=== PATIENT | female | born 1945 | race Caucasian/White ===

== ENCOUNTER → 2016-08-14 | Outpatient (CLI) | payer OTHER ==
[~2016-08-14] MED LIST: APIX1TAB PO; ATRIN6 NAE; CHOL100027 PO; DOFE125C PO; FURO20TA PO; SORB70SO6
== END | disposition home or self-care (01) ==
LOC: C.LABBC 14:18
PROVIDERS: ATTEND Internal Medicine Geriatric Medicine
DX: Z11.59 Encounter for screening for other viral diseases (principal)

== ENCOUNTER → 2016-08-31 | Outpatient (CLI) | payer OTHER | END | disposition home or self-care (01) | LOC: C.PAPS 09:07 | PROVIDERS: ATTEND Obstetrics & Gynecology | DX: Z01.411 Encounter for gynecological examination (general) (routine) with abnormal findings (principal); N95.2 Postmenopausal atrophic vaginitis ==

== ENCOUNTER → 2016-10-23 | Outpatient (CLI) | payer OTHER ==
--- NOTE | 2016-10-23 09:47 | DIAGNOSTIC IMAGING REPORT ---
ULTRASOUND KIDNEYS AND BLADDER CLINICAL HISTORY: Urinary frequency. Renal cyst. COMPARISON STUDY: Abdominal MRI dated 10/19/2015. TECHNIQUE: Real-time, grayscale, and color flow sonography of the kidneys and bladder is performed. Images are reviewed in the transverse and longitudinal planes. FINDINGS: Kidneys: The kidneys demonstrate cortical atrophy an increased echotexture consistent with medical renal disease. The right kidney measures 11.6 x 5.1 x 5.0 cm and the left kidney measures 8.2 x 3.5 x 3.6 cm. There is no hydronephrosis. No shadowing renal calculi are identified. There is a 6.1 cm cyst in the interpolar right kidney which contains a thin internal septation. A subcentimeter cyst is noted in the left kidney. There is no sonographic evidence of solid renal mass. No perinephric fluid is identified. Bladder: The bladder is normal in appearance. Ureteral jets were not identified. IMPRESSION: 1. The kidneys are atrophic and echogenic consistent with medical renal disease. 2. There is no hydronephrosis. 3. The bladder is normal as imaged. 4. There is a 6.0 cm cyst in the interpolar right kidney which contains a thin internal septation. This is similar in appearance to the prior MRI. Electronically signed by: Willam Carlson M.D. 10/23/2016 9:44 AM Dictated Date/Time: 10/23/2016 9:28 AM
== END | disposition home or self-care (01) ==
LOC: C.ULTR 08:49
PROVIDERS: ATTEND Urology
DX: N28.1 Cyst of kidney, acquired (principal); R35.0 Frequency of micturition; N26.1 Atrophy of kidney (terminal)

== ENCOUNTER → 2016-11-24 | Outpatient (CLI) | payer OTHER ==
[2016-11-24 10:42] LABS: HEMATOCRIT 46.2 % (37-47); MEAN CELL VOLUME 95.1 fL (80-100); MEAN CORPUSCULAR HEMOGLOBIN 30.2 pg (25-34); MEAN CORPUSCULAR HGB CONC 31.8 g/dl (32-36); MEAN PLATELET VOLUME 11.7 fL (7.4-10.4); PLATELET COUNT 225 K/uL (130-400); RED BLOOD COUNT 4.86 M/uL (4.2-5.4); WHITE BLOOD COUNT 5.52 K/uL (4.8-10.8)
[2016-11-24 10:50] LABS: URINE TOTAL PROTEIN < 5.0 mg/dl (0-11.9)
[2016-11-24 11:03] LABS: URINE APPEARANCE CLEAR (CLEAR); URINE BILIRUBIN NEG (NEG); URINE COLOR YELLOW; URINE NITRITE NEG (NEG); URINE PH 7.5 (4.5-7.5); URINE SPECIFIC GRAVITY 1.009 (1.000-1.030); UROBILINOGEN NEG (NEG)
[2016-11-24 11:09] LABS: MANUAL MICROSCOPIC REQUIRED? NO; REVIEW REQ? NO
[2016-11-24 11:48] LABS: BLOOD UREA NITROGEN 18 mg/dl (7-18); BUN/CREATININE RATIO 12.7 (10-20); CARBON DIOXIDE 25 mmol/L (21-32); CHLORIDE 109 mmol/L (98-107); CHOLESTEROL 208 mg/dl (0-200); CHOLESTEROL/HDL RATIO 3.3; GLUCOSE 86 mg/dl (70-99); HDL CHOLESTEROL 63 mg/dl; LDL CHOLESTEROL CALCULATED 131 mg/dl; PHOSPHORUS 3.3 mg/dl (2.5-4.9); POTASSIUM 4.5 mmol/L (3.5-5.1); SODIUM 141 mmol/L (136-145); TRIGLYCERIDES 69 mg/dl (0-150); VERY LOW DENSITY LIPOPROT CALC 14 mg/dl
[2016-11-24 14:44] LABS: CALCIUM 9.2 mg/dl (8.5-10.1)
--- NOTE | 2016-11-30 09:26 | CODING QUERY MEDICAL NECESSITY ---
CQSUPPORTING DIAGNOSIS NEEDED A supporting diagnosis is required for the test/procedure performed on this patient in order for us to be reimbursed by the patient's insurance. Please provide a supporting diagnosis for the following test/procedure listed below next to the test name along with your signature. *If there is no additional diagnosis for this patient that would support the following test/procedure please document that below next to the test/procedure. Test(s)/Procedure(s) that require a supporting diagnosis: DOS 11/24/16 VITAMIN B12 TEST Provider Signature: Date: Thank you Aniya Gamino Health Information Management Once completed, please kindly fax back to [phone] For questions please call [phone]
== END | disposition home or self-care (01) ==
LOC: C.LABBC 08:58
PROVIDERS: ATTEND Internal Medicine Nephrology
DX: E55.9 Vitamin D deficiency, unspecified (principal); I12.9 Hypertensive chronic kidney disease with stage 1 through stage 4 chronic kidney disease, or unspecified chronic kidney disease; G62.9 Polyneuropathy, unspecified; N18.3 Chronic kidney disease, stage 3 (moderate); G47.30 Sleep apnea, unspecified; E78.5 Hyperlipidemia, unspecified; I48.91 Unspecified atrial fibrillation; J30.9 Allergic rhinitis, unspecified; D64.9 Anemia, unspecified

== ENCOUNTER → 2016-12-26 | Outpatient (CLI) | payer OTHER ==
--- NOTE | 2016-12-26 14:43 | MAMMOGRAPHY REPORT ---
BILATERAL DIGITAL SCREENING MAMMOGRAM WITH CAD: 12/26/2016 CLINICAL HISTORY: Routine screening. Patient has no complaints. TECHNIQUE: Bilateral CC and MLO views were obtained. Current study was also evaluated with a Compute r Aided Detection (CAD) system. COMPARISON: Comparison is made to exams dated: 12/20/2015 mammogram, 12/10/2014 mammogram, 12/09/2013 ma mmogram, 09/19/2012 mammogram, 09/18/2011 mammogram, and 08/29/2010 mammogram - [facility] er. BREAST COMPOSITION: There are scattered areas of fibroglandular density in both breasts. FINDINGS: There are bilateral punctate microcalcifications, stable compared to prior exams. Minimal vascular calcification in the breasts. No new suspicious mass, architectural distortion or cluster o f microcalcifications is seen. IMPRESSION: ACR BI-RADS CATEGORY 1: NEGATIVE There is no mammographic evidence of malignancy. A 1 year screening mammogram is recommended. The pa tient will receive written notification of the results. Approximately 10% of breast cancers are not detected with mammography. A negative mammographic report should not delay biopsy if a clinically suggestive mass is present. Corrine Stern M.D. ay/:12/26/2016 09:20:45 Patternator: Florence GOLDBERG(R)(M), [facility] letter sent: Normal 1/2 BI-RADS Code: ACR BI-RADS Category 1: Negative
== END | disposition home or self-care (01) ==
LOC: C.MAMM 07:18
PROVIDERS: ATTEND Internal Medicine Geriatric Medicine
DX: Z12.31 Encounter for screening mammogram for malignant neoplasm of breast (principal)

== ENCOUNTER → 2017-07-10 | Outpatient (CLI) | payer OTHER ==
[2017-07-10 10:58] LABS: MANUAL MICROSCOPIC REQUIRED? YES; URINE APPEARANCE CLEAR (CLEAR); URINE COLOR YELLOW; URINE NITRITE NEG (NEG); URINE PH 5.5 (4.5-7.5); UROBILINOGEN NEG (NEG)
[2017-07-10 11:05] LABS: REVIEW REQ? NO; SULFASALICYLIC ACID POS (NEG); URINE BILIRUBIN 2+ (NEG)
[2017-07-10 11:07] LABS: URINE BACTERIA NEG (NEG); URINE RBC 0-4 /hpf (0-4)
== END | disposition home or self-care (01) ==
LOC: C.LABBC 09:01
PROVIDERS: ATTEND Internal Medicine Geriatric Medicine
DX: R35.0 Frequency of micturition (principal)

== ENCOUNTER → 2017-07-24 | Outpatient (CLI) | payer OTHER ==
[2017-07-24 17:01] LABS: BASO % 1.2 %; EOS % 5.8 %; EOS ABS # 0.49 K/uL (0-0.5); HEMATOCRIT 42.7 % (37-47); HEMOGLOBIN 13.8 g/dL (12.0-16.0); IG# 0.03 K/uL (0.00-0.02); LYMPH ABS # 1.78 K/uL (1.2-3.4); MEAN CELL VOLUME 96.8 fL (80-100); MEAN CORPUSCULAR HEMOGLOBIN 31.3 pg (25-34); MEAN CORPUSCULAR HGB CONC 32.3 g/dl (32-36); MEAN PLATELET VOLUME 12.7 fL (7.4-10.4); MONO % 9.8 %; MONO ABS # 0.83 K/uL (0.11-0.59); NEUT % 61.8 %; NEUT ABS # 5.24 K/uL (1.4-6.5); PLATELET COUNT 290 K/uL (130-400); RED CELL DISTRIBUTION WIDTH CV 15.3 % (11.5-14.5); RED CELL DISTRIBUTION WIDTH SD 54.3 fL (36.4-46.3); WHITE BLOOD COUNT 8.47 K/uL (4.8-10.8)
[2017-07-24 17:18] LABS: ALBUMIN 3.4 gm/dl (3.4-5.0); ALT/SGPT 187 U/L (12-78); BLOOD UREA NITROGEN 17 mg/dl (7-18); CARBON DIOXIDE 27 mmol/L (21-32); CREATININE 1.38 mg/dl (0.60-1.20); GLUCOSE 88 mg/dl (70-99); POTASSIUM 4.4 mmol/L (3.5-5.1); SODIUM 137 mmol/L (136-145)
[2017-07-24 17:28] LABS: ALKALINE PHOSPHATASE 239 U/L (45-117); AST/SGOT 111 U/L (15-37); TOTAL PROTEIN 6.9 gm/dl (6.4-8.2)
== END | disposition home or self-care (01) ==
LOC: C.LABBC 14:22
PROVIDERS: ATTEND Internal Medicine Geriatric Medicine
DX: I10 Essential (primary) hypertension (principal); E78.5 Hyperlipidemia, unspecified; N18.3 Chronic kidney disease, stage 3 (moderate); L29.9 Pruritus, unspecified

== ENCOUNTER → 2017-07-25 | Outpatient (CLI) | payer OTHER ==
[2017-07-25 18:21] LABS: HEP C IGG 13 YRS+OLDER_RFLX NEG (NEG)
== END | disposition home or self-care (01) ==
LOC: C.LABBC 15:03
PROVIDERS: ATTEND Internal Medicine Geriatric Medicine
DX: R79.89 Other specified abnormal findings of blood chemistry (principal)

== ENCOUNTER → 2017-07-27 | Outpatient (CLI) | payer OTHER ==
--- NOTE | 2017-07-27 08:47 | DIAGNOSTIC IMAGING REPORT ---
CT OF THE ABDOMEN WITH ORAL CONTRAST CLINICAL HISTORY: Abnormal liver function tests. COMPARISON STUDY: MRI of the abdomen October 19, 2015 and renal ultrasound October 23, 2016. TECHNIQUE: Axial images of the abdomen were obtained without IV contrast. Oral contrast was administered. FINDINGS: Visualized portions lower chest demonstrate moderate cardiomegaly with moderate emphysema. Evaluation of the abdomen is suboptimal given the lack of IV contrast. However, there is no CT evidence for fatty infiltration of the liver in the liver morphology is normal. No hepatic lesions are identified on this unenhanced examination. Borderline dilatation of the common bile duct is unchanged since prior studies dating back to August 07, 2012. Common bile duct measures 7 mm in caliber. There is no intrahepatic biliary ductal dilatation. There is no pancreatic ductal dilatation. Unenhanced images of the spleen, adrenal glands and pancreas are unremarkable. A 5.7 cm water attenuation right renal lesion was shown to reflect a cyst on prior ultrasound. There is marked left renal atrophy. There is no abdominal lymphadenopathy or ascites. Caliber and wall thickness of visualized small and large bowel are normal. No suspicious osseous lesions are present. IMPRESSION: 1. No CT findings to explain elevated liver function tests on unenhanced exam. 2. No significant biliary or pancreatic ductal dilatation. Top normal caliber common bile duct which is unchanged. 3. Ectatic abdominal aorta, measuring 2.9 cm. 4. 5.7 cm right renal cyst. Left renal atrophy. Electronically signed by: Richard Grigsby M.D. 07/27/2017 8:46 AM Dictated Date/Time: 07/27/2017 8:31 AM
== END | disposition home or self-care (01) ==
LOC: C.CTS 07:43
PROVIDERS: ATTEND Internal Medicine Geriatric Medicine
DX: R79.89 Other specified abnormal findings of blood chemistry (principal); N28.1 Cyst of kidney, acquired

== ENCOUNTER → 2017-08-13 | Outpatient (CLI) | payer OTHER ==
[2017-08-13 16:56] LABS: ALBUMIN 3.6 gm/dl (3.4-5.0); ALT/SGPT 30 U/L (12-78); AST/SGOT 19 U/L (15-37); BLOOD UREA NITROGEN 16 mg/dl (7-18); CALCIUM 9.2 mg/dl (8.5-10.1); CARBON DIOXIDE 27 mmol/L (21-32); CREATININE 1.39 mg/dl (0.60-1.20); GLUCOSE 158 mg/dl (70-99); POTASSIUM 4.3 mmol/L (3.5-5.1); SODIUM 136 mmol/L (136-145)
[2017-08-13 16:59] LABS: ALKALINE PHOSPHATASE 101 U/L (45-117)
== END | disposition home or self-care (01) ==
LOC: C.LABBC 13:35
PROVIDERS: ATTEND Internal Medicine Geriatric Medicine
DX: R79.89 Other specified abnormal findings of blood chemistry (principal)

== ENCOUNTER 2017-08-21 09:18 | Emergency (ER) | payer OTHER ==
[~2017-08-21] VITALS: Ht 162.6 cm; Wt 53.0 kg
[2017-08-21 09:20] VITALS: TEMP 36.3
[2017-08-21] MEDS ORDERED: SODIUM CHLORIDE 0.9% 500ML 500 ML IV STA (09:39)
[2017-08-21 09:55] VITALS: Ht 162.6 cm; Wt 53.0 kg
--- NOTE | 2017-08-21 10:12 | EMERGENCY ROOM VISIT NOTE ---
History Report prepared by Jeanne: Brittany Carrillo Under the Supervision of: Dr. Cy Nielsen D.O. First contact with patient: 09:35 Chief Complaint: CARDIAC ASSESSMENT Stated Complaint: FAST HEART RATE Nursing Triage Summary: pt to the ED with c/o lightheadedness weakness and fast heart beat started yesterday and thinks she is in a fib hx of a fib and "Dr cardenas usually cardioverts pt" c/o pain in left arm but non now, no chest pain + SOB History of Present Illness The patient is a 72 year old female who presents to the Emergency Room with complaints of intermittent dizziness and a rapid heart beat beginning a couple days ago. She states she feels like shes has been in "a-fib for about two days" . The patient has a history of being cardioverted. Presently, she denies any chest pain or shortness of breath. The patient follows up with Dr.. Cardenas- Cardiology. She saw Dr. Cardenas a week ago and was put on a high blood pressure medication. She was last cardioverted a year ago. The patient wears a CPAP at night. She states she is going to be following up with a sleep specialist from [facility]. The patient states she had bacterial hepatitis a month ago and was put on antibiotics for it. The patient is on eliquis twice a day, Tikosyn, and Lasix. Source of History: patient Onset: a couple days ago Position: other (generalized) Quality: other (lightheadedness) Timing: constant Associated Symptoms: No chest pain, No SOB Review of Systems See HPI for pertinent positives & negatives. A total of 10 systems reviewed and were otherwise negative. Past Medical & Surgical Medical Problems: (1) ACUTE RENAL FAILURE, UNSPECIFIED (2) Atrial fibrillation (3) cervical cancer (4) Chronic obstructive lung disease (5) CONGESTIVE HEART FAILURE NOS (6) CORONARY ATHEROSCLEROSIS OF [place] CORONARY VESSEL (7) ELEVATED INR (8) Hypertension (9) IRRITABLE BOWEL SYNDROME (10) Peripheral vascular disease (11) PTOSIS OF EYELID NOS (12) TOBACCO USE DISORDER (13) Total abdominal hysterectomy with bilateral salpingo-oophorectomy (14) valvular heart disease Family History Cancer Heart disease Hypertension Social History Smoking Status: Former Smoker Alcohol Use: none Marital Status: Occupation Status: retired Current/Historical Medications Scheduled Apixaban (Eliquis), 2.5 MG PO BID Cholecalciferol (Vitamin D 1000 Unit), 1,000 INTER.UNIT PO DAILY Dofetilide (Tikosyn), 250 MCG PO BID Furosemide (Lasix), 20 MG PO Q2D Hydralazine HCl (Hydralazine HCl), 10 MG PO BID Scheduled PRN Ipratropium [place] (Ipratropium [place]), 2 SPRAYS ROSA ELENA QID PRN for Nasal Congestion Sorbitol (Laxative) (Sorbitol), for Constipation Allergies Coded Allergies: Ciprofloxacin (Verified Allergy, Severe, ANAPHYLAXIS, 08/21/17) edema face and hands Amiodarone (Verified Allergy, Mild, Wheezing, 08/21/17) Nitrofurantoin (Verified Allergy, Mild, N/V, pt also noted irregular HR, ) Bacitracin (Verified Allergy, Unknown, SWELLING AND ITCHING, 08/21/17) Dabigatran (Verified Allergy, Unknown, DIFFICULTY BREATHING, DIZZINESS, 08/21/17) PER [facility] Metoprolol (Verified Allergy, Unknown, DIFFCULTY BREATHING, DIZZINESS, 08/21) PER [facility] Milk (Verified Allergy, Unknown, Milk products, 08/21/17) Atorvastatin (Verified Adverse Reaction, Intermediate, MUSCLE PAIN, 08/21/17 ) PER [facility] Rosuvastatin (Verified Adverse Reaction, Intermediate, MUSCLE PAIN, 08/21/17 ) PER [facility] Sulfa Antibiotics (Verified Adverse Reaction, Intermediate, SWELLING OF THE ANKLES, 08/21/17) PER [facility] Physical Exam Vital Signs Date Time Temp Pulse Resp B/P (MAP) Pulse Ox O2 Delivery O2 Flow Rate FiO2 08/21/17 14:20 62 16 140/78 94 08/21/17 13:31 56 16 155/67 97 Room Air 08/21/17 13:13 58 08/21/17 13:09 61 20 143/71 97 Room Air 08/21/17 12:21 60 19 170/69 93 Room Air 08/21/17 12:03 59 21 171/85 97 Nasal Cannula 2.0 08/21/17 10:55 116 16 130/93 97 Room Air 08/21/17 09:50 115 08/21/17 09:30 97 Room Air 08/21/17 09:30 97 Room Air 08/21/17 09:20 36.3 101 18 104/76 96 Physical Exam GENERAL: Patient is awake, alert, and in no acute distress. Patient is resting comfortably and showing no signs of anxiety EYES: The conjunctivae are clear. The pupils are round and reactive. EARS, NOSE, MOUTH AND THROAT: The nose is without any evidence of any deformity. Mucous membranes are moist tongue is midline NECK: The neck is nontender and supple. RESPIRATORY: Normal respiratory effort is noted there is no evidence of wheezing rhonchi or rales CARDIOVASCULAR: Heart sounds tachycardic and irregular no definite murmur noted. GASTROINTESTINAL: The abdomen is soft. Bowel sounds are present in all quadrants. Abdomen is nontender MUSCULOSKELETAL/EXTREMITIES: There is no evidence of gross deformity full range of motion is noted in the hips and shoulders SKIN: There is no obvious evidence of any rash. There are no petechiae, pallor or cyanosis noted. NEUROLOGIC: Patient is awake alert and oriented x3 Medical Decision & Procedures ER Provider Diagnostic Interpretation: Radiology results as stated below per my review and radiologist interpretation: CHEST ONE VIEW PORTABLE FINDINGS: Mild stable cardiomegaly. Prior median sternotomy. Lungs are clear. Diaphragms are smooth. IMPRESSION: No acute process. Mild stable cardiomegaly. The above report was generated using voice recognition software. It may contain grammatical, syntax or spelling errors. Electronically signed by: Judson Hernandez M.D. Laboratory Results 08/21/17 10:20 Red Blood Count 4.90, Mean Corpuscular Volume 94.5, Mean Corpuscular Hemoglobin 31.6, Mean Corpuscular Hemoglobin Concent 33.5, Mean Platelet Volume 11.6, Neutrophils (%) (Auto) 59.3, Lymphocytes (%) (Auto) 27.1, Monocytes (%) (Auto) 9.8, Eosinophils (%) (Auto) 1.9, Basophils (%) (Auto) 1.7, Neutrophils # (Auto) 3.40, Lymphocytes # (Auto) 1.55, Monocytes # (Auto) 0.56, Eosinophils # (Auto) 0.11, Basophils # (Auto) 0.10 08/21/17 10:20 Test 08/21/17 10:20 White Blood Count 5.73 K/uL (4.8-10.8) Red Blood Count 4.90 M/uL (4.2-5.4) Hemoglobin 15.5 g/dL (12.0-16.0) Hematocrit 46.3 % (37-47) Mean Corpuscular Volume 94.5 fL (80-100) Mean Corpuscular Hemoglobin 31.6 pg (25-34) Mean Corpuscular Hemoglobin Concent 33.5 g/dl (32-36) Platelet Count 241 K/uL (130-400) Mean Platelet Volume 11.6 fL (7.4-10.4) Neutrophils (%) (Auto) 59.3 % Lymphocytes (%) (Auto) 27.1 % Monocytes (%) (Auto) 9.8 % Eosinophils (%) (Auto) 1.9 % Basophils (%) (Auto) 1.7 % Neutrophils # (Auto) 3.40 K/uL (1.4-6.5) Lymphocytes # (Auto) 1.55 K/uL (1.2-3.4) Monocytes # (Auto) 0.56 K/uL (0.11-0.59) Eosinophils # (Auto) 0.11 K/uL (0-0.5) Basophils # (Auto) 0.10 K/uL (0-0.2) RDW Standard Deviation 49.2 fL (36.4-46.3) RDW Coefficient of Variation 14.2 % (11.5-14.5) Immature Granulocyte % (Auto) 0.2 % Immature Granulocyte # (Auto) 0.01 K/uL (0.00-0.02) Prothrombin Time 11.2 SECONDS (9.0-12.0) Prothromb Time International Ratio 1.1 (0.9-1.1) Activated Partial Thromboplast Time 28.9 SECONDS (21.0-31.0) Partial Thromboplastin Ratio 1.1 Anion Gap 8.0 mmol/L (3-11) Est Creatinine Clear Calc Drug Dose 28.6 ml/min Estimated GFR () 39.5 Estimated GFR (Non- 34.1 BUN/Creatinine Ratio 8.1 (10-20) Calcium Level 9.7 mg/dl (8.5-10.1) Magnesium Level 2.3 mg/dl (1.8-2.4) Total Bilirubin 1.1 mg/dl (0.2-1) Aspartate Amino Transf (AST/SGOT) 19 U/L (15-37) Alanine Aminotransferase (ALT/SGPT) 28 U/L (12-78) Alkaline Phosphatase 102 U/L (45-117) Troponin I < 0.015 ng/ml (0-0.045) Total Protein 7.5 gm/dl (6.4-8.2) Albumin 4.1 gm/dl (3.4-5.0) Globulin 3.4 gm/dl (2.5-4.0) Albumin/Globulin Ratio 1.2 (0.9-2) Thyroid Stimulating Hormone (TSH) 1.640 uIu/ml (0.300-4.500) Laboratory results per my review. Medications Administered Medications (Trade) Dose Ordered Sig/Brenda Route Start Time Stop Time Status Last Admin Dose Admin Sodium Chloride 500 ml @ 999 mls/hr Q31M STAT IV 08/21/17 09:39 08/21/17 10:09 DC 08/21/17 09:39 999 MLS/HR ECG Indication: palpitations Rate (beats per minute): 114 Rhythm: other (Multi focal atrial tachycardia) Findings: ST depression, other (no PVC) Comparison ECG Date: 04/28/16 Change: Changes new. REPEAT EKG: sinus bradycardia 58 bpm, no ectopy, no acute ST segment abnormalities. EKGs interpreted by me. ED Course 0938: The patient was evaluated in room B12B. A complete history and physical examination were performed. 0939: Ordered NSS 500 ml @ 999 mls/hr IV 1138: I discussed the patient's case with Dr. DavisCardiology. He said to talk to Dr. Farris because he is in the ED. 1140: I updated the patient on treatment plan. 1142: I discussed the patient's case with Dr. MarioCardiology. He will come evaluate the patient. He said we can cardiovert the patient here in the ED. 1238: I updated the patient on new EKG results. 1335: Upon reevaluation, the patient is resting comfortably. I discussed the results and treatment plan with her. She verbalized agreement of the treatment plan. The patient was discharged home. Medical Decision Differential diagnosis: Etiologies such as premature contractions, electrolyte abnormality, cardiac dysrhythmia, thyroid dysfunction, pulmonary embolism, infection, gastrointestinal, as well as others were entertained. Nursing notes reviewed. The patient is a 72-year-old female who presented to the emergency department for an evaluation of palpitations. Initially she was found to be in rapid atrial fibrillation. I discussed the patient's laboratory and radiographic studies with her. She was treated with IV fluids. I discussed her case with her primary senior director as well as the covering senior director for that group. We were initially preparing to cardiovert the patient. She is on chronic anticoagulation and is had this procedure in the past and tolerated it well. While we're awaiting to do the procedure the patient converted into sinus rhythm. She was still evaluated by the senior director but did not require any further intervention. The patient was started on a different blood pressure medication by the senior director. She was encouraged to rest and avoid any straining his activity. She was also encouraged to continue all medications as prescribed and return to the emergency department immediately if symptoms change worsen or the need arises. Medication Reconcilliation Current Medication List: was personally reviewed by me Blood Pressure Screening Patient's blood pressure: Elevated blood pressure Blood pressure disposition: Referred to PCP Consults Time Called: 1133 Consulting Physician: Dr. Persaud Returned Call: 1133 I discussed the patient's case with Dr. Persaud. He said to talk to Dr. Farris because he is in the ED. Additional Consults: Time Called: 1140 Consulted Physician: Dr. Teague Returned Call: 1149 Additional Comments: I discussed the patient's case with Dr. Teague. He will come evaluate the patient. He said we can cardiovert the patient here in the ED. Impression Primary Impression: Rapid atrial fibrillation Additional Impression: Palpitations Scribe Attestation The scribe's documentation has been prepared under my direction and personally reviewed by me in its entirety. I confirm that the note above accurately reflects all work, treatment, procedures, and medical decision making performed by me. Departure Information Dispostion Home / Self-Care Prescriptions Hydralazine HCl (Hydralazine HCl) 10 Mg Tab 10 MG PO BID, #60 TABS 3 Refills Prov: Mihir Farris D.O. 08/21/17 Referrals Khadar Tutlte M.D. (PCP) Forms IMPORTANT VISIT INFORMATION Patient Instructions Atrial Fibrillation, My [facility] Additional Instructions Continue all medications as prescribed. Call your family as well as her primary senior director schedule follow-up appointment. Return to the emergency department immediately if symptoms change worsen or the need arises. Problem Qualifiers
--- NOTE | 2017-08-21 10:31 | DIAGNOSTIC IMAGING REPORT ---
CHEST ONE VIEW PORTABLE CLINICAL HISTORY: EVALUATE RESPIRATORY DISTRESS.DYSPNEA dyspnea COMPARISON STUDY: 04/07/2016 FINDINGS: Mild stable cardiomegaly. Prior median sternotomy. Lungs are clear. Diaphragms are smooth. IMPRESSION: No acute process. Mild stable cardiomegaly. The above report was generated using voice recognition software. It may contain grammatical, syntax or spelling errors. Electronically signed by: Judson Hernandez M.D. 08/21/2017 10:30 AM Dictated Date/Time: 08/21/2017 10:29 AM
[2017-08-21 10:59] LABS: BASO % 1.7 %; EOS % 1.9 %; EOS ABS # 0.11 K/uL (0-0.5); HEMATOCRIT 46.3 % (37-47); HEMOGLOBIN 15.5 g/dL (12.0-16.0); IG# 0.01 K/uL (0.00-0.02); LYMPH % 27.1 %; LYMPH ABS # 1.55 K/uL (1.2-3.4); MEAN CELL VOLUME 94.5 fL (80-100); MEAN CORPUSCULAR HEMOGLOBIN 31.6 pg (25-34); MEAN CORPUSCULAR HGB CONC 33.5 g/dl (32-36); MEAN PLATELET VOLUME 11.6 fL (7.4-10.4); MONO % 9.8 %; MONO ABS # 0.56 K/uL (0.11-0.59); NEUT % 59.3 %; PLATELET COUNT 241 K/uL (130-400); RED CELL DISTRIBUTION WIDTH CV 14.2 % (11.5-14.5); RED CELL DISTRIBUTION WIDTH SD 49.2 fL (36.4-46.3); WHITE BLOOD COUNT 5.73 K/uL (4.8-10.8)
[2017-08-21 11:07] LABS: ALBUMIN 4.1 gm/dl (3.4-5.0); ALT/SGPT 28 U/L (12-78); BLOOD UREA NITROGEN 12 mg/dl (7-18); CALCIUM 9.7 mg/dl (8.5-10.1); CARBON DIOXIDE 26 mmol/L (21-32); CREATININE 1.53 mg/dl (0.60-1.20); GLUCOSE 77 mg/dl (70-99); POTASSIUM 3.7 mmol/L (3.5-5.1); SODIUM 139 mmol/L (136-145)
[2017-08-21 11:08] LABS: INR 1.1 (0.9-1.1); PTT PATIENT 28.9 SECONDS (21.0-31.0)
[2017-08-21] MEDS ORDERED: FURO-85 PO (11:10)
[2017-08-21 11:18] LABS: ALKALINE PHOSPHATASE 102 U/L (45-117); AST/SGOT 19 U/L (15-37); TOTAL PROTEIN 7.5 gm/dl (6.4-8.2)
[2017-08-21] MEDS ORDERED: PROPOFOL IV EMULSION 10 MG/ML 100 ML VIAL IV PRN (12:00)
[2017-08-21 12:03] VITALS: BP 171/85; PULSE 59; O2SAT 97
[2017-08-21] MEDS ORDERED: HYDR-2977 PO (13:49)
--- NOTE | 2017-08-21 14:08 | Cardiology Consultation ---
Cardiology Consultation Date of Consultation: Aug 21, 2017 History of Present Illness Lori Dasilva is a 72 year old female seen in cardiology consultation per the request of Dr. Nielsen for evaluation of atrial fibrillation and hypertension. The patient has a history of recurrent symptomatic paroxysmal atrial fibrillation. She presented to the emergency room earlier this morning complaining of acute onset of palpitations that she noted when she woke up from sleeping. Also she notes that she has recently had elevated blood pressure. She had recently discussed this with Dr. Cardenas, her primary pig farmer, and a new blood pressure medication was added. She was placed on a alpha-enrique due to intolerances of multiple past medications. She states that after taking the medication for 2 days she did not tolerate it due to several vague nonspecific complaints. She is very concerned about her blood pressure. She has a lot of stress at home. Her was just released from the hospital after having been hospitalized for an acute illness over the last few days. On arrival to the hospital emergency room this morning she is known to have atrial fibrillation with elevated ventricular rate. Chest x-ray and blood work were within normal limits. She has not missed any recent doses of her Eliquis or Tikosyn. I discussed the case with Dr. Nielsen by telephone and we had agreed to keep her nothing by mouth and to proceed with direct-current cardioversion. However by the time I arrived to the emergency room, it was noted that she had spontaneously converted back to sinus rhythm at 11:47 AM. Currently telemetry reveals sinus rhythm in the range of 58-65 bpm with occasional premature atrial contractions. A repeat EKG performed while she was in sinus rhythm on 08/21/17 at 12:12 PM reveals sinus bradycardia 50 bpm with occasional PACs and nonspecific ST abnormality unchanged compared to prior. Past Medical/Surgical History Problem List: Medical Problems: (1) ACUTE RENAL FAILURE, UNSPECIFIED (2) Atrial fibrillation (3) cervical cancer (4) Chronic obstructive lung disease (5) CONGESTIVE HEART FAILURE NOS (6) CORONARY ATHEROSCLEROSIS OF [place] CORONARY VESSEL (7) ELEVATED INR (8) Hypertension (9) IRRITABLE BOWEL SYNDROME (10) Peripheral vascular disease (11) PTOSIS OF EYELID NOS (12) TOBACCO USE DISORDER (13) Total abdominal hysterectomy with bilateral salpingo-oophorectomy (14) valvular heart disease History Past Medical History: 1. History of paroxysmal atrial fibrillation with past unsuccessful rhythm control strategy utilizing sotalol prompting admission and transition to Tikosyn therapy in April 2016. Chronic obstructive lung disease with amiodarone-induced worsening lung disease 3. History of redo frequency oblation of atrial fibrillation in September 2013 with incomplete response, and procedures compensated by atrial perforation with acute And not requiring surgical repair 4. Stage III chronic kidney disease 5. Hypertension 6. Cardiac catheterization in 2010 without obstructive disease 7. Atherosclerotic peripheral vascular disease status post right iliac artery stenting in 2004 Past Surgical History: Surgical history as noted above Social History: Patient is a nonsmoker since 2011. Lives with her Family History: History of coronary artery disease in her father Review Of Systems See above for pertinent positives & negatives. A total of 10 systems reviewed and were otherwise negative. Allergies Coded Allergies: Ciprofloxacin (Verified Allergy, Severe, ANAPHYLAXIS, 08/21/17) edema face and hands Amiodarone (Verified Allergy, Mild, Wheezing, 08/21/17) Nitrofurantoin (Verified Allergy, Mild, N/V, pt also noted irregular HR, ) Bacitracin (Verified Allergy, Unknown, SWELLING AND ITCHING, 08/21/17) Dabigatran (Verified Allergy, Unknown, DIFFICULTY BREATHING, DIZZINESS, 08/21/17) [facility] Metoprolol (Verified Allergy, Unknown, DIFFCULTY BREATHING, DIZZINESS, 08/21) PER [facility] Milk (Verified Allergy, Unknown, Milk products, 08/21/17) Atorvastatin (Verified Adverse Reaction, Intermediate, MUSCLE PAIN, 08/21/17 ) [facility] Rosuvastatin (Verified Adverse Reaction, Intermediate, MUSCLE PAIN, 08/21/17 ) [facility] Sulfa Antibiotics (Verified Adverse Reaction, Intermediate, SWELLING OF THE ANKLES, 08/21/17) [facility] Medications Reported Home Medications Medications Dose Route/Sig Max Daily Dose Days Date Category Hydralazine HCl 10 Mg Tab 10 Mg PO BID 08/21/17 Rx Lasix (Furosemide) 20 Mg Tab 20 Mg PO Q2D 08/21/17 Reported Tikosyn (Dofetilide) 125 Mcg Cap 250 Mcg PO BID 04/28/16 Rx Ipratropium [place] 75 Sprays/15 Ml [place] 2 Sprays ROSA ELENA QID PRN 12/16/15 Reported Eliquis (Apixaban) 2.5 Mg Tab 2.5 Mg PO BID 12/16/15 Reported Sorbitol (Sorbitol (Laxative)) 70 % Silva PRN 04/09/14 Reported Vitamin D 1000 Unit (Cholecalciferol) 1,000 Unit Cap 1,000 Inter.unit PO DAILY 12/27/11 Reported Physical Exam Vital Signs (Last 8hrs): Last 8 Hrs Date Time Temp Pulse Resp B/P (MAP) Pulse Ox O2 Delivery O2 Flow Rate FiO2 08/21/17 13:31 56 16 155/67 97 Room Air 08/21/17 13:13 58 08/21/17 13:09 61 20 143/71 97 Room Air 08/21/17 12:21 60 19 170/69 93 Room Air 08/21/17 12:03 59 21 171/85 97 Nasal Cannula 2.0 08/21/17 10:55 116 16 130/93 97 Room Air 08/21/17 09:50 115 08/21/17 09:30 97 Room Air 08/21/17 09:30 97 Room Air 08/21/17 09:20 36.3 101 18 104/76 96 General Appearance: Alert and Oriented x3. NAD. Head: Normocephalic Atraumatic. Eyes: PERRLA, EOMI, conjunctiva and sclera clear Neck: Supple. No carotid bruits noted. No JVD. No HJD. Respiratory: Breath sounds clear to auscultation bilaterally. No w/r/r. Cardiovascular: Reg rate and rhythm. S1 and S2 noted. No murmurs, rubs, gallops. PMI non displace. Abdomen: Normal bowel sounds, soft nontender. no abdominal bruits. Extremities: No edema, no clubbing or cyanosis. distal pulses 2/4 bilaterally. Neuro: No focal deficits. Psychiatric: Normal affect. Data Last 24 Hours Test 08/21/17 10:20 White Blood Count 5.73 K/uL Red Blood Count 4.90 M/uL Hemoglobin 15.5 g/dL Hematocrit 46.3 % Mean Corpuscular Volume 94.5 fL Mean Corpuscular Hemoglobin 31.6 pg Mean Corpuscular Hemoglobin Concent 33.5 g/dl Platelet Count 241 K/uL Mean Platelet Volume 11.6 fL Neutrophils (%) (Auto) 59.3 % Lymphocytes (%) (Auto) 27.1 % Monocytes (%) (Auto) 9.8 % Eosinophils (%) (Auto) 1.9 % Basophils (%) (Auto) 1.7 % Neutrophils # (Auto) 3.40 K/uL Lymphocytes # (Auto) 1.55 K/uL Monocytes # (Auto) 0.56 K/uL Eosinophils # (Auto) 0.11 K/uL Basophils # (Auto) 0.10 K/uL RDW Standard Deviation 49.2 fL RDW Coefficient of Variation 14.2 % Immature Granulocyte % (Auto) 0.2 % Immature Granulocyte # (Auto) 0.01 K/uL Prothrombin Time 11.2 SECONDS Prothromb Time International Ratio 1.1 Activated Partial Thromboplast Time 28.9 SECONDS Partial Thromboplastin Ratio 1.1 Sodium Level 139 mmol/L Potassium Level 3.7 mmol/L Chloride Level 105 mmol/L Carbon Dioxide Level 26 mmol/L Anion Gap 8.0 mmol/L Blood Urea Nitrogen 12 mg/dl Creatinine 1.53 mg/dl Est Creatinine Clear Calc Drug Dose 28.6 ml/min Estimated GFR () 39.5 Estimated GFR (Non- 34.1 BUN/Creatinine Ratio 8.1 Random Glucose 77 mg/dl Calcium Level 9.7 mg/dl Magnesium Level 2.3 mg/dl Total Bilirubin 1.1 mg/dl Aspartate Amino Transf (AST/SGOT) 19 U/L Alanine Aminotransferase (ALT/SGPT) 28 U/L Alkaline Phosphatase 102 U/L Troponin I < 0.015 ng/ml Total Protein 7.5 gm/dl Albumin 4.1 gm/dl Globulin 3.4 gm/dl Albumin/Globulin Ratio 1.2 Thyroid Stimulating Hormone (TSH) 1.640 uIu/ml EKG and telemetry findings as noted above in history of present illness Assessment & Plan Impression: 72-year-old female 1. Recurrent paroxysmal atrial fibrillation, presented with A. fib RVR, spontaneously converted to sinus rhythm 11:47 AM as documented on telemetry, with stable post conversion EKG findings. 2. History of hypertension, intolerance to multiple medications Recommendations: The patient is to continue her Eliqus for stroke prophylaxis as well as Tikosyn. The doses of these medications have been adjusted appropriately for her kidney function and should continue her chronic doses. She is very concerned about her blood pressure. She has been on multiple medications for blood pressure with past intolerances. I discussed her blood pressure with her primary pig farmer, Dr. Cardenas, by telephone who reviewed her chart and we agreed to proceed with a trial of hydralazine 10 mg by mouth twice a day. This is not atypical first line hypertension medication, and of course typically it is best utilized as a 3 times per day or 4 times per day medication, however given her past intolerances to multiple medications will start with low-dose and only administer 2 times per day until we establish tolerance. She should keep her outpatient appointment scheduled. A paper prescription for 30 day supply of hydralazine with 3 refills was provide by the undersigned and handed to the patient.
[2017-08-21 14:20] VITALS: BP 140/78; PULSE 62; O2SAT 94
== END 2017-08-21 14:20 | disposition home or self-care (01) ==
LOC: C.EDB 09:19
DX: I48.91 Unspecified atrial fibrillation (principal); R00.2 Palpitations; R00.0 Tachycardia, unspecified; J44.9 Chronic obstructive pulmonary disease, unspecified; I50.9 Heart failure, unspecified; I11.0 Hypertensive heart disease with heart failure; I25.10 Atherosclerotic heart disease of native coronary artery without angina pectoris; I73.9 Peripheral vascular disease, unspecified; I38 Endocarditis, valve unspecified; Z87.891 Personal history of nicotine dependence; Z79.02 Long term (current) use of antithrombotics/antiplatelets; Z99.89 Dependence on other enabling machines and devices; Z88.1 Allergy status to other antibiotic agents; Z88.8 Allergy status to other drugs, medicaments and biological substances; Z91.011 Allergy to milk products; Z88.2 Allergy status to sulfonamides; Z82.49 Family history of ischemic heart disease and other diseases of the circulatory system

== ENCOUNTER 2017-09-24 13:06 | Inpatient (IN) | payer OTHER ==
[~2017-09-24] VITALS: Ht 157.5 cm; Wt 54.7 kg
[~2017-09-24 13:06] MED LIST changes: -APIX1TAB PO; -ATRIN6 NAE; +FURO-85 PO; -FURO20TA PO; +HYDR-2977 PO; -SORB70SO6
[2017-09-24] MEDS ORDERED: SODIUM CHLORIDE 0.9% 500ML 500 ML IV STA (13:50)
--- NOTE | 2017-09-24 13:52 | EMERGENCY ROOM VISIT NOTE ---
History Report prepared by Jeanne: Trey Garcia Under the Supervision of: Dr. Cy Nielsen D.O. First contact with patient: 13:31 Chief Complaint: CARDIAC ASSESSMENT Stated Complaint: SHORT OF BREATH, LIGHT HEADED, DIZZY History of Present Illness The patient is a 72 year old female who presents to the Emergency Room with complaints of persistent dizziness that began one hour ago. She went to the grocery store and became dizzy. She states that she felt like she was going to pass out, though she grabbed hold of the cart and did not pass out. She denies any falls or head injures. She states that she felt lightheaded last night. She notes waking up with sweating this morning. She notes diarrhea and leg swelling up to her knees. She denies any fevers. She states that she has been eating and drinking well. She has a history of atrial fibrillation. She takes Eliquis and Lasix. Her primary mechanic's assistant is Dr. Cardenas. She notes the last time she was seen by her mechanic's assistant was in July 2017. She states this was the last time she had atrial fibrillation. She has a history of bacterial hepatitis two months ago. She has taken her medications today, with the exception of the Lasix. Source of History: patient Onset: one hour ago Position: other (global) Quality: other (dizziness) Timing: other (persistent) Associated Symptoms: + diaphoresis, + diarrhea, No fevers Note: Notes lightheadedness and bilateral leg swelling. She denies any head injuries or falls. Review of Systems See HPI for pertinent positives & negatives. A total of 10 systems reviewed and were otherwise negative. Past Medical & Surgical Medical Problems: (1) ACUTE RENAL FAILURE, UNSPECIFIED (2) Atrial fibrillation (3) Atrial fibrillation with RVR (4) cervical cancer (5) Chronic obstructive lung disease (6) Chronic renal disease (7) Congestive heart failure (8) CONGESTIVE HEART FAILURE NOS (9) CORONARY ATHEROSCLEROSIS OF [place] CORONARY VESSEL (10) Diarrhea (11) ELEVATED INR (12) Hypertension (13) Hypoxia (14) IRRITABLE BOWEL SYNDROME (15) Peripheral vascular disease (16) PTOSIS OF EYELID NOS (17) TOBACCO USE DISORDER (18) Total abdominal hysterectomy with bilateral salpingo-oophorectomy (19) valvular heart disease Family History Cancer Heart disease Hypertension Social History Smoking Status: Former Smoker Smokeless Tobacco Use: No Alcohol Use: none Drug Use: none Marital Status: Housing Status: lives with family Occupation Status: retired Current/Historical Medications Scheduled Apixaban (Eliquis), 2.5 MG PO BID Cholecalciferol (Vitamin D 1000 Unit), 1,000 INTER.UNIT PO DAILY Dofetilide (Tikosyn), 250 MCG PO BID Furosemide (Lasix), 20 MG PO Q2D Hydralazine Hcl (Apresoline), 10 MG PO BID Scheduled PRN Ipratropium [place] (Ipratropium [place]), 2 SPRAYS ROSA ELENA QID PRN for Nasal Congestion Sorbitol (Laxative) (Sorbitol), for Constipation Allergies Coded Allergies: Ciprofloxacin (Verified Allergy, Severe, ANAPHYLAXIS, 09/24/17) edema face and hands Amiodarone (Verified Allergy, Mild, Wheezing, 09/24/17) Nitrofurantoin (Verified Allergy, Mild, N/V, pt also noted irregular HR, ) Bacitracin (Verified Allergy, Unknown, SWELLING AND ITCHING, 09/24/17) Dabigatran (Verified Allergy, Unknown, DIFFICULTY BREATHING, DIZZINESS, 07/02) [facility] Metoprolol (Verified Allergy, Unknown, DIFFCULTY BREATHING, DIZZINESS, 07/02) [facility] Milk (Verified Allergy, Unknown, Milk products, 09/24/17) Terazosin (Unverified Allergy, Unknown, dizzy and lightheaded, 09/24/17) Atorvastatin (Verified Adverse Reaction, Intermediate, MUSCLE PAIN, ) [facility] Rosuvastatin (Verified Adverse Reaction, Intermediate, MUSCLE PAIN, ) [facility] Sulfa Antibiotics (Verified Adverse Reaction, Intermediate, SWELLING OF THE ANKLES, 09/24/17) [facility] Physical Exam Vital Signs Date Time Temp Pulse Resp B/P (MAP) Pulse Ox O2 Delivery O2 Flow Rate FiO2 09/24/17 18:09 99 09/24/17 17:40 120 18 136/93 95 Room Air 09/24/17 17:30 116 17 152/92 98 Room Air 09/24/17 17:22 159/118 98 Room Air 09/24/17 17:01 154/107 97 Room Air 09/24/17 16:31 20 154/95 97 Room Air 09/24/17 16:05 125 17 143/96 98 Room Air 09/24/17 14:30 114 21 146/98 95 Room Air 09/24/17 14:17 97 Room Air 09/24/17 14:00 105 24 136/99 94 Room Air 09/24/17 13:50 Room Air 09/24/17 13:44 127 09/24/17 13:39 100 Room Air 09/24/17 13:24 36.9 125 20 146/97 99 Room Air Physical Exam GENERAL: Patient is awake, alert, and in no acute distress. Patient is resting comfortably and showing no signs of anxiety EYES: The conjunctivae are clear. The pupils are round and reactive. EARS, NOSE, MOUTH AND THROAT: The nose is without any evidence of any deformity. Mucous membranes are moist tongue is midline NECK: The neck is nontender and supple. RESPIRATORY: Normal respiratory effort is noted there is no evidence of wheezing rhonchi or rales CARDIOVASCULAR: Tachycardic rate and irregular rhythm noted, no definite murmur noted to auscultation. GASTROINTESTINAL: The abdomen is soft. Bowel sounds are present in all quadrants. Abdomen is nontender MUSCULOSKELETAL/EXTREMITIES: There is no evidence of gross deformity full range of motion is noted in the hips and shoulders SKIN: Trace pedal edema bilaterally. NEUROLOGIC: Patient is awake alert and oriented x3. Medical Decision & Procedures ER Provider Diagnostic Interpretation: Radiology results as stated below per my review and radiologist interpretation: CHEST ONE VIEW PORTABLE CLINICAL HISTORY: EVALUATE RESPIRATORY DISTRESS.DYSPNEA COMPARISON STUDY: Chest radiograph August 21, 2017. FINDINGS: There are median sternotomy wires. No pneumothorax or pleural effusion is noted. There is no consolidation or evidence for pulmonary edema. The appearance of the chest is unchanged. Moderate cardiomegaly is unchanged. IMPRESSION: No acute cardiopulmonary findings. Electronically signed by: Richard Grigsby M.D. 09/24/2017 2:41 PM Dictated Date/Time: 09/24/2017 2:41 PM Laboratory Results 09/24/17 13:35 Red Blood Count 4.87, Mean Corpuscular Volume 93.4, Mean Corpuscular Hemoglobin 31.2, Mean Corpuscular Hemoglobin Concent 33.4, Mean Platelet Volume 11.3, Neutrophils (%) (Auto) 64.0, Lymphocytes (%) (Auto) 25.1, Monocytes (%) (Auto) 7.7, Eosinophils (%) (Auto) 1.7, Basophils (%) (Auto) 1.1, Neutrophils # (Auto) 4.46, Lymphocytes # (Auto) 1.75, Monocytes # (Auto) 0.54, Eosinophils # (Auto) 0.12, Basophils # (Auto) 0.08 09/24/17 14:22 Test 09/24/17 13:35 09/24/17 14:22 09/24/17 15:20 White Blood Count 6.98 K/uL (4.8-10.8) Red Blood Count 4.87 M/uL (4.2-5.4) Hemoglobin 15.2 g/dL (12.0-16.0) Hematocrit 45.5 % (37-47) Mean Corpuscular Volume 93.4 fL (80-100) Mean Corpuscular Hemoglobin 31.2 pg (25-34) Mean Corpuscular Hemoglobin Concent 33.4 g/dl (32-36) Platelet Count 256 K/uL (130-400) Mean Platelet Volume 11.3 fL (7.4-10.4) Neutrophils (%) (Auto) 64.0 % Lymphocytes (%) (Auto) 25.1 % Monocytes (%) (Auto) 7.7 % Eosinophils (%) (Auto) 1.7 % Basophils (%) (Auto) 1.1 % Neutrophils # (Auto) 4.46 K/uL (1.4-6.5) Lymphocytes # (Auto) 1.75 K/uL (1.2-3.4) Monocytes # (Auto) 0.54 K/uL (0.11-0.59) Eosinophils # (Auto) 0.12 K/uL (0-0.5) Basophils # (Auto) 0.08 K/uL (0-0.2) RDW Standard Deviation 46.3 fL (36.4-46.3) RDW Coefficient of Variation 13.5 % (11.5-14.5) Immature Granulocyte % (Auto) 0.4 % Immature Granulocyte # (Auto) 0.03 K/uL (0.00-0.02) Prothrombin Time 11.0 SECONDS (9.0-12.0) Prothromb Time International Ratio 1.0 (0.9-1.1) Activated Partial Thromboplast Time 30.6 SECONDS (21.0-31.0) Partial Thromboplastin Ratio 1.2 Anion Gap 8.0 mmol/L (3-11) Est Creatinine Clear Calc Drug Dose 29.4 ml/min Estimated GFR () 41.5 Estimated GFR (Non- 35.8 BUN/Creatinine Ratio 12.8 (10-20) Calcium Level 9.2 mg/dl (8.5-10.1) Magnesium Level 2.3 mg/dl (1.8-2.4) Total Bilirubin 0.6 mg/dl (0.2-1) Aspartate Amino Transf (AST/SGOT) 17 U/L (15-37) Alanine Aminotransferase (ALT/SGPT) 30 U/L (12-78) Alkaline Phosphatase 87 U/L (45-117) Troponin I < 0.015 ng/ml (0-0.045) Total Protein 6.9 gm/dl (6.4-8.2) Albumin 3.8 gm/dl (3.4-5.0) Globulin 3.1 gm/dl (2.5-4.0) Albumin/Globulin Ratio 1.2 (0.9-2) Thyroid Stimulating Hormone (TSH) 2.030 uIu/ml (0.300-4.500) Free Thyroxine 1.02 ng/dl (0.80-1.60) Urine Color YELLOW Urine Appearance CLEAR (CLEAR) Urine pH 8.0 (4.5-7.5) Urine Specific [place] 1.005 (1.000-1.030) Urine Protein NEG (NEG) Urine Glucose (UA) NEG (NEG) Urine Ketones NEG (NEG) Urine Occult Blood NEG (NEG) Urine Nitrite NEG (NEG) Urine Bilirubin NEG (NEG) Urine Urobilinogen NEG (NEG) Urine Leukocyte Esterase NEG (NEG) Laboratory results per my review. Medications Administered Medications (Trade) Dose Ordered Sig/Brenda Route Start Time Stop Time Status Last Admin Dose Admin Sodium Chloride 500 ml @ 999 mls/hr Q31M STAT IV 09/24/17 13:50 09/24/17 14:20 DC 09/24/17 14:02 999 MLS/HR Diltiazem HCl 125 mg/Dextrose 125 ml @ 0 mls/hr Q0M PRN IV 09/24/17 17:15 4/11/18 17:14 09/24/17 17:25 2.5 MLS/HR Dofetilide (Tikosyn) 250 mcg NOW ONCE PO 09/24/17 17:15 09/24/17 17:16 DC 09/24/17 17:25 250 MCG Sodium Chloride 1,000 ml @ 999 mls/hr Q1H1M STAT IV 09/24/17 18:19 09/24/17 19:19 DC 09/24/17 18:25 999 MLS/HR ECG Per My Interpretation Indication: weakness Rate (beats per minute): 109 Rhythm: atrial fibrillation Findings: ST depression (diffuse), no ectopy (No PVCs) Change: no significant change (when compared to 08/21/2015) ED Course 1347: The patient was evaluated in room C8. A complete history and physical examination were performed. 1350: Ordered NSS 1,000 ml @ 999 mls/hr IV 1543: I reassessed the patient at this time. I updated the patient. 1547: I spoke with Armen Chi mechanic's assistant. We discussed the patient's case. The patient will be further evaluated. 1654: I spoke with Armen Chi mechanic's assistant. We discussed the patient's case. He recommends Tikosyn and Cardizem. 1700: I I reassessed the patient at this time. I informed her of the treatment plan. 1715: Ordered Tikosyn 250 mcg PO, Diltiazem HCl 125 mg/Dextrose 125 ml @ 0 mls/ hr IV, and Cardizem 5 mg IV 1817: I spoke with Armen Chi mechanic's assistant. He wants to further evaluate the patient. 1820: The patient was signed out to Dr. Mcfarlnae at shift change. Medical Decision Prior records/ancillary studies reviewed. Triage Nursing notes reviewed. The patient's history was concerning for palpitations. Differential diagnosis: Etiologies such as premature contractions, electrolyte abnormality, cardiac dysrhythmia, thyroid dysfunction, pulmonary embolism, infection, gastrointestinal, as well as others were entertained. The patient is a 72-year-old female who has a history of paroxysmal atrial fibrillation. She was seen in our facility recently for similar complaints but had a chemical conversion into sinus rhythm. At that time she was started on a new blood pressure medicine by the mechanic's assistant, hydralazine. The patient states that she has been compliant with her medications. She was treated with IV fluids in the emergency department. I discussed her case with the on-call Armen mechanic's assistant. He has recommended that we start the patient on a Cardizem drip and give her her evening dose of Tikosyn. She remains in atrial fibrillation at this time. I discussed her case again with the on-call [facility] mechanic's assistant. He is recommended to further observation the emergency department and if no improvement of her dysrhythmia occurs and likely she will require admission because of the degree of her symptoms at this time. The patient was signed out to Dr. Mcfarlane at change of shift. Please see his note for continuation of care. Medication Reconcilliation Current Medication List: was personally reviewed by me Blood Pressure Screening Patient's blood pressure: Elevated blood pressure Blood pressure disposition: Elevated BP felt to be situational Consults Time Called: 1537 Consulting Physician: Armen Chi mechanic's assistant Returned Call: 1547 I spoke with Armen Chi mechanic's assistant. We discussed the patient's case. The patient will be further evaluated. 165: I spoke with Armen Chi mechanic's assistant. We discussed the patient's case. He recommends Tikosyn and Cardizem. 1816: I spoke with Armen Chi mechanic's assistant. He wants to further evaluate the patient. Impression Primary Impression: Atrial fibrillation with rapid ventricular response Additional Impressions: Near syncope Dizziness Critical Care I have personally spent greater than 40 minutes of critical care time in the direct management of this patient. This includes bedside care, interpretation of diagnostic studies, and testing, discussion with consultants, patient, and family members, and other required patient management activities. This 40 minutes is in excess of all separately billable procedures. Scribe Attestation The scribe's documentation has been prepared under my direction and personally reviewed by me in its entirety. I confirm that the note above accurately reflects all work, treatment, procedures, and medical decision making performed by me. Departure Information Dispostion Still a Patient Referrals Khadar Tuttle M.D. (PCP) Patient Instructions [facility] Problem Qualifiers
[2017-09-24 14:11] LABS: BASO % 1.1 %; BASO ABS # 0.08 K/uL (0-0.2); EOS % 1.7 %; EOS ABS # 0.12 K/uL (0-0.5); HEMATOCRIT 45.5 % (37-47); HEMOGLOBIN 15.2 g/dL (12.0-16.0); IG# 0.03 K/uL (0.00-0.02); LYMPH % 25.1 %; LYMPH ABS # 1.75 K/uL (1.2-3.4); MEAN CELL VOLUME 93.4 fL (80-100); MEAN CORPUSCULAR HEMOGLOBIN 31.2 pg (25-34); MEAN CORPUSCULAR HGB CONC 33.4 g/dl (32-36); MEAN PLATELET VOLUME 11.3 fL (7.4-10.4); MONO % 7.7 %; MONO ABS # 0.54 K/uL (0.11-0.59); NEUT ABS # 4.46 K/uL (1.4-6.5); PLATELET COUNT 256 K/uL (130-400); RED CELL DISTRIBUTION WIDTH CV 13.5 % (11.5-14.5); RED CELL DISTRIBUTION WIDTH SD 46.3 fL (36.4-46.3); WHITE BLOOD COUNT 6.98 K/uL (4.8-10.8)
[2017-09-24] MEDS ORDERED: HYDR-4715 PO (14:21)
--- NOTE | 2017-09-24 14:43 | DIAGNOSTIC IMAGING REPORT ---
CHEST ONE VIEW PORTABLE CLINICAL HISTORY: EVALUATE RESPIRATORY DISTRESS.DYSPNEA COMPARISON STUDY: Chest radiograph August 21, 2017. FINDINGS: There are median sternotomy wires. No pneumothorax or pleural effusion is noted. There is no consolidation or evidence for pulmonary edema. The appearance of the chest is unchanged. Moderate cardiomegaly is unchanged. IMPRESSION: No acute cardiopulmonary findings. Electronically signed by: Richard Grigsby M.D. 09/24/2017 2:41 PM Dictated Date/Time: 09/24/2017 2:41 PM
[2017-09-24 14:53] LABS: PTT PATIENT 30.6 SECONDS (21.0-31.0)
[2017-09-24] MEDS ORDERED: SORB70SO6 PO (14:55)
[2017-09-24 15:10] LABS: ALBUMIN 3.8 gm/dl (3.4-5.0); ALT/SGPT 30 U/L (12-78); BLOOD UREA NITROGEN 19 mg/dl (7-18); CALCIUM 9.2 mg/dl (8.5-10.1); CARBON DIOXIDE 25 mmol/L (21-32); CREATININE 1.47 mg/dl (0.60-1.20); GLUCOSE 88 mg/dl (70-99); POTASSIUM 4.2 mmol/L (3.5-5.1); SODIUM 136 mmol/L (136-145)
[2017-09-24 15:15] LABS: ALKALINE PHOSPHATASE 87 U/L (45-117); AST/SGOT 17 U/L (15-37); TOTAL PROTEIN 6.9 gm/dl (6.4-8.2)
[2017-09-24] MEDS ORDERED: APIX1TAB PO (16:49)
[2017-09-24] MEDS ORDERED: ATRIN6 NAE (16:49)
[2017-09-24] MEDS ORDERED: DILTIAZEM BOLUS / DRIP IV STA (16:57)
[2017-09-24] MEDS ORDERED: DOFETILIDE 125 MCG CAP PO ONE (17:15)
[2017-09-24] MEDS ORDERED: DILTIAZEM HCL 5 MG/ML 5 ML VIAL BOLUS/OMNI IV SCH (17:15)
[2017-09-24] MEDS: DILTIAZEM HCL INJ 125 MG in DEXTROSE 5% 100ML IV PRN (17:25)
[2017-09-24] MEDS ORDERED: SODIUM CHLORIDE 0.9% 1000ML 1,000 ML IV STA (18:19)
[2017-09-24] MEDS ORDERED: MAGNESIUM HYDROXIDE SUSP 30 ML UDC PO PRN (21:00)
[2017-09-24] MEDS ORDERED: ALUMINUM/MAGNESIUM/SIMETH (MAALOX MAX) 30 ML UDC PO PRN (21:00)
[2017-09-24] MEDS ORDERED: POLYETHYLENE (MIRALAX) 17 GM PACK PO PRN (21:00)
[2017-09-24] MEDS ORDERED: ONDANSETRON INJ 2 MG/ML 2 ML VIAL IV PRN (21:00)
[2017-09-24] MEDS ORDERED: ACETAMINOPHEN 325 MG TAB PO PRN (21:00)
[2017-09-24] MEDS ORDERED: MoRPHine SULFATE 2 MG/ML CARP IV PRN (21:00)
--- NOTE | 2017-09-24 21:09 | EMERGENCY ROOM VISIT NOTE ---
ED Visit Note The patient was signed out to me awaiting to see if the patient would spontaneously cardioverted into a normal rhythm after receiving the medication recommended by Dr. Fonseca. The patient is currently on a Cardizem drip. She did not convert. She is still in A. fib with a controlled ventricular response. The patient will be seen by the hospitalist for further inpatient evaluation and care.
--- NOTE | 2017-09-24 21:10 | History and Physical ---
History & Physical Date & Time of Service: Sep 24, 2017 at 21:01 Chief Complaint: Short Of Breath, Light Headed, Dizzy Primary Care Physician: Khadar Tuttle M.D. History of Present Illness Source: patient 72 y/o F Hx AF, COPD, PAD, HTN, CKD III, ELMO. Presents with palpitations, lightheadedness and SOB x 1 day. Atrial fibrillation was apparent when she arrived in the ER. Her initial HR was betweem 110-120. She denies CP, N/V, diaphoresis. She had similar symptoms and had presented to the hospital one week ago. She was discharged from the ER however as she converted to a sinus rhythm. In 2015 she required cardioversion. She is currently taking Tikosyn BID as Amiodarone had exacerbated her lung disease. Past Medical/Surgical History 1) ELMO 2) PAD - R iliac stent 3) AF - ablation 2013 4) COPD 5) CKD III 6) Cervical CA Surgical: The pt had an emergency sternotomy due to an arterial rupture as a complication of an ablation procedure Family History Cancer Heart disease Hypertension Social History Smoking Status: Former Smoker Smokeless Tobacco Use: No Drug Use: none Marital Status: Occupational Status: retired Immunizations History of Influenza Vaccine: Yes Influenza Vaccine Date: Jan 18, 2010 History of Tetanus Vaccine?: Yes History of Pneumococcal: Yes Pneumococcal Date: Dec 19, 2009 History of Hepatitis B Vaccine: No Allergies Coded Allergies: Ciprofloxacin (Verified Allergy, Severe, ANAPHYLAXIS, 09/24/17) edema face and hands Amiodarone (Verified Allergy, Mild, Wheezing, 09/24/17) Nitrofurantoin (Verified Allergy, Mild, N/V, pt also noted irregular HR, ) Bacitracin (Verified Allergy, Unknown, SWELLING AND ITCHING, 09/24/17) Dabigatran (Verified Allergy, Unknown, DIFFICULTY BREATHING, DIZZINESS, 07/02) [facility] Metoprolol (Verified Allergy, Unknown, DIFFCULTY BREATHING, DIZZINESS, 07/02) [facility] Milk (Verified Allergy, Unknown, Milk products, 09/24/17) Terazosin (Unverified Allergy, Unknown, dizzy and lightheaded, 09/24/17) Atorvastatin (Verified Adverse Reaction, Intermediate, MUSCLE PAIN, ) [facility] Rosuvastatin (Verified Adverse Reaction, Intermediate, MUSCLE PAIN, ) [facility] Sulfa Antibiotics (Verified Adverse Reaction, Intermediate, SWELLING OF THE ANKLES, 09/24/17) [facility] Home Medications Scheduled Apixaban (Eliquis), 2.5 MG PO BID Cholecalciferol (Vitamin D 1000 Unit), 1,000 INTER.UNIT PO DAILY Dofetilide (Tikosyn), 250 MCG PO BID Furosemide (Lasix), 20 MG PO Q2D Hydralazine Hcl (Apresoline), 10 MG PO BID Scheduled PRN Ipratropium [place] (Ipratropium [place]), 2 SPRAYS [place] QID PRN for Nasal Congestion Sorbitol (Laxative) (Sorbitol), for Constipation Review of Systems Constitutional: No fever, No chills, No sweats Eyes: No worsening of vision ENT: No hearing loss, No unusual epistaxis, No nasal symptoms Respiratory: + shortness of breath, + dyspnea on exertion, + dyspnea at rest, No cough, No wheezing Cardiovascular: No chest pain, No PND Abdomen: No pain, No nausea, No vomiting Musculoskeletal: No joint pain Genitourinary - Female: No dysuria, No urinary frequency, No urinary urgency Neurologic: + problem reported (lightheaded), No memory loss Psychiatric: No depression symptoms Endocrine: No fatigue Hematologic / Lymphatic: No abnormal bleeding/bruising Integumentary: No rash Allergic / Immunologic: No environmental allergies Physical Exam Vital Signs Date Time Temp Pulse Resp B/P (MAP) Pulse Ox O2 Delivery O2 Flow Rate FiO2 09/24/17 20:30 95 18 142/90 95 Room Air 09/24/17 19:50 105 22 149/93 98 Room Air 09/24/17 19:40 98 18 133/108 97 Room Air 09/24/17 19:30 103 23 134/94 96 Room Air 09/24/17 19:10 101 17 151/96 95 Room Air 09/24/17 19:00 92 17 97 Room Air 09/24/17 18:50 89 20 153/79 97 Room Air 09/24/17 18:40 104 21 141/90 89 Room Air 09/24/17 18:30 94 18 135/100 95 Room Air 09/24/17 18:20 99 19 123/103 96 Room Air 09/24/17 18:10 100 19 131/87 95 Room Air 09/24/17 18:09 99 09/24/17 18:00 99 17 124/79 96 Room Air 09/24/17 17:50 109 21 143/93 95 Room Air 09/24/17 17:40 120 18 136/93 95 Room Air 09/24/17 17:30 116 17 152/92 98 Room Air 09/24/17 17:22 159/118 98 Room Air 09/24/17 17:01 154/107 97 Room Air 09/24/17 16:31 20 154/95 97 Room Air 09/24/17 16:05 125 17 143/96 98 Room Air 09/24/17 14:30 114 21 146/98 95 Room Air 09/24/17 14:17 97 Room Air 09/24/17 14:00 105 24 136/99 94 Room Air 09/24/17 13:50 Room Air 09/24/17 13:44 127 09/24/17 13:39 100 Room Air 09/24/17 13:24 36.9 125 20 146/97 99 Room Air General Appearance: WD/WN, no apparent distress Head: normocephalic Eyes: normal inspection ENT: normal ENT inspection, pharynx normal Neck: supple, no JVD Respiratory/Chest: chest non-tender, lungs clear, normal breath sounds Cardiovascular: no edema, no gallop, no JVD, + irregularly irregular Abdomen/GI: normal bowel sounds, non tender, soft Back: normal inspection, no CVA tenderness Extremities/Musculoskelatal: normal inspection, no calf tenderness Neurologic/Psych: multi sensor operator II-XII nml as tested, no motor/sensory deficits, alert, oriented x 3 Skin: normal color Diagnostics Laboratory Results Results Past 24 Hours Test 09/24/17 13:35 09/24/17 14:22 09/24/17 15:20 Range/Units White Blood Count 6.98 4.8-10.8 K/uL Red Blood Count 4.87 4.2-5.4 M/uL Hemoglobin 15.2 12.0-16.0 g/dL Hematocrit 45.5 37-47 % Mean Corpuscular Volume 93.4 80-100 fL Mean Corpuscular Hemoglobin 31.2 25-34 pg Mean Corpuscular Hemoglobin Concent 33.4 32-36 g/dl Platelet Count 256 130-400 K/uL Mean Platelet Volume 11.3 7.4-10.4 fL Neutrophils (%) (Auto) 64.0 % Lymphocytes (%) (Auto) 25.1 % Monocytes (%) (Auto) 7.7 % Eosinophils (%) (Auto) 1.7 % Basophils (%) (Auto) 1.1 % Neutrophils # (Auto) 4.46 1.4-6.5 K/uL Lymphocytes # (Auto) 1.75 1.2-3.4 K/uL Monocytes # (Auto) 0.54 0.11-0.59 K/uL Eosinophils # (Auto) 0.12 0-0.5 K/uL Basophils # (Auto) 0.08 0-0.2 K/uL RDW Standard Deviation 46.3 36.4-46.3 fL RDW Coefficient of Variation 13.5 11.5-14.5 % Immature Granulocyte % (Auto) 0.4 % Immature Granulocyte # (Auto) 0.03 0.00-0.02 K/uL Prothrombin Time 11.0 9.0-12.0 SECONDS Prothromb Time International Ratio 1.0 0.9-1.1 Activated Partial Thromboplast Time 30.6 21.0-31.0 SECONDS Partial Thromboplastin Ratio 1.2 Sodium Level 136 136-145 mmol/L Potassium Level 4.2 3.5-5.1 mmol/L Chloride Level 103 98-107 mmol/L Carbon Dioxide Level 25 21-32 mmol/L Anion Gap 8.0 3-11 mmol/L Blood Urea Nitrogen 19 7-18 mg/dl Creatinine 1.47 0.60-1.20 mg/dl Est Creatinine Clear Calc Drug Dose 29.4 ml/min Estimated GFR () 41.5 Estimated GFR (Non- 35.8 BUN/Creatinine Ratio 12.8 10-20 Random Glucose 88 70-99 mg/dl Calcium Level 9.2 8.5-10.1 mg/dl Magnesium Level 2.3 1.8-2.4 mg/dl Total Bilirubin 0.6 0.2-1 mg/dl Aspartate Amino Transf (AST/SGOT) 17 15-37 U/L Alanine Aminotransferase (ALT/SGPT) 30 12-78 U/L Alkaline Phosphatase 87 45-117 U/L Troponin I < 0.015 0-0.045 ng/ml Total Protein 6.9 6.4-8.2 gm/dl Albumin 3.8 3.4-5.0 gm/dl Globulin 3.1 2.5-4.0 gm/dl Albumin/Globulin Ratio 1.2 0.9-2 Thyroid Stimulating Hormone (TSH) 2.030 0.300-4.500 uIu/ml Free Thyroxine 1.02 0.80-1.60 ng/dl Urine Color YELLOW Urine Appearance CLEAR CLEAR Urine pH 8.0 4.5-7.5 Urine Specific [place] 1.005 1.000-1.030 Urine Protein NEG NEG Urine Glucose (UA) NEG NEG Urine Ketones NEG NEG Urine Occult Blood NEG NEG Urine Nitrite NEG NEG Urine Bilirubin NEG NEG Urine Urobilinogen NEG NEG Urine Leukocyte Esterase NEG NEG Diagnostic Radiology CXR: There are median sternotomy wires. No pneumothorax or pleural effusion is noted. There is no consolidation or evidence for pulmonary edema. The appearance of the chest is unchanged. Moderate cardiomegaly is unchanged. EKG AF, RVR Impression Assessment and Plan 72 y/o F Hx AF, COPD, PAD, HTN, CKD III, ELMO. Presents with palpitations, lightheadedness and SOB x 1 day. Atrial fibrillation was apparent when she arrived in the ER. Her initial HR was betweem 110-120. She denies CP, N/V, diaphoresis. She had similar symptoms and had presented to the hospital one week ago. She was discharged from the ER however as she converted to a sinus rhythm. In 2016 she required cardioversion. She is currently taking Tikosyn BID as Amiodarone had exacerbated her lung disease. 1) AF - RVR - symptomatic - ER was instructed to provide her HS Tikosyn dose. She is admitted on a diltiazem drip. She will be evaluated by her urban planner AM. She may require cardioversion as she appears to be symptomatic without a particularly high rate and was unable to tolerate B blockers in the past. We will keep her NPO > midnight. She will cont Eliquis. 2) COPD - no evidence of exacerbation presently. 3) HTN - cont Hydralazine with parameters. 4) CKD III - creat is at baseline - IVF provided overnight. 5) ELMO - CPAP HS provided Full code, Eliquis anticoagulation Total time for this admit including review of labs, meds, imaging, records - discussion with pt and ER attending - 39 min Resuscitation Status VTE Prophylaxis Will order VTE Prophylaxis: Yes
[2017-09-24] MEDS ORDERED: IV FLUIDS COMPLETED PRN (21:30)
[2017-09-24] MEDS ORDERED: DILTIAZEM BOLUS / DRIP IV PRN (21:39)
[2017-09-24] MEDS ORDERED: D5W AND NSS 1,000 ML IV SCH (21:45)
[2017-09-24 22:36] VITALS: BP 148/89; PULSE 102; TEMP 37; O2SAT 98; Ht 157.5 cm; Wt 54.7 kg
[2017-09-25] VITALS (19 sets, daily range): BP systolic 109–168; BP diastolic 61–90; PULSE 54–115; TEMP 36.7–37; O2SAT 95–98
[2017-09-25] MEDS: DOFETILIDE 125 MCG CAP PO SCH ×3 (00:09→21:10)
[2017-09-25] MEDS: APIXABAN 2.5 MG TAB PO SCH ×3 (00:10→21:10)
[2017-09-25] MEDS: HydrALAZINE 10 MG TAB PO SCH ×2 (00:10→08:05)
[2017-09-25] MEDS ORDERED: FUROSEMIDE 20 MG TAB PO SCH (09:00)
[2017-09-25] MEDS: CHOLECALCIFEROL 1000 INTER.UNIT TAB PO SCH (09:40)
--- NOTE | 2017-09-25 10:01 | Clinical Documentation Query ---
CLINICAL DOCUMENTATION QUERY Dr. BILLY, In your clinical opinion is this patient being managed for: ( ) Chronic diastolic CHF ( ) Not Agree ( ) Other explanation of clinical findings (Please Explain) ( ) Unable to determine (Please Define) ( ) Need to Discuss The medical record reflects the following clinical findings, treatment, and risk factors. Clinical Indicators: 72 yo female presenting with symptomatic A fib. Noted documentation of hx of CHF in clinical record. ECHO from December 2011 showed EF of 60-65% with grade III diastolic dysfunction. Treatment: lasix, tikosyn, apresoline Risk Factors: age, A fib, HTN, CKD Please clarify and document your clinical opinion in the progress notes and discharge summary. Terms such as "probable", "suspected", "likely", "questionable", "possible", or "still to be ruled out" are acceptable. IF IN AGREEMENT, YOU MUST DOCUMENT ABOVE DIAGNOSTIC STATEMENT IN DAILY PROGRESS NOTES AND DISCHARGE SUMMARY. This document is not part of the patient's record. Thank You, Janelle King RN [phone]
[2017-09-25] MEDS: DILTIAZEM HCL INJ 125 MG in DEXTROSE 5% 100ML IV PRN (10:52)
--- NOTE | 2017-09-25 12:13 | Cardiology Consultation ---
Cardiology Consultation Date of Consultation: Sep 25, 2017 History of Present Illness Lori Dasilva is a 72 year old female seen in cardiology consultation per the request of Dr Ortiz for the evaluation of some traumatic atrial fibrillation with mildly elevated ventricular rate. The patient is well known to cardiology service and I had recently seen her in emergency room consultation on 08/21/17. At that time she had presented with atrial fibrillation and had spontaneously converted to sinus rhythm while she is in the emergency room. She been having difficulty with labile hypertension and intolerance of multiple medications as an outpatient and therefore hydralazine was started at a low dose. In the interim time, the patient states that she has had generalized fatigue. Yesterday, she notes that she was in a store and had ojsh dizziness and nearly passed out. She had to hold onto a cart to prevent herself from passing out. The symptoms is currently improved, and by the time she arrived to the emergency room she was only mildly dizzy. Atrial fibrillation with mildly elevated ventricular rate in the range of 100- 120 bpm was noted. The patient received an IV diltiazem infusion and her evening dose of dofetilide was administered orally yesterday afternoon but she has remained in atrial fibrillation overnight. Telemetry reviewed reveals atrial fibrillation, currently in the 100-110 bpm range. On 09/25/17 at 1:02 AM a 5.3 second pause was noted with a sinus beat followed by a 2.6 second pause and another sinus bradycardia. She had intermittent sinus beats and fusion beats and then reverted back to atrial fibrillation. The findings are consistent with a conversion pause but only very brief instance when she remained in sinus rhythm. Distant course to place during anticipated hours of sleep, while she was on a Cardizem infusion. History Past Medical History: 1. History of paroxysmal atrial fibrillation with past unsuccessful rhythm control strategy utilizing sotalol prompting admission and transition to Tikosyn therapy in April 2016. Chronic obstructive lung disease with amiodarone-induced worsening lung disease 3. History of redo frequency ablation of atrial fibrillation in September 2013 with incomplete response, and procedures complicated by atrial perforation and required emergency surgical repair 4. Stage III chronic kidney disease 5. Hypertension 6. Cardiac catheterization in 2010 without obstructive disease 7. Atherosclerotic peripheral vascular disease status post right iliac artery stenting in 2004 Past Surgical History: Surgical history as noted above Social History: Patient is a nonsmoker since 2011. Lives with her Family History: History of coronary artery disease in her father Review Of Systems See above for pertinent positives & negatives. A total of 10 systems reviewed and were otherwise negative. Allergies Coded Allergies: Ciprofloxacin (Verified Allergy, Severe, ANAPHYLAXIS, 09/24/17) edema face and hands Amiodarone (Verified Allergy, Mild, Wheezing, 09/24/17) Nitrofurantoin (Verified Allergy, Mild, N/V, pt also noted irregular HR, ) Bacitracin (Verified Allergy, Unknown, SWELLING AND ITCHING, 09/24/17) Dabigatran (Verified Allergy, Unknown, DIFFICULTY BREATHING, DIZZINESS, 07/02) [facility] Metoprolol (Verified Allergy, Unknown, DIFFCULTY BREATHING, DIZZINESS, 07/02) [facility] Milk (Verified Allergy, Unknown, Milk products, 09/24/17) Terazosin (Unverified Allergy, Unknown, dizzy and lightheaded, 09/24/17) Atorvastatin (Verified Adverse Reaction, Intermediate, MUSCLE PAIN, ) [facility] Rosuvastatin (Verified Adverse Reaction, Intermediate, MUSCLE PAIN, ) [facility] Sulfa Antibiotics (Verified Adverse Reaction, Intermediate, SWELLING OF THE ANKLES, 09/24/17) [facility] Medications Reported Home Medications Medications Dose Route/Sig Max Daily Dose Days Date Category Apresoline (Hydralazine Hcl) 10 Mg Tab 10 Mg PO BID 09/24/17 Reported Lasix (Furosemide) 20 Mg Tab 20 Mg PO Q2D 08/21/17 Reported Tikosyn (Dofetilide) 125 Mcg Cap 250 Mcg PO BID 04/28/16 Rx Ipratropium [employer] 75 Sprays/15 Ml [place] 2 Sprays ROSA ELENA QID PRN 12/16/15 Reported Eliquis (Apixaban) 2.5 Mg Tab 2.5 Mg PO BID 12/16/15 Reported Sorbitol (Sorbitol (Laxative)) 70 % [place] PRN 04/09/14 Reported Vitamin D 1000 Unit (Cholecalciferol) 1,000 Unit Cap 1,000 Inter.unit PO DAILY 12/27/11 Reported Physical Exam Vital Signs (Last 8hrs): Last 8 Hrs Date Time Temp Pulse Resp B/P (MAP) Pulse Ox O2 Delivery O2 Flow Rate FiO2 09/25/17 08:00 97 Room Air 09/25/17 07:10 36.7 115 20 157/90 (112) 97 Room Air General Appearance: Alert and Oriented x3. NAD. Head: Normocephalic Atraumatic. Eyes: PERRLA, EOMI, conjunctiva and sclera clear Neck: Supple. No carotid bruits noted. No JVD. No HJD. Respiratory: Breath sounds clear to auscultation bilaterally. No w/r/r. Cardiovascular: Irregular rhythm, no murmurs Abdomen: Normal bowel sounds, soft nontender. no abdominal bruits. Extremities: No edema, no clubbing or cyanosis. distal pulses 2/4 bilaterally. Neuro: No focal deficits. Psychiatric: Normal affect. Data Last 24 Hours Test 09/24/17 13:35 09/24/17 14:22 09/24/17 15:20 White Blood Count 6.98 K/uL Red Blood Count 4.87 M/uL Hemoglobin 15.2 g/dL Hematocrit 45.5 % Mean Corpuscular Volume 93.4 fL Mean Corpuscular Hemoglobin 31.2 pg Mean Corpuscular Hemoglobin Concent 33.4 g/dl Platelet Count 256 K/uL Mean Platelet Volume 11.3 fL Neutrophils (%) (Auto) 64.0 % Lymphocytes (%) (Auto) 25.1 % Monocytes (%) (Auto) 7.7 % Eosinophils (%) (Auto) 1.7 % Basophils (%) (Auto) 1.1 % Neutrophils # (Auto) 4.46 K/uL Lymphocytes # (Auto) 1.75 K/uL Monocytes # (Auto) 0.54 K/uL Eosinophils # (Auto) 0.12 K/uL Basophils # (Auto) 0.08 K/uL RDW Standard Deviation 46.3 fL RDW Coefficient of Variation 13.5 % Immature Granulocyte % (Auto) 0.4 % Immature Granulocyte # (Auto) 0.03 K/uL Prothrombin Time 11.0 SECONDS Prothromb Time International Ratio 1.0 Activated Partial Thromboplast Time 30.6 SECONDS Partial Thromboplastin Ratio 1.2 Sodium Level 136 mmol/L Potassium Level 4.2 mmol/L Chloride Level 103 mmol/L Carbon Dioxide Level 25 mmol/L Anion Gap 8.0 mmol/L Blood Urea Nitrogen 19 mg/dl Creatinine 1.47 mg/dl Est Creatinine Clear Calc Drug Dose 29.4 ml/min Estimated GFR () 41.5 Estimated GFR (Non- 35.8 BUN/Creatinine Ratio 12.8 Random Glucose 88 mg/dl Calcium Level 9.2 mg/dl Magnesium Level 2.3 mg/dl Total Bilirubin 0.6 mg/dl Aspartate Amino Transf (AST/SGOT) 17 U/L Alanine Aminotransferase (ALT/SGPT) 30 U/L Alkaline Phosphatase 87 U/L Troponin I < 0.015 ng/ml Total Protein 6.9 gm/dl Albumin 3.8 gm/dl Globulin 3.1 gm/dl Albumin/Globulin Ratio 1.2 Thyroid Stimulating Hormone (TSH) 2.030 uIu/ml Free Thyroxine 1.02 ng/dl Urine Color YELLOW Urine Appearance CLEAR Urine pH 8.0 Urine Specific [place] 1.005 Urine Protein NEG Urine Glucose (UA) NEG Urine Ketones NEG Urine Occult Blood NEG Urine Nitrite NEG Urine Bilirubin NEG Urine Urobilinogen NEG Urine Leukocyte Esterase NEG Telemetry as noted above Assessment & Plan Impression: 72-year-old female 1. Persistent symptomatic atrial fibrillar 2. Near syncopal episode yesterday 3. 5 second conversion pause noted while on telemetry / cardizem infusion 1 am , asymptomatic Recommendations: Ms. Dasilva presents with recurrent symptoms. It would appear that she has either been in and out of atrial fibrillation for the last few weeks, or perhaps persistently in atrial fibrillation. Her previous regimen of dofetilide does not seem to be effective at present. I recommend increasing her diltiazem infusion to 5 mg/h, and if that is ineffective, plan for direct-current cardioversion later this afternoon. She has been on Eliquis, 2.5 mg twice daily which is appropriate for her degree of kidney dysfunction. The 5 second conversion pause noted last night is concerning, because perhaps this is what was occurring when she had her near syncopal episode yesterday prior to coming to the emergency room. The conversion pause that was witnessed however on telemetry occurred during anticipated hours of sleep and she was on a Cardizem infusion. Rather than recommending going straight forward with a pacemaker, I recommend that we watch this carefully, with an outpatient monitor to see if these pauses are happening to her at home and to see what her atrial fibrillation burden is. Head, ongoing management of her atrial fibrillation is complicated. In terms of the right control strategy, she has been intolerant of multiple medications including metoprolol. In terms of a rhythm control strategy, she has been intolerant of amiodarone due to concerns of lung toxicity. And sotalol was discontinued due to ineffectiveness. Due to her history of underlying structural heart disease she is not a candidate for propafenone or flecainide. We discussed the option of consideration toward another atrial fibrillation ablation, this time with pulmonary vein isolation/cryoablation. She is hesitant to consider this because she had significant complication with her most recent ablation prompting emergency surgical repair of a perforation in the left atrium. She is going to consider this and may be consider follow-up with electrophysiology as an outpatient to consider this at a tertiary center.
[2017-09-25] MEDS ORDERED: LIDOCAINE HCL 2% 2 ML VIAL (20MG/ML) ONE (13:20)
[2017-09-25] MEDS ORDERED: PROPOFOL IV EMULSION 10 MG/ML 20 ML VIAL IV ONE (13:20)
--- NOTE | 2017-09-25 14:16 | Cardioversion ---
Electricial Cardioversion Rpt Date of Service: 09/25/17 Electrical Cardioversion Rprt Procedure Date Sep 25, 2017. Pre-Procedure Diagnosis Symptomatic atrial fibrillation Post-Procedure Diagnosis Cardioversion to sinus rhythm Procedure(s) Performed Direct-current cardioversion Metal Dresser Mihir Farris DO Mushroom Packer(s) Not applicable Estimated Blood Loss None Preliminary Findings After informed consent was obtained and a timeout was performed the patient was sedated with the assistance of Dr. Granado of anesthesia receiving a total of 20 mg of IV lidocaine and 80 mg of IV propofol. She denies direct-current cardioversion was then performed receiving doses of 200 J, and 300 J without success. The patient received a third countershock of 360 J of synchronized biphasic energy with resultant conversion to sinus bradycardia. Recommendations Discontinue IV diltiazem. Add oral diltiazem to her dofetilide. Continue observation on telemetry. Depending upon how her blood pressure response, I may consider discontinuation of her hydralazine. Complication(s) None Disposition Recovery in label remover, then transfer to telemetry unit for ongoing care
[2017-09-25] MEDS ORDERED: DILTIAZEM HCL 30 MG TAB PO ONE (14:18)
--- NOTE | 2017-09-25 14:24 | Anesthesiology Progress Note ---
Anesthesia Post Op Note Date & Time Sep 25, 2017 at 14:24 Vital Signs Pain Intensity: 0 Vital Signs Past 12 Hours Date Time Temp Pulse Resp B/P (MAP) Pulse Ox O2 Delivery O2 Flow Rate FiO2 09/25/17 13:58 55 16 149/64 96 Nasal Cannula 6 09/25/17 13:55 98 16 168/68 96 Nasal Cannula 6 09/25/17 12:00 97 Room Air 09/25/17 11:27 37.0 97 20 138/82 (100) 96 Room Air 09/25/17 08:00 97 Room Air 09/25/17 07:10 36.7 115 20 157/90 (112) 97 Room Air 09/25/17 04:00 Room Air 09/25/17 03:53 37.0 86 17 114/70 (85) 95 Room Air Notes Mental Status: alert / awake / arousable, participated in evaluation Pt Amnestic to Procedure: Yes Nausea / Vomiting: adequately controlled Pain: adequately controlled Airway Patency, RR, SpO2: stable & adequate BP & HR: stable & adequate Hydration State: stable & adequate Anesthetic Complications: no major complications apparent
--- NOTE | 2017-09-25 15:58 | Hospitalist Progress Note ---
Hospitalist Progress Note Date of Service Sep 25, 2017. (Riddhi Mccoy PA-C) Subjective Pt evaluation today including: conversation w/ patient, physical exam, chart review, lab review, review of studies, review of inpatient medication list Patient seen and evaluated. Had a 5.3 second pause on monitor overnight which it appeared she tried to convert but did remain in A Fib. Patient was seen prior to cardioversion and reporting dizziness with even simple movements. Is a little scared to consider another ablation. She was successfully cardioverted this afternoon. Plan to implement Diltiazem orally and monitor BP. Patient states she did have some concerns about BP medications as she has intolerances to multiple medications. Will monitor her on Diltiazem. Also expresses a lot of stress socially. Reporting her was dx with Alzheimers and this has been stressful for her. Discussed possibility of implementing SSRI but will have to assess for interactions given her meds. Constitutional: No fever, No chills Respiratory: No cough, No shortness of breath Cardiovascular: No chest pain Abdomen: No pain, No nausea, No vomiting, No diarrhea, No constipation Musculoskeletal: No swelling, No calf pain Female : No dysuria Heme: No abnormal bleeding/bruising (Riddhi Mccoy, DKC) Medications Current Inpatient Medications Medications (Trade) Dose Ordered Sig/Brenda Route Start Time Stop Time Status Last Admin Dose Admin Apixaban (Eliquis Tab) 2.5 mg BID PO 09/24/17 21:00 10/24/17 20:59 09/25/17 08:05 2.5 MG Cholecalciferol (Vitamin D Tab) 1,000 inter.unit DAILY PO 09/25/17 09:00 10/25/17 08:59 09/25/17 09:40 1,000 INTER.UNIT Furosemide (Lasix Tab) 20 mg Q2D@0900 PO 09/25/17 09:00 10/25/17 08:59 09/25/17 08:05 20 MG Dofetilide (Tikosyn) 250 mcg BID PO 09/24/17 21:00 10/24/17 20:59 09/25/17 08:05 250 MCG Acetaminophen (Tylenol Tab) 650 mg Q4H PRN PO 09/24/17 21:00 10/24/17 20:59 Al Hydrox/Mg Hydrox/Simethicone (Maalox Max Susp) 15 ml Q4H PRN PO 09/24/17 21:00 10/24/17 20:59 Magnesium Hydroxide (Milk Of Magnesia Susp) 30 ml Q12H PRN PO 09/24/17 21:00 10/24/17 20:59 Morphine Sulfate (MoRPHine SULFATE INJ) 2 mg Q30M PRN IV 09/24/17 21:00 10/08/17 20:59 Polyethylene (Miralax Powder Packet) 17 gm DAILY PRN PO 09/24/17 21:00 10/24/17 20:59 Miscellaneous (Iv Fluids Completed) 1 ea PRN PRN N/A 09/24/17 21:30 09/24/18 21:29 Diltiazem HCl (Cardizem Tab) 30 mg TID PO 09/25/17 21:00 10/25/17 20:59 (Riddhi Mccoy, KAELA) Objective Vital Signs Date Time Temp Pulse Resp B/P (MAP) Pulse Ox O2 Delivery O2 Flow Rate FiO2 09/25/17 15:05 37.0 63 20 135/61 (85) 98 Room Air 09/25/17 14:20 57 16 149/64 (92) 96 Room Air 09/25/17 14:15 51 16 148/62 (90) 96 Room Air 09/25/17 14:10 56 16 142/62 (88) 95 Room Air 09/25/17 14:05 53 16 138/56 (83) 95 Room Air 09/25/17 14:00 55 16 134/58 (83) 95 Room Air 09/25/17 13:58 55 16 149/64 96 Nasal Cannula 6 09/25/17 13:55 98 16 168/68 96 Nasal Cannula 6 09/25/17 12:00 97 Room Air 09/25/17 11:27 37.0 97 20 138/82 (100) 96 Room Air 09/25/17 08:00 97 Room Air 09/25/17 07:10 36.7 115 20 157/90 (112) 97 Room Air 09/25/17 04:00 Room Air 09/25/17 03:53 37.0 86 17 114/70 (85) 95 Room Air 09/25/17 00:00 Room Air 09/24/17 22:36 37.0 102 16 148/89 98 Room Air 09/24/17 22:00 101 20 125/74 95 Room Air 09/24/17 21:30 107 18 125/79 95 Room Air 09/24/17 20:30 95 18 142/90 95 Room Air 09/24/17 19:50 105 22 149/93 98 Room Air 09/24/17 19:40 98 18 133/108 97 Room Air 09/24/17 19:30 103 23 134/94 96 Room Air 09/24/17 19:10 101 17 151/96 95 Room Air 09/24/17 19:00 92 17 97 Room Air 09/24/17 18:50 89 20 153/79 97 Room Air 09/24/17 18:40 104 21 141/90 89 Room Air 09/24/17 18:30 94 18 135/100 95 Room Air 09/24/17 18:20 99 19 123/103 96 Room Air 09/24/17 18:10 100 19 131/87 95 Room Air 09/24/17 18:09 99 09/24/17 18:00 99 17 124/79 96 Room Air 09/24/17 17:50 109 21 143/93 95 Room Air 09/24/17 17:40 120 18 136/93 95 Room Air 09/24/17 17:30 116 17 152/92 98 Room Air 09/24/17 17:22 159/118 98 Room Air 09/24/17 17:01 154/107 97 Room Air 09/24/17 16:31 20 154/95 97 Room Air 09/24/17 16:05 125 17 143/96 98 Room Air (Riddhi Mccoy PA-C) Physical Exam General Appearance: WD/WN, no apparent distress Eyes: sclerae normal ENT: hearing grossly normal Neck: supple, no JVD, trachea midline Respiratory/Chest: lungs clear, normal breath sounds, no respiratory distress, no accessory muscle use Cardiovascular: + irregularly irregular Abdomen: normal bowel sounds, non tender, soft Extremities: no pedal edema, no calf tenderness Neurologic/Psychiatric: alert Skin: normal color, warm/dry (Riddhi Mccoy PA-C) Assessment and Plan 72 y/o F Hx AF, COPD, PAD, HTN, CKD III, ELMO. Presents with palpitations, lightheadedness and SOB x 1 day. Atrial fibrillation was apparent when she arrived in the ER. Her initial HR was betweem 110-120. She denies CP, N/V, diaphoresis. She had similar symptoms and had presented to the hospital one week ago. She was discharged from the ER however as she converted to a sinus rhythm. In 2016 she required cardioversion. She is currently taking Tikosyn BID as Amiodarone had exacerbated her lung disease. Paroxysmal Atrial Fibrillation with RVR S/P Cardioversion: - Had a 5.3 second pause at approx. 0100 as it appears she tried to convert out but ultimately stayed in A Fib - Diltizem gtt was stopped and initiated Diltiazem 30 mg TID - Continue Tikosyn 250 mcg BID - Eliquis 2.5 mg BID - Cardiology following - appreciate recommendations COPD without Exacerbation: STABLE HTN: - Per cardiology - will monitor BP and possible D/C of her hydralazine altogether - Lasix 20 mg Q2D CKD Stage III: Baseline 1.4-1.6 - Continue to monitor - STABLE ELMO: - Utilizes CPAP at home - does not have it here DVT Prophylaxis: Eliquis Code Status: FULL RESUSCITATION Disposition: - S/P Cardioversion - continue to monitor tolerance and BP - likely D/C tomorrow with outpatient monitor set-up Continued [facility] stay due to: abnormal vital signs Discharge planning: home (Riddhi Mccoy, PAShellieC) Attending Attestation: Pt seen/examined, chart reviewed, care plan d/w DOROTHY Mccoy. I agree w/ the vivas components of her documentation. Saw the patient about 1730 today - appears she converted back to a. fib, rates acceptable on current meds. No symptoms, however - was resting comfortably during my visit. VSS, afebrile gen - nad neck - no JVD heart - irregular, s1, s2 lungs - CTA b/l abd - soft, NT ext - no edema A/P: chronic a. fib - s/p cardioversion today - in NSR for several hours, but appears has converted back to a. fib. no evidence of complicating CHF at this time. defer management to cardiology - cont dilt & tikysyn & eliquis as previous. repeat lytes in AM. Mignon BILLY MD (Bonifacio Billy MD)
[2017-09-25] MEDS: DILTIAZEM HCL 30 MG TAB PO SCH (21:10)
[2017-09-26 03:07] VITALS: BP 158/110; PULSE 107; TEMP 37; O2SAT 97
[2017-09-26 03:44] VITALS: BP 150/81; PULSE 98
[2017-09-26 06:31] LABS: HEMATOCRIT 43.1 % (37-47); HEMOGLOBIN 14.5 g/dL (12.0-16.0); MEAN CELL VOLUME 92.7 fL (80-100); MEAN CORPUSCULAR HEMOGLOBIN 31.2 pg (25-34); MEAN CORPUSCULAR HGB CONC 33.6 g/dl (32-36); PLATELET COUNT 223 K/uL (130-400); RED CELL DISTRIBUTION WIDTH CV 13.5 % (11.5-14.5); RED CELL DISTRIBUTION WIDTH SD 45.4 fL (36.4-46.3); WHITE BLOOD COUNT 8.12 K/uL (4.8-10.8)
[2017-09-26 07:01] LABS: CALCIUM 8.8 mg/dl (8.5-10.1); CREATININE 1.37 mg/dl (0.60-1.20); POTASSIUM 3.6 mmol/L (3.5-5.1)
[2017-09-26 07:53] VITALS: BP 128/82; PULSE 123; TEMP 36.7; O2SAT 96
[2017-09-26] MEDS: APIXABAN 2.5 MG TAB PO SCH (08:33)
[2017-09-26] MEDS: CHOLECALCIFEROL 1000 INTER.UNIT TAB PO SCH (08:33)
[2017-09-26] MEDS: DOFETILIDE 125 MCG CAP PO SCH (08:34)
[2017-09-26] MEDS: DILTIAZEM HCL 30 MG TAB PO SCH ×2 (08:34→14:00)
--- NOTE | 2017-09-26 10:51 | Cardiology Follow-Up ---
Subjective General Date of Service: Sep 26, 2017. Chief Complaint: Follow-up symptomatic atrial fibrillation, initial presentation with near s Pt evaluation today including: conversation w/ patient, physical exam History of Present Illness The patient is a 72 year old female seen in cardiology follow-up. Yesterday, she underwent direct-current cardioversion for ongoing atrial fibrillation. 3 countershocks were administered with dose of 200, 300, and 360 J and she subsequently converted a few seconds after the third shock. By 1719 telemetry documents that she reverted back to atrial fibrillation with rates of 130-140 bpm. Her chronic dose of dofetilide 250 twice daily was continued along with oral diltiazem 30 mg 3 times daily. Overnight last night she had a 3.1 second conversion pause at 1 AM with a few sinus beats and then reverted back to atrial fibrillation. A second conversion pause of 5.4 seconds was noted at 1:40 AM after which time she once again reverted to atrial fibrillation with rapid ventricular rate. This morning at 8:26 AM she converted to sinus rhythm without significant pauses. Currently sinus bradycardia 59 bpm is present. She remains on Eliquis 2.5 mg twice daily, dose appropriate for her renal function which she has been on without interruption for months. Allergies Coded Allergies: Ciprofloxacin (Verified Allergy, Severe, ANAPHYLAXIS, 09/24/17) edema face and hands Amiodarone (Verified Allergy, Mild, Wheezing, 09/24/17) Nitrofurantoin (Verified Allergy, Mild, N/V, pt also noted irregular HR, ) Bacitracin (Verified Allergy, Unknown, SWELLING AND ITCHING, 09/24/17) Dabigatran (Verified Allergy, Unknown, DIFFICULTY BREATHING, DIZZINESS, 07/02) PER [facility] Metoprolol (Verified Allergy, Unknown, DIFFCULTY BREATHING, DIZZINESS, 07/02) PER [facility] Milk (Verified Allergy, Unknown, Milk products, 09/24/17) Terazosin (Unverified Allergy, Unknown, dizzy and lightheaded, 09/24/17) Atorvastatin (Verified Adverse Reaction, Intermediate, MUSCLE PAIN, ) [facility] Rosuvastatin (Verified Adverse Reaction, Intermediate, MUSCLE PAIN, ) PER [facility] Sulfa Antibiotics (Verified Adverse Reaction, Intermediate, SWELLING OF THE ANKLES, 09/24/17) PER [facility] Social History Smoking Status: Former Smoker Hx Tobacco Use In Past Year?: No Hx Alcohol Use - Type And Amou: Yes ("some") Hx Substance Use - Type And Am: No Problem List Medical Problems: (1) Atrial fibrillation with rapid ventricular response Status: Acute (2) Dizziness Status: Acute (3) Near syncope Status: Acute (4) Palpitations Status: Acute (5) Rapid atrial fibrillation Status: Acute Physical Exam Vital Signs Last Vital Signs Documentation Date Time Temp Pulse Resp B/P (MAP) Pulse Ox O2 Delivery O2 Flow Rate FiO2 09/26/17 08:00 Room Air 09/26/17 07:53 36.7 123 20 128/82 (97) 96 09/25/17 13:58 6 Physical Exam Constitutional: Level of Distress: NAD Head: normocephalic Neck: supple, trachea midline Lungs: Auscultation: no wheezing, no rales/crackles, no rhonchi Cardiovascular: Heart Auscultation: RRR, no murmurs, no rubs Abdomen: Inspection & Palpation: non-distended Extremities: no edema Neurologic: Gait & Station: pertinent finding (No focal deficits) Assessment and Plan Assessment and Plan Impression: 72-year-old female 1. Symptomatic paroxysmal atrial fibrillation, tachycardia-bradycardia syndrome with a 3.9 seconds and 5.4 second pause overnight last night, and the night before, another 5 second pause was noted. 2. Her initial presentation his hospital stay was for near syncope, and at this time, I am suspicious that her recent near syncopal episodes and dizziness , are occurring in the setting of these conversion pauses which we have now documented on telemetry 3. Hypertension 4. Intolerances to multiple medications including beta-blockers in the past. She has multiple allergies as noted above Discussion/recommendations: In summary, Lori is a 72-year-old female who has had a long-standing history of symptomatic atrial fibrillation. She is undergone 2 atrial fibrillation ablations in the past most recent of which took place in 2013 at [facility] and was complicated by left atrial perforation requiring emergency surgical repair. The ablation was only partially successful and she has had multiple symptomatic breakthrough episodes in the interim time. She previously been on antiarrhythmic therapy with amiodarone which was subsequently discontinued due to concerns of worsening lung function. She was on sotalol until 2016 which was subsequently discontinued due to ineffectiveness and she was transitioned to dofetilide, and over the last 6 months she has been seen multiple times for breakthrough symptoms, culminating in this hospitalization. 3 prolonged pauses have been noted during his hospital stay. They are conversion pauses of 5 seconds, 3.9 seconds and 5.4 seconds during which time several sinus beats are noted and then she reverts back to atrial fibrillation with rapid ventricular response. Having presented with near syncope, I am concerned that her presenting episode may very well been due to a pause. At this time, I recommend electrophysiology evaluation for consideration of permanent pacemaker to allow more aggressive AV kavitha blockade. The patient has had a complex electro physiology history. Currently we are in the midst of a scheduling issue is 1 of our fluoroscopy rooms is to perform such procedures is down and therefore scheduling her procedures has been delayed. Due to or scheduling delay as well as the patient's complex nature of her problem and comfort level with the electrophysiology team at [facility] with whom she has had multiple past procedures as outlined above I recommend transfer to [facility] for further evaluation, likely permanent pacemaker evaluation this hospital stay. The patient was agreeable to this. I discussed her case with Dr. Chino Moreland who is on-call for clinical cardiology and accepted the patient in transfer. The patient is to be transferred by [facility] ground. I discussed the case with Dr. Luo due to of the hospitalist service. Laboratory Results Last 24 Hours Test 09/26/17 05:32 White Blood Count 8.12 K/uL Red Blood Count 4.65 M/uL Hemoglobin 14.5 g/dL Hematocrit 43.1 % Mean Corpuscular Volume 92.7 fL Mean Corpuscular Hemoglobin 31.2 pg Mean Corpuscular Hemoglobin Concent 33.6 g/dl RDW Standard Deviation 45.4 fL RDW Coefficient of Variation 13.5 % Platelet Count 223 K/uL Mean Platelet Volume 11.0 fL Sodium Level 139 mmol/L Potassium Level 3.6 mmol/L Chloride Level 110 mmol/L Carbon Dioxide Level 20 mmol/L Anion Gap 9.0 mmol/L Blood Urea Nitrogen 19 mg/dl Creatinine 1.37 mg/dl Est Creatinine Clear Calc Drug Dose 30.2 ml/min Estimated GFR () 45.2 Estimated GFR (Non- 39.0 BUN/Creatinine Ratio 13.9 Random Glucose 124 mg/dl Calcium Level 8.8 mg/dl Magnesium Level 2.1 mg/dl
[2017-09-26] MEDS ORDERED: CRD30 PO (11:31)
--- NOTE | 2017-09-26 11:37 | Discharge Instructions ---
Discharge Instructions Date of Service Sep 26, 2017. Admission Reason for Admission: Atrial Fibrillation W Rapid Ventricular Response Discharge Discharge Diagnosis / Problem: A Fib with RVR and Conversion Pauses Discharge Goals Goal(s): Decrease discomfort, Improve function, Increase independence Activity Recommendations Activity Level: Up Ad Lien . Additional Information Patient informed of condition: Yes Advance Directives: Yes DNR: No Level of Care: Other Communicable Disease: No Prognosis: Stable Instructions / Follow-Up Instructions / Follow-Up 72 y/o F Hx AF, COPD, PAD, HTN, CKD III, ELMO. Presents with palpitations, lightheadedness and SOB x 1 day. Atrial fibrillation was apparent when she arrived in the ER. Her initial HR was betweem 110-120. She denies CP, N/V, diaphoresis. She had similar symptoms and had presented to the hospital one week ago. She was discharged from the ER however as she converted to a sinus rhythm. In 2016 she required cardioversion. She is currently taking Tikosyn BID as Amiodarone had exacerbated her lung disease. Paroxysmal Atrial Fibrillation with RVR S/P Cardioversion: - She successfully cardioverted however did convert back to A Fib. Is having multiple pauses that appear to occur when trying to convert to NSR when in A Fib. She is having 3-5 second pauses and has a history of syncopal episodes possible from this - Maintained on Diltiazem 30 mg TID at this time with her home hydralazine DCd - Continue Tikosyn 250 mcg BID - Eliquis 2.5 mg BID - Cardiology followed - COPD without Exacerbation: STABLE HTN: - Likely can convert to a long acting Diltiazem pending evaluation at [facility]. - Lasix 20 mg Q2D CKD Stage III: Baseline 1.4-1.6 - Continue to monitor - STABLE ELMO: - Utilizes CPAP at home - does not have it here - pauses are occurring mostly at night DVT Prophylaxis: Eliquis Code Status: FULL RESUSCITATION Per Cardiology: In summary, Lori is a 72-year-old female who has had a long-standing history of symptomatic atrial fibrillation. She is undergone 2 atrial fibrillation ablations in the past most recent of which took place [place] [facility] and was complicated by left atrial perforation requiring emergency surgical repair. The ablation was only partially successful and she has had multiple symptomatic breakthrough episodes in the interim time. She previously been on antiarrhythmic therapy with amiodarone which was subsequently discontinued due to concerns of worsening lung function. She was on sotalol until 2016 which was subsequently discontinued due to ineffectiveness and she was transitioned to dofetilide, and over the last 6 months she has been seen multiple times for breakthrough symptoms, culminating in this hospitalization. 3 prolonged pauses have been noted during his hospital stay. They are conversion pauses of 5 seconds, 3.9 seconds and 5.4 seconds during which time several sinus beats are noted and then she reverts back to atrial fibrillation with rapid ventricular response. Having presented with near syncope, I am concerned that her presenting episode may very well been due to a pause. At this time, I recommend electrophysiology evaluation for consideration of permanent pacemaker to allow more aggressive AV kavitha blockade. The patient has had a complex electro physiology history. Currently we are in the midst of a scheduling issue is 1 of our fluoroscopy rooms is to perform such procedures is down and therefore scheduling her procedures has been delayed. Due to or scheduling delay as well as the patient's complex nature of her problem and comfort level with the electrophysiology team at [facility] with whom she has had multiple past procedures as outlined above I recommend transfer to [facility] for further evaluation, likely permanent pacemaker evaluation this hospital stay. The patient was agreeable to this. I discussed her case with Dr. Chino Moreland who is on-call for clinical cardiology and accepted the patient in transfer. The patient is to be transferred by [facility] ground. I discussed the case with Dr. Puja matthews to of the hospitalist service. Current Hospital Diet Patient's current hospital diet: AHA Diet (Heart Healthy) Discharge Diet Recommended Diet: AHA Diet (Heart Healthy) Pending Studies Studies pending at discharge: no Medical Emergencies . Who to Call and When: Medical Emergencies: If at any time you feel your situation is an emergency, please call 911 immediately. . Non-Emergent Contact Non-Emergency issues call your: Primary Care Provider Call Non-Emergent contact if: you have a fever, your pain is concerning you, you have any medication questions . . "Provider Documentation" section prepared by Riddhi Mccoy. . Core Measure Problem Core Measures: None
[2017-09-26 12:45] VITALS: BP 146/77; PULSE 64; TEMP 36.3; O2SAT 98
[2017-09-26 13:43] VITALS: BP 146/77; PULSE 64; TEMP 36.3; O2SAT 98
--- NOTE | 2017-09-26 16:52 | Discharge Summary ---
Discharge Summary Date of Service Sep 26, 2017. Discharge Summary Admission Date: Sep 24, 2017 at 22:18 Discharge Date: Sep 26, 2017 Discharge Disposition: Acute care facility ([facility]) Principal Diagnosis: Atrial Fibrillation with RVR Problems/Secondary Diagnoses: 1) ELMO 2) PAD - R iliac stent 3) AF - ablation 2013 4) COPD 5) CKD III 6) Cervical CA 7) S/P Emergency Sternotomy 2/2 Arterial Rupture after Ablation 8) Chronic diastolic CHF Immunizations: Have You Had Influenza Vaccine: Yes Influenza Vaccine Date: Jan 18, 2010 History of Tetanus Vaccine?: Yes History of Pneumococcal: Yes Pneumococcal Date: Dec 19, 2009 History of Hepatitis B Vaccine: No Procedures: CHEST ONE VIEW PORTABLE FINDINGS: There are median sternotomy wires. No pneumothorax or pleural effusion is noted. There is no consolidation or evidence for pulmonary edema. The appearance of the chest is unchanged. Moderate cardiomegaly is unchanged. IMPRESSION: No acute cardiopulmonary findings. Consultations: 1. Cardiology Medication Reconciliation New Medications: Diltiazem HCl (Diltiazem HCl) 30 Mg Tab 30 MG PO TID for 30 Days, #90 TAB Continued Medications: Apixaban (Eliquis) 2.5 Mg Tab 2.5 MG PO BID, #60 Cholecalciferol (Vitamin D 1000 Unit) 1,000 Unit Cap 1000 INTER.UNIT PO DAILY, CAP Dofetilide (Tikosyn) 125 Mcg Cap 250 MCG PO BID, #60 CAP 6 Refills Furosemide (Lasix) 20 Mg Tab 20 MG PO Q2D Ipratropium [place] (Ipratropium [place]) 75 Sprays/15 Ml [place] 2 SPRAYS ROSA ELENA QID PRN for Nasal Congestion, #15 Sorbitol (Laxative) (Sorbitol) 70 % Silva PRN for Constipation Discontinued Medications: Hydralazine Hcl (Apresoline) 10 Mg Tab 10 MG PO BID, TAB Discharge Exam Review of Systems: Constitutional: No fever, No chills Respiratory: No cough, No shortness of breath Cardiovascular: No chest pain Abdomen: No pain, No nausea, No vomiting, No diarrhea, No constipation Musculoskeletal: No swelling, No calf pain Genitourinary - Female: No dysuria Hematologic / Lymphatic: No abnormal bleeding/bruising Integumentary: No rash Physical Exam: General Appearance: WD/WN, no apparent distress Eyes: sclerae normal ENT: hearing grossly normal Neck: supple, no JVD, trachea midline Respiratory/Chest: lungs clear, normal breath sounds, no respiratory distress, no accessory muscle use Cardiovascular: regular rate, rhythm Abdomen / GI: normal bowel sounds, non tender, soft Extremities: no calf tenderness Neurologic/Psychiatric: alert, oriented x 3 Skin: normal color, warm/dry Hospital Course ADMISSION: 72 y/o F Hx AF, COPD, PAD, HTN, CKD III, ELMO. Presents with palpitations, lightheadedness and SOB x 1 day. Atrial fibrillation was apparent when she arrived in the ER. Her initial HR was betweem 110-120. She denies CP, N/V, diaphoresis. She had similar symptoms and had presented to the hospital one week ago. She was discharged from the ER however as she converted to a sinus rhythm. In 2015 she required cardioversion. She is currently taking Tikosyn BID as Amiodarone had exacerbated her lung disease. HOSPITAL COURSE: Ms. Dasilva was admitted due to A Fib RVR. Even with rate control she was having symptoms, mostly of lightheadedness/dizziness. On monitor she appeared to have conversion pauses that ranged from 3-5 seconds. However she would not convert out of Atrial Fibrillation. She was successfully cardioverted on 09/25 but only temporarily maintained this. She was initially placed on Diltiazem gtt but was ultimately placed on Diltiazem 30 mg TID. At 0830 on 09/26 she again converted back to NSR. Given these pauses on monitor and her history of syncope. Cardiology recommended pacer placement. She may ultimately need another ablation however patient is a little hesitant as her last resulted in L atrial perforation requiring emergency surgery. Medications have been limited due to adverse affects from amiodarone related to her lung conditions and ineffectiveness of BB therapy. Due to temporary equipment/room restraints she will be transferred to [facility] for pacer placement. Planning of permanent pacemaker for AV kavitha blockade. She was transferred to [facility] for pacer placement. Med reconciliation may change pending her stay there. Currently the plan was to stop hydralazine in favor of Diltiazem. This can likely be converted to a long-acting version but will depend on [facility]'s evaluation and plan. Attending Discharge Note & Attestation - Pt seen/examined, chart reviewed, discharge care plan d/w DOROTHY Mccoy. I agree w/ the vivas components of her documentation. 72yo female with long-standing atrial fibrillation s/p ablation procedure in 2013 who presented with palpitations & near-syncope 2nd to a. [facility] with RVR. She underwent cardioversion by [facility] Cardiology but unfortunately only maintained NSR for a few hours. After converting back to a. fib she had multiple pauses on monitoring. In light of her intolerance to AV kavitha agents and anti-arrhythmics a discussion was held with the patient about consideration of pacemaker placement. She was agreeable to such, but required transfer to [facility] due to technical difficulties with the labor/excavator at [facility]. She will therefore transfer to [facility] in [place] for consideration of permanent pacemaker placement. Discharge exam - gen - NAD neck - no JVD heart - RRR, s1, s2 lungs - CTA b/l abd - soft, NT ext - no edema Bonifacio Knutson MD Total Time Spent: Greater than 30 minutes This includes examination of the patient, discharge planning, medication reconciliation, and communication with other providers. Discharge Instructions Please refer to the electronic Patient Visit Report (Discharge Instructions) for additional information. Follow-Up will be arranged after hospitalization at [facility] Additional Copies To Mihir Farris D.O.; Khadar Tuttle M.D.
--- NOTE | 2017-09-27 10:20 | EDITING REQUIRED CODING QUERY ---
CONGESTIVE HEART FAILURE Note: There is a history of CHF noted only the ER H&P. To Promote full compliance with coding requirements relating to patient care, physician participation is requested in all cases of label coder uncertainty. Please assist us with the following questions. A diagnosis of Congestive Heart Failure is documented in the patient's medical record. To accurately code this diagnosis and to compare patient severity, we ask that you specify the type of heart failure by placing an X within the parenthesis (x). SYSTOLIC HEART FAILURE ( ) Acute ( ) Chronic ( ) Acute on Chronic ( ) Rheumatic ( ) Unknown DIASTOLIC HEART FAILURE ( ) Acute ( x) Chronic ( ) Acute on Chronic ( ) Rheumatic ( ) Unknown COMBINED SYSTOLIC AND DIASTOLIC HEART FAILURE ( ) Acute ( ) Chronic ( ) Acute on Chronic ( ) Rheumatic ( ) Unknown ( ) NO CHF - this patient has no Chronic CHF and no Acute CHF Thank you Ashley Daniel
[2017-10-02] MEDS ORDERED: BISO5TAB3 PO (10:01)
[2017-10-02] MEDS ORDERED: DOFE250C PO (10:01)
[2017-10-02] MEDS ORDERED: ACET-1256 PO (10:01)
== END 2017-09-26 14:40 | disposition short-term general hospital (02) | DRG 309 ==
LOC: C.EDB 13:08 → ENRESERV 21:26 → CANRESERV 21:36 → ENRESERV 21:36 → C.2T 22:18
PROVIDERS: ADMIT Internal Medicine; ATTEND Internal Medicine
PROC: 5A2204Z Restoration of Cardiac Rhythm, Single (ICD-10-PCS; principal; 2017-09-25 13:30)
DX: I48.0 Paroxysmal atrial fibrillation (principal); I13.0 Hypertensive heart and chronic kidney disease with heart failure and stage 1 through stage 4 chronic kidney disease, or unspecified chronic kidney disease; I50.32 Chronic diastolic (congestive) heart failure; I49.5 Sick sinus syndrome; N18.3 Chronic kidney disease, stage 3 (moderate); J44.9 Chronic obstructive pulmonary disease, unspecified; I25.10 Atherosclerotic heart disease of native coronary artery without angina pectoris; I73.9 Peripheral vascular disease, unspecified; G47.33 Obstructive sleep apnea (adult) (pediatric); Z79.899 Other long term (current) drug therapy; Z79.01 Long term (current) use of anticoagulants; Z98.890 Other specified postprocedural states; Z85.41 Personal history of malignant neoplasm of cervix uteri; Z95.828 Presence of other vascular implants and grafts; Z87.891 Personal history of nicotine dependence; Z88.1 Allergy status to other antibiotic agents; Z88.8 Allergy status to other drugs, medicaments and biological substances; Z88.2 Allergy status to sulfonamides; Z91.011 Allergy to milk products; Z82.49 Family history of ischemic heart disease and other diseases of the circulatory system

== ENCOUNTER → 2017-10-23 | Outpatient (CLI) | payer OTHER ==
[~2017-10-23] MED LIST changes: +ACET-1256 PO; +APIX1TAB PO; +ATRIN6 NAE; +BISO5TAB3 PO; -DOFE125C PO; +DOFE250C PO; -HYDR-2977 PO; +SORB70SO6 PO
--- NOTE | 2017-10-23 11:12 | DIAGNOSTIC IMAGING REPORT ---
CHEST 2 VIEWS ROUTINE CLINICAL HISTORY: Productive cough. COMPARISON STUDY: Chest radiograph September 24, 2017. FINDINGS: Dual-lead left subclavian pacemaker and median sternotomy wires are noted. There is no pneumothorax or pleural effusion. There is no evidence for pulmonary edema. Cardiomediastinal silhouette is stable. Appearance of the chest is unchanged. IMPRESSION: No acute cardiopulmonary findings. No change in appearance of the chest. Electronically signed by: Richard Grigsby M.D. 10/23/2017 11:10 AM Dictated Date/Time: 10/23/2017 11:09 AM
== END | disposition home or self-care (01) ==
LOC: C.RADBC 10:26
PROVIDERS: ATTEND Nurse Practitioner Adult Health
DX: R05 Cough (principal)

== ENCOUNTER → 2017-11-27 | Outpatient (CLI) | payer OTHER ==
--- NOTE | 2017-11-27 14:47 | DIAGNOSTIC IMAGING REPORT ---
BILATERAL CAROTID DOPPLER STUDY HISTORY: STAPHYLOMA OF LEFT EYE COMPARISON: None. TECHNIQUE: Real-time, grayscale, and color Doppler sonography of the carotid arteries was performed. Imaging reviewed in the transverse and longitudinal planes. All measurements were calculated based on NASCET criteria. FINDINGS: Antegrade flow is seen in the bilateral vertebral arteries. The brachial pressures are hemodynamically similar. Mild calcified plaque within the bilateral carotid bulbs. The peak systolic velocity within the right ICA is 77 cm/s. The right systolic ratio is 1.1. The peak systolic velocity within the left ICA is 105 cm/s. The left systolic ratio is 1.2. IMPRESSION: No hemodynamically significant stenosis seen within the carotid arteries. Electronically signed by: Alcon Purdy M.D. 11/27/2017 2:45 PM Dictated Date/Time: 11/27/2017 2:44 PM
== END | disposition home or self-care (01) ==
LOC: C.ULTR 13:47
PROVIDERS: ATTEND Ophthalmology
DX: H50.00 Unspecified esotropia (principal); H15.8 Other disorders of sclera

== ENCOUNTER → 2018-02-05 | Outpatient (CLI) | payer OTHER ==
[~2018-02-05] MED LIST changes: -BISO5TAB3 PO; +LSX20 PO; +TPRSR25 PO
[2018-02-05 12:21] LABS: ALBUMIN 3.4 gm/dl (3.4-5.0); ALKALINE PHOSPHATASE 89 U/L (45-117); ALT/SGPT 26 U/L (12-78); AST/SGOT 18 U/L (15-37); BLOOD UREA NITROGEN 20 mg/dl (7-18); CALCIUM 9.2 mg/dl (8.5-10.1); CARBON DIOXIDE 27 mmol/L (21-32); CREATININE 1.35 mg/dl (0.60-1.20); GLUCOSE 82 mg/dl (70-99); POTASSIUM 4.8 mmol/L (3.5-5.1); SODIUM 137 mmol/L (136-145)
[2018-02-05 12:22] LABS: HEMATOCRIT 39.7 % (37-47); HEMOGLOBIN 12.9 g/dL (12.0-16.0); MEAN CELL VOLUME 95.7 fL (80-100); MEAN CORPUSCULAR HEMOGLOBIN 31.1 pg (25-34); MEAN CORPUSCULAR HGB CONC 32.5 g/dl (32-36); MEAN PLATELET VOLUME 11.6 fL (7.4-10.4); PLATELET COUNT 432 K/uL (130-400); RED CELL DISTRIBUTION WIDTH CV 15.3 % (11.5-14.5); RED CELL DISTRIBUTION WIDTH SD 53.2 fL (36.4-46.3); WHITE BLOOD COUNT 10.64 K/uL (4.8-10.8)
--- NOTE | 2018-02-14 12:18 | CODING QUERY NO DIAGNOSIS ---
TREATMENT RENDERED WITHOUT A DIAGNOSIS 47 To promote full compliance with coding requirements relating to patient care, physician participation is requested in all cases of stave inspector uncertainty. Please assist us with providing a diagnosis/symptom for the test(s) below: A diagnosis/symptom was not documented on your Order. A valid diagnosis/symptom is required to bill all insurances. Please remember that we are unable to code a diagnosis of rule out, probable, possible, questionable, or suspected. DOS 02/05/18 Tests that require a diagnosis: * CBC W/AUTO DIFF DIAGNOSIS: * COMP METABOLIC DIAGNOSIS: * ESR DIAGNOSIS: Provider Signature: Date: Thank you Vivian Live [facility] Information Management Once completed, please kindly fax back to [phone] For questions please call [phone]
== END | disposition home or self-care (01) ==
LOC: C.LABSPEC 10:03
PROVIDERS: ATTEND Internal Medicine Geriatric Medicine
DX: R78.81 Bacteremia (principal); Z45.2 Encounter for adjustment and management of vascular access device; Z79.2 Long term (current) use of antibiotics; I25.10 Atherosclerotic heart disease of native coronary artery without angina pectoris; I73.9 Peripheral vascular disease, unspecified; I13.0 Hypertensive heart and chronic kidney disease with heart failure and stage 1 through stage 4 chronic kidney disease, or unspecified chronic kidney disease; I50.30 Unspecified diastolic (congestive) heart failure; N18.3 Chronic kidney disease, stage 3 (moderate); I48.91 Unspecified atrial fibrillation; G47.33 Obstructive sleep apnea (adult) (pediatric)

== ENCOUNTER → 2018-02-12 | Outpatient (CLI) | payer OTHER ==
[2018-02-12 15:27] LABS: HEMATOCRIT 39.6 % (37-47); HEMOGLOBIN 12.9 g/dL (12.0-16.0); MEAN CELL VOLUME 96.1 fL (80-100); MEAN CORPUSCULAR HEMOGLOBIN 31.3 pg (25-34); MEAN CORPUSCULAR HGB CONC 32.6 g/dl (32-36); MEAN PLATELET VOLUME 11.3 fL (7.4-10.4); PLATELET COUNT 309 K/uL (130-400); RED CELL DISTRIBUTION WIDTH CV 14.9 % (11.5-14.5); RED CELL DISTRIBUTION WIDTH SD 52.5 fL (36.4-46.3); WHITE BLOOD COUNT 6.42 K/uL (4.8-10.8)
[2018-02-12 15:39] LABS: ALBUMIN 3.6 gm/dl (3.4-5.0); ALT/SGPT 20 U/L (12-78); AST/SGOT 17 U/L (15-37); BLOOD UREA NITROGEN 18 mg/dl (7-18); CARBON DIOXIDE 26 mmol/L (21-32); CREATININE 1.22 mg/dl (0.60-1.20); GLUCOSE 73 mg/dl (70-99); POTASSIUM 4.5 mmol/L (3.5-5.1); SODIUM 138 mmol/L (136-145)
[2018-02-12 15:47] LABS: ALKALINE PHOSPHATASE 70 U/L (45-117); TOTAL PROTEIN 6.8 gm/dl (6.4-8.2)
== END | disposition home or self-care (01) ==
LOC: C.LABSPEC 13:55
DX: R78.81 Bacteremia (principal)

== ENCOUNTER 2018-02-26 09:43 | Emergency (ER) | payer OTHER ==
[~2018-02-26] VITALS: Ht 160 cm; Wt 55.7 kg
[2018-02-26 09:49] VITALS: TEMP 36.6; Ht 160 cm; Wt 55.7 kg
--- NOTE | 2018-02-26 10:51 | EMERGENCY ROOM VISIT NOTE ---
History First contact with patient: 09:47 Chief Complaint: SWELLING TO EXTREMITY Stated Complaint: REF BY - SWELLING IN ARM, HX OF BLOOD DISEASE History of Present Illness The patient is a 72 year old female who presents to the Emergency Room with complaints of right wrist pain and swelling. The patient recently had a cardiac cath performed. She is concerned because she has had a cold sensation in her hand since the cath was performed. In addition she is also complaining of swelling to the right arm. She is on Eliquis. The patient called her PCP twice today who sent her into the ED for evaluation. Review of Systems See HPI for pertinent positives & negatives. A total of 10 systems reviewed and were otherwise negative. Past Medical/Surgical History Medical Problems: (1) ACUTE RENAL FAILURE, UNSPECIFIED (2) Atrial fibrillation (3) Atrial fibrillation with rapid ventricular response (4) Atrial fibrillation with RVR (5) Bacteremia (6) Beta-hemolytic group B streptococcal sepsis (7) cervical cancer (8) Chronic obstructive lung disease (9) Chronic renal disease (10) Congestive heart failure (11) CONGESTIVE HEART FAILURE NOS (12) CORONARY ATHEROSCLEROSIS OF [place] CORONARY VESSEL (13) Diarrhea (14) ELEVATED INR (15) Hypertension (16) Hypoxia (17) IRRITABLE BOWEL SYNDROME (18) Peripheral vascular disease (19) PTOSIS OF EYELID NOS (20) TOBACCO USE DISORDER (21) Total abdominal hysterectomy with bilateral salpingo-oophorectomy (22) valvular heart disease Family History Cancer Heart disease Hypertension Social History Smoking Status: Never Smoker Alcohol Use: none Drug Use: none Marital Status: Housing Status: lives with family Occupation Status: retired Current/Historical Medications Scheduled Apixaban (Eliquis), 2.5 MG PO BID Cholecalciferol (Vitamin D 1000 Unit), 1,000 INTER.UNIT PO DAILY Dofetilide (Tikosyn), 250 MCG PO BID Furosemide (Lasix), 20 MG PO Q2D Furosemide (Furosemide), 40 MG PO Q2D Metoprolol Succinate (Metoprolol Succinate ER), 25 MG PO BID Scheduled PRN Acetaminophen (Tylenol), 1-2 TABS PO Q8H PRN for Pain Ipratropium [place] (Ipratropium [place]), 2 SPRAYS ROSA ELENA QID PRN for Nasal Congestion Sorbitol (Laxative) (Sorbitol), 30 ML PO DAILY PRN for Constipation Physical Exam Vital Signs Date Time Temp Pulse Resp B/P (MAP) Pulse Ox O2 Delivery O2 Flow Rate FiO2 02/26/18 14:32 67 18 170/91 96 Room Air 02/26/18 12:47 60 16 164/85 96 Room Air 02/26/18 10:54 67 16 154/83 97 Room Air 02/26/18 09:49 36.6 78 20 170/106 98 Room Air Physical Exam GENERAL: Awake, alert, well-appearing, in no acute distress HENT: Normocephalic, atraumatic. Oropharynx unremarkable. EYES: Normal conjunctiva. Sclera non-icteric. NECK: Supple. No nuchal rigidity. FROM. No JVD. RESPIRATORY: Clear to auscultation. CARDIAC: Regular rate, normal rhythm. Extremities warm and well perfused. Pulses equal. ABDOMEN: Soft, non-distended. No tenderness to palpation. No rebound or guarding. No masses. RECTAL: Deferred. MUSCULOSKELETAL: Chest examination reveals no tenderness. The back is symmetrical on inspection without obvious abnormality. There is no CVA tenderness to palpation. No joint edema. Pulses intact distally. LOWER EXTREMITIES: Calves are equal size bilaterally and non-tender. No edema. No discoloration. NEURO: Normal sensorium. No sensory or motor deficits noted. SKIN: No rash or jaundice noted. Medical Decision & Procedures ER Provider Diagnostic Interpretation: R VENOUS DOPPLER UPR EXT UNIL CLINICAL HISTORY: 72 years-old Female presenting with pT C/O rue SWELLING. TECHNIQUE: Real-time grayscale and color and spectral Doppler ultrasound imaging of the veins of the right upper extremity was performed. Compression and augmentation were also utilized. COMPARISON: None. FINDINGS: RIGHT: Internal jugular vein: Patent. Subclavian vein: Patent. Axillary vein: Patent. Brachial vein: Patent. Basilic vein (superficial): Lack of compressibility, lack of color Doppler flow, and lack of venous waveforms, consistent with thrombus. This is noted in the mid to distal upper arm. Cephalic vein (superficial): Not well visualized. Radial vein: Not well-visualized. Ulnar vein: Not well visualized. Other: None. IMPRESSION: 1. No evidence of deep venous thrombosis allowing for limited visualization of forearm veins. 2. Superficial venous thrombosis in the basilic vein. R ART DOP DUP UPPER EXT UNI CLINICAL HISTORY: 72 years-old Female presenting with Pt c/o RUE swelling, s/p cath. TECHNIQUE: Real-time grayscale ultrasound imaging of the right forearm was performed for a focused evaluation at the site of clinical concern. Color and spectral Doppler ultrasound imaging was also performed. COMPARISON: None. FINDINGS: At the site of clinical concern at the level of the right ulnar arterial catheterization site, a 3.0 x 1.3 x 2.4 cm pseudoaneurysm is evident. The ulnar artery proximal to the site of recent catheterization is patent though there is to and fro flow. This pattern of flow is also noted at the level of the communication of the pseudoaneurysm with the parent vessel. Within the pseudoaneurysm itself, systolic waveforms evident urine there is also significant thrombus in the pseudoaneurysm. The ulnar artery distal to the pseudoaneurysm demonstrates significantly diminished systolic flow and loss of diastolic waveforms. The neck of the pseudoaneurysm appears narrow. IMPRESSION: 1. Findings consistent with 3 cm pseudoaneurysm arising from the ulnar artery at the site of recent catheterization. Though the parent vessel remains patent, there is significant alteration in flow with significantly diminished distal flow. The pseudoaneurysm is partially thrombosed. The report will be called/faxed according to standard departmental protocol. Medical Decision This is a 72-year-old female who presents emergency department complaining of right arm swelling status post cardiac cath. The patient is requesting an x- ray however I feel an ultrasound which show a better study of the artery and vein. The patient is on Eliquis. The patient was sent for a ultrasound of the cath site and this was concerning for a pseudoaneurysm. For this reason I did discuss the case with Dr. King. The patient was seen by both Dr. King as well as Dr. Cardenas. They both feel that the patient can be safely discharged home for follow-up with vascular surgery and [facility] tomorrow. Impression Primary Impression: Pseudoaneurysm Departure Information Dispostion Home / Self-Care Referrals Khadar Tuttle M.D. (PCP) Patient Instructions My [facility]
--- NOTE | 2018-02-26 12:20 | DIAGNOSTIC IMAGING REPORT ---
R VENOUS DOPPLER UPR EXT UNIL CLINICAL HISTORY: 72 years-old Female presenting with pT C/O rue SWELLING. TECHNIQUE: Real-time grayscale and color and spectral Doppler ultrasound imaging of the veins of the right upper extremity was performed. Compression and augmentation were also utilized. COMPARISON: None. FINDINGS: RIGHT: Internal jugular vein: Patent. Subclavian vein: Patent. Axillary vein: Patent. Brachial vein: Patent. Basilic vein (superficial): Lack of compressibility, lack of color Doppler flow, and lack of venous waveforms, consistent with thrombus. This is noted in the mid to distal upper arm. Cephalic vein (superficial): Not well visualized. Radial vein: Not well-visualized. Ulnar vein: Not well visualized. Other: None. IMPRESSION: 1. No evidence of deep venous thrombosis allowing for limited visualization of forearm veins. 2. Superficial venous thrombosis in the basilic vein. Electronically signed by: Evan Jain M.D. 02/26/2018 12:19 PM Dictated Date/Time: 02/26/2018 12:16 PM
--- NOTE | 2018-02-26 12:36 | DIAGNOSTIC IMAGING REPORT ---
R ART DOP DUP UPPER EXT UNI CLINICAL HISTORY: 72 years-old Female presenting with Pt c/o RUE swelling, s/p cath. TECHNIQUE: Real-time grayscale ultrasound imaging of the right forearm was performed for a focused evaluation at the site of clinical concern. Color and spectral Doppler ultrasound imaging was also performed. COMPARISON: None. FINDINGS: At the site of clinical concern at the level of the right ulnar arterial catheterization site, a 3.0 x 1.3 x 2.4 cm pseudoaneurysm is evident. The ulnar artery proximal to the site of recent catheterization is patent though there is to and fro flow. This pattern of flow is also noted at the level of the communication of the pseudoaneurysm with the parent vessel. Within the pseudoaneurysm itself, systolic waveforms evident urine there is also significant thrombus in the pseudoaneurysm. The ulnar artery distal to the pseudoaneurysm demonstrates significantly diminished systolic flow and loss of diastolic waveforms. The neck of the pseudoaneurysm appears narrow. IMPRESSION: 1. Findings consistent with 3 cm pseudoaneurysm arising from the ulnar artery at the site of recent catheterization. Though the parent vessel remains patent, there is significant alteration in flow with significantly diminished distal flow. The pseudoaneurysm is partially thrombosed. The report will be called/faxed according to standard departmental protocol. Electronically signed by: Evan Jain M.D. 02/26/2018 12:35 PM Dictated Date/Time: 02/26/2018 12:32 PM
[2018-02-26 14:32] VITALS: BP 170/91; PULSE 67; O2SAT 96
--- NOTE | 2018-02-26 17:22 | Cardiology Follow-Up ---
Subjective Subjective Date of Service: Feb 26, 2018. Additional Details: Ms. Dasilva is a 72-year-old woman with history of paroxysmal atrial fibrillation post pulmonary vein isolation, symptomatic bradycardia status post pacemaker, chronic diastolic heart failure who was admitted 1 month ago in the setting of acute heart failure with associated shortness of breath and chest pain. Her initial presentation was remarkable for mildly elevated troponin questionable new anterior wall motion abnormality prompting cardiac catheterization on 01/28/2018. Due to diminished right radial artery pulse procedure performed via right ulnar artery under ultrasound guidance. Catheterization revealed [id number] nonobstructive coronary artery disease with a 40 percent mid circumflex stenosis in no intervention undertaken. She was treated with brief IV diuretics, increased beta-enrique with improvement in symptoms. Also completed course of antibiotics for blood cultures growing group B strep. Patient returned to the [facility] Emergency Department today due to persistent discomfort at her right ulnar access site with associated mild swelling and distal numbness. She underwent venous and arterial ultrasound evaluations in the ED and was noted to have a 3 x 2 centimeter partially thrombosed pseudoaneurysm involving the right ulnar access site. Problem List Medical Problems: (1) Atrial fibrillation with rapid ventricular response Status: Acute (2) Chest pain Status: Acute (3) Dizziness Status: Acute (4) Dyspnea Status: Acute (5) Elevated brain natriuretic peptide (BNP) level Status: Acute (6) Elevated troponin Status: Acute (7) Near syncope Status: Acute (8) Palpitations Status: Acute (9) Pseudoaneurysm Status: Acute (10) Rapid atrial fibrillation Status: Acute Review of Systems Constitutional: No fever, No chills Respiratory: No shortness of breath Cardiac: No chest pain Abdomen: No pain Musculoskeletal: + problem reported (Pain at right ulnar access site) Neurologic: + numbness/tingling Heme: No abnormal bleeding/bruising Endo: No fatigue Skin: No rash Objective Vital Signs Last Vital Signs Documentation Date Time Temp Pulse Resp B/P (MAP) Pulse Ox O2 Delivery O2 Flow Rate FiO2 02/26/18 14:32 67 18 170/91 96 Room Air 02/26/18 09:49 36.6 Physical Exam: General Appearance: no apparent distress ENT: hearing grossly normal, pharynx normal Respiratory/Chest: lungs clear, normal breath sounds, no respiratory distress Cardiovascular: no gallop, no murmur, + irregularly irregular Abdomen: non tender, soft Extremities: no pedal edema, no calf tenderness, + pertinent finding (Non pulsatile swelling at the site of right ulnar access. Distal capillary refill intact. Distal sensation intact.) Neurologic/Psychiatric: traffic director II-XII nml as tested, no motor/sensory deficits, alert, normal mood/affect, oriented x 3 Skin: normal color, no rash Lymphatic: no adenopathy Assessment and Plan 1. Right ulnar artery pseudoaneurysm 2. Right basilic vein superficial venous thrombosis Reviewed images from arterial duplex obtained in the ED. Partially thrombosed pseudoaneurysm present with persistent to and fro flow and intact distal ulnar flow post access site. On exam distal right upper extremity appears well perfused and no suggestion of impending skin breakdown. Do not feel patient needs emergent intervention to the pseudoaneurysm but in the setting of continued pain, numbness and risk of distal emboli recommend further evaluation by vascular surgery for consideration of thrombin injection/ open repair. Discussed case with patient's primary estimator jewelry, Dr. Cardenas and ED physician Dr. Levy. Outpatient follow-up to be arranged with [facility] vascular surgery tomorrow in [place]. Patient can be discharged this afternoon and is agreeable with this plan. Medications: Reported Home Medications Medications Dose Route/Sig Max Daily Dose Days Date Category Metoprolol Succinate ER (Metoprolol Succinate) 25 Mg Tabcr 25 Mg PO BID 30 01/31/18 Rx Furosemide 20 Mg Tab 40 Mg PO Q2D 01/28/18 Reported Tylenol (Acetaminophen) 500 Mg Tab 1-2 Tabs PO Q8H PRN 10/02/17 Reported Tikosyn (Dofetilide) 250 Mcg Cap 250 Mcg PO BID 10/02/17 Reported Lasix (Furosemide) 20 Mg Tab 20 Mg PO Q2D 08/21/17 Reported Ipratropium Clear 75 Sprays/15 Ml [place] 2 Sprays ROSA ELENA QID PRN 12/16/15 Reported Eliquis (Apixaban) 2.5 Mg Tab 2.5 Mg PO BID 12/16/15 Reported Sorbitol (Sorbitol (Laxative)) 70 % Silva 30 Ml PO DAILY PRN 04/09/14 Reported Vitamin D 1000 Unit (Cholecalciferol) 1,000 Unit Cap 1,000 Inter.unit PO DAILY 12/27/11 Reported Lab Results: Right upper extremity arterial duplex-- Findings consistent with 3 cm pseudoaneurysm arising from the ulnar artery at the site of recent catheterization. Though the parent vessel remains patent, there is significant alteration in flow with significantly diminished distal flow. The pseudoaneurysm is partially thrombosed. Right upper extremity venous duplex-- IMPRESSION: 1. No evidence of deep venous thrombosis allowing for limited visualization of forearm veins. 2. Superficial venous thrombosis in the basilic vein.
== END 2018-02-26 14:32 | disposition home or self-care (01) ==
LOC: C.EDB 09:44
DX: I72.1 Aneurysm of artery of upper extremity (principal); Z79.01 Long term (current) use of anticoagulants; I48.91 Unspecified atrial fibrillation; J44.9 Chronic obstructive pulmonary disease, unspecified; N18.9 Chronic kidney disease, unspecified; I50.9 Heart failure, unspecified; I13.0 Hypertensive heart and chronic kidney disease with heart failure and stage 1 through stage 4 chronic kidney disease, or unspecified chronic kidney disease; K58.9 Irritable bowel syndrome, unspecified; I73.9 Peripheral vascular disease, unspecified; Z90.710 Acquired absence of both cervix and uterus; Z90.79 Acquired absence of other genital organ(s); Z90.722 Acquired absence of ovaries, bilateral; Z80.9 Family history of malignant neoplasm, unspecified; Z82.49 Family history of ischemic heart disease and other diseases of the circulatory system; Z79.899 Other long term (current) drug therapy

== ENCOUNTER 2023-08-04 06:41 | Inpatient (IN) ==
--- OUTSIDE RECORDS SUMMARY | 2023-08-04 06:48 | External Medical Summary ---
Author Name Unknown Address Unknown Organization K01:[facility] [place] [address] [place] [address] Laboratory Report Ordering Provider Test Date Status CARLTON CORDERO 07/26/2023 08:50:55 Final Observation Date Value Abnormality Reference (Units ) Status Uric Acid 07/26/2023 08:50:55 5.2 2.4-5.7 (m g/dL) Final Performing Location [facility] - [address] [place] [address]
--- OUTSIDE RECORDS SUMMARY | 2023-08-04 06:48 | External Medical Summary | Summary of Care ---
Author Name Unknown Organization [facility] Address [address] [facility] [place] [address] Phone [phone] Care Team Providers Care Canadian Bacon Tier Name Role Phone Steffen Gonzales DO Primary Care Provider [phone] Reason for Visit * Reason Onset Date Comments Advice 06/12/2023 Medication Encounter Details Date Type Department Care Team (Late st Contact Info) Description 06/12/2023 Telephone Cardiology, [facility] [address] [employer] [address] [place] [address] Wang Cardenas MD [address] [place] [address] Advice (Medication/) Allergies Active Allergy Reactions Criticality Noted Date Comments Amiodarone Wheezing 08/13/2012 Pulmonary issues Atorvastatin Muscle pain 01/24/2012 Amoxicillin-Pot Clavulanate Itching 11/19/2019 Bacitracin 10/14/2003 Eyes swell Ciprofloxacin Edema face/lips/tongue High 04/05/2010 Rosuvastatin Calcium Muscle pain 01/24/2012 Dizziness Dabigatran Etexilate Mesylate Edema Other 01/24/2012 Dizziness, Difficulty breathing. Lisinopril Renal complications Low 05/05/2015 Nitrofurantoin Monohyd Macro Nausea/vomiting,Other (Please comment) 12/20/2011 Patient states she noted irregular heart rate Prednisone 05/02/2023 Significant fluid retention with long course of prednisone Sulfa Antibiotics Edema face/lips/tongue High 06/19/1997 Swelling of the ankles. documented as of this encounter (statuses as of 07/24/2023) Medications Medication Sig Dispensed Refills Start Date End Date Status VITAMIN D 1000 UNIT PO CAPS 1 capsule daily 30 11 08/23/19 10 Active BLOOD PRESSURE MONITOR KITIndications:Atri al fibrillation (HCC) Take daily as directed 1 Kit 0 08/21/19 13 Active SURGICAL COMPRESSION STOCKINGIndications :PAT (paroxysmal atrial tachycardia),Edema, unspecified type Knee length compression stockings 20mmHg 1 Each 2 04/23/20 18 Active Aspirin 81 MG Tablet Take 1 Tablet by mouth once a day on Sunday, Sunday, and Sunday only. 0 10/12/19 19 Active Citracal Plus Oral Tablet Take 1.5 Tablets by mouth in the morning. 0 05/25/20 21 Active Sorbitol 70 % Solution Take 15 ML by mouth once daily as needed for constipation 1419 mL 1 01/06/20 22 Active CPAP every night at bedtime . 0 Active Metoprolol Succinate ER 25 MG Oral Tablet Extended Release 24 Hour (toPROL XL)Indications:Paro xysmal atrial fibrillation (HCC) TAKE 1/2 TABLET BY MOUTH TWICE A DAY 90 Tablet 3 08/08/19 23 Active Hydrocortisone 2.5 % External Ointment Apply to lips nightly x 2 weeks 20 g 1 08/14/19 23 Active Dofetilide 250 MCG Oral Capsule (Tikosyn) TAKE ONE CAPSULE BY MOUTH IN THE MORNING AND ONE CAPSULE BEFORE BEDTIME. 180 Capsule 3 09/26/19 23 024 Active Apixaban 5 MG Oral Tablet (Eliquis)Indication s:Paroxysmal atrial fibrillation (HCC) TAKE ONE TABLET BY MOUTH TWICE A DAY 200 Tablet 3 05/22/20 22 024 Active Famotidine 20 MG Oral Tablet (Pepcid)Indications :Nausea Take 0.5 Tablets by mouth at bedtime. 30 Tablet 11 03/18/20 23 Active Estradiol 0.1 MG/GM Vaginal Cream (Estrace) Apply pea sized amount (0.5 gm) vaginally twice a week at bedtime 42.5 g 3 04/10/20 23 Active Furosemide 20 MG Oral Tablet (Lasix)Indications: Paroxysmal atrial fibrillation (HCC),Hypertensive heart and kidney disease with chronic diastolic congestive heart failure and stage 3b chronic kidney disease (HCC),Tachy-jaqui syndrome (HCC),Cardiac pacemaker in situ,Nonobstructive atherosclerosis of coronary artery,Peripheral vascular disease (HCC),Dyslipidemia, goal LDL below 70,Essential hypertension with goal blood pressure less than 140/90 Take two tablets on Sunday, Sunday and Sunday. One tablet on , , Sat and Sun 0 05/18/20 23 Active Ezetimibe 10 MG Oral Tablet (Zetia)Indications: Dyslipidemia, goal LDL below 70 TAKE ONE TABLET BY MOUTH EVERY DAY 90 Tablet 3 05/21/20 23 024 Active Ondansetron HCl 4 MG Oral TabletIndications:N ausea Take 1 Tablet by mouth every 8 hours as needed for Nausea. 30 Tablet 0 03/18/20 23 023 Discontinued Ipratropium [place] 0.06 % Nasal Solution (Atrovent) ADMINISTER 2 SPRAYS INTO EACH NOSTRIL 4 TIMES A DAY NEEDED FOR RHINITIS. FOR RUNNY NOSE 15 mL 1 04/27/20 23 024 Discontinued D-Mannose 500 MG Oral Capsule Take 2 Tablets by mouth in the morning and 2 Tablets before bedtime. 0 024 Discontinued(Nm dication List Clean Up) documented as of this encounter (statuses as of 07/24/2023) Active Problems Problem Noted Date Diagnosed Date Gout, arthropathy 07/20/2023 Chronic heart failure with preserved ejection fr action 05/23/2023 Age-related osteoporosis wit hout current pathological fracture 04/12/2022 History of cervical cancer 11/22/2021 Chronic kidney disease, stage 3b 08/29/2021 Overview: Per CKD protocol Hypertensive heart and kidne y disease with chronic diastolic congestive heart failure and stage 3b chronic kidney disease 08/25/2021 Secondary hyperparathyroidism of renal origin Coronary artery disease invo lving wilton coronary artery of wilton heart without angina pectoris 04/08/2018 Cardiac pacemaker in situ 09/28/2017 Overview: DDD Pacemaker Pacemaker. Irrigation Worker Medtronic, model W1DR01 Elena XTDR (MRI conditional), serial number [id number]. Right atrial lead. Irrigation Worker Medtronic, model 5076-45 CapSureFix Novus, serial number [id number]. Right ventricular lead. Irrigation Worker Medtronic, model 5076-52 CapSureFix Novus, serial number [id number]. 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 HTN, goal below 140/90 01/24/2012 Heart failure, diastolic, due to HTN 01/24/2012 Dyslipidemia, goal LDL below 70 06/19/2011 Constipation 06/19/2011 ADVANCE DIRECTIVE INFORMATION 07/11/2005 Overview: Yes, Patient instructed to provide copy of advance directive for provider to review and to be scanned into Electronic Medical Record CA IN SITU SKIN ARM 10/14/2003 Peripheral vascular disease 03/12/2001 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 CHR ALLRG CONJUNCTIV NEC 10/26/1998 Other allergic rhinitis 10/26/1998 Overview: ICD-10 update of inactive term Menopause 09/14/1997 documented as of this encounter (statuses as of 07/24/2023) Resolved Problems Problem Noted Date Diagnosed Date Resolved Date Malignant neoplasm of cervix 11/22/2021 11/22/2021 COPD, group A, by GOLD 2017 classification 09/19/2017 08/25/2021 Cardiac tamponade 09/27/2013 08/25/2021 Lower urinary tract infectious disease 05/21/2012 05/25/2021 Overview: ICD-10 update of inactive term Acute sinusitis 03/26/2012 05/25/2021 Other constipation 03/07/2012 Acute UTI (urinary tract infection) 12/20/2011 05/25/2021 Atrial fibrillation 04/10/2011 01/12/20 21 documented as of this encounter (statuses as of 07/24/2023) Immunizations Name Administration Dates Next Due COVID-19 mRNA, LNP-s, No Pre serve, 2-Dose Series (Moderna) 09/29/2020,09/01/2020 COVID-19, MRNA-LNP, 23-24, P F, 30 MCG/0.3 mL, 12 YRS AND ABOVE, IM (Collision Hub-Comirnaty) 05/09/2023 COVID-19, mRNA, LNP-s, PF, B ooster, 100mcg/0.5mg (Moderna) 10/26/2021,05/11/2021 Covid-19, Mrna, Lnp-s, Pf, B ivalent, 30 Mcg, IM, 12 yrs and above (Pfizer) 04/18/2022 Pneumococcal Conjugate Vacc, 13 Valent (Prevnar) 08/25/2014 Pneumococcal Polysaccharide PPV23 (Pneumovax) 05/28/2018,08/23/2009 Season Influenza, Quad, PF, Adjuvanted, 65+ Yrs, IM (FLUAD) 03/16/2020 Seasonal Influenza Virus Vac cine, Unspecified Formulation 04/21/2020 Seasonal Influenza, Quad, Na love (Flumist) 04/15/2018 Seasonal Influenza, Quadriva lent Hd (Fluzone Hd) 03/21/2023,04/12/2022 Seasonal Influenza, Quadriva lent Hd, 65+ Yrs 03/15/2021 Seasonal Influenza, Split, I IV3, With Preserve, Inj 05/09/2012,03/29/2011,04/29/2010,08/23,06/01/2008,05/28/2007,06/05/2006 Seasonal Influenza, Trivalen t, Adjuvanted, 65+ yrs 05/10/2019 TDAP (age 10 and older)(Boostrix) 02/22/2017 Varicella Zoster Vaccine (Adult) 11/11/2012 Zoster Vaccine Recombinant (Shingrix) 02/13/2019 ,11/27/2018 documented as of this encounter Social History Tobacco Use Types Packs/Day Years Used Date Smoking Tobacco: Former Cigarettes 0.3 25 Q uit: 05/29/2012 Passive Smoke Exposure: Past Smokeless Tobacco: Never Quit: 05/29/2012 Comments:pt smokes 1 pack ov er 4 days Alcohol Use Standard Drinks/Week Comments Yes 0 (1 standard drink = 0.6 oz pur e alcohol) occassional AUDIT-C Answer Date Recorded Q1: How often do you have a drink containing alc ohol? 2-4 times a month 05/25/2021 Q2: How many drinks containi ng alcohol do you have on a typical day when you are drinking? 1 or 2 05/25/2021 Q3: How often do you have si x or more drinks on one occasion? Never 05/25/2021 PHQ-2 Answer Date Recorded PHQ Adult Total Score 2 07/20/2023 Hunger Vital Sign Answer Date Recorded Within the past 12 months, y ou worried that your food would run out before you got the money to buy more. Never true 07/20/19 24 Within the past 12 months, t he food you bought just didn't last and you didn't have money to get more. Never true 07/20/2023 Sex and Gender Information Value Date Recorded Sex Assigned at Female 05/25/2021 3:21 PM EST Gender Identity Female 05/25/2021 3:21 PM EST Sexual Orientation Straight 05/25/2021 3: 21 PM EST Job Start Date Occupation Industry Not on file Not on file Not on file documented as of this encounter Functional Status Functional Status Response Date of Assess ment Are you deaf or do you have serious difficulty hearing? No 09/26/2013 Are you blind or do you have serious difficulty seeing, even when wearing glasses? Yes-can see out of right eye; left very poor vision 09/26/2013 Do you have serious difficul ty walking or climbing stairs? (5 years old or older) No 09/26/2013 Do you have difficulty dress ing or bathing? (5 years old or older) No 09/26/2013 Because of a physical, menta l, or emotional condition, do you have difficulty doing errands alone such as visiting a doctor s office or shopping? (15 years old or older) No 09/26/2013 Cognitive Status Response Date of Assessm ent Because of a physical, menta l, or emotional condition, do you have serious difficulty concentrating, remembering, or making decisions? (5 years old or older) No 09/26/2013 documented as of this encounter Miscellaneous Notes * Telephone Encounter - Deshawn Dawson RN - 06/21/2023 2:52 PM EST Message sent to MY Chart from Kelsea Sweeney PA-C. * Telephone Encounter - Gloria Choi LPN - 06/19/2023 3:48 PM EST I left a message on patient's answering machine asking patient to call us back. * Telephone Encounter - Kelsea Sweeney PA-C - 06/18/2023 9:52 AM EST She is taking metoprolol due to paroxysmal atrial fibrillation and history of CHF. She can try reducing metoprolol to 25 mg - 1/2 tab daily but would not stop therapy. Hair loss is not a common side effect of metoprolol < 1%. If continues, could be nutritional deficiency and would speak with PCP * Telephone Encounter - Susan Proctor LPN - 06/14/2023 4:58 PM EST This was prescribed by Kelsea Sweeney will forward to cardiology. Thank you * Telephone Encounter - Rita Wallace OSA - 06/14/2023 3:45 PM EST Pt calling to request a nurse call her. She states she is not sure why she is on the metoprolol andwants to discuss other options. She can be reached at [phone] * Telephone Encounter - Ramandeep Duncan OSA - 06/13/2023 8:20 AM EST Patient calling again to check status She can be reached at [phone] * Telephone Encounter - Rita Obregon OSA - 06/12/2023 9:36 AM EST Thinks that her metoprolol is making her hair fall out. Has kept her up all night with worry Wants to change meds Please call her, computer is not working so can't receive any messages documented in this encounter Plan of Treatment Upcoming Encounters Date Type Department Care Team (Late st Contact Info) Description 07/26/2023 8:20 AM EST Office Visit Family Practice 65 [facility] [address] [place] [address] Steffen Gonzales, [address] [place] [address] 08/17/2023 2:00 PM EST Nurse Only Ancillary [address] [address] College, Nurse Annual Wellness Visit [address] [address] 09/05/2023 1:00 PM EST Imaging Vascular Lab, [facility] [address] [place] [address] 09/05/2023 2:00 PM EST Imaging Vascular Lab, [address] [place] [address] 09/12/2023 11:10 AM EST Office Visit Vascular Surgery, [facility] 132 [place] [address] Jerome Glover MD [address] [place] [address] 09/18/2023 9:20 AM EST Office Visit Family Practice [facility] [address] [place] [address] Steffen Gonzales, [address] [place] [address] 10/19/2023 9:45 AM EDT Office Visit Urogynecology [facility] [address] [place] [address] Carie Moncada PA-C [address] [place] [address] Nurse Coty Padron Jackie [address] [place] [address] 11/02/2023 8:40 AM EDT Office Visit Sleep Disorders [facility] 132 [facility] [place] [phone] Amy Sanon DO 132 [facility] [place] [address] 02/04/2024 9:30 AM EDT Cardiac Studies Cardiology, [facility] 132 [facility] [place] [address] [place], Pacer Clinic [facility] 132 [facility] [place] [address] 02/19/2024 9:30 AM EDT Office Visit Urology, [facility] 132 [facility] [place] [address] Tonny Elias MD [address] [place] [address] 05/07/2024 1:15 PM EDT Immunization Ancillary [facility] [address] [place] [address] [place], Covid19 Vaccine 65 [facility] [address] [place] [address] 06/24/2024 9:40 AM EST Office Visit Rheumatology [address] [place] [address] Max Awan MD [address] [place] [address] [place] [address] Health Maintenance Due Date Last Done Comments *BISPHONATE OR OTHER ACCEPTABLE MEDICATION NEEDED FOR OSTEOPOROSIS (REFER TO SMARTSET #1146) 05/18/2023 GFR 01/10/2024 07/11/2023, 05/16, 05/09/2023, Additional history exists Albumin/Creatinine Ratio 03/28/2024 023, 06/16/2022, 08/25/2021 CKD PHOS USE SMARTSET 87739 04/30/202404/15, 11/22/2021, 06/04/2017 CKD HGB USE SMARTSET 99758 07/11/202407/11, 07/11/2023, 04/30/2023, Additional history exists Depression Screening 07/20/2024 07/20/2023 DXA Scan 11/29/2024 11/29/2022, 11/16/2020 DTaP,Tdap,and Td Vaccines (2 - Td or Tdap) 02/22/2027 02/22/2017, 08/05/2004, 08/05/2004 VITAMIN D LEVEL ONCE IN A LIFETIME-USE SMARTSET# [id number] Completed 02/02/2014, 12/24/2012, 06/04/2009 Colonoscopy Discontinued 10/17/2017 Colorectal Cancer Screening Discontinued Pneumococcal Vaccine: 65+ Years Completed 05/28/2018, 08/25/2014, 08/23/2009 Zoster Vaccines Completed 02/13/2019, 11/13, 11/11/2012 Influenza Vaccine (FLU shot) Completed 03/21/2023, 04/12/2022, 03/15/2021, Additional history exists COVID-19 Vaccine Completed 05/09/2023, 10/2021, 10/26/2021, Additional history exists Cologuard Discontinued Fecal Occult Blood Test Discontinued GARDASIL-HPV IMMUNIZATION SERIES Aged Out No longer eligible based on patient's age to complete this topic Hepatitis B Aged Out No longer eligi ble based on patient's age to complete this topic MENINGOCOCCAL (MENACTRA/MENVEO) Aged Out No longer eligible based on patient's age to complete this topic Sigmoidoscopy Discontinued documented as of this encounter Medical Devices Implanted Type Area Irrigation Worker Device Identifier Shelf Expiration Date Model / Serial / Lot Sut Steel 6 [id number] - [id number] Implanted:Qty: 6 on 09/25/2013 at OR [facility] N/A: Chest JNJ : [employer] 02/12/2014 [id number] / / [id number] Lens Intraoc 20.0 - [id number] - [id number] Implanted:Qty: 1 on 06/21/2021 by Jonathan Phillips MD at OR [facility] Left: Eye [employer] 02/12/2026 [id number] / [id number] / [id number] Lens Intraoc 20.5 - [id number] - [id number] Implanted:Qty: 1 on 02/21/2022 by Jonathan Phillips MD at OR [facility] Right: Eye [employer] 09/12/2024 [id number] / [id number] / [id number] documented as of this encounter Advance Directives Latest Code Status on File Code Status Date Activated Date Inactivated Comments No Code 02/21/2022 10:22 AM 02/21/2022 4:52 PM This o rder reflects the patients wishes and were consensually agreed upon. Question Answer Comments Discussion of Advance Directives occurred with: Patient Does the patient have a Living Will? No Does the patient have Health Care Power of Head Tennis Professional? No Code Status History Code Status Date Activated Date Inactivated Comments Full Code 09/26/2017 4:53 PM 09/28/2017 6:25 PM This order reflects the patients wishes and were consensually agreed upon. Question Answer Comments Discussion of Advance Directives occurred with: Patient Full Code 09/25/2013 3:16 PM 10/01/2013 3:22 PM This order reflects the patients wishes and were consensually agreed upon. Full Code 04/15/2012 12:24 PM 04/16/2012 11:03 PM Thi s order reflects the patients wishes and were consensually agreed upon. Question Answer Comments Discussion of Advance Directives occurred with: Patient Does the patient have a Living Will? No Does the patient have Health Care Power of Head Tennis Professional? No Care Teams Canadian Bacon Tier Relationship Specialty Start Date End Date Steffen Gonzales DO [address] [facility] [place] [address] PCP - General Internal Medicine 05/25/21 documented as of this encounter
--- OUTSIDE RECORDS SUMMARY | 2023-08-04 06:48 | External Medical Summary | Summary of Care ---
Author Name Unknown Organization [facility] Address [address] [place] [address] Phone [phone] Care Team Providers Care Machine Silver Stripper Name Role Phone Steffen Gonzales DO Primary Care Provider [phone] Reason for Visit * Reason Onset Date Comments Test Results Lab 07/23/2023 Encounter Details Date Type Department Care Team (Late st Contact Info) Description 07/23/2023 Telephone [facility] [address] [place] [address] Carie Moncada PA-C [address] [facility] [place] [address] Test Results Lab Allergies Active Allergy Reactions Criticality Noted Date [...] as of this encounter (statuses as of 07/23/2023) Medications Medication Sig Dispensed Refills Start Date End Date Status VITAMIN D 1000 UNIT PO CAPS 1 capsule daily 30 11 0 Active BLOOD PRESSURE MONITOR KITIndications:Atria l fibrillation (HCC) Take daily as directed 1 Kit 0 3 Active SURGICAL COMPRESSION STOCKINGIndications: PAT (paroxysmal atrial tachycardia),Edema, unspecified type Knee length compression stockings 20mmHg 1 Each 2 8 Active Aspirin 81 MG Tablet Take 1 Tablet by mouth once a day on Sunday, Sunday, and Sunday only. 0 9 Active Citracal Plus Oral Tablet Take 1.5 Tablets by mouth in the morning. 0 1 Active Sorbitol 70 % Solution Take 15 ML by mouth once daily as needed for constipation 1419 mL 1 2 Active CPAP every night at bedtime . 0 Active Metoprolol Succinate ER 25 MG Oral Tablet Extended Release 24 Hour (toPROL XL)Indications:Parox ysmal atrial fibrillation (HCC) TAKE 1/2 TABLET BY MOUTH TWICE A DAY 90 Tablet 3 3 Active Hydrocortisone 2.5 % External Ointment Apply to lips nightly x 2 weeks 20 g 1 3 Active Dofetilide 250 MCG Oral Capsule (Tikosyn) TAKE ONE CAPSULE BY MOUTH IN THE MORNING AND ONE CAPSULE BEFORE BEDTIME. 180 Capsule 3 3 09/25/19 24 Active Apixaban 5 MG Oral Tablet (Eliquis)Indications :Paroxysmal atrial fibrillation (HCC) TAKE ONE TABLET BY MOUTH TWICE A DAY 200 Tablet 3 2 08/18/19 24 Active Famotidine 20 MG Oral Tablet (Pepcid)Indications: Nausea Take 0.5 Tablets by mouth at bedtime. 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 One tablet on , , Sat and Sun 0 3 Active Ezetimibe 10 MG Oral Tablet (Zetia)Indications:D yslipidemia, goal LDL below 70 TAKE ONE TABLET BY MOUTH EVERY DAY 90 Tablet 3 3 05/20/20 24 Active Ipratropium [place] 0.06 % Nasal Solution (Atrovent) ADMINISTER 2 SPRAYS INTO EACH NOSTRIL 4 TIMES A DAY NEEDED FOR RHINITIS. FOR RUNNY NOSE 15 mL 2 4 Active Cephalexin 500 MG Oral Capsule (Keflex)Indications: Acute cystitis with hematuria Take 1 Capsule by mouth in the morning and 1 Capsule before bedtime. Do all this for 7 days. Until gone.. 14 Capsule 0 4 07/30/19 24 Active Allopurinol 100 MG Oral Tablet (Zyloprim)Indication s:Gout Take 1 Tablet by mouth in the morning. 90 Tablet 3 3 07/23/19 24 Discontinu ed(Refill) documented as of this encounter (statuses as of 07/23/2023) Active Problems Problem Noted Date Diagnosed Date [...] renal origin Coronary artery disease invo lving [place] coronary artery of [place] heart without angina pectoris 04/08/2018 Cardiac pacemaker in situ 09/28/2017 Overview: DDD Pacemaker Pacemaker. Social Service Liaison Medtronic, model W1DR01 Elena XTDR (MRI conditional), serial number [id number]. Right atrial lead. Social Service Liaison Medtronic, model 5076-45 CapSureFix Novus, serial number [id number]. Right ventricular lead. Social Service Liaison Medtronic, model 5076-52 CapSureFix Novus, serial number [id number]. Pl[place] Dr Mcknight [place] 09[place]27/2017 [place] [facility] [place] of tobacco use 09/19/2017 ELMO (obstructive [...] as of this encounter (statuses as of 07/23/2023) Resolved Problems Problem Noted Date Diagnosed Date [...] as of this encounter (statuses as of 07/23/2023) Immunizations Name Administration Dates Next Due COVID-19 mRNA, LNP-s, No Pre serve, 2-Dose Series (Moderna) 09/29/2020,09/01/2020 COVID-19, MRNA-LNP, 23-24, P F, 30 MCG/0.3 mL, 12 YRS AND ABOVE, IM (PFIZER-Comirnaty) 05/09/2023 COVID-19, mRNA, LNP-s, PF, B ooster, 100mcg/0.5mg (Moderna) 10/26/2021,05/11/2021 Covid-19, Mrna, Lnp-s, Pf, B ivalent, 30 Mcg, IM, 12 yrs and above (Pfizer) 04/18/2022 PPD 08/05/2004 Pneumococcal Conjugate Vacc, 13 Valent (Prevnar) 08/25/2014 Pneumococcal Polysaccharide PPV23 (Pneumovax) 05/28/2018,08/23/2009 Season Influenza, Quad, PF, Adjuvanted, 65+ Yrs, IM (FLUAD) 03/16/2020 Seasonal Influenza Virus Vac cine, Unspecified Formulation 04/21/2020,05/04/1998 Seasonal Influenza, Quad, Na love (Flumist) 04/15/2018 Seasonal Influenza, Quadriva lent Hd (Fluzone Hd) 03/21/2023,04/12/2022 Seasonal Influenza, Quadriva lent Hd, 65+ Yrs 03/15/2021 Seasonal Influenza, Split, I IV3, With Preserve, Inj 05/09/2012,03/29/2011,04/29/2010,08/23,06/01/2008,05/28/2007,06/05/2006 ,05/16/2005,04/30/2003,05/07/2002,01/2002 Seasonal Influenza, Trivalen t, Adjuvanted, 65+ yrs 05/10/2019 TD - Tetanus/Diptheria (ADULT) 08/05/2004 TDAP (age 10 and older)(Boostrix) 02/22/2017 Varicella [...] encounter Miscellaneous Notes * Telephone Encounter - Yamile Woo RN - 07/23/2023 11:39 AM EST Owen conklin to call us Was able to get her on her cell--below information provided--pt was actually at the pharmacy and will get her abx Patient verbalizes understanding of all instructions and explanations given. Yamile Woo, RN * Telephone Encounter - Carie Moncada PA-C - 07/23/2023 7:15 AM EST Please call. UC positive for UTI. Keflex BID x 7 days sent to [facility] [place]. Please advise patient to continue use of vaginal estrogen cream. I also sent MyG. documented in this encounter Plan of Treatment Upcoming Encounters Date Type Department Care Team (Late st Contact Info) Description 07/26/2023 8:20 AM EST Office Visit Family Practice 65 [facility] [address] [place] [address] Steffen Gonzales, 293 [place] [address] 08/17/2023 2:00 PM EST Nurse Only Ancillary [address] [place] [address] College, Nurse Annual Wellness Visit [address] [address] 09/05/2023 1:00 PM EST Imaging Vascular Lab, [address] 132 [facility] [place] [address] 09/05/2023 2:00 PM EST Imaging Vascular Lab, [address] 132 [facility] [place] [address] 09/12/2023 11:10 AM EST Office Visit Vascular Surgery, [facility] 132 [facility] [place] [address] Jerome Glover MD [address] [place] [facility] [place] [address] 09/18/2023 9:20 AM EST Office Visit Family Practice [address] [place] [address] 293 [place] [address] Steffen Gonzales, DO 293 [place] [address] 10/19/2023 9:45 AM EDT Office [facility] [address] [place] [place] [address] Carie Moncada PA-C [address] [facility] [place] [address] Nurse Coty Padron [facility] 132 [facility] [place] [address] 11/02/2023 8:40 AM EDT Office Visit Sleep Disorders Ctr [facility] 132 [place] [phone] Amy Sanon DO 132 [place] [address] 02/04/2024 9:30 AM EDT Cardiac Studies Cardiology, [facility] 132 [facility] [place] [address] [facility] 132 [place] [address] 02/19/2024 9:30 AM EDT Office Visit Urology, [facility] [address] [place] [address] Tonny Elias MD 27 [facility] [address] [place] [address] 05/07/2024 1:15 PM EDT Immunization Ancillary 65 [facility] [place] 293 [place] [address] College, Covid19 Vaccine [address] [place] [address] 06/24/2024 9:40 AM EST Office Visit Rheumatology [place] [address] [employer] [place] [address] Max Awan MD [facility] [employer] [place], [place] [address] Health Maintenance Due Date Last Done Comments *BISPHONATE OR OTHER ACCEPTABLE MEDICATION NEEDED FOR OSTEOPOROSIS (REFER TO SMARTSET #1146) 05/18/2023 GFR 01/10/2024 07/11/2023, 05/16, 05/09/2023, Additional history exists Albumin/Creatinine Ratio 03/28/2024 023, 06/16/2022, 08/25/2021 CKD PHOS USE SMARTSET 44422 04/30/202404/15, 11/22/2021, 06/04/2017 CKD HGB USE SMARTSET 10134 07/11/202407/11, 07/11/2023, 04/30/2023, Additional history exists Depression Screening 07/20/2024 07/20/2023 DXA Scan 11/29/2024 11/29/2022, 11/16/2020 DTaP,Tdap,and Td Vaccines (2 - Td or Tdap) 02/22/2027 02/22/2017, 08/05/2004, 08/05/2004 VITAMIN D LEVEL ONCE IN A LIFETIME-USE SMARTSET# 35512 Completed 02/02/2014, 12/24/2012, 06/04/2009 Colonoscopy Discontinued 10/17/2017 [...] this encounter Medical Devices Implanted Type Area Social Service Liaison Device Identifier Shelf Expiration Date Model / Serial / Lot Sut Steel 6 [id number] - [id number] Implanted:Qty: 6 on 09/25/2013 [place] [facility] [place]A: Chest JNJ : [employer] 02/12/2014 [id number] / / [id number] Lens Intraoc 20.0 - [id number] - [id number] Implanted:Qty: 1 on 06/21/2021 by Jonathan Phillips MD at OR [facility] [address] Left: Eye [employer]CH [employer]OMB 02/12/2026 [id number] / [id number] / [id number] Lens Intraoc 20.5 - [id number] - [id number] Implanted:Qty: 1 on 02/21/2022 by Jonathan Phillips MD at OR [facility] [address] Right: Eye BAUSCH [employer] LOMB 09/12/2024 [id number] / [id number] / [id number] documented as of this encounter Visit Diagnoses Diagnosis Acute cystitis with hematuria- Primary Acute cystitis documented in this encounter Advance Directives Latest Code Status on File Code Status Date Activated Date Inactivated Comments No Code 02/21/2022 10:22 AM 02/21/2022 4:52 PM This o rder reflects the patients wishes and were consensually agreed upon. Question Answer Comments Discussion of Advance Directives occurred with: Patient Does the patient have a Living Will? No Does the patient have Health Care Power of Human Resources Executive Assistant? No Code Status History Code Status Date [...] the patient have Health Care Power of Human Resources Executive Assistant? No Care Teams Machine Silver Stripper Relationship Specialty Start Date End Date Steffen Gonzales DO 293 [place] [address] PCP - General Internal Medicine 05/25/21 documented as of this encounter
--- OUTSIDE RECORDS SUMMARY | 2023-08-04 06:48 | External Medical Summary | Summary of Care ---
Author Name Unknown Organization [facility] Address [address] [place] [address] Phone [phone] Care Team Providers Care Belt Changer Name Role Phone Steffen Gonzales DO Primary Care Provider [phone] Reason for Visit * Reason Onset Date Comments Test Results 07/26/202307/26 Encounter Details Date Type Department Care Team (Late st Contact Info) Description 07/26/2023 Telephone Family Practice [address] [place] [address] [place] [phone] Steffen Gonzales DO 293 [place], [place] [id number] Test Results (07/26) Allergies Active Allergy Reactions Criticality Noted Date [...] as of this encounter (statuses as of 07/27/2023) Medications Medication Sig Dispensed Refills Start Date [...] Tablet 3 3 05/20/20 24 Active Ipratropium [place] 0.06 % Nasal Solution (Atrovent) ADMINISTER 2 SPRAYS INTO EACH NOSTRIL 4 TIMES A DAY NEEDED FOR RHINITIS. FOR RUNNY NOSE 15 mL 2 4 Active Allopurinol 300 MG Oral Tablet (Zyloprim)Indication s:Gout Take 1 Tablet by mouth in the morning. 90 Tablet 3 4 Active Allopurinol 100 MG Oral Tablet (Zyloprim)Indication s:Gout Take 2 Tablets by mouth in the morning. 0 4 07/26/19 24 Discontinu ed(Refill) Allopurinol 100 MG Oral Tablet (Zyloprim)Indication s:Gout Take 3 Tablets by mouth in the morning. 0 4 07/27/19 24 Discontinu ed(Refill) documented as of this encounter (statuses as of 07/27/2023) Active Problems Problem Noted Date Diagnosed Date [...] renal origin Coronary artery disease invo lving [place] coronary artery of [place] heart without angina pectoris 04/08/2018 Cardiac pacemaker in situ 09/28/2017 Overview: DDD Pacemaker Pacemaker. Metallurgical Laboratory Assistant Medtronic, model W1DR01 Elena XTDR (MRI conditional), serial number [id number]. Right atrial lead. Metallurgical Laboratory Assistant Medtronic, model 5076-45 CapSureFix Novus, serial number [id number]. Right ventricular lead. Metallurgical Laboratory Assistant Medtronic, model 5076-52 CapSureFix Novus, serial number [id number]. [place] Dr [place]cknight [place] [facility] [place] of tobacco use 09/19/2017 ELMO (obstructive [...] as of this encounter (statuses as of 07/27/2023) Resolved Problems Problem Noted Date Diagnosed Date [...] as of this encounter (statuses as of 07/27/2023) Immunizations Name Administration Dates Next Due COVID-19 [...] Answer Date Recorded PHQ Adult Total Score 0 07/26/2023 Hunger Vital Sign Answer Date Recorded Within the past 12 months, y ou worried that your food would run out before you got the money to buy more. Never true 07/26/19 24 Within the past 12 months, t he food you bought just didn't last and you didn't have money to get more. Never true 07/26/2023 Sex and Gender Information Value Date Recorded [...] encounter Miscellaneous Notes * Telephone Encounter - Susan Proctor LPN - 07/27/2023 2:30 PM EST Patient is aware and will comply. Thank you * Telephone Encounter - Susan ProctorBRENTON - 07/26/2023 4:31 PM EST Called, left message for patient to return call. Thank you * Telephone Encounter - Proctor Susan MillerBRENTON - 07/26/2023 4:29 PM EST ----- Message from Steffen Gonzales DO sent at 07/26/2023 2:19 PM EST ----- Uric acid improved Increase Allopurinol to 300 mg daily Repeat uric Acid in 1 week documented in this encounter Plan of Treatment Upcoming Encounters Date Type Department Care Team (Late st Contact Info) Description 08/17/2023 2:00 PM EST Nurse Only Ancillary 65 [facility] 293 [place] [address] College, Nurse Annual Wellness Visit [address] [address] 09/05/2023 1:00 PM EST Imaging Vascular Lab, [address] 132 [facility] [address] 09/05/2023 2:00 PM EST Imaging Vascular Lab, [address] 132 [facility] [address] 09/12/2023 11:10 AM EST Office Visit Vascular Surgery, [facility] 132 [place] [address] Jerome Glover MD [address] [place] [address] 09/18/2023 9:20 AM EST Office Visit Family Practice 65 [facility] [address] [place] [address] Steffen Gonzales DO 293 [facility], [place] [address] 10/19/2023 9:45 AM EDT Office Visit [facility]cology [facility] 132 [facility] [place] [address] Carie Moncada PA-C [facility] [address] Nurse Coty Padron Jackie 132 [facility] [address] 11/02/2023 8:40 AM EDT Office Visit [facility] [phone] Amy Sanon DO 132 [facility] [address] 02/04/2024 9:30 AM EDT Cardiac Studies Cardiology, [facility] 132 [facility] [address] [facility] 132 [facility] [address] 02/19/2024 9:30 AM EDT Office Visit Urology, [facility] 132 [facility] [place] [address] Tonny Elias MD [address] [place] [address] 05/07/2024 1:15 PM EDT Immunization Ancillary 65 [facility] 293 [place] [address] College, Covid19 Vaccine [address], [place] [address] 06/24/2024 9:40 AM EST Office Visit Rheumatology [facility] [address] [place] [address] Max Awan MD [address] [place] [address] Scheduled Orders Name Type Priority Associated Diagnoses Orde r Schedule URIC ACID Lab Routine Gout Expected: 08/02/2023 (Approximate), Expires: 07/25/2024 Health Maintenance Due Date Last Done Comments *BISPHONATE OR OTHER ACCEPTABLE MEDICATION NEEDED FOR OSTEOPOROSIS (REFER TO SMARTSET #1146) 05/18/2023 GFR 01/10/2024 07/11/2023, 05/16, 05/09/2023, Additional history exists Albumin/Creatinine Ratio 03/28/2024 023, 06/16/2022, 08/25/2021 CKD PHOS USE SMARTSET 01092 04/30/202404/15, 11/22/2021, 06/04/2017 CKD HGB USE SMARTSET 43526 07/11/202407/11, 07/11/2023, 04/30/2023, Additional history exists Depression Screening 07/26/2024 07/26/2023 DXA Scan 11/29/2024 11/29/2022, 11/16/2020 DTaP,Tdap,and Td Vaccines (2 - Td or Tdap) 02/22/2027 02/22/2017, 08/05/2004, 08/05/2004 VITAMIN D LEVEL ONCE IN A LIFETIME-USE SMARTSET# 07400 Completed 02/02/2014, 12/24/2012, 06/04/2009 Colonoscopy Discontinued 10/17/2017 [...] this encounter Medical Devices Implanted Type Area Metallurgical Laboratory Assistant Device Identifier Shelf Expiration Date Model / Serial / Lot Sut Steel 6 [id number] - [id number] Implanted:Qty: 6 on 09/25/[place] [facility] [place]A: Chest JNJ : [employer] 02/12/2014 [id number] / / [id number] Lens Intraoc 20.0 - [id number] - [id number] Implanted:Qty: 1 on 06/21/2021 by Jonathan Phillips MD at OR [facility] Left: Eye [employer]OM[employer] 02/12/2026 [id number] / [id number] / [id number] Lens Intraoc 20.5 - [id number] - [id number] Implanted:Qty: 1 on 02/21/2022 by Jonathan Phillips MD at OR [facility] Right: Eye [employer]OM[employer] 09/12/2024 [id number] / [id number] / [id number] documented as of this encounter Visit Diagnoses Diagnosis Gout Gout, unspecified documented in this encounter Advance Directives Latest [...] the patient have Health Care Power of Batch Weigher? No Code Status History Code Status Date [...] the patient have Health Care Power of Batch Weigher? No Care Teams Belt Changer Relationship Specialty Start Date End Date Steffen Gonzales DO [address] [place] [address] PCP - General Internal Medicine 05/25/21 documented as of this encounter
--- OUTSIDE RECORDS SUMMARY | 2023-08-04 06:48 | External Medical Summary | Summary of Care ---
Author Name Unknown Organization [facility] Address [address] [place] [address] Phone [phone] Care Team Providers Care Industrial Technologist Name Role Phone Steffen Gonzales DO Primary Care Provider [phone] Reason for Visit * Reason Comments Follow Up Encounter Details Date Type Department Care Team (Late st Contact Info) Description 07/26/2023 8:20 AM EST Office Visit Family Practice [address] [place] [address] [place] [phone] Steffen Gonzales DO [address] [place] [address] Gout, arthropathy*; Hypertensive heart and kidney disease with chronic diastolic congestive heart failure and stage 3b chronic kidney disease (HCC); Paroxysmal atrial fibrillation (HCC); 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HCC); Cardiac pacemaker in situ; Coronary artery disease involving nenana coronary artery of nenana heart without angina pectoris; Peripheral vascular disease (HCC); Dyslipidemia, goal LDL below 70; Slow transit constipation Allergies Active Allergy Reactions Criticality Noted Date [...] as of this encounter (statuses as of 07/26/2023) Medications Medication Sig Dispensed Refills Start Date End Date Status VITAMIN D 1000 UNIT PO CAPS 1 capsule daily 30 0 Active BLOOD PRESSURE MONITOR KITIndications:Atria l [...] failure and stage 3b chronic kidney disease (HCC),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HCC),Cardiac pacemaker in situ,Nonobstructive atherosclerosis of [...] Tablet 3 3 05/20/20 24 Active Ipratropium [place] 0.06 % Nasal Solution (Atrovent) ADMINISTER 2 SPRAYS INTO EACH NOSTRIL 4 TIMES A DAY NEEDED FOR RHINITIS. FOR RUNNY NOSE 15 mL 2 4 Active Allopurinol 100 MG Oral Tablet (Zyloprim)Indication s:Gout Take 2 Tablets by mouth in the morning. 0 4 Active Cephalexin 500 MG Oral Capsule (Keflex)Indications: Acute cystitis with hematuria Take 1 Capsule by mouth in the morning and 1 Capsule before bedtime. Do all this for 7 days. Until gone.. 14 Capsule 0 4 07/26/19 24 Discontinu ed(Medicat ion List Clean Up) documented as of this encounter (statuses as of 07/26/2023) Active Problems Problem Noted Date Diagnosed Date [...] renal origin Coronary artery disease invo lving nenana coronary artery of nenana heart without angina pectoris 04/08/2018 Cardiac pacemaker in situ 09/28/2017 Overview: DDD Pacemaker Pacemaker. Microbiology Analyst Medtronic, model W1DR01 Elena XTDR (MRI conditional), serial number [id number]. Right atrial lead. Microbiology Analyst Medtronic, model 5076-45 CapSureFix Novus, serial number [id number]. Right ventricular lead. Microbiology Analyst Medtronic, model 5076-52 CapSureFix Novus, serial number [id number]. [place] by Dr Mcknight [place] 09/27/2017 [place] [facility] [place] of tobacco use 09/19/2017 ELMO (obstructive sleep apnea) 03/27/2016 Pericardial effusion 09/27/2013 Paroxysmal atrial fibrillation 07/18/2013 Chronic sinusitis 04/19/2012 Tachy-taqueria syndrome 01/24/2012 HTN, goal below 140/90 01/24/2012 [...] as of this encounter (statuses as of 07/26/2023) Resolved Problems Problem Noted Date Diagnosed Date [...] as of this encounter (statuses as of 07/26/2023) Immunizations Name Administration Dates Next Due COVID-19 mRNA, LNP-s, No Pre serve, 2-Dose Series (Moderna) 09/29/2020,09/01/2020 COVID-19, MRNA-LNP, 23-24, P F, 30 MCG/0.3 mL, 12 YRS AND ABOVE, IM (Wiper-Comirnat) 05/09/2023 COVID-19, mRNA, LNP-s, PF, B ooster, [...] Exposure: Past Smokeless Tobacco: Never Quit: 05/29/2012 Tobacco Cessation:Counseling Given: Yes Comments:pt smokes 1 pack over 4 days Alcohol Use Standard Drinks/Week Comments [...] on file documented as of this encounter Last Filed Vital Signs Vital Sign Reading Time Taken Comments Blood Pressure 124/66 07/26/2023 8:27 AM EST Pulse 70 07/26/2023 8:27 AM EST Temperature 35.2 C (95.3 F) 07/26/2023 8:27 AM ES T Respiratory Rate 14 07/26/2023 8:27 AM EST Oxygen Saturation 100% 07/26/2023 8:27 AM EST Inhaled Oxygen Concentration - - Weight 47.7 kg (105 lb 3.2 oz) 07/26/2023 8:27 A M EST Height 157.5 cm (5' 2") 07/26/2023 8:27 AM EST Body Mass Index 19.24 07/26/2023 8:27 AM EST documented in this encounter Functional Status Functional Status Response [...] No 09/26/2013 documented as of this encounter Progress Notes * Susan Proctor LPN - 07/26/2023 8:50 AM EST LAB DRA[place] AND [place] [facility] * Steffen Gonzales DO - 07/26/2023 8:45 AM EST SUBJECTIVE: Lori Dasilva is a 78 year old female. Chief Complaint Patient presents with Follow Up HPI: Patient is a 78 year old female with a history of Atrial FIbrillation, Tachy - Taqueria Syndrome, Pacemaker Implant, CKD stage III, PVD, right external iliac stent, HTN, repair of right atrial / ventricular perforation, Diastolic CHF, CAD, right ulnar artery pseudoaneurysm repair, Allergic Rhinitis , Osteoporosis, Sleep Apnea on CPAP, and recurrent UTI that returns for follow up on Gout. Left ankle and heel pain has improved. Allopurinol was increased to 200 mg daily one week ago. No chest pain orshortness of breath are present. Weight is stable and appetite is fair. 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 Peripheral vascular disease (HCC) I73.9 CA IN SITU SKIN ARM D04.60 ADVANCE DIRECTIVE INFORMATION Dyslipidemia, goal LDL below 70 E78.5 Constipation K59.00 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HCC) I49.5 HTN, goal below 140/90 I10 Heart failure, diastolic, due to HTN (HCC) I11.0, I50.30 Chronic sinusitis J32.9 Paroxysmal atrial fibrillation ([facility]) I48.0 Pericardial effusion I31.39 ELMO (obstructive sleep apnea) G47.33 History of tobacco use Z87.891 Cardiac pacemaker in situ Z95.0 Coronary artery disease involving nenana coronary artery of nenana heart without angina pectoris I25.10 Hypertensive heart and kidney disease with chronic diastolic congestive heart failure and stage 3b chronic kidney disease ([facility]) I13.0, I50.32, N18.32 Secondary hyperparathyroidism of renal origin ([facility]) N25.81 Chronic kidney disease, stage 3b ([facility]) N18.32 History of cervical cancer Z85.41 Age-related osteoporosis without current pathological fracture M81.0 Chronic heart failure with preserved ejection fraction ([facility]) I50.32 Gout, arthropathy M10.9 Current Outpatient Medications Medication Sig Dispense Refill VITAMIN D 1000 UNIT PO CAPS 1 capsule daily 30 11 Aspirin 81 MG Tablet Take 1 Tablet by mouth once a day on Sunday, Sunday, and Sunday only. Citracal Plus Oral Tablet Take 1.5 Tablets by mouth in the morning. Sorbitol 70 % Solution Take 15 ML by mouth once daily as needed for constipation 1419 mL 1 CPAP every night at bedtime . Metoprolol Succinate ER 25 MG Oral Tablet Extended Release 24 Hour (toPROL XL) TAKE 1/2 TABLET BY MOUTH TWICE A DAY 90 Tablet 3 Hydrocortisone 2.5 % External Ointment Apply to lips nightly x 2 weeks 20 g 1 Dofetilide 250 MCG Oral Capsule (Tikosyn) TAKE ONE CAPSULE BY MOUTH IN THE MORNING AND ONE CAPSULE BEFORE BEDTIME. 180 Capsule 3 Apixaban 5 MG Oral Tablet (Eliquis) TAKE ONE TABLET BY MOUTH TWICE A DAY 200 Tablet 3 Famotidine 20 MG Oral Tablet (Pepcid) Take 0.5 Tablets by mouth at bedtime. 30 Tablet 11 Estradiol 0.1 MG/GM Vaginal Cream (Estrace) Apply pea sized amount (0.5 gm) vaginally twice a week at bedtime 42.5 g 3 Furosemide 20 MG Oral Tablet (Lasix) Take two tablets on Sunday, Sunday and Sunday. One tablet on , , Sat and Sun Ezetimibe 10 MG Oral Tablet (Zetia) TAKE ONE TABLET BY MOUTH EVERY DAY 90 Tablet 3 Ipratropium [place] 0.06 % Nasal Solution (Atrovent) ADMINISTER 2 SPRAYS INTO EACH NOSTRIL 4 TIMES A DAY NEEDED FOR RHINITIS. FOR RUNNY NOSE 15 mL 2 Allopurinol 100 MG Oral Tablet (Zyloprim) Take 2 Tablets by mouth in the morning. BLOOD PRESSURE MONITOR KIT Take daily as directed 1 Kit 0 SURGICAL COMPRESSION STOCKING Knee length compression stockings 20mmHg 1 Each 2 No current facility-administered medications for this visit. The patient's medication list was reviewed and updated as needed. Past Medical History: Diagnosis Date Age-related osteoporosis without current pathological fracture 04/12/2022 Atrial fibrillation (HCC) Taqueria-tachy syndrome (HCC) Cancer of cervix (HCC) 1977 txt with Total abd hysterectomy Cardiac pacemaker in situ 09/28/2017 Pacemaker. Microbiology Analyst Medtronic, model W1DR01 Elena XTDR (MRI conditional), serial number [id number]. Right atrial lead. Microbiology Analyst Medtronic, model 5076-45 CapSureFix Novus, serial number [id number]. Right ventricular lead. Microbiology Analyst Medtronic, model 5076-52 CapSureFix Novus, serial [id number]. Placed by Dr Mcknight on 09/27/2017 [place] [facility] Cardiac tamponade 09/2013 left atrial & right ventriccular perforation with acute tamponade post RF ablation. Dyslipidemia Dyslipidemia, goal LDL below 100 06/19/2011 Gout, arthropathy 07/20/2023 Heart failure, diastolic, due to HTN ([facility]) History of cervical cancer Hypertension Paroxysmal atrial fibrillation (HCC) 07/18/2013 Peripheral vascular disease with claudication ([facility]) 2004 right calf Personal history of tobacco use quit 05/29/2012 Pseudoaneurysm following procedure ([facility]) 02/16/2018 following cardiac catheterization 01/28/2018 Sleep apnea, obstructive Past Surgical History: Procedure Laterality Date ABLATE HEART DYSRHYTHM FOCUS 04/15/2012 CATHETER ABLATION-SVT performed by Ismael Jackson MD at [facility] [place]IAC CATH-CARDIOLOGY ONLY Right 01/28/2018 @ [facility] Right arm. COLONOSCOPY 09/20 hx of IBS, nl, repeat 10y ELECTROPHYSIOLOGY EVAL, ATRIAL FIB, PULMONARY VEIN ISOL 09/25/2013 ELECTROPHYSIOLOGY EVAL, ATRIAL FIB, PULMONARY VEIN ISOL performed by Ismael Jackson MD at [facility] EYELID SURGERY PROCEDURE NEC Left Two surgeries of the left upper lid to help lower lid HEART ELECTROCONVERSION, EXTERNAL 07/12/2012 DC CARDIOVERSION performed by Ismael Jackson MD at [facility] HEART ELECTROCONVERSION, EXTERNAL 09/25/2013 DC CARDIOVERSION performed by Sekou Alcala MD at [facility] INFORMATION 195 fracture R ankle INFORMATION 12/2004 balloon angioplasty INSERT/REPLACE PACEMAKER,ATRIAL/VENTRICULAR Left 09/27/2017 NEW DDD PACEMAKER IMPLANT performed by Chandrika Mcknight IV, MD at [facility] RELIEVE INNER EYE PRESSURE 06/21/2021 GONIOTOMY performed by Jonathan Phillips MD at OR [facility] REMOVE CATARACT, INSERT LENS PROSTH Left 06/21/2021 Left EXTRACAPSULAR CATARACT REMOVAL WITH INTRAOCULAR LENS performed by Jonathan Phillips MD at [facility] REMOVE CATARACT, INSERT LENS PROSTH Right 02/21/2022 right EXTRACAPSULAR CATARACT REMOVAL WITH INTRAOCULAR LENS performed by Jonathan Phillips MD at OR [facility] REPAIR HEART WOUND 09/25/2013 left atrial and right ventricular perforation with acute tamponade post RF ablation 09/2013 Repair performed by Sekou Alcala MD at [facility] REPAIR VESSEL DIRECT UPPER EXT Right 03/01/2018 direct repair of right ulnar artery (pseudoaneurym) performed by Darvin Joseph MD at [facility] TOTAL HYSTERECTOMY 1985 Hysterectomy, Abdominal Review of patient's allergies indicates: Allergen Reactions Ciprofloxacin Edema face/lips/tongue Sulfa Antibiotics Edema face/lips/tongue Swelling of the ankles. Amiodarone Wheezing Pulmonary issues Atorvastatin Muscle pain Augmentin [Amoxicillin-Pot Clavulanate] Itching Bacitracin Eyes swell Crestor [Rosuvastatin Calcium] Muscle pain Dizziness Dabigatran Etexilate Mesylate Edema Other Dizziness, Difficulty breathing. Nitrofurantoin Monohyd Macro Nausea/vomiting and Other (Please comment) Patient states she noted irregular heart rate Prednisone Significant fluid retention with long course of prednisone Lisinopril Renal complications Review of Systems Constitutional: Negative for appetite change, fatigue and unexpected weight change. Respiratory: Negative for cough, shortness of breath and wheezing. Cardiovascular: Negative for chest pain, palpitations and leg swelling. Gastrointestinal: Negative for abdominal pain, blood in stool, constipation, diarrhea, nausea and vomiting. Genitourinary: Negative for dysuria and hematuria. Musculoskeletal: Left ankle and heel pain has improved Neurological: Negative for dizziness, syncope and headaches. Psychiatric/Behavioral: Negative for confusion, decreased concentration and sleep disturbance. OBJECTIVE: BP 124/66 | Pulse 70 | Temp 35.2 C (95.3 F) | Resp 14 | Ht 1.575 m (5' 2") | Wt 47.7 kg (105 lb3.2 oz) | SpO2 100% | BMI 19.24 kg/m | BSA 1.44 m Physical Exam Vitals and nursing note reviewed. Constitutional: General: She is not in acute distress. Appearance: Normal appearance. She is not toxic-appearing. HENT: Head: Normocephalic and atraumatic. Cardiovascular: Rate and Rhythm: Normal rate and regular rhythm. Heart sounds: Normal heart sounds. No murmur heard. No gallop. Pulmonary: Effort: Pulmonary effort is normal. Breath sounds: Normal breath sounds. No wheezing, rhonchi or rales. Abdominal: General: Bowel sounds are normal. There is no distension. Palpations: Abdomen is soft. Tenderness: There is no abdominal tenderness. Musculoskeletal: Right lower leg: No edema. Left lower leg: No edema. Comments: Left heel and ankle erythema and edema has improved Neurological: Mental Status: She is alert and oriented to person, place, and time. Mental status is at baseline. Motor: No weakness. Gait: Gait normal. Psychiatric: Mood and Affect: Mood normal. Behavior: Behavior normal. Results for orders placed or performed in visit on 07/20/23 URIC ACID Result Value Ref Range Uric Acid 5.9 (H) 2.4 - 5.7 mg/dL *Note: Due to a large number of results and/or encounters for the requested time period, some results have not been displayed. A complete set of results can be found in Results Review. PLAN AND ASSESSMENT: Gout, arthropathy (Primary) Improving Continue Allopurinol 200 mg daily Check Uric Acid today Hypertensive heart and kidney disease with chronic diastolic congestive heart failure and stage 3b chronic kidney disease (HCC) Continue Furosemide Paroxysmal atrial fibrillation (HCC) Continue Apixaban, and Dofetilide 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HCC) Cardiac pacemaker in situ Coronary artery disease involving nenana coronary artery of nenana heart without angina pectoris Continue Metoprolol ER, and ASA Peripheral vascular disease (HCC) Continue ASA Dyslipidemia, goal LDL below 70 Continue Ezetimibe Slow transit constipation Continue Sorbitol as needed Follow Up: Return if symptoms worsen or fail to improve. Steffen Gonzales DO 8:45 AM 07/26/2023 documented in this encounter Nursing Notes * Susan Proctor LPN - 07/26/2023 8:27 AM EST Here for follow up on gout, feeling better not completely gone but improved. documented in this encounter Plan of Treatment Upcoming Encounters Date Type Department Care Team (Late st Contact Info) Description 08/17/2023 2:00 PM EST Nurse Only Ancillary [address] [id number] College, Nurse Annual Wellness Visit [address] [address] 09/05/2023 1:00 PM EST Imaging Vascular Lab, [facility] [address] [address] 09/05/2023 2:00 PM EST Imaging Vascular Lab, [address] [place] [address] 09/12/2023 11:10 AM EST Office Visit Vascular Surgery, [facility] [address] [place] [address] Jerome Glover MD [address] [place] [address] 09/18/2023 9:20 AM EST Office Visit Family Practice [address] [phone] Steffen Gonzales DO [address] [place] [address] 10/19/2023 9:45 AM EDT Office Visit Urogynecology [facility] [address] [facility] [place], [place] [address] Carie Moncada PA-C [address] [facility] [place] [address] PadronNurse Coty jaime Jackie [address] [facility] [address] 11/02/2023 8:40 AM EDT Office Visit Sleep Disorders [facility] [address] [facility] [place] [phone] Amy Sanon DO [address] [facility] [place] [address] 02/04/2024 9:30 AM EDT Cardiac Studies Cardiology, [facility] [address] [facility] [place] [address] [facility] [address] [facility] [place] [address] 02/19/2024 9:30 AM EDT Office Visit Urology, [facility] [address] [facility] [place] [address] Tonny Elias MD 27 [facility] [address] [place] [address] 05/07/2024 1:15 PM EDT Immunization Ancillary 65 [facility] [address] [place] [address] College, Covid19 Vaccine 65 [facility] [address] [place] [address] 06/24/2024 9:40 AM EST Office Visit Rheumatology [address] [place] [address] Max Awan MD [address] [place] [address] [place] [address] Pending Results Name Type Priority Associated Diagnoses Date /Time URIC ACID Lab Routine 07/26/2023 8:5 0 AM EST Health Maintenance Due Date Last Done Comments *BISPHONATE OR OTHER ACCEPTABLE MEDICATION NEEDED FOR OSTEOPOROSIS (REFER TO SMARTSET #1146) 05/18/2023 GFR 01/10/2024 07/11/2023, 05/16, 05/09/2023, Additional history exists Albumin/Creatinine Ratio 03/28/2024 023, 06/16/2022, 08/25/2021 CKD PHOS USE SMARTSET 62468 04/30/202404/15, 11/22/2021, 06/04/2017 CKD HGB USE SMARTSET [id number] 07/11/202407/11, 07/11/2023, 04/30/2023, Additional history exists Depression Screening 07/20/2024 07/26/2023 DXA Scan 11/29/2024 11/29/2022, 11/16/2020 DTaP,Tdap,and Td Vaccines (2 - Td or Tdap) 02/22/2027 02/22/2017, 08/05/2004, 08/05/2004 VITAMIN D LEVEL ONCE IN A LIFETIME-USE SMARTSET# [id number] Completed 02/02/2014, 12/24/2012, 06/04/2009 Colonoscopy Discontinued 10/17/2017 [...] this encounter Medical Devices Implanted Type Area Microbiology Analyst Device Identifier Shelf Expiration Date Model / Serial / Lot Sut Umberto 6 [id number] - [id number] Implanted:Qty: 6 on 09/25/2013 at [place] [facility] N/A: Chest JNJ : [employer] 02/12/2014 [id number] / / [id number] Lens Intraoc 20.0 - [id number] - [id number] Implanted:Qty: 1 on 06/21/2021 by Jonathan Phillips MD at OR [facility] Left: Eye [employer] 02/12/2026 [id number] / [id number] / [id number] Lens Intraoc 20.5 - [id number] - [id number] Implanted:Qty: 1 on 02/21/2022 by Jonathan Phillips MD at OR [facility] Right: Eye [employer] 09/12/2024 [id number] / [id number] / [id number] documented as of this encounter Visit Diagnoses Diagnosis Gout, arthropathy- Primary Gouty arthropathy, unspecified Hypertensive heart and kidney disease with chronic diastolic congestive heart failure and stage 3b chronic kidney disease (HCC) Paroxysmal atrial fibrillation (HCC) Atrial fibrillation 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HCC) Sinoatrial node dysfunction Cardiac pacemaker in situ Coronary artery disease involving nenana coronary artery of nenana heart without angina pectoris Peripheral vascular disease (HCC) Peripheral vascular disease, unspecified Dyslipidemia, goal LDL below 70 Other and unspecified hyperlipidemia Slow transit constipation documented in this encounter Advance Directives Latest [...] the patient have Health Care Power of Outsoles Channel Opener? No Code Status History Code Status Date [...] the patient have Health Care Power of Outsoles Channel Opener? No Care Teams Industrial Technologist Relationship Specialty Start Date End Date Steffen Gonzales DO [address] [facility] [address] PCP - General Internal Medicine 05/25/21 documented as of this encounter
--- OUTSIDE RECORDS SUMMARY | 2023-08-04 06:48 | External Medical Summary | Summary of Care ---
Author Name Unknown Organization [facility] Address [address] [place] [address] Phone [phone] Care Team Providers Care Railroad Track Repair Supervisor Name Role Phone Steffen Gonzales DO Primary Care Provider [phone] Reason for Visit * Reason Onset Date Comments Test Results 07/23/2023 Encounter Details Date Type Department Care Team (Late st Contact Info) Description 07/23/2023 Telephone Family Practice [address] [place] [address] [place] [address] Steffen Gonzales DO [address] [place] [address] Test Results Allergies Active Allergy Reactions Criticality Noted Date [...] Tablet 3 3 05/20/20 24 Active Ipratropium [place] 0.06 % Nasal Solution (Atrovent) ADMINISTER 2 [...] mouth in the morning. 0 4 Active Allopurinol 100 MG Oral Tablet [...] renal origin Coronary artery disease invo lving [place] coronary artery of [place] heart without angina pectoris 04/08/2018 Cardiac pacemaker in situ 09/28/2017 Overview: DDD Pacemaker Pacemaker. Medical Technologist Prn Medtronic, model W1DR01 [place] XTDR (MRI conditional), serial number [id number]. Right atrial lead. Medical Technologist Prn Medtronic, model 5076-45 CapSureFix Novus, serial number [id number]. Right ventricular lead. Medical Technologist Prn Medtronic, model 5076-52 CapSureFix Novus, serial number [id number]. Placed by Dr Mcknight on 09/27/2017 at [facility] History of tobacco use 09/19/2017 ELMO (obstructive [...] encounter Miscellaneous Notes * Telephone Encounter - Steffen Gonzales DO - 07/23/2023 10:16 AM EST Noted * Telephone Encounter - Susan Proctor LPN - 07/23/2023 8:24 AM EST * Telephone Encounter - Susan Proctor LPN - 07/23/2023 8:23 AM EST Patient is aware and will comply. Will come in one week after taking 200 mg allopurinol. Thank you * Telephone Encounter - Susan Proctor LPN - 07/23/2023 8:21 AM EST ----- Message from Steffen Gonzales DO sent at 07/21/2023 12:54 PM EST ----- Uric acid has improved but is still elevated Increase Allopurinol to 200 mg daily Repeat Uric acid level after medication changes documented in this encounter Plan of Treatment Upcoming Encounters Date Type Department Care Team (Late st Contact Info) Description 07/26/2023 8:20 AM EST Office Visit Family Practice 65 [facility] [address] [place] [address] Steffen Gonzales DO 293 [place] [address] 08/17/2023 2:00 PM EST Nurse Only Ancillary 65 [facility] 293 [place] [address] College, Nurse Annual Wellness Visit [address] [place] [address], [place] [address] 09/05/2023 1:00 PM EST Imaging Vascular Lab, [address] [place] [address] 09/05/2023 2:00 PM EST Imaging Vascular Lab, [address] 132 [facility] [address] 09/12/2023 11:10 AM EST Office [facility] 132 [facility] [place], [place] [address] Jerome Glover MD [address] [place] [facility] [place] [address] 09/18/2023 9:20 AM EST Office Visit Family Practice 65 [facility], [place] 293 [place] [address] Steffen Gonzales, DO 293 [place] [address] 10/19/2023 9:45 AM EDT Office Visit Urogynecology [facility] 132 [facility] [place] [address] Carie Moncada PA-C 132 [place] [address] Nurse Coty Padron [facility] 132 [place] [address] 11/02/2023 8:40 AM EDT Office Visit Sleep Disorders Ctr [facility] 132 [facility] [address] Amy Sanon DO 132 [facility] [address] 02/04/2024 9:30 AM EDT Cardiac Studies Cardiology, [facility] 132 [facility] [place] [address] [facility] 132 [facility] [place] [address] 02/19/2024 9:30 AM EDT Office Visit Urology, [facility] [address] [place] [address] Tonny Elias MD 27 [facility] [address] [place] [address] 05/07/2024 1:15 PM EDT Immunization Ancillary 65 [facility] [address] [place] [address] College, Covid19 Vaccine [address] [address] 06/24/2024 9:40 AM EST Office Visit Rheumatology [place] [id number] [place] [address] Max Awan MD [address] [place] [address] Scheduled Orders Name Type Priority Associated Diagnoses Orde r Schedule URIC ACID Lab Routine Gout Expected: 07/30/2023 (Approximate), Expires: 07/22/2024 Health Maintenance Due Date Last Done Comments *BISPHONATE OR OTHER ACCEPTABLE MEDICATION NEEDED FOR OSTEOPOROSIS (REFER TO SMARTSET #1146) 05/18/2023 GFR 01/10/2024 07/11/2023, 05/16, 05/09/2023, Additional history exists Albumin/Creatinine Ratio 03/28/2024 023, 06/16/2022, 08/25/2021 CKD PHOS USE SMARTSET 11761 04/30/202404/15, 11/22/2021, 06/04/2017 CKD HGB USE SMARTSET 46241 07/11/202407/11, 07/11/2023, 04/30/2023, Additional history exists Depression Screening 07/20/2024 07/20/2023 DXA Scan 11/29/2024 11/29/2022, 11/16/2020 DTaP,Tdap,and Td Vaccines (2 - Td or Tdap) 02/22/2027 02/22/2017, 08/05/2004, 08/05/2004 VITAMIN D LEVEL ONCE IN A LIFETIME-USE SMARTSET# 23240 Completed 02/02/2014, 12/24/2012, 06/04/2009 Colonoscopy Discontinued 10/17/2017 [...] this encounter Medical Devices Implanted Type Area Medical Technologist Prn Device Identifier Shelf Expiration Date Model / Serial / Lot Sut Steel 6 [id number] - [id number] Implanted:Qty: 6 on 09/25/2013 at OR [facility] N/A: Chest JNJ : [employer] 02/12/2014 [id number] / / [id number] Lens Intraoc 20.0 - [id number] - [id number] Implanted:Qty: 1 on 06/21/2021 by Jonathan Phillips MD at OR [facility] Left: Eye BAUSCH & LOMB 02/12/2026 [id number] / [id number] / [id number] Lens Intraoc 20.5 - [id number] - [id number] Implanted:Qty: 1 on 02/21/2022 by Jonathan Phillips MD at OR [facility] Right: Eye BAUSCH & LOMB 09/12/2024 [id number] / [id number] / [id number] documented as of this encounter Visit Diagnoses [...] the patient have Health Care Power of Audit Partner? No Code Status History Code Status Date [...] the patient have Health Care Power of Audit Partner? No Care Teams Railroad Track Repair Supervisor Relationship Specialty Start Date End Date Steffen Gonzales DO [address] [place] [address] PCP - General Internal Medicine 05/25/21 documented as of this encounter
--- OUTSIDE RECORDS SUMMARY | 2023-08-04 06:48 | External Medical Summary | Summary of Care ---
Author Name Unknown Organization [facility] Address [address] [facility] [place] [address] Phone [phone] Care Team Providers Care Prick Stitcher Name Role Phone Steffen Gonzales DO Primary Care Provider [phone] Encounter Details Date Type Department Care Team (Late st Contact Info) Description 07/23/2023 Telephone Urogynecology Jeanne Padron 132 [address] [facility] [place] [address] Carie Moncada PA-C [address] [place] [address] Allergies Active Allergy Reactions Criticality Noted Date [...] PO CAPS 1 capsule daily 30 11 08/23/2009 Active BLOOD PRESSURE MONITOR KITIndications:Atria l fibrillation (HCC) Take daily as directed 1 Kit 0 08/21/2012 Active SURGICAL COMPRESSION STOCKINGIndications: PAT (paroxysmal atrial tachycardia),Edema, unspecified type Knee length compression stockings 20mmHg 1 Each 2 04/23/2018 Active Aspirin 81 MG Tablet Take 1 Tablet by mouth once a day on Sunday, Sunday, and Sunday only. 0 10/11/2018 Active Citracal Plus Oral Tablet Take 1.5 Tablets by mouth in the morning. 0 05/25/2021 Active Sorbitol 70 % Solution Take 15 ML by mouth once daily as needed for constipation 1419 mL 1 01/05/2022 Active CPAP every night at bedtime . 0 Active Metoprolol Succinate ER 25 MG Oral Tablet Extended Release 24 Hour (toPROL XL)Indications:Parox ysmal atrial fibrillation (HCC) TAKE 1/2 TABLET BY MOUTH TWICE A DAY 90 Tablet 3 08/08/2022 Active Hydrocortisone 2.5 % External Ointment Apply to lips nightly x 2 weeks 20 g 1 08/14/2022 Active Dofetilide 250 MCG Oral Capsule (Tikosyn) TAKE ONE CAPSULE BY MOUTH IN THE MORNING AND ONE CAPSULE BEFORE BEDTIME. 180 Capsule 3 09/25/2022 4 Active Apixaban 5 MG Oral Tablet (Eliquis)Indications :Paroxysmal atrial fibrillation (HCC) TAKE ONE TABLET BY MOUTH TWICE A DAY 200 Tablet 3 05/22/2022 4 Active Famotidine 20 MG Oral Tablet (Pepcid)Indications: Nausea Take 0.5 Tablets by mouth at bedtime. 30 Tablet 11 03/18/2023 Active Estradiol 0.1 MG/GM Vaginal Cream (Estrace) Apply pea sized amount (0.5 gm) vaginally twice a week at bedtime 42.5 g 3 04/10/2023 Active Furosemide 20 MG Oral Tablet (Lasix)Indications:P [...] on , , Sat and Sun 0 05/18/2023 Active Ezetimibe 10 MG Oral Tablet (Zetia)Indications:D yslipidemia, goal LDL below 70 TAKE ONE TABLET BY MOUTH EVERY DAY 90 Tablet 3 05/21/2023 4 Active Allopurinol 100 MG Oral Tablet (Zyloprim)Indication s:Gout Take 1 Tablet by mouth in the morning. 90 Tablet 3 07/12/2023 Active Ipratropium [place] 0.06 % Nasal Solution (Atrovent) ADMINISTER 2 SPRAYS INTO EACH NOSTRIL 4 TIMES A DAY NEEDED FOR RHINITIS. FOR RUNNY NOSE 15 mL 2 07/18/2023 Active Cephalexin 500 MG Oral Capsule (Keflex)Indications: Acute cystitis with hematuria Take 1 Capsule by mouth in the morning and 1 Capsule before bedtime. Do all this for 7 days. Until gone.. 14 Capsule 0 07/23/2023 4 Active documented as of this encounter (statuses as [...] renal origin Coronary artery disease invo lving [place] coronary artery of [place] heart without angina pectoris 04/08/2018 Cardiac pacemaker in situ 09/28/2017 Overview: DDD Pacemaker Pacemaker. Joy Operator Medtronic, model W1DR01 [place] XTDR (MRI conditional), serial number [id number]. Right atrial lead. Joy Operator Medtronic, model 5076-45 CapSureFix Novus, serial number [id number]. Right ventricular lead. Joy Operator Medtronic, model 5076-52 CapSureFix Novus, serial number [id number]. Placed by Dr Mcknight on 09/27/2017 at [facility] History of tobacco use 09/19/2017 ELMO (obstructive [...] MCG/0.3 mL, 12 YRS AND ABOVE, IM ([facility]) 05/09/2023 COVID-19, mRNA, LNP-s, PF, B ooster, [...] encounter Miscellaneous Notes * Telephone Encounter - Carie Moncada PA-C - 07/23/2023 7:15 AM EST Please call. UC positive for UTI. Keflex BID x 7 days sent to [facility] Yvon Paulino. Please advise patient to continue use of vaginal estrogen cream. I also sent MyG. documented in this encounter Plan of Treatment Upcoming Encounters Date Type Department Care Team (Late st Contact Info) Description 07/26/2023 8:20 AM EST Office Visit Family Practice 65 [facility] 293 [place] [address] Steffen Gonzales, DO 293 [place] [address] 08/17/2023 2:00 PM EST Nurse Only Ancillary 65 [facility] 293 [place] [address] College, Nurse Annual Wellness Visit [address] [place] [address] 09/05/2023 1:00 PM EST Imaging Vascular Lab, [facility] 2nd [facility] 132 [facility] [place] [address] 09/05/2023 2:00 PM EST Imaging Vascular Lab, [facility] 2nd [facility] 132 [facility] [place] [address] 09/12/2023 11:10 AM EST Office Visit Vascular Surgery, [facility] 132 [facility] [place] [address] Jerome Glover MD [address] [place] [address] 09/18/2023 9:20 AM EST Office Visit Family Practice 65 [facility] 293 [facility], [place] [address] Steffen Gonzales, DO 293 [facility], [place] [address] 10/19/2023 9:45 AM EDT Office Visit Urogynecology [facility] 132 [facility] [place] [address] Carie Moncada PA-C [facility] [address] Nurse Coty Padron 132 [facility] [place] [address] 11/02/2023 8:40 AM EDT Office Visit Sleep Disorders Ctr [facility] 132 [facility] [place] [address] Amy Sanon DO 132 [facility] [place] [address] 02/04/2024 9:30 AM EDT Cardiac Studies Cardiology, [facility] 132 [facility] [place] [address] [facility] 132 [facility] [place] [address] 02/19/2024 9:30 AM EDT Office Visit Urology, [facility] 132 [facility] [place] [address] Tonny Elias MD 27 [facility] 270 [place] [address] 05/07/2024 1:15 PM EDT Immunization Ancillary 65 [facility] 293 [place] [address] College, Covid19 Vaccine [address] [address] 06/24/2024 9:40 AM EST Office Visit Rheumatology [place] [address] [facility] [place], [place] [address] Max Awan MD [address] [place] [address] [place] [address] Health Maintenance Due Date Last Done Comments *BISPHONATE OR OTHER ACCEPTABLE MEDICATION NEEDED FOR OSTEOPOROSIS (REFER TO SMARTSET #1146) 05/18/2023 GFR 01/10/2024 07/11/2023, 05/16, 05/09/2023, Additional history exists Albumin/Creatinine Ratio 03/28/2024 023, 06/16/2022, 08/25/2021 CKD PHOS USE SMARTSET 12086 04/30/202404/15, 11/22/2021, 06/04/2017 CKD HGB USE SMARTSET 75063 07/11/202407/11, 07/11/2023, 04/30/2023, Additional history exists Depression Screening 07/20/2024 07/20/2023 DXA Scan 11/29/2024 11/29/2022, 11/16/2020 DTaP,Tdap,and Td Vaccines (2 - Td or Tdap) 02/22/2027 02/22/2017, 08/05/2004, 08/05/2004 VITAMIN D LEVEL ONCE IN A LIFETIME-USE SMARTSET# 92645 Completed 02/02/2014, 12/24/2012, 06/04/2009 Colonoscopy Discontinued 10/17/2017 [...] this encounter Medical Devices Implanted Type Area Joy Operator Device Identifier Shelf Expiration Date Model / Serial / Lot Sut Umberto 6 M654g - [id number] Implanted:Qty: 6 on 09/25/2013 at OR [facility] N/A: Chest JNJ : [employer] 02/12/2014 [id number] / / [id number] Lens Intraoc 20.0 - [id number] - [id number] Implanted:Qty: 1 on 06/21/2021 by Jonathan Phillips MD at OR [facility] Left: Eye BAUSCH & LOMB 02/12/2026 [id number] / [id number] / [id number] Lens Intraoc 20.5 - [id number] - [id number] Implanted:Qty: 1 on 02/21/2022 by Jonathan Phillips MD at OR [facility] Right: Eye BAUSCH & LOMB 09/12/2024 [id number] / [id number] / [id number] documented as of this encounter Visit Diagnoses [...] the patient have Health Care Power of Respiratory Manager? No Code Status History Code Status Date [...] the patient have Health Care Power of Respiratory Manager? No Care Teams Prick Stitcher Relationship Specialty Start Date End Date Steffen Gonzales DO [address] [place] [address] PCP - General Internal Medicine 05/25/21 documented as of this encounter
--- OUTSIDE RECORDS SUMMARY | 2023-08-04 06:48 | External Medical Summary | Summary of Care ---
Author Name Unknown Organization [facility] Address [address] [place] [address] Phone [phone] Care Team Providers Care Universal Grinder Operator Name Role Phone Steffen Gonzales DO Primary Care Provider [phone] Encounter Details Date Type Department Care Team (Late st Contact Info) Description 06/22/2023 Result Scan Unspecified Department Max Awan MD [address] [place] [address] <No scans attached> Allergies Active Allergy Reactions Criticality Noted Date [...] as of this encounter (statuses as of 07/25/2023) Medications Medication Sig Dispensed Refills Start Date [...] Sunday, Sunday and Sunday. One tablet on urs, Sat and Sun 0 05/18/2023 Active Ezetimibe 10 MG Oral Tablet (Zetia)Indications:D yslipidemia, goal LDL below 70 TAKE ONE TABLET BY MOUTH EVERY DAY 90 Tablet 3 05/21/2023 4 Active documented as of this encounter (statuses as of 07/25/2023) Active Problems Problem Noted Date Diagnosed Date [...] renal origin Coronary artery disease invo lving [place] coronary artery of [place] heart without angina pectoris 04/08/2018 Cardiac pacemaker in situ 09/28/2017 Overview: DDD Pacemaker Pacemaker. Plastic Technician Medtronic, model W1DR01 [place] XTDR (MRI conditional), serial number [id number]. Right atrial lead. Plastic Technician Medtronic, model 5076-45 CapSureFix Novus, serial number [id number]. Right ventricular lead. Plastic Technician Medtronic, model 5076-52 CapSureFix Novus, serial number [id number]. Placed by Dr Mcknight on 09/27/2017 at [facility] History of tobacco use 09/19/2017 ELMO (obstructive [...] as of this encounter (statuses as of 07/25/2023) Resolved Problems Problem Noted Date Diagnosed Date [...] as of this encounter (statuses as of 07/25/2023) Immunizations Name Administration Dates Next Due COVID-19 mRNA, LNP-s, No Pre serve, 2-Dose Series (Moderna) 09/29/2020,09/01/2020 COVID-19, MRNA-LNP, 23-24, P F, 30 MCG/0.3 mL, 12 YRS AND ABOVE, IM ([facility]) 05/09/2023 COVID-19, mRNA, LNP-s, PF, B ooster, [...] No 09/26/2013 documented as of this encounter Plan of Treatment Upcoming Encounters Date Type Department Care Team (Late st Contact Info) Description 07/26/2023 8:20 AM EST Office Visit Family Practice [address] [place] [address] Steffen Gonzales, DO 293 [facility] [place] [address] 08/17/2023 2:00 PM EST Nurse Only Ancillary [address], [place] [address] [place], Nurse Annual Wellness Visit [address] [place] [address] 09/05/2023 1:00 PM EST Imaging Vascular Lab, [facility] 2nd [facility] 132 [facility] [place] [address] 09/05/2023 2:00 PM EST Imaging Vascular Lab, [facility] 2nd [facility] [place] [address] 09/12/2023 11:10 AM EST Office Visit Vascular Surgery, [facility] [place] [address] Jerome Glover MD [address] [place] [facility] [place] [address] 09/18/2023 9:20 AM EST Office Visit Family Practice [address] [place] [address] 293 [place] [address] Steffen Gonzales, DO 293 [facility] [place] [address] 10/19/2023 9:45 AM EDT Office Visit Urogynecology [facility] 132 [address] [facility] [place], [place] [address] Carie Moncada PA-C 132 [facility] [place] [address] Nurse Coty Padron [facility] 132 [place] [address] 11/02/2023 8:40 AM EDT Office Visit Sleep Disorders Ctr [facility] 132 [facility] [phone] Amy Sanon DO 132 [facility] [address] 02/04/2024 9:30 AM EDT Cardiac Studies Cardiology, [facility] 132 [facility] [place] [address] [facility] 132 [facility], [place] [address] 02/19/2024 9:30 AM EDT Office Visit Urology, [facility] [place] [address] Tonny Elias MD [address] [place] [address] [place] [address] 05/07/2024 1:15 PM EDT Immunization Ancillary 65 [facility] 293 [place] [address] College, Covid19 Vaccine [address] [place] [address] 06/24/2024 9:40 AM EST Office Visit Rheumatology [place] [address] [employer] [place] [address] Max Awan MD [address] [place], [place] [address] Health Maintenance Due Date Last Done Comments *BISPHONATE OR OTHER ACCEPTABLE MEDICATION NEEDED FOR OSTEOPOROSIS (REFER TO SMARTSET #1146) 05/18/2023 GFR 01/10/2024 07/11/2023, 05/16, 05/09/2023, Additional history exists Albumin/Creatinine Ratio 03/28/2024 023, 06/16/2022, 08/25/2021 CKD PHOS USE SMARTSET 40170 04/30/202404/15, 11/22/2021, 06/04/2017 CKD HGB USE SMARTSET 00649 07/11/202407/11, 07/11/2023, 04/30/2023, Additional history exists Depression Screening 07/20/2024 07/20/2023 DXA Scan 11/29/2024 11/29/2022, 11/16/2020 DTaP,Tdap,and Td Vaccines (2 - Td or Tdap) 02/22/2027 02/22/2017, 08/05/2004, 08/05/2004 VITAMIN D LEVEL ONCE IN A LIFETIME-USE SMARTSET# 83672 Completed 02/02/2014, 12/24/2012, 06/04/2009 Colonoscopy Discontinued 10/17/2017 [...] this encounter Medical Devices Implanted Type Area Plastic Technician Device Identifier Shelf Expiration Date Model / Serial / Lot Sut Steel 6 M654g - [id number] Implanted:Qty: 6 on 09/25/2013 at OR [facility] N/A: Chest JNJ : [employer] 02/12/2014 [id number] / / [id number] Lens Intraoc 20.0 - [id number] - [id number] Implanted:Qty: 1 on 06/21/2021 by Jonathan Phillips MD at OR [facility] Left: Eye BAUSCH & LOMB 02/12/2026 [id number] / [id number] / [id number] Lens Intraoc 20.5 - [id number] - [id number] Implanted:Qty: 1 on 02/21/2022 by Jonathan Phillips MD at OR [facility] Right: Eye BAUSCH & LOMB 09/12/2024 [id number] / [id number] / [id number] documented as of this encounter Procedures Procedure Name Priority Date/Time Associated Diagnosis Comments OUTSIDE LAB RESULTS 06/22/2023 documented in this encounter Results * OUTSIDE LAB RESULTS (06/22/2023) 06/22/2023 Max Awan MD LABORATORY documented in this encounter Advance Directives Latest [...] the patient have Health Care Power of Glass Ribbon Machine Operator? No Code Status History Code Status Date [...] the patient have Health Care Power of Glass Ribbon Machine Operator? No Care Teams Universal Grinder Operator Relationship Specialty Start Date End Date Steffen Gonzales DO 293 [facility] [place] [address] PCP - General Internal Medicine 05/25/21 documented as of this encounter
--- OUTSIDE RECORDS SUMMARY | 2023-08-04 06:48 | External Medical Summary ---
Author Name Unknown Address Unknown Organization K01:LABORATORY [facility] - [address] [place] [address] Laboratory Report Ordering Provider Test Date Status CARLTON CORDERO 08/03/2023 13:34:53 Final Observation Date Value Abnormality Reference (Units ) Status Uric Acid 08/03/2023 13:34:53 3.5 2.4-5.7 (m g/dL) Final Performing Location LABORATORY C - [address] [place] [address]
--- OUTSIDE RECORDS SUMMARY | 2023-08-04 06:49 | External Medical Summary | Summary of Care ---
Author Name Unknown Organization [facility] Address [address] [place] [address] Phone [phone] Care Team Providers Care Um Nurse Name Role Phone Steffen Gonzales DO Primary Care Provider Reason for Visit * Reason Comments Acute Encounter Details Date Type Department Care Team (Latest Contact Info) Description 07/11/2023 11:00 AM EST Office Visit Family Practice [address] [place] [address] [place] [address] Steffen Gonzales DO [address] [place] [address] Cellulitis of left leg*; Acute left ankle pain; Hypertensive heart and kidney disease with chronic diastolic congestive heart failure and stage 3b chronic kidney disease (HCC); Paroxysmal atrial fibrillation ([facility]); Chronic heart failure with preserved ejection fraction ([facility]); Dyslipidemia, goal LDL below 70; Peripheral vascular disease ([facility]); 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[facility]); Cardiac pacemaker in situ; Coronary artery disease involving yankton coronary artery of yankton heart without angina pectoris; Secondary hyperparathyroidism of renal origin ([facility]); Age-related osteoporosis without current pathological fracture Allergies Active Allergy Reactions Criticality Noted Date [...] as of this encounter (statuses as of 07/11/2023) Medications Medication Sig Dispensed Refills Start Date [...] at bedtime 42.5 g 3 04/10/2023 Active Ipratropium Nageezi 0.06 % Nasal Solution (Atrovent) ADMINISTER 2 SPRAYS INTO EACH NOSTRIL 4 TIMES A DAY NEEDED FOR RHINITIS. FOR RUNNY NOSE 15 mL 1 04/27/2023 Active D-Mannose 500 MG Oral Capsule Take 2 Tablets by mouth in the morning and 2 Tablets before bedtime. 0 Active Furosemide 20 MG Oral Tablet (Lasix)Indications:P [...] and Sunday. One tablet on , , Sun and Sun 0 05/18/2023 Active Ezetimibe 10 MG Oral Tablet (Zetia)Indications:D yslipidemia, goal LDL below 70 TAKE ONE TABLET BY MOUTH EVERY DAY 90 Tablet 3 05/21/2023 4 Active Cephalexin 500 MG Oral Capsule (Keflex)Indications: Cellulitis of left leg Take 1 Capsule by mouth in the morning and 1 Capsule at noon and 1 Capsule before bedtime. Do all this for 7 days. 21 Capsule 0 07/11/2023 4 Active documented as of this encounter (statuses as of 07/11/2023) Active Problems Problem Noted Date Diagnosed Date Chronic heart failure with preserved ejection fr action 05/23/2023 Age-related osteoporosis wit hout current pathological fracture 04/12/2022 History of cervical cancer 11/22/2021 Chronic kidney disease, stage 3b 08/29/2021 Overview: Per CKD protocol Hypertensive heart and kidne y disease with chronic diastolic congestive heart failure and stage 3b chronic kidney disease 08/25/2021 Secondary hyperparathyroidism of renal origin Coronary artery disease invo lving yankton coronary artery of yankton heart without angina pectoris 04/08/2018 Cardiac pacemaker in situ 09/28/2017 Overview: DDD Pacemaker Pacemaker. Import/Export Specialist Medtronic, model W1DR01 Elena XTDR (MRI conditional), serial number [id number]. Right atrial lead. Import/Export Specialist Medtronic, model 5076-45 CapSureFix Novus, serial number [id number]. Right ventricular lead. Import/Export Specialist Medtronic, model 5076-52 CapSureFix Novus, serial number [id number]. Placed by Dr Mcknight on 09/27/2017 at [facility] History of tobacco use 09/19/2017 ELMO (obstructive [...] as of this encounter (statuses as of 07/11/2023) Resolved Problems Problem Noted Date Diagnosed Date [...] as of this encounter (statuses as of 07/11/2023) Immunizations Name Administration Dates Next Due COVID-19 mRNA, LNP-s, No Pre serve, 2-Dose Series (Moderna) 09/29/2020,09/01/2020 COVID-19, MRNA-LNP, 23-24, P F, 30 MCG/0.3 mL, 12 YRS AND ABOVE, IM ([facility] 05/09/2023 COVID-19, mRNA, LNP-s, PF, B ooster, 100mcg/0.5mg (Moderna) 10/26/2021,05/11/2021 Covid-19, Mrna, Lnp-s, Pf, B ivalent, 30 Mcg, IM, 12 yrs and above ([employer]) 04/18/2022 Pneumococcal Conjugate Vacc, 13 Valent (Prevnar) [...] Date Recorded PHQ Adult Total Score 0 05/30/2023 Hunger Vital Sign Answer Date Recorded Within the past 12 months, y ou worried that your food would run out before you got the money to buy more. Never true 05/30/20 23 Within the past 12 months, t he food you bought just didn't last and you didn't have money to get more. Never true 05/30/2023 Sex and Gender Information Value Date Recorded Sex Assigned at Female 05/25/2021 3:21 PM EST Gender Identity Female 05/25/2021 3:21 PM EST Sexual Orientation Straight 05/25/2021 3: 21 PM EST Job Start Date Occupation Industry Not on file Not on file Not on file documented as of this encounter Last Filed Vital Signs Vital Sign Reading Time Taken Comments Blood Pressure 98/60 07/11/2023 11:16 AM EST Pulse 90 07/11/2023 11:16 AM EST Temperature 36.2 C (97.2 F) 07/11/2023 11:[address] Respiratory Rate 14 07/11/2023 11:16 AM EST Oxygen Saturation 100% 07/11/2023 11:16 AM EST Inhaled Oxygen Concentration - - Weight 50.4 kg (111 lb 3.2 oz) 07/11/2023 11:16 AM EST Height 157.5 cm (5' 2") 07/11/2023 11:16 AM EST Body Mass Index 20.34 07/11/2023 11:16 AM EST documented in this encounter Functional [...] as of this encounter Progress Notes * Steffen Gonzales, DO - 07/11/2023 11:34 AM EST SUBJECTIVE: Lori Dasilva is a 78 year old female. Chief Complaint Patient presents with Acute HPI: Patient is a 78 year old female with a history of Atrial Fibrillation, Tachy - Taqueria Syndrome, Pacemaker Implant, CKD stage III, PVD, right external iliac stent, HTN, repair of right atrial / ventricular perforation, Diastolic CHF, CAD, right ulnar artery pseudoaneurysm repair, Allergic Rhinitis, osteoporosis, Sleep Apnea on CPAP, and recurrent UTI that is seen for left ankle and leg swelling that has been present for 3 days. No fever or chills. Patient has eaten more purine rich food over the holidays. No falls or trauma. No chest pain or shortness of breath are present. Weight is up and appetite is fair. Patient Active Problem [...] I50.30 Chronic sinusitis J32.9 Paroxysmal atrial fibrillation (HCC) I48.0 Pericardial effusion I31.39 ELMO (obstructive sleep apnea) G47.33 History of tobacco use Z87.891 Cardiac pacemaker in situ Z95.0 Coronary artery disease involving yankton coronary artery of yankton heart without angina pectoris I25.10 Hypertensive heart and kidney disease with chronic diastolic congestive heart failure and stage 3b chronic kidney disease ([facility]) I13.0, I50.32, N18.32 Secondary hyperparathyroidism of renal origin ([facility]) N25.81 Chronic kidney disease, stage 3b ([facility]) N18.32 History of cervical cancer Z85.41 Age-related osteoporosis without current pathological fracture M81.0 Chronic heart failure with preserved ejection fraction ([facility]) I50.32 Current Outpatient Medications Medication Sig Dispense Refill Cephalexin 500 MG Oral Capsule (Keflex) Take 1 Capsule by mouth in the morning and 1 Capsule at noon and 1 Capsule before bedtime. Do all this for 7 days. 21 Capsule 0 VITAMIN D 1000 UNIT PO CAPS 1 capsule daily 30 11 BLOOD PRESSURE MONITOR KIT Take daily as directed 1 Kit 0 SURGICAL COMPRESSION STOCKING Knee length compression stockings 20mmHg 1 Each 2 Aspirin 81 MG Tablet Take 1 Tablet [...] a week at bedtime 42.5 g 3 Ipratropium Nageezi 0.06 % Nasal Solution (Atrovent) ADMINISTER 2 SPRAYS INTO EACH NOSTRIL 4 TIMES A DAY NEEDED FOR RHINITIS. FOR RUNNY NOSE 15 mL 1 D-Mannose 500 MG Oral Capsule Take 2 Tablets by mouth in the morning and 2 Tablets before bedtime. Furosemide 20 MG Oral Tablet (Lasix) Take two tablets on Sunday, Sunday and Sunday. One tablet on , , Sun and Sun Ezetimibe 10 MG Oral Tablet (Zetia) TAKE ONE TABLET BY MOUTH EVERY DAY 90 Tablet 3 No current facility-administered medications for this visit. The patient's medication list was reviewed and updated as needed. Past Medical History: Diagnosis Date Age-related osteoporosis without current pathological fracture 04/12/2022 Atrial fibrillation (HCC) Taqueria-tachy syndrome (HCC) Cancer of cervix (HCC) 1977 txt with Total abd hysterectomy Cardiac pacemaker in situ 09/28/2017 Pacemaker. Import/Export Specialist Medtronic, model W1DR01 [place] XTDR (MRI conditional), serial number [id number]. Right atrial lead. Import/Export Specialist Medtronic, model 5076-45 CapSureFix Novus, serial number [id number]. Right ventricular lead. Import/Export Specialist Medtronic, model 5076-52 CapSureFix Novus, serial [id number]. Placed by Dr Mcknight on 09/27/2017 at [facility] Cardiac tamponade 09/2013 left atrial & right ventriccular perforation with acute tamponade post RF ablation. Dyslipidemia Dyslipidemia, goal LDL below 100 06/19/2011 Heart failure, diastolic, due to HTN ([facility]) History of cervical cancer Hypertension Paroxysmal atrial fibrillation (HCC) 07/18/2013 Peripheral vascular disease with claudication ([facility]) 2004 right calf Personal history of tobacco use quit 05/29/2012 Pseudoaneurysm following procedure ([facility]) 02/16/2018 following cardiac catheterization 01/28/2018 Sleep apnea, obstructive Past Surgical History: Procedure Laterality Date ABLATE HEART DYSRHYTHM FOCUS 04/15/2012 CATHETER ABLATION-SVT performed by Ismael Jackson MD at [facility] CARDIAC CATH-CARDIOLOGY ONLY Right 01/28/2018 @ [facility] Right arm. COLONOSCOPY 09/20 hx of IBS, nl, repeat 10y ELECTROPHYSIOLOGY EVAL, ATRIAL FIB, PULMONARY VEIN ISOL 09/25/2013 ELECTROPHYSIOLOGY EVAL, ATRIAL FIB, PULMONARY VEIN ISOL performed by Ismael Jackson MD at [facility] EYELID SURGERY PROCEDURE NEC Left Two surgeries of the left upper lid to help lower lid HEART ELECTROCONVERSION, EXTERNAL 07/12/2012 DC CARDIOVERSION performed by Ismael Jackson MD at [facility] HEART ELECTROCONVERSION, EXTERNAL 09/25/2013 DC CARDIOVERSION performed by Sekou Alcala MD at OR [facility] INFORMATION 195 fracture R ankle INFORMATION 12/2004 balloon angioplasty INSERT/REPLACE PACEMAKER,ATRIAL/VENTRICULAR Left 09/27/2017 NEW DDD PACEMAKER IMPLANT performed by Chandrika Mcknight IV, MD at [facility] RELIEVE INNER EYE PRESSURE 06/21/2021 GONIOTOMY performed by Jonathan Phillips MD at OR [facility] REMOVE CATARACT, INSERT LENS PROSTH Left 06/21/2021 Left EXTRACAPSULAR CATARACT REMOVAL WITH INTRAOCULAR LENS performed by Jonathan Phillips MD at OR [facility] REMOVE CATARACT, INSERT LENS PROSTH Right 02/21/2022 right EXTRACAPSULAR CATARACT REMOVAL WITH INTRAOCULAR LENS performed by Jonathan Phillips MD at OR [facility] REPAIR HEART WOUND 09/25/2013 left atrial and right ventricular perforation with acute tamponade post RF ablation 09/2013 Repair performed by Sekou Alcala MD at [facility] REPAIR VESSEL DIRECT UPPER EXT Right 03/01/2018 direct repair of right ulnar artery (pseudoaneurym) performed by Darvin Joseph MD at OR [facility] TOTAL HYSTERECTOMY 1985 Hysterectomy, Abdominal Review of [...] cough, shortness of breath and wheezing. Cardiovascular: Positive for leg swelling. Negative for chest pain and palpitations. Gastrointestinal: Positive for constipation. Negative for abdominal pain, blood in stool, diarrhea,nausea and vomiting. Genitourinary: Negative for dysuria and hematuria. Neurological: Negative for dizziness, syncope and headaches. OBJECTIVE: BP 98/60 | Pulse 90 | Temp 36.2 C (97.2 F) (Tympanic) | Resp 14 | Ht 1.575 m (5' 2") | Wt 50.4 kg (111 lb 3.2 oz) | SpO2 100% | BMI 20.34 kg/m | BSA 1.48 m Physical Exam Vitals and nursing note [...] lower leg: No edema. Left lower leg: Edema present. Skin: Comments: Left ankle and leg erythema, induration, and edema Neurological: Mental Status: She is alert and oriented to person, place, and time. Mental status is at baseline. Motor: No weakness. Gait: Gait abnormal. Psychiatric: Mood and Affect: Mood normal. Behavior: Behavior normal. PLAN AND ASSESSMENT: Cellulitis of left leg (Primary) - CBC WITH WBC DIFFERENTIAL; Future; Expected date: 07/11/2023 - Start Cephalexin 500 MG Oral Capsule (Keflex); Take 1 Capsule by mouth in the morning and 1 Capsule at noon and 1 Capsule before bedtime. Do all this for 7 days. Acute left ankle pain - URIC ACID; Future; Expected date: 07/11/2023 Hypertensive heart and kidney disease with chronic diastolic congestive heart failure and stage 3b chronic kidney disease (HCC) - BASIC METABOLIC PANEL; Future; Expected date: 07/11/2023 Continue Metoprolol ER Paroxysmal atrial fibrillation (HCC) Continue Metoprolol ER, Dofetilide, and Apixaban Chronic heart failure with preserved ejection fraction (HCC) Continue Furosemide Dyslipidemia, goal LDL below 70 Peripheral vascular disease (HCC) Continue ASA 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HCC) Cardiac pacemaker in situ Coronary artery disease involving yankton coronary artery of yankton heart without angina pectoris Continue Metoprolol ER, and ASA Secondary hyperparathyroidism of renal origin (HCC) Age-related osteoporosis without current pathological fracture Follow Up: Return in about 1 week (around 07/18/2023), or if symptoms worsen or fail to improve. Steffen Gonzales DO 11:34 AM 07/11/2023 documented in this encounter Nursing Notes * Susan Proctor LPN - 07/11/2023 11:15 AM EST Left back of ankle swollen and painful. Red at back of heel. Started on 07/08 No trauma Denies chest pain did state she had some sob over holidays feels anxiety driven Did take an extra lasix over [place]. documented in this encounter Plan of Treatment Upcoming Encounters Date Type Department Care Team (Late st Contact Info) Description 07/19/2023 9:25 AM EST Office Visit Urogynecology Jeanne Padron [address] [place] [address] Carie Moncada PA-C [address] [place] [address] Nurse Coty Padron [address] [place] [address] 07/20/2023 10:40 AM EST Office Visit Family Practice [address] [facility] [address] [facility], [place] [phone] Steffen Gonzales DO 293 [facility], [place] [address] 08/17/2023 2:00 PM EST Nurse Only Ancillary 65 [facility] [address] [place] [address] College, Nurse Annual Wellness Visit [address] [place] [address] 09/05/2023 1:00 PM EST Imaging Vascular Lab, Jackie Padron 2nd Floor, [place] [address] [place] [address] 09/05/2023 2:00 PM EST Imaging Vascular Lab, [facility] 2nd Floor, [place] [address] [facility] [place] [address] 09/12/2023 11:10 AM EST Office Visit Vascular Surgery, [facility] [address] [facility] [place] [address] Jerome Glover MD [address] [place] [address] 09/18/2023 9:20 AM EST Office Visit Family Practice [address] [place] [address] [address] [place] [address] Steffen Gonzales, DO [address] [place] [address] 11/02/2023 8:40 AM EDT Office Visit Sleep Disorders Ctr [facility] [address] [facility] [place] [phone] Amy Sanon, [facility] [address] 02/04/2024 9:30 AM EDT Cardiac Studies Cardiology, [facility] [address] [facility] [place] [address] [facility] [address] [facility] [place] [address] 02/19/2024 9:30 AM EDT Office Visit Urology, [facility] [address] [facility] [place] [address] Tonny Elias MD 27 [facility] [address] [place] [address] 05/07/2024 1:15 PM EDT Immunization Ancillary 65 [facility] [address] [facility], [place] [address] College, Covid19 Vaccine [address] [place] [address] 06/24/2024 9:40 AM EST Office Visit Rheumatology [place] [address] [facility] [place] [address] Max Awan MD [facility] [address] [place], [place] [address] Pending Results Name Type Priority Associated Diagnoses Date /Time URIC ACID Lab Routine Acute left ankle pain 07/11/2023 11:41 AM EST BASIC METABOLIC PANEL Lab Routine Hypertensive heart and kidney disease with chronic diastolic congestive heart failure and stage 3b chronic kidney disease (HCC) 07/11/2023 11:41 AM EST CBC WITH WBC DIFFERENTIAL Lab Routine Cellulitis of left leg 07/11/2023 11:41 AM EST CBC Lab Routine Cellulitis of left leg 07/11/2023 11:41 AM EST DIFFERENTIAL, AUTOMATED Lab Routine Cellulitis of left leg 07/11/2023 11:41 AM EST Scheduled Orders Name Type Priority Associated Diagnoses Orde r Schedule URIC ACID Lab Routine Acute left ankle pain Expected: 07/11/2023 (Approximate), Expires: 07/10/2024 BASIC METABOLIC PANEL Lab Routine Hypertensive heart and kidney disease with chronic diastolic congestive heart failure and stage 3b chronic kidney disease (HCC) Expected: 07/11/2023 (Approximate), Expires: 07/10/2024 CBC WITH WBC DIFFERENTIAL Lab Routine Cellulitis of left leg Expected: 07/11/2023 (Approximate), Expires: 07/11/2024 Health Maintenance Due Date Last Done Comments *BISPHONATE OR OTHER ACCEPTABLE MEDICATION NEEDED FOR OSTEOPOROSIS (REFER TO SMARTSET #1146) 05/18/2023 GFR 11/28/2023 05/30/2023, 04/16, 05/03/2023, Additional history exists Albumin/Creatinine Ratio 03/28/2024 023, 06/16/2022, 08/25/2021 CKD HGB USE SMARTSET 58446 04/30/202404/30, 04/30/2023, 05/05/2022, Additional history exists CKD PHOS USE SMARTSET 00305 04/30/202404/15, 11/22/2021, 06/04/2017 Depression Screening 05/30/2024 07/11/2023 DXA Scan 11/29/2024 11/29/2022, 11/16/2020 DTaP,Tdap,and Td Vaccines (2 - Td or Tdap) 02/22/2027 02/22/2017, 08/05/2004, 08/05/2004 VITAMIN D LEVEL ONCE IN A LIFETIME-USE SMARTSET# [id number] Completed 02/02/2014, 12/24/2012, 06/04/2009 Colonoscopy Discontinued 10/17/2017 [...] this encounter Medical Devices Implanted Type Area Import/Export Specialist Device Identifier Shelf Expiration Date Model / Serial / Lot Sut Steel 6 M654g - [id number] Implanted:Qty: 6 on 09/25/2013 at OR [facility] N/A: Chest JNJ : [employer] 02/12/2014 [id number] / / [id number] Lens Intraoc 20.0 - [id number] - [id number] Implanted:Qty: 1 on 06/21/2021 by Jonathan Phillips MD at OR [facility] Left: Eye [employer] 02/12/2026 [id number] / [id number] / [id number] Lens Intraoc 20.5 - [id number] - [id number] Implanted:Qty: 1 on 02/21/2022 by Jonathan Phillips MD at [facility] Right: Eye [employer] 09/12/2024 [id number] / [id number] / [id number] documented as of this encounter Visit Diagnoses Diagnosis Cellulitis of left leg- Primary Cellulitis and abscess of leg, except foot Acute left ankle pain Hypertensive heart and kidney disease with chronic diastolic congestive heart failure and stage 3b chronic kidney disease (HCC) Paroxysmal atrial fibrillation (HCC) Atrial fibrillation Chronic heart failure with preserved ejection fraction (HCC) Dyslipidemia, goal LDL below 70 Other and unspecified hyperlipidemia Peripheral vascular disease (HCC) Peripheral vascular disease, unspecified 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HCC) Sinoatrial node dysfunction Cardiac pacemaker in situ Coronary artery disease involving yankton coronary artery of yankton heart without angina pectoris Secondary hyperparathyroidism of renal origin (HCC) Secondary hyperparathyroidism (of renal origin) Age-related osteoporosis without current pathological fracture Senile osteoporosis documented in this encounter Advance Directives Latest [...] the patient have Health Care Power of Commercial Sales Director? No Code Status History Code Status Date [...] the patient have Health Care Power of Commercial Sales Director? No Care Teams Um Nurse Relationship Specialty Start Date End Date Steffen Gonzales DO [address] [facility] [place] [address] PCP - General Internal Medicine 05/25/21 documented as of this encounter
--- OUTSIDE RECORDS SUMMARY | 2023-08-04 06:49 | External Medical Summary ---
Author Name Unknown Address Unknown Organization [id number]:[facility] [address] [facility] [address] [facility] [address] Laboratory Report Ordering Provider Test Date Status CARLTON CORDERO 07/11/2023 11:41:05 Final Observation Date Value Abnormality Reference (Units ) Status WBC, Total 07/11/2023 11:41:05 10.45 4.00-10.80 (K/uL) Final RBC 07/11/2023 11:41:05 4.42 3.85-5.15 (M/uL) Final Hemoglobin 07/11/2023 11:41:05 13.9 12.0-15.3 (g/dL) Final HCT 07/11/2023 11:41:05 44.3 36.0-45.2 (%) Final MCV 07/11/2023 11:41:05 100.2 81.5-97.5 (fL) Final MCH 07/11/2023 11:41:05 31.4 27.0-34.0 (pg) Final MCHC 07/11/2023 11:41:05 31.4 32.0-36.0 (g/dL) Final RDW 07/11/2023 11:41:05 15.6 11.5-15.5 (%) Final Platelets 07/11/2023 11:41:05 262 140-400 (K/uL) Final MPV 07/11/2023 11:41:05 11.7 6.6-11.1 (fL) Final Nucleated erythrocytes/100 leukocytes [Ratio] in Blood by Automated count 07/11/2023 11:41:05 0 <=0 (/100 WBCs) Final Performing Location [facility] [place] [address] [place] [address]
--- OUTSIDE RECORDS SUMMARY | 2023-08-04 06:49 | External Medical Summary | Summary of Care ---
Author Name Unknown Organization [facility] Address [address] [facility] [place] [address] Phone [phone] Care Team Providers Care Field Laboratory Operator Name Role Phone Steffen Gonzales DO Primary Care Provider [phone] Reason for Visit * Reason Comments Follow Up Encounter Details Date Type Department Care Team (Late st Contact Info) Description 07/19/2023 9:25 AM EST Office Visit Urogynecology Jeanne Padron [address] [place] [address] Carie Moncada PA-C [address] [facility] [address] Nurse Coty Padron [address] [place] [address] History of recurrent UTI (urinary tract infection)*; Atrophic vaginitis; Urinary frequency Allergies Active Allergy Reactions Criticality Noted Date [...] as of this encounter (statuses as of 07/19/2023) Medications Medication Sig Dispensed Refills Start Date [...] at bedtime 42.5 g 3 04/10/2023 Active D-Mannose 500 MG Oral Capsule Take [...] the morning. 90 Tablet 3 07/12/2023 Active Colchicine 0.6 MG Oral TabletIndications:Go ut Take 1 Tablet by mouth in the morning. 7 Tablet 0 07/12/2023 Active Ipratropium [place] 0.06 % Nasal Solution (Atrovent) ADMINISTER 2 SPRAYS INTO EACH NOSTRIL 4 TIMES A DAY NEEDED FOR RHINITIS. FOR RUNNY NOSE 15 mL 2 07/18/2023 Active documented as of this encounter (statuses as of 07/19/2023) Active Problems Problem Noted Date Diagnosed Date [...] renal origin Coronary artery disease invo lving [place] coronary artery of [place] heart without angina pectoris 04/08/2018 Cardiac pacemaker in situ 09/28/2017 Overview: DDD Pacemaker Pacemaker. Feller Operator Medtronic, model W1DR01 [place] XTDR (MRI conditional), serial number [id number]. Right atrial lead. Feller Operator Medtronic, model 5076-45 CapSureFix Novus, serial number [id number]. Right ventricular lead. Feller Operator Medtronic, model 5076-52 CapSureFix Novus, serial number [id number]. Placed by Dr Mcknight on 09/27/2017 at [facility] History of tobacco use 09/19/2017 ELMO (obstructive [...] as of this encounter (statuses as of 07/19/2023) Resolved Problems Problem Noted Date Diagnosed Date [...] as of this encounter (statuses as of 07/19/2023) Immunizations Name Administration Dates Next Due COVID-19 [...] Tobacco: Never Quit: 05/29/2012 Tobacco Cessation:Counseling Given: Not Answered Comments:pt smokes 1 pack over 4 days [...] Date Recorded PHQ Adult Total Score 0 07/11/2023 Hunger Vital Sign Answer Date Recorded Within the past 12 months, y ou worried that your food would run out before you got the money to buy more. Never true 07/11/20 23 Within the past 12 months, t he food you bought just didn't last and you didn't have money to get more. Never true 07/11/2023 Sex and Gender Information Value Date Recorded Sex Assigned at Female 05/25/2021 3:21 PM EST Gender Identity Female 05/25/2021 3:21 PM EST Sexual Orientation Straight 05/25/2021 3: 21 PM EST Job Start Date Occupation Industry Not on file Not on file Not on file documented as of this encounter Last Filed Vital Signs Vital Sign Reading Time Taken Comments Blood Pressure 118/82 07/19/2023 9:39 AM EST Pulse - - Temperature - - Respiratory Rate - - Oxygen Saturation - - Inhaled Oxygen Concentration - - Weight - - Height - - Body Mass Index - - documented in this encounter Functional Status Functional [...] as of this encounter Progress Notes * Carie Moncada PA-C - 07/19/2023 9:43 AM EST Lori Dasilva presents for a follow up visit at [facility]. She was previously seen for Z87.440 History of recurrent UTI (urinary tract infection) (primary encounter diagnosis) N95.2 Atrophic vaginitis Since last seen, Lori has had 1 culture positive E. Coli UTI since last seen. She stopped taking d-mannose as it was causing constipation. She has not been using vaginal estrogen cream. She notes anincrease in nocturia to 3-4x nightly. Daytime frequency every 3-4 hours. Denies sense of incompletebladder emptying. Notes cloudy urine that has been cloudy for months. Denies dysuria, hematuria, fever. Continues to have constipation. 03/2023 Renal US: IMPRESSION 1. Complex right renal cyst that has increased in size since 2006. Consider cross-sectional imagingwith contrast (renal protocol CT/MRI). 2. Atrophied left kidney. 04/2023 CT Kidney IMPRESSION Right 7.5 cm midpole renal cyst. Limited evaluation for known septation or wall nodularity without intravenous contrast. Review of patient's allergies indicates: Allergen Reactions [...] long course of prednisone Lisinopril Renal complications Current Outpatient Medications Medication Sig Dispense Refill Estradiol 0.1 MG/GM Vaginal Cream (Estrace) Apply pea sized amount (0.5 gm) vaginally twice a week at bedtime 42.5 g 3 VITAMIN D 1000 UNIT PO CAPS 1 [...] by mouth at bedtime. 30 Tablet 11 D-Mannose 500 MG Oral Capsule Take 2 Tablets by mouth in the morning and 2 Tablets before bedtime. (Patient not taking: Reported on 07/19/2023) Furosemide 20 MG Oral Tablet (Lasix) Take two tablets on Sunday, Sunday and Sunday. One tablet on , , Sat and Sun Ezetimibe 10 MG Oral Tablet (Zetia) TAKE ONE TABLET BY MOUTH EVERY DAY 90 Tablet 3 Allopurinol 100 MG Oral Tablet (Zyloprim) Take 1 Tablet by mouth in the morning. 90 Tablet 3 Colchicine 0.6 MG Oral Tablet Take 1 Tablet by mouth in the morning. 7 Tablet 0 Ipratropium [place] 0.06 % Nasal Solution (Atrovent) ADMINISTER 2 SPRAYS INTO EACH NOSTRIL 4 TIMES A DAY NEEDED FOR RHINITIS. FOR RUNNY NOSE 15 mL 2 No current facility-administered medications for this visit. ROS: Per HPI BP 118/82 GENERAL: alert, healthy, no distress, well nourished and well developed SKIN: Skin color, texture, and turgor normal. No rashes or significant lesions Impression: This is a 78 year old with History of recurrent UTI (urinary tract infection) (Primary) Atrophic vaginitis Urinary frequency - URINALYSIS, POINT OF CARE (ENTER/EDIT) - CULTURE, URINE, QUANTITATIVE Plan: Will check urine culture, UA POC with trace blood. Will treat as indicated. Has appointment with urology due to renal cyst found on US and confirmed with CT. Discussed importance of use of vaginal estorgen cream twice weekly. Risks and benefits reviewed. Discussed management of constipation including daily fiber supplementation and use of gentle OTC laxative like Miralax. Discussed limiting caffeine intake and practicing daily kegel exercises. Discussed limiting fluid intake 2 hours before bedtime for nocturia. Discussed OAB medications. Risks, benefits and alternatives reviewed. Will consider at next appointment if no UTI/nocturia not improved. RTC in 3 months weeks or sooner as needed. I spent a total of 20-29 minutes (exact time 20 mins) on the date of service in preparation, delivery, and documentation of the care provided to Lori Dasilva excluding any time spent in the performance of separately billed services. Carie Moncada PA-C 07/19/2023 9:43 AM Carie Moncada PA-C Urogynecology [address] [place] [address] documented in this encounter Nursing Notes * Velma Workman MED ASSIST - 07/19/2023 9:43 AM EST Patient presents to the clinic for three month follow-up for frequent UTI's. documented in this encounter Plan of Treatment Upcoming Encounters Date Type Department Care Team (Late st Contact Info) Description 07/20/2023 10:40 AM EST Office Visit Family Practice [address] [facility] 293 [facility] [place] [address] Steffen Gonzales, 293 [place] [address] 08/17/2023 2:00 PM EST Nurse Only Ancillary [address] [place] [address] College, Nurse Annual Wellness Visit [address] [address] 09/05/2023 1:00 PM EST Imaging Vascular Lab, [facility] 2nd [facility] [address] 09/05/2023 2:00 PM EST Imaging Vascular Lab, [facility] 2nd [facility] 132 [facility] [place] [address] 09/12/2023 11:10 AM EST Office Visit Vascular Surgery, [facility] 132 [facility] [place] [address] Jerome Glover MD [address] [facility] [place] [address] 09/18/2023 9:20 AM EST Office Visit Family Practice [address] [place] [address] 293 [facility] [place] [address] Steffen Gonzales DO 293 [place] [address] 10/19/2023 9:45 AM EDT Office Visit Urogynecology [facility] 132 [facility] [place] [address] Carie Moncada PA-C [facility] [address] Nurse Coty Padron [facility] [address] 11/02/2023 8:40 AM EDT Office Visit Sleep Disorders Ctr [facility] 132 [facility] [place] [id number] Amy Sanon DO 132 [facility] [place] [address] 02/04/2024 9:30 AM EDT Cardiac Studies Cardiology, [facility] 132 [facility] [place] [address] [place], [facility] 132 [facility] [place] [address] 02/19/2024 9:30 AM EDT Office Visit Urology, [facility] 132 [facility] [place] [address] Tonny Elias MD 27 [facility] 270 [place] [address] 05/07/2024 1:15 PM EDT Immunization Ancillary [address] [facility] 293 [facility] [place] [address] [place], Covid19 Vaccine [address] [place] [address] 06/24/2024 9:40 AM EST Office Visit Rheumatology [facility] [address] [facility] [place] [place] [address] Max Awan MD [address] [facility] [place] [address] Pending Results Name Type Priority Associated Diagnoses Date/Time URINALYSIS, POINT OF CARE (ENTER/EDIT) Point of Care Testing Routine Urinary frequency 07/19/2023 CULTURE, URINE, QUANTITATIVE Lab Routine Urinary frequency 07/19/2023 10:58 AM EST Health Maintenance Due Date Last Done Comments *BISPHONATE OR OTHER ACCEPTABLE MEDICATION NEEDED FOR OSTEOPOROSIS (REFER TO SMARTSET #1146) 05/18/2023 GFR 01/10/2024 07/11/2023, 05/16, 05/09/2023, Additional history exists Albumin/Creatinine Ratio 03/28/2024 023, 06/16/2022, 08/25/2021 CKD PHOS USE SMARTSET 77194 04/30/202404/15, 11/22/2021, 06/04/2017 CKD HGB USE SMARTSET 41198 07/11/202407/11, 07/11/2023, 04/30/2023, Additional history exists Depression Screening 07/11/2024 07/11/2023 DXA Scan 11/29/2024 11/29/2022, 11/16/2020 DTaP,Tdap,and Td Vaccines (2 - Td or Tdap) 02/22/2027 02/22/2017, 08/05/2004, 08/05/2004 VITAMIN D LEVEL ONCE IN A LIFETIME-USE SMARTSET# 75320 Completed 02/02/2014, 12/24/2012, 06/04/2009 Colonoscopy Discontinued 10/17/2017 [...] this encounter Medical Devices Implanted Type Area Feller Operator Device Identifier Shelf Expiration Date Model / Serial / Lot Sut Steel 6 M654g - [id number] Implanted:Qty: 6 on 09/25/2013 at OR [facility] N/A: Chest JNJ : [employer] 02/12/2014 [id number] / / [id number] Lens Intraoc 20.0 - [id number] - [id number] Implanted:Qty: 1 on 06/21/2021 by Jonathan Phillips MD at OR [facility] Left: Eye BAUSCH [employer] LOMB 02/12/2026 [id number] / [id number] / [id number] Lens Intraoc 20.5 - [id number] - [id number] Implanted:Qty: 1 on 02/21/2022 by Jonathan Phillips MD at OR [facility] Right: Eye BAUSCH & LOMB 09/12/2024 [id number] / [id number] / [id number] documented as of this encounter Visit Diagnoses Diagnosis History of recurrent UTI (urinary tract infection)- Primary Personal history of urinary (tract) infection Atrophic vaginitis Postmenopausal atrophic vaginitis Urinary frequency documented in this encounter Advance Directives Latest [...] the patient have Health Care Power of Waste Machine Tender? No Code Status History Code Status Date [...] the patient have Health Care Power of Waste Machine Tender? No Care Teams Field Laboratory Operator Relationship Specialty Start Date End Date Steffen Gonzales DO 293 [place] [address] PCP - General Internal Medicine 05/25/21 documented as of this encounter
--- OUTSIDE RECORDS SUMMARY | 2023-08-04 06:49 | External Medical Summary ---
Author Name Unknown Address Unknown Organization [id number]:LABORATORY [facility] - [address] [place] [address] Laboratory Report Ordering Provider Test Date Status CARLTON CORDERO 07/20/2023 11:23:26 Final Observation Date Value Abnormality Reference (Units ) Status Uric Acid 07/20/2023 11:23:26 5.9 Above high normal 2. 4-5.7 (mg/dL) Final Performing Location [facility]ORY [facility] - [address] [place] [address]
--- OUTSIDE RECORDS SUMMARY | 2023-08-04 06:49 | External Medical Summary ---
Author Name Unknown Address Unknown Organization [id number]:[facility]ORATORY [facility] [place] - [address] [place] [address] Laboratory Report Ordering Provider Test Date Status CARLTON CORDERO 07/11/2023 11:41:05 Final Observation Date Value Abnormality Reference (Units ) Status Uric Acid 07/11/2023 11:41:05 9.2 Above high normal 2. 4-5.7 (mg/dL) Final Performing Location LABORATORY [facility] [place] - [address] [place] [address]
--- OUTSIDE RECORDS SUMMARY | 2023-08-04 06:49 | External Medical Summary ---
Author Name Unknown Address Unknown Organization K01:LABORATORY C - [address] [facility] [place] [address] Laboratory Report Ordering Provider Test Date Status TONI HSIEH 07/19/2023 10:58:36 Final Observation Date Value Abnormality Reference (Units ) Status Bacteria identified in Specimen by Culture 07/19/2023 10:58:36 [id number]^ESCHE RICHIA COLI Abnormal Final >100,000 colonies/mL Escheri katerin coli Performing Location LABORATORY [facility] [place] - [address] [place] [address] Ordering Provider Test Date Status TONI HSIEH 07/19/2023 10:58:36 Final Observation Date Value Abnormality Reference (Units ) Status Ampicillin 07/19/2023 10:58:36 4 Susceptible Final Cefazolin 07/19/2023 10:58:36 <=4 Susceptible Final Cefepime susceptibility 07/19/2023 10:58:36 <=1 Susceptible Final Ceftriaxone suceptibility 07/19/2023 10:58:36 <=1 Susceptible Final Ciprofloxacin 07/19/2023 10:58:36 <=0.25 Susceptible Final Due to serious side effects, the FDA has advised against using Ciprofloxacin to treat uncomplicated UTIs and respiratory tract infections unless there are no alternative treatment options. Gentamicin susceptibility 07/19/2023 10:58:36 <=1 Susc eptible Final Nitrofurantoin susceptibility 07/19/2023 10:58:36 <=16 Susceptible Final Piperacillin + Tazobactamsusceptibility 07/19/2023 10:58:36 <=4 Susceptible Final TMP-SMZ susceptibility 07/19/2023 10:58:36 <=20 Suscept ible Final Test: Culture, Urine, Quanti tative
Specimen Source: Urine, Clean Catch
Specimen Type: Urine
Specimen Date: 07/19/2023 10:58 AM
Result Date: 07/21/2023 10:03 AM
Result Status: Final result
Abnormal: Yes
Resulting Lab: LAB[facility]ATORY [facility]
[address]
[place] [address]

CULTURE

>100,000 colonies/mL Escherichia coli (Abnormal)

SUSCEPTIBILITY

Escherichia coli
METHOD MICROBROTH DILUTIONS

AMPICILLIN 4 Susceptible
CEFAZOLIN <=4 Susceptible
CEFEPIME <=1 Susceptible
CEFTRIAXONE <=1 Susceptible
CIPROFLOXACIN <=0.25 Susceptible [1]
GENTAMICIN <=1 Susceptible
NITROFURANTOIN <=16 Susceptible
PIPERACILLIN TAZOBACTAM <=4 Susceptible
TRIMETH/SULFAMETHOXAZOLE <=20 Susceptible

[1] Due to serious side effects, the FDA has advised against using
Ciprofloxacin to treat uncomplicated UTIs and respiratory tract infections
unless there are no alternative treatment options.

null Performing Location LABORATORY [facility] - [address] [facility] [address]
--- OUTSIDE RECORDS SUMMARY | 2023-08-04 06:49 | External Medical Summary | Summary of Care ---
Author Name Unknown Organization [facility] Address [address] [place] [address] Phone [phone] Care Team Providers Care Sales Review Clerk Name Role Phone Steffen Gonzales DO Primary Care Provider [phone] Reason for Visit * Reason Onset Date Comments Test Results 07/12/2023 Encounter Details Date Type Department Care Team (Late st Contact Info) Description 07/12/2023 Telephone Family Practice [address] [place] 293 [place] [address] Steffen Gonzales DO 293 [place] [address] Test Results Allergies Active Allergy [...] as of this encounter (statuses as of 07/12/2023) Medications Medication Sig Dispensed Refills Start Date [...] at bedtime 42.5 g 3 3 Active Ipratropium [place] 0.06 % Nasal Solution (Atrovent) ADMINISTER 2 SPRAYS INTO EACH NOSTRIL 4 TIMES A DAY NEEDED FOR RHINITIS. FOR RUNNY NOSE 15 mL 1 3 Active D-Mannose 500 MG Oral Capsule Take [...] 90 Tablet 3 3 05/20/20 24 Active Allopurinol 100 MG Oral Tablet (Zyloprim)Indication s:Gout Take 1 Tablet by mouth in the morning. 90 Tablet 3 3 Active Colchicine 0.6 MG Oral TabletIndications:Go ut Take 1 Tablet by mouth in the morning. 7 Tablet 0 3 Active Cephalexin 500 MG Oral Capsule (Keflex)Indications: Cellulitis of left leg Take 1 Capsule by mouth in the morning and 1 Capsule at noon and 1 Capsule before bedtime. Do all this for 7 days. 21 Capsule 0 3 07/12/20 23 Discontinu ed(Medicat ion List Clean Up) documented as of this encounter (statuses as of 07/12/2023) Active Problems Problem Noted Date Diagnosed Date [...] renal origin Coronary artery disease invo lving [place] coronary artery of [place] heart without angina pectoris 04/08/2018 Cardiac pacemaker in situ 09/28/2017 Overview: DDD Pacemaker Pacemaker. Psych Nurse KwiClick, model W1DR01 [place] XTDR (MRI conditional), serial number [id number]. Right atrial lead. Psych Nurse Medtronic, model 5076-45 CapSureFix Novus, serial number [id number]. Right ventricular lead. Psych Nurse Medtronic, model 5076-52 CapSureFix Novus, serial number [id number]. Placed by Dr Mcknight on 09/27/2017 at [facility] [place] History of tobacco use [...] as of this encounter (statuses as of 07/12/2023) Resolved Problems Problem Noted Date Diagnosed Date [...] as of this encounter (statuses as of 07/12/2023) Immunizations Name Administration Dates Next Due COVID-19 [...] Telephone Encounter - Susan Proctor LPN - 07/12/2023 2:12 PM EST Patient is aware and will comply. Thank you * Telephone Encounter - Steffen Gonzales DO - 07/12/2023 11:56 AM EST Stop Cephalexin * Telephone Encounter - Susan Proctor LPN - 07/12/2023 10:09 AM EST Patient states she is still in pain, states not as bad but had a bad night with pain and sleep. Should patient continue with ATB? Will return to clinic in one week for labs * Telephone Encounter - Susan Proctor LPN - 07/12/2023 10:08 AM EST ----- Message from Steffen Gonzales DO sent at 07/12/2023 8:52 AM EST ----- Uric acid is up Patient has Gout See if pain is improving. Start Allopurinol 100 mg daily Start Colchicine 0.6 mg daily for 1 week Repeat Uric acid in 1 week documented in this encounter Plan of Treatment Upcoming Encounters Date Type Department Care Team (Late st Contact Info) Description 07/19/2023 9:25 AM EST Office Visit Urogynecology Jeanne Padron [address] [place] [address] Carie Moncada PA-C [address] [place] [address] Nurse Coty Padron [address] [place] [address] 07/20/2023 10:40 AM EST Office Visit Family Practice [address] [place] [address], [place] [address] Steffen Gonzales, DO 293 [place] [address] 08/17/2023 2:00 PM EST Nurse Only Ancillary 65 [facility] 293 [place] [address] College, Nurse Annual Wellness Visit [address] [place] [address] 09/05/2023 1:00 PM EST Imaging Vascular Lab, [facility] 2nd [facility] 132 [place] [address] 09/05/2023 2:00 PM EST Imaging Vascular Lab, [facility] 2nd [facility] 132 [place] [address] 09/12/2023 11:10 AM EST Office Visit Vascular Surgery, [facility] 132 [facility] [place] [address] Jerome Glover MD [address] [place] [address] 09/18/2023 9:20 AM EST Office Visit Family Practice 65 [facility] 293 [place] [address] Steffen Gonzales, DO 293 [place] [address] 11/02/2023 8:40 AM EDT Office Visit Sleep Disorders Ctr [facility] 132 [facility] [place] [address] Amy Sanon, DO 132 [place] [address] 02/04/2024 9:30 AM EDT Cardiac Studies Cardiology, [facility] 132 [facility] [place] [address] [facility] [place] [address] [facility] [place] [address] 02/19/2024 9:30 AM EDT Office Visit Urology, [facility] 132 [facility] [place] [address] Tonny Elias MD 27 [facility] [address] [place] [address] 05/07/2024 1:15 PM EDT Immunization Ancillary 65 [facility] 293 [place] [address] [place], Covid19 Vaccine [address] [place] [address] 06/24/2024 9:40 AM EST Office Visit Rheumatology [address] [address] Max Awan MD [facility] [place] [address] Scheduled Orders Name Type Priority Associated Diagnoses Orde r Schedule URIC ACID Lab Routine Gout Expected: 07/19/2023 (Approximate), Expires: 07/11/2024 Health Maintenance Due Date Last Done Comments *BISPHONATE OR OTHER ACCEPTABLE MEDICATION NEEDED FOR OSTEOPOROSIS (REFER TO SMARTSET #1146) 05/18/2023 GFR 01/10/2024 07/11/2023, 05/16, 05/09/2023, Additional history exists Albumin/Creatinine Ratio 03/28/20242 023, 06/16/2022, 08/25/2021 CKD PHOS USE SMARTSET 54269 04/30/202404/15, 11/22/2021, 06/04/2017 CKD HGB USE SMARTSET 27752 07/11/202407/11, 07/11/2023, 04/30/2023, Additional history exists Depression Screening 07/11/2024 07/11/2023 DXA Scan 11/29/2024 11/29/2022, 11/16/2020 DTaP,Tdap,and Td Vaccines (2 - Td or Tdap) 02/22/2027 02/22/2017, 08/05/2004, 08/05/2004 VITAMIN D LEVEL ONCE IN A LIFETIME-USE SMARTSET# [id number] Completed 02/02/2014, 12/24/2012, 06/04/2009 Colonoscopy Discontinued 10/17/2017 [...] this encounter Medical Devices Implanted Type Area Psych Nurse Device Identifier Shelf Expiration Date Model / Serial / Lot Sut Umberto 6 [id number] - [id number] Implanted:Qty: 6 on 09/25/2013 at OR [facility] [place] N/A: Chest JNJ : [employer] 02/12/2014 [id number] / / [id number] Lens Intraoc 20.0 - [id number] - [id number] Implanted:Qty: 1 on 06/21/2021 by Jonathan Phillips MD at OR [facility] Left: Eye BAUSCH [employer] LOMB 02/12/2026 [id number] / [id number] / [id number] Lens Intraoc 20.5 - [id number] - [id number] Implanted:Qty: 1 on 02/21/2022 by Jonathan Phillips MD at OR [facility] Right: Eye BAUSCH & LOMB 09/12/2024 [id number] / [id number] / [id number] documented as of this encounter Visit Diagnoses Diagnosis Gout- Primary Gout, unspecified documented in this encounter Advance [...] the patient have Health Care Power of Contact Center Consultant? No Code Status History Code Status Date [...] the patient have Health Care Power of Contact Center Consultant? No Care Teams Sales Review Clerk Relationship Specialty Start Date End Date Steffen Gonzales DO 293 [place] [address] PCP - General Internal Medicine 05/25/21 documented as of this encounter
--- OUTSIDE RECORDS SUMMARY | 2023-08-04 06:49 | External Medical Summary | Summary of Care ---
Author Name Unknown Organization [facility] Address [address] [place] [address] Phone [phone] Care Team Providers Care Electric Mule Driver Name Role Phone Steffen Gonzales DO Primary Care Provider [phone] Encounter Details Date Type Department Care Team (Late st Contact Info) Description 07/04/2023 Documentation HEALTH & WELLNESS Joy Rosario, Health Mailing Section Clerk Allergies Active Allergy Reactions Criticality Noted Date [...] as of this encounter (statuses as of 07/04/2023) Medications Medication Sig Dispensed Refills Start Date [...] bedtime 42.5 g 3 04/10/2023 Active Ipratropium [place] 0.06 % Nasal Solution (Atrovent) ADMINISTER 2 [...] situ,Nonobstructive atherosclerosis of coronary artery,Peripheral vascular disease ([facility]),Dyslipidemia, goal LDL below 70,Essential hypertension with goal blood pressure less than 140/90 Take two tablets on Sunday, Sunday and Sunday. One tablet on , , Sat and Sun 0 05/18/2023 Active Ezetimibe 10 MG Oral Tablet (Zetia)Indications:D yslipidemia, goal LDL below 70 TAKE ONE TABLET BY MOUTH EVERY DAY 90 Tablet 3 05/21/2023 4 Active documented as of this encounter (statuses as of 07/04/2023) Active Problems Problem Noted Date Diagnosed Date [...] renal origin Coronary artery disease invo lving [place] coronary artery of [place] heart without angina pectoris 04/08/2018 Cardiac pacemaker in situ 09/28/2017 Overview: DDD Pacemaker Pacemaker. Paramedic Instructor Medtronic, model W1DR01 Elena XTDR (MRI conditional), serial number [id number]. Right atrial lead. Paramedic Instructor Medtronic, model 5076-45 CapSureFix Novus, serial number [id number]. Right ventricular lead. Paramedic Instructor Medtronic, model 5076-52 CapSureFix Novus, serial number [id number]. Placed by Dr Mcknight on 09/27/[address] [facility] History of tobacco use 09/19/2017 ELMO (obstructive [...] as of this encounter (statuses as of 07/04/2023) Resolved Problems Problem Noted Date Diagnosed Date [...] as of this encounter (statuses as of 07/04/2023) Immunizations Name Administration Dates Next Due COVID-19 mRNA, LNP-s, No Pre serve, 2-Dose Series (Moderna) 09/29/2020,09/01/2020 COVID-19, MRNA-LNP, 23-24, P F, 30 MCG/0.3 mL, 12 YRS AND ABOVE, IM (PFIZER-Comirnat) 05/09/2023 COVID-19, mRNA, LNP-s, PF, B ooster, [...] as of this encounter Progress Notes * Joy Rosario, Health Mailing Section Clerk - 07/04/2023 10:22 AM EST SESSION TYPE: Group exercise session: Exercise Subtype or Modality: Balance Training Patient completed a group exercise session which consisted of balance training. All exercises included improving balance and strength of lower extremities. She tolerated the exercises well and had nocomplaints. documented in this encounter Plan of Treatment Upcoming Encounters Date Type Department Care Team (Late st Contact Info) Description 07/19/2023 9:25 AM EST Office Visit Urogynecology Jeanne Padron [address] [place] [address] Carie Moncada PA-C [address] [place] [address] Nurse Coty Padron [address] [place] [address] 08/17/2023 2:00 PM EST Nurse Only Ancillary 65 [facility] 293 [facility] [place] [address] College, Nurse Annual Wellness Visit [address] [address] 09/05/2023 1:00 PM EST Imaging Vascular Lab, [facility] 2nd [facility] [place] [address] [place] [address] 09/05/2023 2:00 PM EST Imaging Vascular Lab, [facility] 2nd [facility] [place] 132 [place] [address] 09/12/2023 11:10 AM EST Office Visit Vascular Surgery, [facility] 132 [place] [address] Jerome Glover MD [address] [place] [address] 09/18/2023 9:20 AM EST Office Visit Family Practice 65 [facility] 293 [place] [address] Steffen Gonzales, DO [address] [place] [address] 11/02/2023 8:40 AM EDT Office Visit Sleep Disorders Ctr [facility] 132 [facility] [place] [address] Amy Sanon, DO 132 [facility] [address] 02/04/2024 9:30 AM EDT Cardiac Studies Cardiology, [facility] 132 [facility] [place] [address] [facility] 132 [facility] [address] 02/19/2024 9:30 AM EDT Office Visit Urology, [facility] [address] [place] [address] Tonny Elias MD 27 [facility] [address] [place] [address] 05/07/2024 1:15 PM EDT Immunization Ancillary 65 [facility] 293 [place] [address] College, Covid19 Vaccine [address] [address] 06/24/2024 9:40 AM EST Office Visit Rheumatology [facility] [address] [facility] [address] Max Awan MD [address] [place] [address] Health Maintenance Due Date Last Done Comments *BISPHONATE OR OTHER ACCEPTABLE MEDICATION NEEDED FOR OSTEOPOROSIS (REFER TO SMARTSET #1146) 05/18/2023 GFR 11/28/2023 05/30/2023, 04/16, 05/03/2023, Additional history exists Albumin/Creatinine Ratio 03/28/2024 023, 06/16/2022, 08/25/2021 CKD HGB USE SMARTSET 84946 04/30/202404/30, 04/30/2023, 05/05/2022, Additional history exists CKD PHOS USE SMARTSET 42365 04/30/202404/15, 11/22/2021, 06/04/2017 Depression Screening 05/30/2024 05/30/2023 DXA Scan 11/29/2024 11/29/2022, 11/16/2020 DTaP,Tdap,and Td Vaccines (2 - Td or Tdap) 02/22/2027 02/22/2017, 08/05/2004, 08/05/2004 VITAMIN D LEVEL ONCE IN A LIFETIME-USE SMARTSET# 46426 Completed 02/02/2014, 12/24/2012, 06/04/2009 Colonoscopy Discontinued 10/17/2017 [...] this encounter Medical Devices Implanted Type Area Paramedic Instructor Device Identifier Shelf Expiration Date Model / Serial / Lot Sut Steel 6 M654g - [id number] Implanted:Qty: 6 on 09/25/[address] [facility] N/A: Chest JNJ : [employer] 02/12/2014 [id number] / / [id number] Lens Intraoc 20.0 - [id number] - [id number] Implanted:Qty: 1 on 06/21/2021 by Jonathan Phillips MD at OR [facility] Left: Eye BAUSCH & LOMB 02/12/2026 [id number] / [id number] / [id number] Lens Intraoc 20.5 - [id number] - [id number] Implanted:Qty: 1 on 02/21/2022 by Jonathan Phillips MD at OR [facility] Right: Eye BAUSCH & LOMB 09/12/2024 [id number] / [id number] / [id number] documented as of this encounter Advance Directives [...] the patient have Health Care Power of Coat Repair Inspector? No Code Status History Code Status Date [...] the patient have Health Care Power of Coat Repair Inspector? No Care Teams Electric Mule Driver Relationship Specialty Start Date End Date Steffen Gonzales DO [address] [place] [address] PCP - General Internal Medicine 05/25/21 documented as of this encounter
--- OUTSIDE RECORDS SUMMARY | 2023-08-04 06:49 | External Medical Summary | Summary of Care ---
Author Name Unknown Organization [facility] Address [address] [place] [address] Phone [phone] Care Team Providers Care Elementary School Teacher'S Aide Name Role Phone Steffen Gonzales DO Primary Care Provider [phone] Encounter Details Date Type Department Care Team (Late st Contact Info) Description 07/03/2023 Documentation HEALTH & WELLNESS Joy Rosario, Health Fire Behavior Analyst Allergies Active Allergy Reactions Criticality Noted Date [...] as of this encounter (statuses as of 07/03/2023) Medications Medication Sig Dispensed Refills Start Date [...] bedtime 42.5 g 3 04/10/2023 Active Ipratropium [place] 0.06 % Nasal Solution (Atrovent) ADMINISTER 2 [...] situ,Nonobstructive atherosclerosis of coronary artery,Peripheral vascular disease ([facility]),Dyslipidemia, goal LDL below 70,Essential hypertension with goal blood pressure less than 140/90 Take two tablets on Sunday, Sunday and Sunday. One tablet on , , Sat and Sun 0 05/18/2023 Active Ezetimibe 10 MG Oral Tablet (Zetia)Indications:D yslipidemia, goal LDL below 70 TAKE ONE TABLET BY MOUTH EVERY DAY 90 Tablet 3 05/21/2023 4 Active documented as of this encounter (statuses as of 07/03/2023) Active Problems Problem Noted Date Diagnosed Date [...] renal origin Coronary artery disease invo lving [place] coronary artery of [place] heart without angina pectoris 04/08/2018 Cardiac pacemaker in situ 09/28/2017 Overview: DDD Pacemaker Pacemaker. Industrial Ecologist Medtronic, model W1DR01 Elena XTDR (MRI conditional), serial number [id number]. Right atrial lead. Industrial Ecologist Medtronic, model 5076-45 CapSureFix Novus, serial number [id number]. Right ventricular lead. Industrial Ecologist Medtronic, model 5076-52 CapSureFix Novus, serial number [id number]. Placed by Dr Mcknight on 09/27/2017 at [...] as of this encounter (statuses as of 07/03/2023) Resolved Problems Problem Noted Date Diagnosed Date [...] as of this encounter (statuses as of 07/03/2023) Immunizations Name Administration Dates Next Due COVID-19 [...] encounter Progress Notes * Joy Rosario, Health Fire Behavior Analyst - 07/03/2023 3:18 PM EST SESSION TYPE: Group exercise session: Exercise Subtype or Modality: Resistance Training Patient completed a group exercise session which consisted of resistance training. Body weight and dumbbells were used for the exercises. She tolerated exercise well and had no complaints. documented in this encounter Plan of Treatment Upcoming Encounters Date Type Department Care Team (Late st Contact Info) Description 07/19/2023 9:25 AM EST Office Visit Urogynecology Jeanne Padron [address] [place] [address] Carie Moncada PA-C [address] [place] [address] Nurse Coty Padron [address] [place] [address] 08/17/2023 2:00 PM EST Nurse Only Ancillary 65 [facility] 293 [place] [address] College, Nurse Annual Wellness Visit [address] [address] 09/05/2023 1:00 PM EST Imaging Vascular Lab, [facility] 2nd [facility] [place] 132 [facility] [place] [address] 09/05/2023 2:00 PM EST Imaging Vascular Lab, [facility] 2nd [facility] [place] [address] [facility] [place] [address] 09/12/2023 11:10 AM EST Office Visit Vascular Surgery, [facility] 132 [facility] [place] [address] Jerome Glover MD [address] [place] [address] 09/18/2023 9:20 AM EST Office Visit Family Practice [address] [place] [address] 293 [place] [address] Steffen Gonzales, DO 293 [place] [address] 11/02/2023 8:40 AM EDT Office Visit Sleep Disorders Ctr [facility] 132 [place] [address] Amy Sanon, DO 132 [facility] [address] 02/04/2024 9:30 AM EDT Cardiac Studies Cardiology, [facility] 132 [facility] [place] [address] [facility] 132 [facility] [place] [address] 02/19/2024 9:30 AM EDT Office Visit Urology, [facility] [address] [place] [address] Tonny Elias MD 27 [facility] [address] [place] [address] 05/07/2024 1:15 PM EDT Immunization Ancillary 65 [facility] 293 [place] [address] College, Covid19 Vaccine [address] [address] 06/24/2024 9:40 AM EST Office Visit Rheumatology [facility] [address] [facility] [address] Max Awan MD [address] [employer] [place] [address] Health Maintenance Due Date Last Done Comments *BISPHONATE OR OTHER ACCEPTABLE MEDICATION NEEDED FOR OSTEOPOROSIS (REFER TO SMARTSET #1146) 05/18/2023 GFR 11/28/2023 05/30/2023, 04/16, 05/03/2023, Additional history exists Albumin/Creatinine Ratio 03/28/2024 023, 06/16/2022, 08/25/2021 CKD HGB USE SMARTSET 24369 04/30/202404/30, 04/30/2023, 05/05/2022, Additional history exists CKD PHOS USE SMARTSET 84987 04/30/202404/15, 11/22/2021, 06/04/2017 Depression Screening 05/30/2024 05/30/2023 DXA Scan 11/29/2024 11/29/2022, 11/16/2020 DTaP,Tdap,and Td Vaccines (2 - Td or Tdap) 02/22/2027 02/22/2017, 08/05/2004, 08/05/2004 VITAMIN D LEVEL ONCE IN A LIFETIME-USE SMARTSET# 39068 Completed 02/02/2014, 12/24/2012, 06/04/2009 Colonoscopy Discontinued 10/17/2017 [...] this encounter Medical Devices Implanted Type Area Industrial Ecologist Device Identifier Shelf Expiration Date Model / Serial / Lot Sut Steel 6 M654g - [id number] Implanted:Qty: 6 on 09/25/2013 at OR [facility] N/A: Chest JNJ : [employer] 02/12/2014 [id number] / / [id number] Lens Intraoc 20.0 - [id number] - [id number] Implanted:Qty: 1 on 06/21/2021 by Jonathan Phillips MD at OR [facility] Left: Eye BAUSCH & LOMB 02/12/2026 [id number] / [id number] / [id number] Lens Intraoc 20.5 - [id number] - [id number] Implanted:Qty: 1 on 02/21/2022 by Jonathan Phillips MD at OR [facility] Right: Eye BAUSCH & LOMB 09/12/2024 [id number] / [id number] / [id number] documented as of this encounter Advance Directives [...] the patient have Health Care Power of Compounding Assistant? No Code Status History Code Status [...] the patient have Health Care Power of Compounding Assistant? No Care Teams Elementary School Teacher'S Aide Relationship Specialty Start Date End Date Steffen Gonzales DO [address] [place] [address] PCP - General Internal Medicine 05/25/21 documented as of this encounter
--- OUTSIDE RECORDS SUMMARY | 2023-08-04 06:49 | External Medical Summary | Summary of Care ---
Author Name Unknown Organization [facility] Address [address] [place] [address] Phone [phone] Care Team Providers Care Towel Hemmer Name Role Phone Consuelo Gonzales DO Primary Care Provider Reason for Visit * Reason Comments eRx-Medication Refill Encounter Details Date Type Department Care Team (Late st Contact Info) Description 07/17/2023 Refill Family Practice [address] [place] [address] [place] [phone] Consuelo Gonzales DO 293 [place] [address] Allergies Active Allergy Reactions Criticality Noted Date [...] as of this encounter (statuses as of 07/18/2023) Medications Medication Sig Dispensed Refills Start Date End Date Status VITAMIN D 1000 UNIT PO CAPS 1 capsule daily 30 11 0 Active BLOOD PRESSURE MONITOR KITIndications:Atri al fibrillation (HCC) Take daily as directed 1 Kit 0 3 Active SURGICAL COMPRESSION STOCKINGIndications :PAT (paroxysmal atrial [...] CAPSULE BEFORE BEDTIME. 180 Capsule 3 3 024 Active Apixaban 5 MG Oral Tablet (Eliquis)Indication s:Paroxysmal atrial fibrillation (HCC) TAKE ONE TABLET BY MOUTH TWICE A DAY 200 Tablet 3 2 024 Active Famotidine 20 MG Oral Tablet (Pepcid)Indications :Nausea Take 0.5 Tablets by mouth at bedtime. 30 Tablet 11 3 Active Estradiol 0.1 MG/GM Vaginal Cream (Estrace) Apply pea sized amount (0.5 gm) vaginally twice a week at bedtime 42.5 g 3 3 Active D-Mannose 500 MG Oral Capsule Take 2 Tablets by mouth in the morning and 2 Tablets before bedtime. 0 Active Furosemide 20 MG Oral Tablet (Lasix)Indications: [...] 3 Active Ezetimibe 10 MG Oral Tablet (Zetia)Indications: Dyslipidemia, goal LDL below 70 TAKE ONE TABLET BY MOUTH EVERY DAY 90 Tablet 3 3 024 Active Allopurinol 100 MG Oral Tablet (Zyloprim)Indicatio ns:Gout Take 1 Tablet by mouth in the morning. 90 Tablet 3 3 Active Colchicine 0.6 MG Oral TabletIndications:G out Take 1 Tablet by mouth in the morning. 7 Tablet 0 3 Active Ipratropium [place] 0.06 % Nasal Solution (Atrovent) ADMINISTER 2 SPRAYS INTO EACH NOSTRIL 4 TIMES A DAY NEEDED FOR RHINITIS. FOR RUNNY NOSE 15 mL 2 4 Active Ipratropium [place] 0.06 % Nasal Solution (Atrovent) ADMINISTER 2 SPRAYS INTO EACH NOSTRIL 4 TIMES A DAY NEEDED FOR RHINITIS. FOR RUNNY NOSE 15 mL 1 3 024 Discontinued documented as of this encounter (statuses as of 07/18/2023) Active Problems Problem Noted Date Diagnosed Date [...] renal origin Coronary artery disease invo lving [place] coronary artery of [place] heart without angina pectoris 04/08/2018 Cardiac pacemaker in situ 09/28/2017 Overview: DDD Pacemaker Pacemaker. Ehs Specialist Medtronic, model W1DR01 [place] XTDR (MRI conditional), serial number [id number]. Right atrial lead. Ehs Specialist Medtronic, model 5076-45 CapSureFix Novus, serial number [id number]. Right ventricular lead. Ehs Specialist Medtronic, model 5076-52 CapSureFix Novus, serial number [id number]. Placed by Dr Mcknight on 09/27/2017 at [facility] History of tobacco use 09/19/2017 ELMO (obstructive [...] as of this encounter (statuses as of 07/18/2023) Resolved Problems Problem Noted Date Diagnosed Date [...] as of this encounter (statuses as of 07/18/2023) Immunizations Name Administration Dates Next Due COVID-19 [...] encounter Miscellaneous Notes * Telephone Encounter - Chadd Regalado, [facility] - 07/18/2023 2:00 PM EST Signed Prescriptions: Disp Refills Ipratropium [place] 0.06 % Nasal Solution *15 mL 2 Sig: ADMINISTER 2 SPRAYS INTO EACH NOSTRIL 4 TIMES A DAY NEEDED FOR RHINITIS. FOR RUNNY NOSEAuthorizing Provider: CONSUELO GONZALES AOrgunner User: CHADD REGALADO documented in this encounter Plan of Treatment Upcoming Encounters Date Type Department Care Team (Late st Contact Info) Description 07/19/2023 9:25 AM EST Office Visit Urogynecology Jeanne Padron [address] [place] [address] Carie Moncada PA-C [address] [place] [address] Nurse Coty Padron [address] [place] [address] 07/20/2023 10:40 AM EST Office Visit Family Practice 65 [facility] 293 [place] [address] Consuelo Gonzales, DO 293 [place] [address] 08/17/2023 2:00 PM EST Nurse Only Ancillary 65 [facility] 293 [place] [address] Velma, Nurse Annual Wellness Visit [address] [place] [address] 09/05/2023 1:00 PM EST [facility] 2[facility], [place] [address] [place] [address] 09/05/2023 2:00 PM EST Imaging Vascular Lab, [facility] 2nd Floor, [place] [address] [place] [address] 09/12/2023 11:10 AM EST Office Visit Vascular Surgery, [facility] 132 [facility] [place] [address] Jerome Glover MD [address] [place] [address] 09/18/2023 9:20 AM EST Office Visit Family Practice 65 [facility] 293 [place] [address] Consuelo Gonzales, DO 293 [place] [address] 11/02/2023 8:40 AM EDT Office Visit Sleep Disorders Ctr [facility] 132 [facility] [address] Amy Sanon, DO 132 [facility] [address] 02/04/2024 9:30 AM EDT Cardiac Studies Cardiology, [facility] 132 [facility] [place] [address] [facility] 132 [facility] [address] 02/19/2024 9:30 AM EDT Office Visit Urology, [facility] 132 [facility] [place] [address] Tonny Elias MD 27 [facility] [address] [place] [address] 05/07/2024 1:15 PM EDT Immunization Ancillary 65 [facility] 293 [place] [address] College, Covid19 Vaccine [address] [place] [address] 06/24/2024 9:40 AM EST Office Visit Rheumatology [facility] [address] [employer] [place], [place] [address] Max Awan MD [address] [employer] [place], [place] [address] Health Maintenance Due Date Last Done Comments *BISPHONATE OR OTHER ACCEPTABLE MEDICATION NEEDED FOR OSTEOPOROSIS (REFER TO SMARTSET #1146) 05/18/2023 GFR 01/10/2024 07/11/2023, 05/16, 05/09/2023, Additional history exists Albumin/Creatinine Ratio 03/28/2024 023, 06/16/2022, 08/25/2021 CKD PHOS USE SMARTSET 61308 04/30/202404/15, 11/22/2021, 06/04/2017 CKD HGB USE SMARTSET 20875 07/11/202407/11, 07/11/2023, 04/30/2023, Additional history exists Depression Screening 07/11/2024 07/11/2023 DXA Scan 11/29/2024 11/29/2022, 11/16/2020 DTaP,Tdap,and Td Vaccines (2 - Td or Tdap) 02/22/2027 02/22/2017, 08/05/2004, 08/05/2004 VITAMIN D LEVEL ONCE IN A LIFETIME-USE SMARTSET# 29484 Completed 02/02/2014, 12/24/2012, 06/04/2009 Colonoscopy Discontinued 10/17/2017 [...] this encounter Medical Devices Implanted Type Area Ehs Specialist Device Identifier Shelf Expiration Date Model / Serial / Lot Sut Steel 6 M654g - [id number] Implanted:Qty: 6 on 09/25/2013 at [place] [facility] N/A: Chest JNJ : [employer] 02/12/2014 M654G / / [id number] Lens Intraoc 20.0 - [id number] - [id number] Implanted:Qty: 1 on 06/21/2021 by Jonathan Phillips MD at OR [facility] Left: Eye [employer]USCH [employer] LOMB 02/12/2026 [id number] / [id number] / [id number] Lens Intraoc 20.5 - [id number] - [id number] Implanted:Qty: 1 on 02/21/2022 by Jonathan Phillips MD at OR [facility] Right: Eye BAUSCH & LOMB 09/12/2024 [id number] / [id number] / [id number] documented as of this encounter Advance Directives [...] the patient have Health Care Power of Safe And Vault Mechanic? No Code Status History Code Status Date [...] the patient have Health Care Power of Safe And Vault Mechanic? No Care Teams Towel Hemmer Relationship Specialty Start Date End Date Consuelo Gonzales DO [address] [place] [address] PCP - General Internal Medicine 05/25/21 documented as of this encounter
--- OUTSIDE RECORDS SUMMARY | 2023-08-04 06:49 | External Medical Summary | Summary of Care ---
Author Name Unknown Organization [facility] Address [address] [place] [address] Phone [phone] Care Team Providers Care Master Technician Name Role Phone Steffen Gonzales DO Primary Care Provider Encounter Details Date Type Department Care Team (Late st Contact Info) Description 06/27/2023 Documentation HEALTH & WELLNESS Joy Rosario, Health Sales Broker Allergies Active Allergy Reactions Criticality Noted Date [...] as of this encounter (statuses as of 06/27/2023) Medications Medication Sig Dispensed Refills Start Date [...] bedtime 42.5 g 3 04/10/2023 Active Ipratropium Mccurtain 0.06 % Nasal Solution (Atrovent) ADMINISTER 2 [...] situ,Nonobstructive atherosclerosis of coronary artery,Peripheral vascular disease ([facility]),Dyslipidemia, goal LDL below 70,Essential hypertension with goal blood pressure less than 140/90 Take two tablets on Sunday, Sunday and Sunday. One tablet on , , Sat and Sun 0 05/18/2023 Active Ezetimibe 10 MG Oral Tablet (Zetia)Indications:D yslipidemia, goal LDL below 70 TAKE ONE TABLET BY MOUTH EVERY DAY 90 Tablet 3 05/21/2023 4 Active documented as of this encounter (statuses as of 06/27/2023) Active Problems Problem Noted Date Diagnosed Date [...] renal origin Coronary artery disease invo lving [place] coronary artery of [place] heart without angina pectoris 04/08/2018 Cardiac pacemaker in situ 09/28/2017 Overview: DDD Pacemaker Pacemaker. It Help Desk Manager Medtronic, model W1DR01 Elena XTDR (MRI conditional), serial number [id number]. Right atrial lead. It Help Desk Manager Medtronic, model 5076-45 CapSureFix Novus, serial number [id number]. Right ventricular lead. It Help Desk Manager Medtronic, model 5076-52 CapSureFix Novus, serial number [id number]. Placed by Dr Mcknight on 09/27/2017 at [facility] History of tobacco use 09/19/2017 ELMO (obstructive [...] as of this encounter (statuses as of 06/27/2023) Resolved Problems Problem Noted Date Diagnosed Date [...] as of this encounter (statuses as of 06/27/2023) Immunizations Name Administration Dates Next Due COVID-19 [...] encounter Progress Notes * Joy Rosario, Health Sales Broker - 06/27/2023 10:19 AM EST SESSION TYPE: Group exercise session: [...] Jeanne Padron [address] [place] [address] Carie Moncada PA-C [address] [place] [address] Nurse Coty Padron [address] [place] [address] 08/17/2023 2:00 PM EST Nurse Only Ancillary 65 [facility] 293 [place] [address] College, Nurse Annual Wellness Visit [address] [address] 09/05/2023 1:00 PM EST Imaging Vascular Lab, [facility] 2nd [facility], [place] [address] [place] [address] 09/05/2023 2:00 PM EST Imaging Vascular Lab, [facility] 2[address] [facility] [place] [address] [place] [address] 09/12/2023 11:10 AM EST Office Visit Vascular Surgery, [facility] [address] [place] [address] Jerome Glover MD [address] [place] [address] 09/18/2023 9:20 AM EST Office Visit Family Practice 65 [facility] [address] [place] [address] Steffen Gonzales, DO [address] [place] [address] 11/02/2023 8:40 AM EDT Office Visit Sleep Disorders Ctr [facility] 132 [place] [address] Amy Sanon, DO [facility] [address] 02/04/2024 9:30 AM EDT Cardiac Studies Cardiology, [facility] 132 [facility] [place] [address] [facility] [address] 02/19/2024 9:30 AM EDT Office Visit Urology, [facility] [address] [place] [address] Tonny Elias MD 27 [facility] [address] [place] [address] 05/07/2024 1:15 PM EDT Immunization Ancillary 65 [facility] [address] [place] [address] College, Covid19 Vaccine [address] [address] 06/24/2024 9:40 AM EST Office Visit Rheumatology [facility] [address] [employer] [facility] [address] Max Awan MD [address] [place] [address] Health Maintenance Due Date Last Done Comments *BISPHONATE OR OTHER ACCEPTABLE MEDICATION NEEDED FOR OSTEOPOROSIS (REFER TO SMARTSET #1146) 05/18/2023 GFR 11/28/2023 05/30/2023, 04/16, 05/03/2023, Additional history exists Albumin/Creatinine Ratio 03/28/2024 023, 06/16/2022, 08/25/2021 CKD HGB USE SMARTSET 57237 04/30/202404/30, 04/30/2023, 05/05/2022, Additional history exists CKD PHOS USE SMARTSET 29163 04/30/202404/15, 11/22/2021, 06/04/2017 Depression Screening 05/30/2024 05/30/2023 DXA Scan 11/29/2024 11/29/2022, 11/16/2020 DTaP,Tdap,and Td Vaccines (2 - Td or Tdap) 02/22/2027 02/22/2017, 08/05/2004, 08/05/2004 VITAMIN D LEVEL ONCE IN A LIFETIME-USE SMARTSET# 29360 Completed 02/02/2014, 12/24/2012, 06/04/2009 Colonoscopy Discontinued 10/17/2017 [...] this encounter Medical Devices Implanted Type Area It Help Desk Manager Device Identifier Shelf Expiration Date Model / Serial / Lot Sut Steel 6 [id number] - [id number] Implanted:Qty: 6 on 09/25/2013 at OR [facility] N/A: Chest JNJ : [employer] 02/12/2014 [id number] / / [id number] Lens Intraoc 20.0 - [id number] - [id number] Implanted:Qty: 1 on 06/21/2021 by Jonathan Phillips MD at OR [facility] Left: Eye [employer] LOMB 02/12/2026 [id number] / [id number] / [id number] Lens Intraoc 20.5 - [id number] - [id number] Implanted:Qty: 1 on 02/21/2022 by Jonathan Phillips MD at OR [facility] Right: Eye BAUSCH & LOMB 09/12/2024 [id number] / [id number] / [id number] documented as of this encounter Advance Directives [...] the patient have Health Care Power of Member Services Representative? No Code Status History Code Status Date [...] the patient have Health Care Power of Member Services Representative? No Care Teams Master Technician Relationship Specialty Start Date End Date Steffen Gonzales DO [address] [place] [address] PCP - General Internal Medicine 05/25/21 documented as of this encounter
--- OUTSIDE RECORDS SUMMARY | 2023-08-04 06:49 | External Medical Summary | Summary of Care ---
Author Name Unknown Organization [facility] Address [address] [place] [address] Phone [phone] Care Team Providers Care Pile Trimmer Name Role Phone Steffen Gonzales DO Primary Care Provider [phone] Reason for Visit * Reason Comments Acute Encounter Details Date Type Department Care Team (Latest Contact Info) Description 07/11/2023 11:00 AM EST Office Visit Family Practice [address], [place] [address] [place] [address] Steffen Gonzales DO [address] [place] [address] Cellulitis of left leg*; Acute left ankle pain; Hypertensive heart and kidney disease with chronic diastolic congestive heart failure and stage 3b chronic kidney disease (HCC); Paroxysmal atrial fibrillation ([facility]); Chronic heart failure with preserved ejection fraction ([facility]); Dyslipidemia, goal LDL below 70; Peripheral vascular disease ([facility]); 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[facility]); Cardiac pacemaker in situ; Coronary artery disease involving [place] coronary artery of [place] heart without angina pectoris; Secondary hyperparathyroidism of renal origin ([facility]); Age-related osteoporosis without current pathological fracture Allergies [...] bedtime 42.5 g 3 04/10/2023 Active Ipratropium [place] 0.06 % Nasal Solution (Atrovent) ADMINISTER 2 [...] renal origin Coronary artery disease invo lving [place] coronary artery of [place] heart without angina pectoris 04/08/2018 Cardiac pacemaker in situ 09/28/2017 Overview: DDD Pacemaker Pacemaker. Quill Reamer Medtronic, model W1DR01 Elena XTDR (MRI conditional), serial number [id number]. Right atrial lead. Quill Reamer Medtronic, model 5076-45 CapSureFix Novus, serial number [id number]. Right ventricular lead. Quill Reamer Medtronic, model 5076-52 CapSureFix Novus, serial number [id number]. Placed by Dr Mcknight on 09/27/2017 at [...] MCG/0.3 mL, 12 YRS AND ABOVE, IM ([facility] 05/09/2023 COVID-19, mRNA, LNP-s, PF, B ooster, 100mcg/0.5mg (Moderna) 10/26/2021,05/11/2021 Covid-19, Mrna, Lnp-s, Pf, B ivalent, 30 Mcg, IM, 12 yrs and above ([facility]) 04/18/2022 Pneumococcal Conjugate Vacc, 13 Valent (Prevnar) [...] in situ Z95.0 Coronary artery disease involving [place] coronary artery of [place] heart without angina pectoris I25.10 Hypertensive heart and kidney disease with chronic diastolic congestive heart failure and stage 3b chronic kidney disease ([facility]) I13.0, I50.32, N18.32 Secondary hyperparathyroidism of renal origin ([facility]) N25.81 Chronic kidney disease, stage 3b ([facility]) N18.32 History of cervical cancer Z85.41 Age-related osteoporosis without current pathological fracture M81.0 Chronic heart failure with preserved ejection fraction ([facility]) I50.32 Current Outpatient Medications Medication Sig Dispense [...] week at bedtime 42.5 g 3 Ipratropium Cheyenne 0.06 % Nasal Solution (Atrovent) ADMINISTER 2 [...] hysterectomy Cardiac pacemaker in situ 09/28/2017 Pacemaker. Quill Reamer Medtronic, model W1DR01 [place] XTDR (MRI conditional), serial number [id number]. Right atrial lead. Quill Reamer Medtronic, model 5076-45 CapSureFix Novus, serial number [id number]. Right ventricular lead. Quill Reamer Medtronic, model 5076-52 CapSureFix Novus, serial [id number]. Placed by Dr Mcknight on 09/27/2017 at [facility] Cardiac tamponade 09/2013 left atrial & right ventriccular perforation with acute tamponade post RF ablation. Dyslipidemia Dyslipidemia, goal LDL below 100 06/19/2011 Heart failure, diastolic, due to HTN ([facility]) History of cervical cancer Hypertension Paroxysmal atrial fibrillation (HCC) 07/18/2013 Peripheral vascular disease with claudication ([facility]) 2004 right calf Personal history of tobacco use quit 05/29/2012 Pseudoaneurysm following procedure ([facility]) 02/16/2018 following cardiac catheterization 01/28/2018 Sleep apnea, obstructive Past Surgical History: Procedure Laterality Date ABLATE HEART DYSRHYTHM FOCUS 04/15/2012 CATHETER ABLATION-SVT performed by Ismael Jackson MD at [facility]S [facility] CARDIAC CATH-CARDIOLOGY ONLY Right 01/28/2018 @ [facility] Right arm. COLONOSCOPY 09/20 hx of IBS, nl, repeat 10y ELECTROPHYSIOLOGY EVAL, ATRIAL FIB, PULMONARY VEIN ISOL 09/25/2013 ELECTROPHYSIOLOGY EVAL, ATRIAL FIB, PULMONARY VEIN ISOL performed by Ismael Jackson MD at [facility] EYELID SURGERY PROCEDURE NEC Left Two surgeries of the left upper lid to help lower lid HEART ELECTROCONVERSION, EXTERNAL 07/12/2012 DC CARDIOVERSION performed by Ismael Jackson MD at [facility] HEART ELECTROCONVERSION, EXTERNAL 09/25/2013 DC CARDIOVERSION performed by Sekou Alcala MD at OR [facility] INFORMATION 195 fracture R ankle INFORMATION 12/2004 balloon angioplasty INSERT/REPLACE PACEMAKER,ATRIAL/VENTRICULAR Left 09/27/2017 NEW DDD PACEMAKER IMPLANT performed by Chandrika Mcknight IV, MD at [facility] RELIEVE INNER EYE PRESSURE 06/21/2021 GONIOTOMY performed by Jonathan Phillips MD at OR [facility] REMOVE CATARACT, INSERT LENS PROSTH Left 06/21/2021 Left EXTRACAPSULAR CATARACT REMOVAL WITH INTRAOCULAR LENS performed by Jonathan Phillips MD at OR [facility] REMOVE CATARACT, INSERT LENS PROSTH Right 02/21/2022 right EXTRACAPSULAR CATARACT REMOVAL WITH INTRAOCULAR LENS performed by Jonathan Phillips MD at OR [facility] REPAIR HEART WOUND 09/25/2013 left atrial and right ventricular perforation with acute tamponade post RF ablation 09/2013 Repair performed by Sekou Alcala MD at [facility] REPAIR VESSEL DIRECT UPPER EXT Right 03/01/2018 direct repair of right ulnar artery (pseudoaneurym) performed by Darvin Joseph MD at OR [facility] TOTAL HYSTERECTOMY 1985 Hysterectomy, Abdominal Review of [...] Ht 1.575 m (5' 2") | Wt 50.4kg (111 lb 3.2 oz) | SpO2 100% [...] pacemaker in situ Coronary artery disease involving [place] coronary artery of [place] heart without angina pectoris Continue Metoprolol ER, and ASA Secondary hyperparathyroidism of renal origin (HCC) Age-related osteoporosis without current pathological fracture Follow Up: Return in about 1 week (around 07/18/2023), or if symptoms worsen or fail to improve. Steffen Gonzales DO 11:34 AM 07/11/2023 documented in this encounter Nursing Notes * Susan Procotr LPN - 07/11/2023 11:15 AM EST Left [...] Jeanne Padron [address] [place] [address] Carie Moncada PA-C [address] [place] [address] Nurse Coty Padron [address] [place] [address] 07/20/2023 10:40 AM EST Office Visit Family Practice 65 [facility] 293 [facility], [place] [address] Steffen Gonzales DO 293 [facility], [place] [address] 08/17/2023 2:00 PM EST Nurse Only Ancillary 65 [facility] 293 [place] [address] College, Nurse Annual Wellness Visit [address] [place] [address] 09/05/2023 1:00 PM EST Imaging Vascular Lab, Jackie Padron 2nd Floor, [place] [address] [place] [address] 09/05/2023 2:00 PM EST Imaging Vascular Lab, [facility] 2nd Floor, [place] 132 [facility] [place] [address] 09/12/2023 11:10 AM EST Office Visit Vascular Surgery, [facility] 132 [facility] [place] [address] Jerome Glover MD [address] [place] [address] 09/18/2023 9:20 AM EST Office Visit Family Practice [address] [place] [address] [address] [place] [address] Steffen Gonzales, DO [address] [place] [address] 11/02/2023 8:40 AM EDT Office Visit Sleep Disorders Ctr [facility] 132 [facility] [place] [phone] Amy Sanon, DO [facility] [address] 02/04/2024 9:30 AM EDT Cardiac Studies Cardiology, [facility] 132 [facility] [place] [address] [facility] 132 [facility] [place] [address] 02/19/2024 9:30 AM EDT Office Visit Urology, [facility] 132 [facility] [place] [address] Tonny Elias MD 27 [facility] [address] [place] [address] 05/07/2024 1:15 PM EDT Immunization Ancillary 65 [facility] 293 [facility], [place] [address] College, Covid19 Vaccine [address] [place] [address] 06/24/2024 9:40 AM EST Office Visit Rheumatology [place] [address] [facility] [place] [address] Max Awan MD [facility] [place], [place] [address] Pending Results Name Type Priority Associated Diagnoses [...] 023, 06/16/2022, 08/25/2021 CKD HGB USE SMARTSET 77347 04/30/202404/30, 04/30/2023, 05/05/2022, Additional history exists CKD PHOS USE SMARTSET 91312 04/30/202404/15, 11/22/2021, 06/04/2017 Depression Screening 07/11/2024 07/11/2023 DXA Scan 11/29/2024 11/29/2022, 11/16/2020 DTaP,Tdap,and Td Vaccines (2 - Td or Tdap) 02/22/2027 02/22/2017, 08/05/2004, 08/05/2004 VITAMIN D LEVEL ONCE IN A LIFETIME-USE SMARTSET# 86359 Completed 02/02/2014, 12/24/2012, 06/04/2009 Colonoscopy Discontinued 10/17/2017 [...] this encounter Medical Devices Implanted Type Area Quill Reamer Device Identifier Shelf Expiration Date Model / Serial / Lot Sut Steel 6 M654g - [id number] Implanted:Qty: 6 on 09/25/2013 at OR [facility] N/A: Chest JNJ : [employer] 02/12/2014 [id number] / / [id number] Lens Intraoc 20.0 - [id number] - [id number] Implanted:Qty: 1 on 06/21/2021 by Joanthan Phillips MD at OR [facility] Left: Eye [employer]CH [employer] LOMB 02/12/2026 [id number] / [id number] / [id number] Lens Intraoc 20.5 - [id number] - [id number] Implanted:Qty: 1 on 02/21/2022 by Jonathan Phillips MD at [facility] Right: Eye [employer]CH [employer] LOMB 09/12/2024 [id number] / [id number] / [id number] documented as of this encounter Visit Diagnoses [...] pacemaker in situ Coronary artery disease involving [place] coronary artery of [place] heart without angina pectoris Secondary hyperparathyroidism of [...] the patient have Health Care Power of Cold Roll Operator? No Code Status History Code Status [...] the patient have Health Care Power of Cold Roll Operator? No Care Teams Pile Trimmer Relationship Specialty Start Date End Date Steffen Gonzales DO [address] [facility] [place] [address] PCP - General Internal Medicine 05/25/21 documented as of this encounter
--- OUTSIDE RECORDS SUMMARY | 2023-08-04 06:49 | External Medical Summary | Summary of Care ---
Author Name Unknown Organization [facility] Address [address] [place] [address] Phone [phone] Care Team Providers Care Ship Scraper Name Role Phone Steffen Gonzales DO Primary Care Provider [phone] Reason for Visit * Reason Comments Follow Up Encounter Details Date Type Department Care Team (Latest Contact Info) Description 07/20/2023 10:40 AM EST Office Visit Family Practice [address] [address] [place] [address] Steffen Gonzales DO [address] [place] [address] Gout, arthropathy*; Hypertensive heart and kidney disease with chronic diastolic congestive heart failure and stage 3b chronic kidney disease (HCC); Peripheral vascular disease (HCC); Paroxysmal atrial fibrillation (HCC); Secondary hyperparathyroidism of renal origin (HCC); Essential hypertension with goal blood pressure less than 140/90; Coronary artery disease involving rappahannock coronary artery of rappahannock heart without angina pectoris; Age-related osteoporosis without current pathological fracture; Dyslipidemia, goal LDL below 70; Slow transit constipation; 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HCC); Cardiac pacemaker in situ Allergies Active Allergy Reactions Criticality Noted Date [...] as of this encounter (statuses as of 07/20/2023) Medications Medication Sig Dispensed Refills Start Date [...] on , , Sun and Sun 0 3 Active Ezetimibe 10 MG Oral Tablet (Zetia)Indications:D yslipidemia, goal LDL below 70 TAKE ONE TABLET BY MOUTH EVERY DAY 90 Tablet 3 3 05/20/20 24 Active Allopurinol 100 MG Oral Tablet (Zyloprim)Indication s:Gout Take 1 Tablet by mouth in the morning. 90 Tablet 3 3 Active Ipratropium [place] 0.06 % Nasal Solution (Atrovent) ADMINISTER 2 SPRAYS INTO EACH NOSTRIL 4 TIMES A DAY NEEDED FOR RHINITIS. FOR RUNNY NOSE 15 mL 2 4 Active D-Mannose 500 MG Oral Capsule Take 2 Tablets by mouth in the morning and 2 Tablets before bedtime. 0 07/20/19 24 Discontinu ed(Medicat ion List Clean Up) Colchicine 0.6 MG Oral TabletIndications:Go ut Take 1 Tablet by mouth in the morning. 7 Tablet 0 3 07/20/19 24 Discontinu ed(Medicat ion List Clean Up) documented as of this encounter (statuses as of 07/20/2023) Active Problems Problem Noted Date Diagnosed Date [...] renal origin Coronary artery disease invo lving rappahannock coronary artery of rappahannock heart without angina pectoris 04/08/2018 Cardiac pacemaker in situ 09/28/2017 Overview: DDD Pacemaker Pacemaker. Associate Web Developer Medtronic, model W1DR01 Elena XTDR (MRI conditional), serial number [id number]. Right atrial lead. Associate Web Developer Medtronic, model 5076-45 CapSureFix Novus, serial number [id number]. Right ventricular lead. Associate Web Developer Medtronic, model 5076-52 CapSureFix Novus, serial number [id number]. Placed by Dr Mcknight on 09/27/2017 at [facility] [facility] History of tobacco use [...] as of this encounter (statuses as of 07/20/2023) Resolved Problems Problem Noted Date Diagnosed Date [...] as of this encounter (statuses as of 07/20/2023) Immunizations Name Administration Dates Next Due COVID-19 mRNA, LNP-s, No Pre serve, 2-Dose Series (Moderna) 09/29/2020,09/01/2020 COVID-19, MRNA-LNP, 23-24, P F, 30 MCG/0.3 mL, 12 YRS AND ABOVE, IM (Blizuu-Comirnaty) 05/09/2023 COVID-19, mRNA, LNP-s, PF, B ooster, 100mcg/0.5mg (Moderna) 10/26/2021,05/11/2021 Covid-19, Mrna, Lnp-s, Pf, B ivalent, 30 Mcg, IM, 12 yrs and above (Shelfbucks) 04/18/2022 Pneumococcal Conjugate Vacc, 13 Valent (Prevnar) [...] Sign Reading Time Taken Comments Blood Pressure 124/80 07/20/2023 11:04 AM EST Pulse 72 07/20/2023 11:04 AM EST Temperature 35.2 C (95.4 F) 07/20/2023 11:[address] Respiratory Rate 14 07/20/2023 11:04 AM EST Oxygen Saturation 98% 07/20/2023 11:04 AM EST Inhaled Oxygen Concentration - - Weight 48 kg (105 lb 14.4 oz) 07/20/2023 11:04 A M EST Height 157.5 cm (5' 2") 07/20/2023 11:04 AM EST Body Mass Index 19.37 07/20/2023 11:04 AM EST documented in this encounter Functional [...] this encounter Progress Notes * Steffen Gonzales, - 07/20/2023 11:19 AM EST SUBJECTIVE: Lori Dasilva is a [...] follow up on Gout. Left ankle and left heel pain is still present but has improved. She is ambulating better. Colchicine and Allopurinol were started one week ago. No chest pain or shortness of breath are present. Weight is stableand appetite is fair. Patient Active Problem List [...] I50.30 Chronic sinusitis J32.9 Paroxysmal atrial fibrillation ([facility]) I48.0 Pericardial effusion I31.39 ELMO (obstructive sleep apnea) G47.33 History of tobacco use Z87.891 Cardiac pacemaker in situ Z95.0 Coronary artery disease involving rappahannock coronary artery of rappahannock heart without angina pectoris I25.10 Hypertensive heart and kidney disease with chronic diastolic congestive heart failure and stage 3b chronic kidney disease (HCC) I13.0, I50.32, N18.32 Secondary hyperparathyroidism of renal origin (HCC) N25.81 Chronic kidney disease, stage 3b (HCC) N18.32 History of cervical cancer Z85.41 Age-related osteoporosis without current pathological fracture M81.0 Chronic heart failure with preserved ejection fraction ([facility]) I50.32 Gout, arthropathy M10.9 Current [...] MOUTH TWICE A DAY 90 Tablet 3 Dofetilide 250 MCG Oral Capsule (Tikosyn) TAKE [...] mouth in the morning. 90 Tablet 3 Ipratropium [place] 0.06 % Nasal Solution (Atrovent) ADMINISTER 2 SPRAYS INTO EACH NOSTRIL 4 TIMES A DAY NEEDED FOR RHINITIS. FOR RUNNY NOSE 15 mL 2 BLOOD PRESSURE MONITOR KIT Take daily as directed 1 Kit 0 SURGICAL COMPRESSION STOCKING Knee length compression stockings 20mmHg 1 Each 2 Hydrocortisone 2.5 % External Ointment Apply to lips nightly x 2 weeks 20 g 1 No current facility-administered medications for this visit. The patient's medication list was reviewed and updated as needed. Past Medical History: Diagnosis Date Age-related osteoporosis without current pathological fracture 04/12/2022 Atrial fibrillation (HCC) Taqueria-tachy syndrome (HCC) Cancer of cervix (HCC) 1977 txt with Total abd hysterectomy Cardiac pacemaker in situ 09/28/2017 Pacemaker. Associate Web Developer Medtronic, model W1DR01 [place] XTDR (MRI conditional), serial number [id number]. Right atrial lead. Associate Web Developer Medtronic, model 5076-45 CapSureFix Novus, serial number [id number]. Right ventricular lead. Associate Web Developer Medtronic, model 5076-52 CapSureFix Novus, serial [id number]. Placed by Dr Mcknihgt on 09/27/2017 at [facility] Cardiac tamponade 09/2013 left atrial & right ventriccular perforation with acute tamponade post RF ablation. Dyslipidemia Dyslipidemia, goal LDL below 100 06/19/2011 Gout, arthropathy 07/20/2023 Heart failure, diastolic, due to HTN ([facility]) History of cervical cancer Hypertension Paroxysmal atrial fibrillation (HCC) 07/18/2013 Peripheral vascular disease with claudication ([facility]) 2004 right calf Personal history of tobacco use quit 05/29/2012 Pseudoaneurysm following procedure ([facility]) 02/16/2018 following cardiac catheterization 01/28/2018 Sleep apnea, obstructive Past Surgical History: Procedure Laterality Date ABLATE HEART DYSRHYTHM FOCUS 04/15/2012 CATHETER ABLATION-SVT performed by Ismael Jackson MD at [facility] CARDIAC CATH-CARDIOLOGY ONLY Right 01/28/2018 @ [facility] Right arm. COLONOSCOPY 09/20 hx of IBS, nl, repeat 10y ELECTROPHYSIOLOGY EVAL, ATRIAL FIB, PULMONARY VEIN ISOL 09/25/2013 ELECTROPHYSIOLOGY EVAL, ATRIAL FIB, PULMONARY VEIN ISOL performed by Ismael Jackson MD at [facility] [place] EYELID SURGERY PROCEDURE NEC Left Two surgeries of the left upper lid to help lower lid HEART ELECTROCONVERSION, EXTERNAL 07/12/2012 DC CARDIOVERSION performed by Ismael Jackson MD at [facility] HEART ELECTROCONVERSION, EXTERNAL 09/25/2013 DC CARDIOVERSION performed by Sekou Alcala MD at [facility] INFORMATION 195 fracture R ankle INFORMATION 12/2004 balloon angioplasty INSERT/REPLACE PACEMAKER,ATRIAL/VENTRICULAR Left 09/27/2017 NEW DDD PACEMAKER IMPLANT performed by Chandrika Mcknight IV, MD at [facility] RELIEVE INNER EYE PRESSURE 06/21/2021 GONIOTOMY performed by Jonathan Phillips MD at OR [facility] REMOVE CATARACT, INSERT LENS PROSTH Left 06/21/2021 Left EXTRACAPSULAR CATARACT REMOVAL WITH INTRAOCULAR LENS performed by Jonathan Phillips MD at OR [facility] REMOVE CATARACT, INSERT LENS PROSTH Right 02/21/2022 right EXTRACAPSULAR CATARACT REMOVAL WITH INTRAOCULAR LENS performed by Jonathan Phillips MD at OR [facility] REPAIR HEART WOUND 09/25/2013 left atrial and right ventricular perforation with acute tamponade post RF ablation 09/2013 Repair performed by Sekou Alcala MD at OR [facility] REPAIR VESSEL DIRECT UPPER EXT Right 03/01/2018 direct repair of right ulnar artery (pseudoaneurym) performed by Darvin Joseph MD at [facility] TOTAL HYSTERECTOMY 1985 Hysterectomy, Abdominal Review of [...] of Systems Constitutional: Negative for appetite change, chills, fatigue, fever and unexpected weight change. Respiratory: Negative for cough, shortness of breath and wheezing. Cardiovascular: Negative for chest pain, palpitations and leg swelling. Gastrointestinal: Negative for abdominal pain, blood in stool, constipation, diarrhea, nausea and vomiting. Musculoskeletal: Left ankle pain improved Neurological: Negative for dizziness, syncope and headaches. Psychiatric/Behavioral: Negative for confusion, decreased concentration and sleep disturbance. OBJECTIVE: BP 124/80 | Pulse 72 | Temp 35.2 C (95.4 F) (Tympanic) | Resp 14 | Ht 1.575 m (5' 2") | Wt 48 kg (105 lb 14.4 oz) | SpO2 98% | BMI 19.37 kg/m | BSA 1.45 m Physical Exam Vitals and nursing note [...] Left lower leg: No edema. Comments: Left ankle and heel erythema / induration has improved Neurological: Mental Status: She is alert and oriented to person, place, and time. Mental status is at baseline. Motor: No weakness. Gait: Gait normal. Psychiatric: Mood and Affect: Mood normal. Behavior: Behavior normal. PLAN AND ASSESSMENT: Gout, arthropathy (Primary) - URIC ACID; Future; Expected date: 07/20/2023 Continue Allopurinol Gout diet information given to patient Hypertensive heart and kidney disease with chronic diastolic congestive heart failure and stage 3b chronic kidney disease (HCC) Continue Metoprolol ER, and Furosemide Peripheral vascular disease (HCC) Continue ASA Paroxysmal atrial fibrillation (HCC) Continue Dofetilide and Apixaban Secondary hyperparathyroidism of renal origin (HCC) Essential hypertension with goal blood pressure less than 140/90 Continue Metoprolol ER Coronary artery disease involving rappahannock coronary artery of rappahannock heart without angina pectoris Continue Metoprolol ER and ASA Age-related osteoporosis without current pathological fracture Dyslipidemia, goal LDL below 70 Continue Ezetimibe Slow transit constipation Continue Sorbitol as needed 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HCC) Cardiac pacemaker in situ Follow Up: Return in about 1 week (around 07/27/2023), or if symptoms worsen or fail to improve. Steffen Gonzales, 11:20 AM 07/20/2023 documented in this encounter Nursing Notes * Hitesh Velma, LPN - 07/20/2023 11:04 AM EST Some gout pain continues. documented in this encounter Miscellaneous Notes * Pt Handout (on AVS) - NICOLEJASON, PATIENT HANDOUT - 07/20/2023 11:19 AM EST [id number] Eating to Prevent Gout Gout is a painful form of arthritis caused by an excess of uric acid. This is a waste product made by the body. It builds up in the body and forms crystals that collect in the joints, causing a gout attack. Alcohol and certain foods can trigger a gout attack. Below are some guidelines for changing your diet to help you manage gout. Your healthcare provider or a dietitian can work with you to determine the best eating plan for you. You can learn which foods affect your gout more than others. Reactions to different foods can varyfrom person to person. Know that diet is only one part of managing gout. Take your medicines as prescribed and follow the other guidelines your healthcare provider has given you. Foods to limit Eating too many foods containing purines may increase the levels of uric acid in your body and increase your risk for a gout attack. It may be best to limit these high-purine foods: Alcohol (beer, hard liquor, and red wine). You may be told to give up alcohol completely. Certain fish (anchovies, sardines, fish roes, liriano, tuna, mussels, codfish, scallops, trout, and olga) Certain meats (red meat, processed meat, marcos, turkey, wild game, and goose) Sauces and gravies made with meat Organ meats (such as liver, kidneys, sweetbreads, and tripe) Yeast and yeast extract supplements Foods to try Some foods may be helpful for people with gout. You may want to try adding some of the following foods to your diet: Angel/Angel Extract. Cherries and angel extract contain chemicals that may lower uric acid. [place] fatty acids. These acids are found in fatty fish (such as salmon), certain oils (such as flax, olive, or nut oils), and nuts. They may help prevent inflammation due to gout. Low-fat dairy. Low-fat milk or dairy foods may reduce uric acid levels. Last Reviewed Date: 06/15/202219997367-1414 Pulse 8. All rights reserved. This information is not intended as a substitute for professional medical care. Always follow your healthcare professional's instructions. * Pt Handout (on AVS) - PING, PATIENT HANDOUT - 07/20/2023 11:19 AM EST [id number] Gout Diet Gout is a painful condition caused by an excess of uric acid, a waste product made by the body. Uric acid forms crystals that collect in the joints. The immune response to these crystals brings on symptoms of joint pain and swelling. This is called a gout attack. Often, medicines and diet changes are combined to manage gout. Below are some guidelines for changing your diet to help you manage goutand prevent attacks. Your healthcare provider will help you determine the best eating plan for you. Eating to manage gout Weight loss for those who are overweight may help reduce gout attacks. Eat less of these foods Eating too many foods containing purines may raise the levels of uric acid in your body. This raises your risk for a gout attack. Try to limit these foods and drinks: Alcohol, such as beer and red wine. You may be told to avoid alcohol completely. Soft drinks that contain sugar or high fructose corn syrup Certain fish, including anchovies, sardines, fish eggs, and liriano Shellfish Certain meats, such as red meat, hot dogs, luncheon meats, and turkey Organ meats, such as liver, kidneys, and sweetbreads Legumes, such as dried beans and peas Other high fat foods such as gravy, whole milk, and high fat cheeses Vegetables such as asparagus, cauliflower, spinach, and mushrooms used to be thought to contribute to an increased risk for a gout attack, but recent studies show that high purine vegetables don'tincrease the risk for a gout attack. Eat more of these foods Other foods may be helpful for people with gout. Add some of these foods to your diet: Cherries contain chemicals that may lower uric acid. [place] fatty acids. These are found in some fatty fish such as salmon, certain oils (flax, olive,or nut), and nuts themselves. [place] fatty acids may help prevent inflammation due to gout. Dairy products that are low-fat or fat-free, such as cheese and yogurt Complex carbohydrate foods, including whole grains, brown rice, oats, and beans Coffee, in moderation Water, approximately 64 ounces per day Follow-up care Follow up with your healthcare provider as advised. When to get medical advice Call your healthcare provider right away if any of these occur: Return of gout symptoms, usually at night Severe pain, swelling, and heat in a joint, especially the base of the big toe Affected joint is hard to move Skin of the affected joint is purple or red Fever of 100.4F (38C) or higher, or as advised by your provider Pain that doesn't get better even with prescribed medicine Last Reviewed Date: 08/16/202119992865-0327 Pulse 8. All rights reserved. This information is not intended as a substitute for professional medical care. Always follow your healthcare professional's instructions. documented in this encounter Plan of Treatment Upcoming Encounters Date Type Department Care Team (Late st Contact Info) Description 07/26/2023 8:20 AM EST Office Visit Family Practice [address] [facility] [address] [place] [address] Steffen Gonzales, [address] [place] [address] 08/17/2023 2:00 PM EST Nurse Only Ancillary [address] [facility] [address] [place] [address] College, Nurse Annual Wellness Visit [address] [address] 09/05/2023 1:00 PM EST Imaging Vascular Lab, [facility] 2nd Floor, [place] [address] [facility] [place] [address] 09/05/2023 2:00 PM EST Imaging Vascular Lab, [facility] 2nd Floor, [place] [address] [facility] [place] [address] 09/12/2023 11:10 AM EST Office Visit Vascular Surgery, [facility] [address] [facility] [place] [address] Jerome Glover MD [address] [facility] [place] [place] [address] 09/18/2023 9:20 AM EST Office Visit Family Practice [address] [place] [address] [address] [place] [address] Steffen Gonzales, DO [address] [facility], [place] [address] 10/19/2023 9:45 AM EDT Office Visit Urogynecology [facility] [address] [facility] [place] [address] Carie Moncada PA-C [address] [facility], [place] [address] [facility] [place] ja[facility] [address] [facility] [address] 11/02/2023 8:40 AM EDT Office Visit Sleep Disorders [facility] [address] [facility] [place] [phone] Amy Sanon DO 132 [facility] [place] [address] 02/04/2024 9:30 AM EDT Cardiac Studies Cardiology, [facility] [address] [facility] [place] [address] [facility] [address] [facility] [place] [address] 02/19/2024 9:30 AM EDT Office Visit Urology, [facility] [address] [place] [address] Tonny Elias MD [address] [facility] [address] [place] [address] 05/07/2024 1:15 PM EDT Immunization Ancillary [address] [facility] [address] [place] [address] [place], Covid19 Vaccine [address] [address] 06/24/2024 9:40 AM EST Office Visit Rheumatology [place] [address] [place] [facility] [address] Max Awan MD [facility] [place] [facility] [address] Pending Results Name Type Priority Associated Diagnoses Date /Time URIC ACID Lab Routine Gout, arthropathy 07/20/2023 11:23 AM EST Scheduled Orders Name Type Priority Associated Diagnoses Orde r Schedule URIC ACID Lab Routine Gout, arthropathy Expected: 07/20/2023 (Approximate), Expires: 07/19/2024 Health Maintenance Due Date Last Done Comments *BISPHONATE OR OTHER ACCEPTABLE MEDICATION NEEDED FOR OSTEOPOROSIS (REFER TO SMARTSET #1146) 05/18/2023 GFR 01/10/2024 07/11/2023, 05/16, 05/09/2023, Additional history exists Albumin/Creatinine Ratio 03/28/2024 023, 06/16/2022, 08/25/2021 CKD PHOS USE SMARTSET 21053 04/30/202404/15, 11/22/2021, 06/04/2017 CKD HGB USE SMARTSET 52637 07/11/202407/11, 07/11/2023, 04/30/2023, Additional history exists Depression Screening 07/11/2024 07/11/2023 DXA Scan 11/29/2024 11/29/2022, 11/16/2020 DTaP,Tdap,and Td Vaccines (2 - Td or Tdap) 02/22/2027 02/22/2017, 08/05/2004, 08/05/2004 VITAMIN D LEVEL ONCE IN A LIFETIME-USE SMARTSET# [id number] Completed 02/02/2014, 12/24/2012, 06/04/2009 Colonoscopy Discontinued 10/17/2017 [...] this encounter Medical Devices Implanted Type Area Associate Web Developer Device Identifier Shelf Expiration Date Model / Serial / Lot Sut Steel 6 [id number] - [id number] Implanted:Qty: 6 on 09/25/2013 at OR [facility] [facility] N/A: Chest JNJ : [employer] 02/12/2014 [id number] / / [id number] Lens Intraoc 20.0 - [id number] - [id number] Implanted:Qty: 1 on 06/21/2021 by Jonathan Phillips MD at OR [facility] Left: Eye [employer] 02/12/2026 [id number] / [id number] / [id number] Lens Intraoc 20.5 - [id number] - [id number] Implanted:Qty: 1 on 02/21/2022 by Jonathan Phillips MD at OR [facility] Right: Eye [employer] 09/12/2024 [id number] / [id number] / [id number] documented as of this encounter Visit Diagnoses Diagnosis Gout, arthropathy- Primary Gouty arthropathy, unspecified Hypertensive heart and kidney disease with chronic diastolic congestive heart failure and stage 3b chronic kidney disease (HCC) Peripheral vascular disease (HCC) Peripheral vascular disease, unspecified Paroxysmal atrial fibrillation (HCC) Atrial fibrillation Secondary hyperparathyroidism of renal origin (HCC) Secondary hyperparathyroidism (of renal origin) Essential hypertension with goal blood pressure less than 140/90 Coronary artery disease involving rappahannock coronary artery of rappahannock heart without angina pectoris Age-related osteoporosis without current pathological fracture Senile osteoporosis Dyslipidemia, goal LDL below 70 Other and unspecified hyperlipidemia Slow transit constipation 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HCC) Sinoatrial node dysfunction Cardiac pacemaker in situ documented in this encounter Advance Directives Latest [...] the patient have Health Care Power of Computer Science Intern? No Code Status History Code Status Date [...] the patient have Health Care Power of Computer Science Intern? No Care Teams Ship Scraper Relationship Specialty Start Date End Date Steffen Gonzales DO [address] [place] [address] PCP - General Internal Medicine 05/25/21 documented as of this encounter
--- OUTSIDE RECORDS SUMMARY | 2023-08-04 06:49 | External Medical Summary ---
Author Name Unknown Address Unknown Organization K01:[facility] [place] [address] [facility] [address] Laboratory Report Ordering Provider Test Date Status CARLTON CORDERO 07/11/2023 11:41:05 Final Observation Date Value Abnormality Reference (Units ) Status SYNC LEUKOCYTES IN BLOOD BY AUTOMATED COUNT 07/11/2023 11:41:05 10.45 4.00-10.80 (K/uL) Final Segs 07/11/2023 11:41:05 73.0 40.0-75.0 (%) Final Lymphs % 07/11/2023 11:41:05 10.6 Below low normal 18.0-42.0 (%) Final Monos 07/11/2023 11:41:05 11.7 Above high normal 1.0-11.0 (%) Final Eosinophils 07/11/2023 11:41:05 2.3 0.0-6.0 (%) Final Basos 07/11/2023 11:41:05 1.3 0.0-2.0 (%) Final Immature Granulocyte, Percent 07/11/2023 11:41:05 1.1 0.0-2.0 (%) Final Absolute Segs 07/11/2023 11:41:05 7.62 1.80-7.70 (K/uL) Final Lymphs, absolute 07/11/2023 11:41:05 1.11 1.00-4.80 (K/ul) Final Monos, Abs 07/11/2023 11:41:05 1.22 Above high normal 0.00-1.10 (K/uL) Final Eos, Abs 07/11/2023 11:41:05 0.24 0.00-0.70 (K/uL) Final Basos, Abs 07/11/2023 11:41:05 0.14 0.00-0.20 (K/uL) Final Immature Granulocytes, Number 07/11/2023 11:41:05 0.12 0.00-0.20 (K/uL) Final Performing Location [facility] [place] [facility] [address] [facility] [address]
--- OUTSIDE RECORDS SUMMARY | 2023-08-04 06:50 | External Medical Summary | Summary of Care ---
Author Name Unknown Organization [facility] Address [address] [place] [address] Phone [phone] Care Team Providers Care Wire Harness Assembler Name Role Phone Steffen Gonzales DO Primary Care Provider [phone] Reason for Visit * Reason Onset Date Comments Advice 06/27/2023 Encounter Details Date Type Department Care Team (Late st Contact Info) Description 06/27/2023 Telephone Urogynecology [facility] [address] [place] [address] [place] Nurse Urogyn [address] [place], [place] [id number] Advice Allergies Active Allergy Reactions Criticality Noted Date [...] bedtime 42.5 g 3 04/10/2023 Active Ipratropium [place] 0.06 % Nasal Solution (Atrovent) ADMINISTER 2 [...] renal origin Coronary artery disease invo lving [place] coronary artery of [place] heart without angina pectoris 04/08/2018 Cardiac pacemaker in situ 09/28/2017 Overview: DDD Pacemaker Pacemaker. Director Of Global Talent Medtronic, model W1DR01 Elena XTDR (MRI conditional), serial number [id number]. Right atrial lead. Director Of Global Talent Medtronic, model 5076-45 CapSureFix Novus, serial number [id number]. Right ventricular lead. Director Of Global Talent Medtronic, model 5076-52 CapSureFix Novus, serial number [id number]. Placed by Dr Mcknight on 09/27/2017 at [facility] History of tobacco use 09/19/2017 ELMO (obstructive [...] encounter Miscellaneous Notes * Telephone Encounter - Brenna Morales RN - 06/27/2023 8:10 AM EST Patient called to report that she had been taking D-Mannose and stopped taking it about a week ago because her urine was cloudy. She denied symptoms of a UTI other than having to get out of bed more frequently at night but is not having that issue during the day. She states that she sometimes uses her estrogen cream as directed as well. I advised that she use her estrogen cream as she was instructed along with the D-manose to continue to prevent UTI's which was the complaint for her visit to Urogynecology. She is going to restart her D-Mannose and will call if she has other symptoms. documented in this encounter Plan of Treatment Upcoming Encounters Date Type Department Care Team (Late st Contact Info) Description 07/19/2023 9:25 AM EST Office Visit Urogynecology Jeanne Daviess 132 [facility] [place] [address] Carie Moncada PA-C 132 [facility] [place] [address] Nurse Vito Uroashley Jackie 132 [facility] [place] [address] 08/17/2023 2:00 PM EST Nurse Only Ancillary 65 [facility] 293 [facility], [place] [address] College, Nurse Annual Wellness Visit [address] [place] [address] 09/05/2023 1:00 PM EST Imaging Vascular Lab, [facility] 2nd [facility] 132 [facility] [place] [address] 09/05/2023 2:00 PM EST Imaging Vascular Lab, [facility] 2nd [facility] 132 [facility] [place] [address] 09/12/2023 11:10 AM EST Office Visit Vascular Surgery, [facility] 132 [facility] [place] [address] Jerome Glover MD [address] [place] [address] 09/18/2023 9:20 AM EST Office Visit Family Practice 65 [facility] 293 [facility], [place] [address] Steffen Gonzales DO 293 [facility], [place] [address] 11/02/2023 8:40 AM EDT [facility] 132 [facility] [place] [address] Amy Sanon, DO [address] [place] [address] 02/04/2024 9:30 AM EDT Cardiac Studies Cardiology, [facility] 132 [address] [facility] [place] [address] [place], [facility] [address] [facility] [place] [address] 02/19/2024 9:30 AM EDT Office Visit Urology, [facility] 132 [facility] [place] [address] Tonny Elias MD [address] [place] [address] [place] [address] 05/07/2024 1:15 PM EDT Immunization Ancillary 65 [facility] 293 [place] [address] College, Covid19 Vaccine [address] [address] 06/24/2024 9:40 AM EST Office Visit Rheumatology [address] [place] [address] Max Awan MD [address] [place] [address], [place] [address] Health Maintenance Due Date Last Done Comments *BISPHONATE OR OTHER ACCEPTABLE MEDICATION NEEDED FOR OSTEOPOROSIS (REFER TO SMARTSET #1146) 05/18/2023 GFR 11/28/2023 05/30/2023, 04/16, 05/03/2023, Additional history exists Albumin/Creatinine Ratio 03/28/2024 023, 06/16/2022, 08/25/2021 CKD HGB USE SMARTSET 08872 04/30/202404/30, 04/30/2023, 05/05/2022, Additional history exists CKD PHOS USE SMARTSET 98555 04/30/202404/15, 11/22/2021, 06/04/2017 Depression Screening 05/30/2024 05/30/2023 DXA Scan 11/29/2024 11/29/2022, 11/16/2020 DTaP,Tdap,and Td Vaccines (2 - Td or Tdap) 02/22/2027 02/22/2017, 08/05/2004, 08/05/2004 VITAMIN D LEVEL ONCE IN A LIFETIME-USE SMARTSET# 57172 Completed 02/02/2014, 12/24/2012, 06/04/2009 Colonoscopy Discontinued 10/17/2017 [...] this encounter Medical Devices Implanted Type Area Director Of Global Talent Device Identifier Shelf Expiration Date Model / Serial / Lot Sut Steel 6 M654g - [id number] Implanted:Qty: 6 on 09/25/2013 at OR [facility] N/A: Chest JNJ : [employer] 02/12/2014 [id number] / / [id number] Lens Intraoc 20.0 - [id number] - [id number] Implanted:Qty: 1 on 06/21/2021 by Jonathan Phillips MD at OR [facility] Left: Eye BAUSCH & LOMB 02/12/2026 [id number] / [id number] / [id number] Lens Intraoc 20.5 - [id number] - [id number] Implanted:Qty: 1 on 02/21/2022 by Jonathan Phillips MD at [facility] Right: Eye BAUSCH & LOMB 09/12/2024 [id number] / [id number] / [id number] documented as of this encounter Advance Directives [...] the patient have Health Care Power of Manager Completions? No Code Status History Code Status Date [...] the patient have Health Care Power of Manager Completions? No Care Teams Wire Harness Assembler Relationship Specialty Start Date End Date Steffen Gonzales DO [address] [place] [address] PCP - General Internal Medicine 05/25/21 documented as of this encounter
--- OUTSIDE RECORDS SUMMARY | 2023-08-04 06:50 | External Medical Summary | Summary of Care ---
Author Name Unknown Organization [facility] Address [address] [place] [address] Phone [phone] Care Team Providers Care Casino Enforcement Agent Name Role Phone Steffen Gonzales DO Primary Care Provider [phone] Encounter Details Date Type Department Care Team (Late st Contact Info) Description 06/25/2023 Documentation HEALTH & WELLNESS Joy Rosario, Health Visual Aid Expert Allergies Active Allergy Reactions Criticality Noted Date [...] as of this encounter (statuses as of 06/25/2023) Medications Medication Sig Dispensed Refills Start Date [...] bedtime 42.5 g 3 04/10/2023 Active Ipratropium [place] 0.06 % Nasal Solution (Atrovent) ADMINISTER 2 [...] of coronary artery,Peripheral vascular disease ([facility]),Dyslipidemia, goal LDL below 70,Essential hypertension with goal blood pressure less than 140/90 Take two tablets on Sunday, Sunday and Sunday. One tablet on , , Sat and Sun 0 05/18/2023 Active Ezetimibe 10 MG Oral Tablet (Zetia)Indications:D yslipidemia, goal LDL below 70 TAKE ONE TABLET BY MOUTH EVERY DAY 90 Tablet 3 05/21/2023 4 Active documented as of this encounter (statuses as of 06/25/2023) Active Problems Problem Noted Date Diagnosed Date [...] renal origin Coronary artery disease invo lving [place] coronary artery of [place] heart without angina pectoris 04/08/2018 Cardiac pacemaker in situ 09/28/2017 Overview: DDD Pacemaker Pacemaker. Husbandry Person Medtronic, model W1DR01 Elena XTDR (MRI conditional), serial number [id number]. Right atrial lead. Husbandry Person Medtronic, model 5076-45 CapSureFix Novus, serial number [id number]. Right ventricular lead. Husbandry Person Medtronic, model 5076-52 CapSureFix Novus, serial number [id number]. Placed by Dr Mcknight on 09/27/2017 at [facility] History of tobacco use 09/19/2017 ELMO (obstructive [...] as of this encounter (statuses as of 06/25/2023) Resolved Problems Problem Noted Date Diagnosed Date [...] as of this encounter (statuses as of 06/25/2023) Immunizations Name Administration Dates Next Due COVID-19 [...] of this encounter Progress Notes * Joy Rosario Health Visual Aid Expert - 06/25/2023 3:09 PM EST SESSION TYPE: Group exercise session: Exercise Subtype or Modality: Cardiovascular Training Patient completed a group exercise session which consisted of cardiovascular training. Patient moved through different cardio stations in 4 minute increments. The stations included seated/stationary exercises, recumbent bike and treadmill. Intensity of exercise was increased every minute at each station. She tolerated exercise well and had no complaints. * Joy Rosario Health Visual Aid Expert - 06/25/2023 3:08 PM EST SESSION TYPE: Group exercise session: Exercise Subtype or Modality: Flexibility Training Patient completed a group exercise session which consisted of flexibility training. All exercise was focused on improving flexibility and mobility of upper and lower body. She tolerated exercise welland had no complaints. documented in this encounter Plan of Treatment Upcoming Encounters Date Type Department Care Team (Harjinder st Contact Info) Description 07/19/2023 9:25 AM EST Office Visit Urogynecology [facility] 132 [facility] [place] [address] Carie Moncada PA-C [address] [place] [address] Nurse Vito Urosuzannan [facility] 132 [facility] [place] [address] 08/17/2023 2:00 PM EST Nurse Only Ancillary [address] [place] [address] College, Nurse Annual Wellness Visit [address] [place] [address], [place] [address] 09/05/2023 9:30 AM EST Office Visit Urology, [facility] 132 [facility] [place] [address] Tonny Elias MD [address] [address] [place] [address] 09/05/2023 1:00 PM EST Imaging Vascular Lab, [facility] 2nd [facility] 132 [facility] [place] [address] 09/05/2023 2:00 PM EST Imaging Vascular Lab, [address] 132 [facility] [place] [address] 09/12/2023 11:10 AM EST Office Visit Vascular Surgery, [facility] 132 [facility] [place] [address] Jerome Glover MD 100 [address] [facility] [place] [address] 09/18/2023 9:20 AM EST Office Visit Family Practice 65 [facility] 293 [place] [address] Steffen Gonzales, DO 293 [place] [address] 11/02/2023 8:40 AM EDT Office Visit [facility] Disorders Ctr [facility] 132 [facility] [address] Amy Sanon, DO 132 [facility] [address] 02/04/2024 9:30 AM EDT Cardiac Studies Cardiology, [facility] 132 [place] [address] [facility] 132 [facility] [address] 05/07/2024 1:15 PM EDT Immunization Ancillary 65 [facility] 293 [place] [address] [place], Covid19 Vaccine [address] [place] [address] 06/24/2024 9:40 AM EST Office Visit Rheumatology [place] [address] [place] [address] Max Awan MD [facility] [place] [address] Health Maintenance Due Date Last Done Comments *BISPHONATE OR OTHER ACCEPTABLE MEDICATION NEEDED FOR OSTEOPOROSIS (REFER TO SMARTSET #1146) 05/18/2023 GFR 11/28/2023 05/30/2023, 04/16, 05/03/2023, Additional history exists Albumin/Creatinine Ratio 03/28/2024 023, 06/16/2022, 08/25/2021 CKD HGB USE SMARTSET 36336 04/30/202404/30, 04/30/2023, 05/05/2022, Additional history exists CKD PHOS USE SMARTSET 46459 04/30/202404/15, 11/22/2021, 06/04/2017 Depression Screening 05/30/2024 05/30/2023 DXA Scan 11/29/2024 11/29/2022, 11/16/2020 DTaP,Tdap,and Td Vaccines (2 - Td or Tdap) 02/22/2027 02/22/2017, 08/05/2004, 08/05/2004 VITAMIN D LEVEL ONCE IN A LIFETIME-USE SMARTSET# 97910 Completed 02/02/2014, 12/24/2012, 06/04/2009 Colonoscopy Discontinued 10/17/2017 [...] this encounter Medical Devices Implanted Type Area Husbandry Person Device Identifier Shelf Expiration Date Model / Serial / Lot Sut Steel 6 M654g - [id number] Implanted:Qty: 6 on 09/25/2013 at OR [facility] N/A: Chest JNJ : [employer] 02/12/2014 M654G / / [id number] Lens Intraoc 20.0 - [id number] - [id number] Implanted:Qty: 1 on 06/21/2021 by Jonathan Phillips MD at OR [facility] Left: Eye BAUSCH & LOMB 02/12/2026 [id number] / [id number] / [id number] Lens Intraoc 20.5 - [id number] - [id number] Implanted:Qty: 1 on 02/21/2022 by Jonathan Phillips MD at OR [facility] Right: Eye BAUSCH & LOMB 09/12/2024 [id number] / [id number] / [id number] documented as of this encounter Advance Directives [...] the patient have Health Care Power of Display Card Writer? No Code Status History Code Status Date [...] the patient have Health Care Power of Display Card Writer? No Care Teams Casino Enforcement Agent Relationship Specialty Start Date End Date Steffen Gonzales DO [address] [place] [address] PCP - General Internal Medicine 05/25/21 documented as of this encounter
--- OUTSIDE RECORDS SUMMARY | 2023-08-04 06:50 | External Medical Summary | Summary of Care ---
Author Name Unknown Organization [facility] Address [address] [place] [address] Phone [phone] Care Team Providers Care Business Administrator Name Role Phone Steffen Gonzales DO Primary Care Provider [phone] Encounter Details Date Type Department Care Team (Late st Contact Info) Description 06/26/2023 Documentation HEALTH & WELLNESS Joy Rosario, Health Cotton Sampler Allergies Active Allergy Reactions Criticality Noted Date [...] as of this encounter (statuses as of 06/26/2023) Medications Medication Sig Dispensed Refills Start Date [...] bedtime 42.5 g 3 04/10/2023 Active Ipratropium [place] 0.06 % Nasal Solution (Atrovent) ADMINISTER 2 [...] situ,Nonobstructive atherosclerosis of coronary artery,Peripheral vascular disease ([facility]),Dyslipidemia, goal LDL below 70,Essential hypertension with goal blood pressure less than 140/90 Take two tablets on Sunday, Sunday and Sunday. One tablet on , , Sat and Sun 0 05/18/2023 Active Ezetimibe 10 MG Oral Tablet (Zetia)Indications:D yslipidemia, goal LDL below 70 TAKE ONE TABLET BY MOUTH EVERY DAY 90 Tablet 3 05/21/2023 4 Active documented as of this encounter (statuses as of 06/26/2023) Active Problems Problem Noted Date Diagnosed Date [...] renal origin Coronary artery disease invo lving [place] coronary artery of [place] heart without angina pectoris 04/08/2018 Cardiac pacemaker in situ 09/28/2017 Overview: DDD Pacemaker Pacemaker. Sorority Supervisor Medtronic, model W1DR01 Elena XTDR (MRI conditional), serial number [id number]. Right atrial lead. Sorority Supervisor Medtronic, model 5076-45 CapSureFix Novus, serial number [id number]. Right ventricular lead. Sorority Supervisor Medtronic, model 5076-52 CapSureFix Novus, serial number [id number]. Placed by Dr Mcknight on 09/27/2017 at [facility] History of tobacco use 09/19/2017 ELMO (obstructive [...] as of this encounter (statuses as of 06/26/2023) Resolved Problems Problem Noted Date Diagnosed Date [...] as of this encounter (statuses as of 06/26/2023) Immunizations Name Administration Dates Next Due COVID-19 [...] encounter Progress Notes * Joy Rosario, Health Cotton Sampler - 06/26/2023 1:52 PM EST SESSION TYPE: Group exercise session: Exercise Subtype or Modality: Resistance Training Patient completed a group exercise session which consisted of resistance training. Body weight, resistance bands and dumbbells were used for the exercises. She tolerated exercise well and had no complaints. documented in this encounter Plan of Treatment Upcoming Encounters Date Type Department Care Team (Late st Contact Info) Description 07/19/2023 9:25 AM EST Office Visit Urogynecology Jeanne Padron [address] [place] [address] Carie Moncada PA-C [address] [place] [address] Nurse Coty Padron [address] [place] [address] 08/17/2023 2:00 PM EST Nurse Only Ancillary 65 [facility] 293 [facility] [place] [address] College, Nurse Annual Wellness Visit [address] [place] [address] 09/05/2023 1:00 PM EST Imaging Vascular Lab, [facility] 2nd Floor, [place] 132 [facility] [address] 09/05/2023 2:00 PM EST Imaging Vascular Lab, [facility] 2nd [facility] [place] 132 [facility], [place] [address] 09/12/2023 11:10 AM EST Office Visit Vascular Surgery, [facility] 132 [place] [address] Jerome Glover MD [address] [place] [address] 09/18/2023 9:20 AM EST Office Visit Family Practice 65 [facility] 293 [facility] [place] [address] Steffen Gonzales, DO 293 [place] [address] 11/02/2023 8:40 AM EDT Office Visit [facility] Ctr [facility] [address] Amy Sanon, DO 132 [facility] [place] [address] 02/04/2024 9:30 AM EDT Cardiac Studies Cardiology, [facility] 132 [facility] [place] [address] [facility] 132 [facility] [place] [address] 02/19/2024 9:30 AM EDT Office Visit Urology, [facility] [address] [place] [address] Tonny Elias MD 27 [facility] [place] [address] [place] [address] 05/07/2024 1:15 PM EDT Immunization Ancillary 65 [facility] 293 [place] [address] College, Covid19 Vaccine [address] [address] 06/24/2024 9:40 AM EST Office Visit Rheumatology [facility] [address] [facility] [address] Max Awan MD [address] [employer] [place] [address] Health Maintenance Due Date Last Done Comments *BISPHONATE OR OTHER ACCEPTABLE MEDICATION NEEDED FOR OSTEOPOROSIS (REFER TO SMARTSET #1146) 05/18/2023 GFR 11/28/2023 05/30/2023, 04/16, 05/03/2023, Additional history exists Albumin/Creatinine Ratio 03/28/2024 023, 06/16/2022, 08/25/2021 CKD HGB USE SMARTSET 15792 04/30/202404/30, 04/30/2023, 05/05/2022, Additional history exists CKD PHOS USE SMARTSET 46926 04/30/202404/15, 11/22/2021, 06/04/2017 Depression Screening 05/30/2024 05/30/2023 DXA Scan 11/29/2024 11/29/2022, 11/16/2020 DTaP,Tdap,and Td Vaccines (2 - Td or Tdap) 02/22/2027 02/22/2017, 08/05/2004, 08/05/2004 VITAMIN D LEVEL ONCE IN A LIFETIME-USE SMARTSET# 45758 Completed 02/02/2014, 12/24/2012, 06/04/2009 Colonoscopy Discontinued 10/17/2017 [...] this encounter Medical Devices Implanted Type Area Sorority Supervisor Device Identifier Shelf Expiration Date Model / Serial / Lot Sut Steel 6 M654g - [id number] Implanted:Qty: 6 on 09/25/2013 at OR [facility] N/A: Chest JNJ : [employer] 02/12/2014 M654G / / [id number] Lens Intraoc 20.0 - [id number] - [id number] Implanted:Qty: 1 on 06/21/2021 by Jonathan Phillips MD at OR [facility] Left: Eye [employer]USCH & LOMB 02/12/2026 [id number] / [id number] / [id number] Lens Intraoc 20.5 - [id number] - [id number] Implanted:Qty: 1 on 02/21/2022 by Jonathan Phillips MD at OR [facility] Right: Eye BAUSCH & LOMB 09/12/2024 [id number] / [id number] / [id number] documented as of this encounter Advance Directives [...] the patient have Health Care Power of Chief Physical Therapist? No Code Status History Code Status Date [...] the patient have Health Care Power of Chief Physical Therapist? No Care Teams Business Administrator Relationship Specialty Start Date End Date Steffen Gonzales DO [address] [place] [address] PCP - General Internal Medicine 05/25/21 documented as of this encounter
--- NOTE | 2023-08-04 07:05 | Emergency Department Note ---
Impression & Plan Acute dyspnea, Pulmonary edema, Atrial fibrillation with rapid ventricular response ED Provider Note ED Provider Note NAME: RAVINDER GALAN AGE:78 SEX: Female : 1945 ARRIVES VIA: EMS INFORMANT: Patient ED PROVIDER(s): Justa Williamson DO CHIEF COMPLAINT: Shortness of breath HPI: This is a 78-year-old female who presents emergency department due to concern for increased shortness of breath. Patient states she has had "chest congestion" over the course of the week but last night began noticing markedly increased difficulty breathing, particular with exertion. Patient states she has had minimal productive cough, no other URI symptoms, no fevers although last night did report feeling chilled. She states she has had a normal appetite, has not noticed any change in her urine or stools. She states she does take Lasix daily and has not missed any doses, she is also on a daily blood thinner due to a history of A-fib. She denies missing or skipping any doses of this either. 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 She denies any known sick contacts. No recent leg swelling. PAST MEDICAL HISTORY:See Below PAST SURGICAL HISTORY:See Below FAMILY HISTORY:See Below SOCIAL HISTORY:See Below HOME MEDICATIONS:See Below ALLERGIES:See Below VITALS:See Below PHYSICAL EXAMINATION: GENERAL: alert, well appearing, well nourished, no distress, non-toxic EYE EXAM: normal conjunctiva, PERRL and EOM's grossly intact OROPHARYNX: no exudate, no erythema, lips, buccal mucosa, and tongue normal and mucous membranes are moist NECK: supple, no nuchal rigidity, no adenopathy, non-tender LUNGS: Decreased to auscultation. Normal chest wall mechanics, no w/r/r, increased WOB and tachypnea noted HEART: no murmurs, S1 normal and S2 normal ABDOMEN: abdomen soft, non-tender, normo-active bowel sounds, no masses, no rebound or guarding. BACK: Back is symmetrical on inspection and there is no deformity, no midline tenderness, no CVA tenderness. SKIN: no rashes, petechiae, orbruising UPPER EXTREMITIES: upper extremities are grossly normal. FROM, nml pulses b/l. LOWER EXTREMITIES: No pitting edema. FROM, nml pulses b/l. NEURO EXAM: Normal sensorium, cranial nerves II-XII grossly intact, normal speech, no facial droop,nogross weakness of arms, no gross weakness of legs. Gross sensation intact. No ataxia. Vital Signs: reviewed and remarkable Differential Diagnosis: pneumonia, bronchitis, COPD/Asthma exacerbation, pneumothorax, pulmonary embolism, congestive heart failure, acute coronary syndrome, as well as others were considered MEDICAL DECISION MAKING: This is a 78-year-old female who presents due to increased shortness of breath. Patient with obvious dyspnea and had been placed on oxygen via nasal cannula by EMS. Patient not hypoxic however had tachypnea, increased work of breathing, worsening conversational dyspnea at bedside. Labs drawn and sent, IV established, EKG and chest x-ray performed bedside interpreted me and patient monitor on telemetry. Patient does have a history of A-fib and was noted to be in A-fib with RVR on telemetry. She had not taken any of her usual medications and so she was given a dose of IV metoprolol. While patient was able to maintain normal oxygenation with supplemental oxygen via nasal cannula, her work of breathing did not improve, I contacted RT and she was transition to BiPAP with significant improvement. Patient given IV Lasix here after BNP found to be markedly elevated although her exam not consistent with acute CHF. She was noted to have mildly increased pulmonary edema on chest x-ray. Patient's other labs reassuring, creatinine mildly elevated although improved compared to prior. Patient does have a history of CKD. No evidence of acute URI. All results were discussed with the patient and she verbalized understanding. Case discussed with the hospitalist team for additional evaluation and management. Consultation(s): 929: Discussed with Dr. Sadler, [facility] hospitalist team, for additional evaluation and management. ER Treatment Provided: See below 0855: Patient improved here now on BiPAP, improved respiratory rate and work of breathing. Patient still tachycardic although was given 1 dose of IV metoprolol. Patient states she had not taken any of her usual morning medications which do include her apixaban and metoprolol. IV Lasix was given by nursing staff. Discussed with patient need for additional inpatient monitoring and treatment at this time, she verbalized understanding was in agreement. Diagnostics Interpreted By Me: -ECG: A-fib at a rate of 131, normal axis, normal QRS, prolonged QTc, appearance of ST depression in V5 and V6, baseline artifact noted -Cardiac Monitoring: An order was placed for continuous cardiac monitoring. The monitor shows a rate of 120 with a.fib rhythm. -Laboratory studies: As stated above and show below. -Imaging studies: X-ray Chest: A single view study of the chest was reviewed and was negative for cardiomegaly, focal infiltrate, effusion, or wide mediastinum. Appearance of evolving pulmonary edema noted bilaterally compared to prior. Triage Nursing Note Reviewed Prior/Outside Records Reviewed Critical care: Critical care of 39 min performed to assess and manage high likelihood of life- threatening dyspnea and dysrhythmia, involving labs and imaging performed with assessment to evaluate dyspnea and dysrhythmia diagnosis with frequent reassessment. This time includes bedside time, treatment discussions with patient/family/consultants, documentation time and excludes procedure time. Past Med/Surg History Medical History Allergic rhinitis due to dust Amiodarone pulmonary toxicity Atrial fibrillation with RVR Chronic kidney disease, stage 3 (moderate) Chronic obstructive lung disease (08/07/12) Chronic osteoarthritis Congestive heart failure Coronary atherosclerosis of tribe coronary vessel (08/07/12) Dyslipidemia Hypertension Hypoxia (08/07/12) Irritable bowel syndrome (08/07/12) Lumbar radiculopathy Paroxysmal atrial fibrillation Peripheral neuropathy Peripheral vascular disease, unspecified Secondary hyperparathyroidism Sensorineural hearing loss of both ears Sleep apnea Venous stasis ulcer of right ankle limited to breakdown of skin with varicose veins Vitamin D insufficiency Surgical History H/O: hysterectomy History of ankle surgery History of cardioversion History of colonoscopy History of local excision of skin lesion Pacemaker Status post catheter ablation of atrial fibrillation Status post percutaneous transluminal angioplasty ([employer]) with stent placement Total abdominal hysterectomy with bilateral salpingo-oophorectomy (08/07/12) Family History Father Myocardial infarction Mother Liver cancer Sister Uterine cancer Other Coronary heart disease Hypertension Denies family history of Ovarian cancer Prostate cancer Breast cancer Colorectal cancer Social History Smoking Status: Former smoker Age Started Using Tobacco: 17; Age Quit Using Tobacco: 57; packs per day: 1; Cigarettes Per Day: 20; Second Hand Exposure: No; Do You Dip or Chew Tobacco: No; Hx Alcohol Use: Yes Alcohol type: beer and wine Alcohol Intake Frequency: Monthly or Less Alcohol Intake Frequency Comment: social Hx Substance Use: No Preferred Language: Gabonese Communication Ability: Effective Visual Impairment: Limited Hearing Ability: Normal [employer] Required: No Beliefs That Will Affect Care: None marital status: Current Living Situation: Alone current occupational status: retired How many Children do You have: 3 Other Information That Helps Us Care for You: No other: 3 stepchildren Feels Safe at Home: Yes Safety Concerns: Feels Safe At This Time Childhood Exposure to Second-Hand Smoke: No caffeine: Yes (coffee and tea occassionally ) Dental Care, Regularly: Yes Physical Activity Frequency: Does not Exercise Physical Activity Frequency Comment: not right now due to covid Seatbelt Use: always Sunscreen Use: Yes Assistive Devices: Glasses Allergies Allergies Allergy/AdvReac Type Severity Reaction Status Date / Time Cipro Allergy Severe ANAPHYLAXIS Verified 02/26/18 10:43 ciprofloxacin Allergy Severe ANAPHYLAXIS Verified 02/01/23 09:31 amiodarone Allergy Mild Wheezing Verified 02/01/23 09:31 nitrofurantoin Allergy Mild N/V, pt Verified 02/01/23 09:31 also noted irregular HR bacitracin Allergy Unknown SWELLING Verified 02/01/23 09:31 AND ITCHING dabigatran etexilate Allergy Unknown DIFFICULTY Verified 02/01/23 09:31 BREATHING, DIZZINESS hydralazine Allergy Unknown DIARRHEA, Verified 02/01/23 09:31 BLE SWELLING, FLUSHING milk Allergy Unknown Milk Verified 02/01/23 09:31 products terazosin Allergy Unknown DIZZY AND Verified 02/01/23 09:31 LIGHTHEADED atorvastatin AdvReac Intermediate MUSCLE PAIN Verified 02/01/23 09:31 rosuvastatin AdvReac Intermediate MUSCLE PAIN Verified 02/01/23 09:31 Sulfa (Sulfonamide AdvReac Intermediate SWELLING Verified 02/01/23 09:31 Antibiotics) OF THE ANKLES Home Meds Home Medications Medication Instructions Recorded Confirmed cholecalciferol (vitamin D3) 25 1,000 units PO DAILY 04/28/19 08/04/23 mcg (1,000 unit) capsule dofetilide 250 mcg capsule 250 mcg PO BID 10/14/19 01/20/24 metoprolol succinate 25 mg 12.5 mg PO BID #60 tabs 04/28/19 08/04/23 tablet,extended release 24 hr furosemide 20 mg tablet 20 - 40 mg PO DAILY 07/11/19 08/04/23 apixaban 5 mg tablet (Eliquis) 5 mg PO BID 01/20/21 08/04/23 ezetimibe 10 mg tablet (Zetia) 10 mg PO DAILY 02/01/23 08/04/23 allopurinol 300 mg tablet 300 mg PO DAILY 08/04/23 08/04/23 estradiol 0.01% (0.1 mg/gram) 1 appful vaginal 08/04/23 vaginal cream Previous Rx's Medication Instructions Recorded aspirin 81 mg tablet,delayed 81 mg PO .COMPLEX #30 tabs 01/12/20 release (Adult Aspirin Regimen) ipratropium bromide 42 mcg (0.06 2 spray intranasal TID PRN allergy 08/11/20 %) nasal spray symptoms #90 mL CPAP Supplies #1 ea 12/29/20 sorbitol 70 % solution 15 ml PO DAILY PRN constipation 03/16/21 #500 mL Results & Data (ED) Vital Signs Vital Signs - 24 hr 08/04/23 06:45 08/04/23 06:45 08/04/23 06:49 Pulse Rate 131 H Pulse Rate [Apical] Pulse Rhythm [Apical] Pulse Strength [Apical] Respiratory Rate 18 Respiratory Effort / Characteristics Short of Breath SOB on Exertion Short of Breath Respiratory Depth Normal Normal Respiratory Pattern Tachypnea Tachypnea Blood Pressure Blood Pressure [Right Arm] Blood Pressure Mean [Right Arm] Blood Pressure Position [Right Arm] Pulse Oximetry 94 Oxygen Delivery Method Room Air Room Air Nasal Cannula Oxygen Flow Rate 2 Fraction of Inspired Oxygen Sepsis Recent Fever Within 48 Hours No Sepsis New/Unexplained Change in Mental Status No Sepsis Action Taken by Nursing No Action Required 08/04/23 08:38 08/04/23 08:48 08/04/23 08:50 Pulse Rate 130 H 127 H 129 H Pulse Rate [Apical] Pulse Rhythm [Apical] Pulse Strength [Apical] Respiratory Rate 17 Respiratory Effort / Characteristics Spontaneous Short of Breath Respiratory Depth Respiratory Pattern Blood Pressure 131/102 H Blood Pressure [Right Arm] Blood Pressure Mean [Right Arm] Blood Pressure Position [Right Arm] Pulse Oximetry 100 Oxygen Delivery Method Oxygen Flow Rate Fraction of Inspired Oxygen 30 Sepsis Recent Fever Within 48 Hours Sepsis New/Unexplained Change in Mental Status Sepsis Action Taken by Nursing 08/04/23 09:06 08/04/23 10:10 Pulse Rate 122 H Pulse Rate [Apical] 126 H Pulse Rhythm [Apical] Regular Pulse Strength [Apical] Normal Respiratory Rate 18 Respiratory Effort / Characteristics Spontaneous Respiratory Depth Respiratory Pattern Blood Pressure 146/106 H Blood Pressure [Right Arm] 126/86 Blood Pressure Mean [Right Arm] 99 Blood Pressure Position [Right Arm] Semi-fowlers Pulse Oximetry 96 Oxygen Delivery Method BiPAP Oxygen Flow Rate Fraction of Inspired Oxygen Sepsis Recent Fever Within 48 Hours Sepsis New/Unexplained Change in Mental Status Sepsis Action Taken by Nursing Laboratory Data 08/04/23 07:30 08/04/23 07:30 Lab Results 08/04/23 Range/Units 07:30 WBC 7.81 (4.8-10.8) K/ul RBC 4.31 (4.20-5.40) M/uL Hgb 13.3 (12.0-16.0) g/dl Hct 40.5 (37.0-47.0) % MCV 94.0 (80.0-100.0) fL MCH 30.9 (25.0-34.0) pg MCHC 32.8 (32.0-36.0) g/dL RDW Std Deviation 53.7 H (36.4-46.3) fL RDW Coeff of Jatinder 15.4 H (11.5-14.5) % Plt Count 181 (130-400) K/uL MPV 11.4 (9.4-12.4) fL Immature Gran % (Auto) 0.6 % Neut % (Auto) 81.3 % Lymph % (Auto) 6.1 % Carroll % (Auto) 9.3 % Eos % (Auto) 1.8 % Baso % (Auto) 0.9 % Neut # (Auto) 6.34 (1.40-6.50) K/uL Lymph # (Auto) 0.48 L (1.20-3.40) K/uL Carroll # (Auto) 0.73 H (0.11-0.59) K/uL Eos # (Auto) 0.14 (0.00-0.50) K/uL Baso # (Auto) 0.07 (0.00-0.20) K/uL Immature Gran # (Auto) 0.05 (0.01-0.20) K/uL PT 12.5 H (9.0-12.0) Seconds INR 1.2 H (0.9-1.1) Sodium 135 L (136-145) mmol/L Potassium 5.3 H (3.5-5.1) mmol/L Chloride 102 (98-107) mmol/L Carbon Dioxide 28 (21-32) mmol/L Anion Gap 5 (3-11) BUN 29 H (6-23) mg/dl Creatinine 1.43 H (0.6-1.2) mg/dl Est Cr Clr Drug Dosing 25.1 ml/min Est GFR ( Amer) 41.1 ml/min Est GFR (Non-Af Amer) 35.5 ml/min BUN/Creatinine Ratio 20.3 H (10-20) Glucose 95 (70-99(Fasting)) mg/dl Calcium 9.8 (8.6-10.3) mg/dl Magnesium 2.2 (1.7-2.4) mg/dl Total Bilirubin 1.1 H (0.2-1.0) mg/dl AST 26 (13-39) U/L ALT 22 (7-52) U/L Alkaline Phosphatase 59 (34-104) U/L Troponin I High Sens 12.3 (0-14) pg/ml B-Natriuretic Peptide 597 H (0-100) pg/ml Total Protein 6.7 (6.0-8.3) gm/dl Albumin 4.0 (3.4-5.0) gm/dl Globulin 2.7 (2.5-4.0) gm/dl Albumin/Globulin Ratio 1.5 (0.9-2) Lipase 25 (11-82) U/L TSH 2.442 (0.300-4.500) uIu/ml Adenovirus (PCR) Not Detected (NotDetected) B. pertussis DNA (PCR) Not Detected (NotDetected) B.parapertussis DNA PCR Not Detected (NotDetected) C. pneumoniae DNA (PCR) Not Detected (NotDetected) Coronavirus OC43 (PCR) Not Detected (NotDetected) Coronavirus HKU1 (PCR) Not Detected (NotDetected) Coronavirus 229E (PCR) Not Detected (NotDetected) SARS-CoV-2 (PCR) Not Detected (NotDetected) Coronavirus NL63 (PCR) Not Detected (NotDetected) Human Metapneumovir PCR Not Detected (NotDetected) Influenza Type A (PCR) Not Detected (NotDetected) Influenza Type B (PCR) Not Detected (NotDetected) M. pneumoniae (PCR) Not Detected (NotDetected) Parainfluenza 1 (PCR) Not Detected (NotDetected) Parainfluenza 2 (PCR) Not Detected (NotDetected) Parainfluenza 3 (PCR) Not Detected (NotDetected) Parainfluenza 4 (PCR) Not Detected (NotDetected) RSV (PCR) Not Detected (NotDetected) Entero/Rhino (PCR) Not Detected (NotDetected) Administered Medications Ezetimibe (Ezetimibe 10 Mg Tab) 10 mg PO DAILY [facility] Stop: 09/03/23 12:59 Last Admin: 08/04/23 14:42 Dose: 10 mg Documented By: ROWAN Guaifenesin (Guaifenesin 600 Mg Tabcr) 600 mg PO Q12 [facility] Stop: 09/03/23 12:59 Last Admin: 08/04/23 14:43 Dose: 600 mg Documented By: ROWAN Loratadine (Loratadine 10 Mg Tab) 10 mg PO Q2D@0900 [facility] Stop: 09/03/23 12:59 Last Admin: 08/04/23 14:43 Dose: 10 mg Documented By: ROWAN Vitamin D (Cholecalciferol 1,000 Units 25 Mcg Tab) 1,000 units PO DAILY [facility] Stop: 09/03/23 12:59 Last Admin: 08/04/23 14:42 Dose: 1,000 units Documented By: ROWAN Discontinued Medications Apixaban (Apixaban 5 Mg Tablet) 5 mg PO NOW STA Stop: 08/04/23 08:51 Last Admin: 08/04/23 10:11 Dose: 5 mg Documented By: ROHAN Aspirin (Aspirin 81 Mg Ectab) 81 mg PO NOW STA Stop: 08/04/23 08:51 Last Admin: 08/04/23 10:22 Dose: 81 mg Documented By: ROHAN Dofetilide (Dofetilide 125 Mcg Capsule) 250 mcg PO NOW STA Stop: 08/04/23 10:24 Last Admin: 08/04/23 11:05 Dose: 250 mcg Documented By: FIOR Furosemide (Furosemide 40 Mg/4 Ml Vial) 40 mg IV ONE ONE Stop: 08/04/23 08:17 Last Admin: 08/04/23 08:38 Dose: 40 mg Documented By: AMS Metoprolol Succinate (Metoprolol Succ 25mg Ext Rel Tab) 25 mg PO NOW STA Stop: 08/04/23 08:51 Last Admin: 08/04/23 10:11 Dose: 25 mg Documented By: ROHAN Metoprolol Tartrate (Metoprolol Tartrate 1 Mg/Ml Vial) 5 mg IV NOW STA Stop: 08/04/23 08:05 Last Admin: 08/04/23 08:38 Dose: 5 mg Documented By: ROHAN Metoprolol Tartrate (Metoprolol Tartrate 1 Mg/Ml Vial) 5 mg IV NOW STA Stop: 08/04/23 08:51 Last Admin: 08/04/23 10:10 Dose: 5 mg Documented By: ROHAN Imaging Data Radiologist's Impression: Chest X-Ray 08/04/23 07:01 XR chest 1V portable HISTORY: Shortness of breath. COMPARISON: Chest 01/28/2018. FINDINGS: Slightly rotated study. No pneumothorax. The heart is mildly enlarged. There are poststernotomy changes and left-sided dual-chamber pacemaker. Progressive interstitial/vascular thickening consistent with mild pulmonary edema. There are trace bilateral pleural effusions. No acute fractures identified. Calcifications within the aortic knob. IMPRESSION: Cardiomegaly with mild interstitial pulmonary edema and trace bilateral pleural effusions. ACT 112: Negative or not required by law. Electronically signed by: Alcon Purdy M.D. 08/04/2023 8:10 AM Discharge Plan Visit Data Chief Complaint: Shortness of Breath/Dyspnea Stated Complaint: SHORTNESS OF BREATH, ILL X1 WEEK ED Provider: Justa Williamson Discharge Problem: Acute dyspnea, Pulmonary edema, Atrial fibrillation with rapid ventricular response Patient Disposition: Admitted As Inpatient Discharge Instructions Interventions: ED Discharge Assessment Last Done: 08/04/23 12:38
[2023-08-04 07:51] LABS: Basophils # (auto) 0.07 K/uL (0.00-0.20); Basophils % (auto) 0.9 %; Eosinophils # (auto) 0.14 K/uL (0.00-0.50); Eosinophils % (auto) 1.8 %; Hematocrit (blood only) 40.5 % (37.0-47.0); Hemoglobin 13.3 g/dl (12.0-16.0); Immature Granulocytes # (auto) 0.05 K/uL (0.01-0.20); Immature Granulocytes % (auto) 0.6 %; Lymphocytes # (auto) 0.48 K/uL (1.20-3.40); Lymphocytes % (auto) 6.1 %; Mean Corpuscular Hemoglobin 30.9 pg (25.0-34.0); Mean Corpuscular Hgb Conc 32.8 g/dL (32.0-36.0); Mean Platelet Volume 11.4 fL (9.4-12.4); Monocytes # (auto) 0.73 K/uL (0.11-0.59); Monocytes % (auto) 9.3 %; Neutrophils # (auto) 6.34 K/uL (1.40-6.50); Neutrophils % (auto) 81.3 %; Platelet Count 181 K/uL (130-400); RDW Coefficient of Variation 15.4 % (11.5-14.5); RDW Standard Deviation 53.7 fL (36.4-46.3); Red Blood Count 4.31 M/uL (4.20-5.40); White Blood Count 7.81 K/ul (4.8-10.8)
[2023-08-04 08:03] LABS: Albumin Globulin Ratio 1.5 (0.9-2); BUN Creatinine Ratio 20.3 (10-20); Bilirubin,Total 1.1 mg/dl (0.2-1.0); Calcium 9.8 mg/dl (8.6-10.3); Creatinine Clr Calc Pharmacy 25.1 ml/min; Est GFR (African American) 41.1 ml/min; Est GFR (Non-African American) 35.5 ml/min; Globulin 2.7 gm/dl (2.5-4.0); Magnesium 2.2 mg/dl (1.7-2.4); Potassium 5.3 mmol/L (3.5-5.1); Total Protein 6.7 gm/dl (6.0-8.3)
[2023-08-04] MEDS ORDERED: METOPROLOL TARTRATE 1 MG/ML VIAL IV STA ×2 (08:04→08:50)
[2023-08-04 08:08] LABS: Troponin I High Sensitivity 12.3 pg/ml (0-14)
[2023-08-04 08:09] LABS: INR 1.2 (0.9-1.1); Prothrombin Time 12.5 Seconds (9.0-12.0)
--- NOTE | 2023-08-04 08:12 | XRay Report ---
XR chest 1V portable HISTORY: Shortness of breath. COMPARISON: Chest 01/28/2018. FINDINGS: Slightly rotated study. No pneumothorax. The heart is mildly enlarged. There are poststerno yuliana changes and left-sided dual-chamber pacemaker. Progressive interstitial/vascular thickening cons istent with mild pulmonary edema. There are trace bilateral pleural effusions. No acute fractures aileen ntified. Calcifications within the aortic knob. IMPRESSION: Cardiomegaly with mild interstitial pulmonary edema and trace bilateral pleural effusions. ACT 112: Negative or not required by law. Electronically signed by: Alcon Purdy M.D. 08/04/2023 8:10 AM
[2023-08-04] MEDS ORDERED: FUROSEMIDE 40 MG/4 ML VIAL IV ONE (08:16)
[2023-08-04 08:18] LABS: Thyroid Stimulating Hormone 2.442 uIu/ml (0.300-4.500)
[2023-08-04 08:29] LABS: Adenovirus PCR Not Detected (NotDetected); Bordetella parapertussis PCR Not Detected (NotDetected); Bordetella pertussis PCR Not Detected (NotDetected); Chlamydia pneumoniae PCR Not Detected (NotDetected); Coronavirus 229E PCR Not Detected (NotDetected); Coronavirus CoV-2 (COVID19)PCR Not Detected (NotDetected); Coronavirus HKU1 PCR Not Detected (NotDetected); Coronavirus NL63 PCR Not Detected (NotDetected); Coronavirus OC43PCR Not Detected (NotDetected); Human Metapneumovirus PCR Not Detected (NotDetected); Influenza A PCR Not Detected (NotDetected); Influenza B PCR Not Detected (NotDetected); Mycoplasma pneumoniae PCR Not Detected (NotDetected); Parainfluenza Virus 1 PCR Not Detected (NotDetected); Parainfluenza Virus 2 PCR Not Detected (NotDetected); Parainfluenza Virus 3 PCR Not Detected (NotDetected); Parainfluenza Virus 4 PCR Not Detected (NotDetected); Respiratory Syncytial VirusPCR Not Detected (NotDetected); Rhinovirus/Enterovirus PCR Not Detected (NotDetected)
[2023-08-04] MEDS ORDERED: ASPIRIN 81 MG ECTAB PO STA (08:50)
[2023-08-04] MEDS ORDERED: METOPROLOL SUCC 25MG EXT REL TAB PO STA (08:50)
[2023-08-04] MEDS ORDERED: APIXABAN 5 MG TABLET PO STA (08:50)
[2023-08-04] MEDS ORDERED: DOFETILIDE 125 MCG CAPSULE PO STA (10:23)
--- NOTE | 2023-08-04 10:29 | History & Physical Report ---
Date of Service August 04, 2023 Assessment & Plan (1) Atrial fibrillation with rapid ventricular response: (2) Acute dyspnea: (3) Diastolic heart failure: (4) Pulmonary edema: Plan: 78-year-old woman with history of paroxysmal A-fib, tachybradycardia syndrome status post pacemaker, heart failure with preserved ejection fraction, CKD 3, allergic rhinitis/sinusitis, ELMO, gout who presents with shortness of breath that started overnight. Labs notable for sodium of 135, potassium 5.3, creatinine of 1.43 [baseline], BNP of 597 Trop was normal 12.3 Respiratory PCR is negative Chest x-ray noted cardiomegaly with mild interstitial pulmonary edema and trace bilateral pleural effusion. EKG reviewed showed supraventricular tachycardia, no P wave seen Patient has atrial fibrillation with rapid ventricular rate Acute on chronic diastolic heart failure Reviewed last echocardiogram from 07/04/2022 on [facility]. EF was 55 to 59%, mildly increased left ventricular wall thickness, severely enlarged left atrium, mild mitral regurgitation, mild tricuspid regurgitation, no evidence of pulmonary hypertension, right atrium severely enlarged. 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 of metoprolol succinate in ER as well as IV Lopressor 5 mg. Heart rate is improving. Home dofetilide to 50 mcg added. Cardiology consult Resume home metoprolol succinate. Will monitor HR. Home dose may need to be increased. orthotic practitioner Defer pacemaker interrogation to Cardiology Got IV lasix 40mg in ER Will continue IV lasix 40mg daily Repeat TTE Monitor I/O Daily weight Continue home Apixaban 5mg bid Continue home aspirin. Reports she takes it MWF per Mail Handler Equipment Operator recs. Continue zetia (statin intolerant) Supportive care Loratadine 10mg q48h (renally dosed) Guaifenesin 600mg q12h Discussed with Mail Handler Equipment Operator this afternoon Give one dose of IV cardizem Increase metoprolol succinate to 25mg BID (5) Obstructive sleep apnea: Plan: Continue CPAP HS (6) Chronic kidney disease, stage 3 (moderate): Plan: Cr is 1.43 at baseline Avoid nephrotoxins and monitor Gout Continue home allopurinol PCP had been titrating dose and monitoring uric acid DVT ppx: Continue home apixaban CODE STATUS: Full Dispo: Med tele I spent a total of 75 minutes coordinating, documenting and providing care for this patient excluding time spent in performance of separately billed services History of Present Illness Chief Complaint: Shortness of breath Primary Care Provider: Steffen Gonzales DO 78-year-old woman with history of paroxysmal A-fib, tachybradycardia syndrome status post pacemaker, heart failure with preserved ejection fraction, CKD 3, allergic rhinitis/sinusitis, ELMO, gout who presents with shortness of breath that started overnight Patient reported that 6 days ago she had woken up with some shortness of breath/difficulty breathing quickly resolved. Reported that she has been having postnasal drip but denies any cough until today. Denies any fevers, chills, nausea, vomiting, abdominal pain, chest pain, palpitations. Reported that she has been weak yesterday and woke up at night with shortness of breath necessitating presentation to the ER. Was noted to tachycardic and tachypneic, in respiratory distress with increased work of breathing requiring BiPAP in the ER. At the time of my evaluation, patient reports feeling better. No shortness of breath at this time. Was taken off BIPAP. Currently reports sinus congestion. Denies palpitation, dizziness, fevers or chills Reported some cough only on presentation to the hospital. Reported some loose stool but not diarrhea. Stated this is not new for her Denied abd pain, dysuria, freq, urgency Reports adherence to her medications. Had not taken her medication this morning prior to presentation Patient lives alone at home. Remote history of smoking, quit about 20 years ago. Only drinks alcohol on occasion. Denies illicit drug use. Allergies Allergy/AdvReac Type Severity Reaction Status Date / Time Cipro Allergy Severe ANAPHYLAXIS Verified 02/26/18 10:43 ciprofloxacin Allergy Severe ANAPHYLAXIS Verified 02/01/23 09:31 amiodarone Allergy Mild Wheezing Verified 02/01/23 09:31 nitrofurantoin Allergy Mild N/V, pt Verified 02/01/23 09:31 also noted irregular HR bacitracin Allergy Unknown SWELLING Verified 02/01/23 09:31 AND ITCHING dabigatran etexilate Allergy Unknown DIFFICULTY Verified 02/01/23 09:31 BREATHING, DIZZINESS hydralazine Allergy Unknown DIARRHEA, Verified 02/01/23 09:31 BLE SWELLING, FLUSHING milk Allergy Unknown Milk Verified 02/01/23 09:31 products terazosin Allergy Unknown DIZZY AND Verified 02/01/23 09:31 LIGHTHEADED atorvastatin AdvReac Intermediate MUSCLE PAIN Verified 02/01/23 09:31 rosuvastatin AdvReac Intermediate MUSCLE PAIN Verified 02/01/23 09:31 Sulfa (Sulfonamide AdvReac Intermediate SWELLING Verified 02/01/23 09:31 Antibiotics) OF THE ANKLES Home Medications Medication Instructions Recorded Confirmed Type cholecalciferol (vitamin D3) 25 1,000 units PO DAILY 04/28/19 08/04/23 History mcg (1,000 unit) capsule dofetilide 250 mcg capsule 250 mcg PO BID 04/28/19 08/04/23 History metoprolol succinate 25 mg 12.5 mg PO BID #60 tabs 04/28/19 08/04/23 History tablet,extended release 24 hr furosemide 20 mg tablet 20 - 40 mg PO DAILY 07/11/19 08/04/23 History aspirin 81 mg tablet,delayed 81 mg PO .COMPLEX #30 tabs 01/12/20 08/04/23 Rx release (Adult Aspirin Regimen) ipratropium bromide 42 mcg (0.06 2 spray intranasal TID PRN allergy 08/11/20 08/04/23 Rx %) nasal spray symptoms #90 mL CPAP Supplies #1 ea 12/29/20 08/04/23 Rx apixaban 5 mg tablet (Eliquis) 5 mg PO BID 01/20/21 08/04/23 History sorbitol 70 % solution 15 ml PO DAILY PRN constipation 03/16/21 08/04/23 Rx #500 mL ezetimibe 10 mg tablet (Zetia) 10 mg PO DAILY 02/01/23 08/04/23 History allopurinol 300 mg tablet 300 mg PO DAILY 08/04/23 08/04/23 History estradiol 0.01% (0.1 mg/gram) 1 appful vaginal 08/04/23 History vaginal cream Past Med/Surg History Medical History Allergic rhinitis due to dust Amiodarone pulmonary toxicity Atrial fibrillation with RVR Chronic kidney disease, stage 3 (moderate) Chronic obstructive lung disease (08/07/12) Chronic osteoarthritis Congestive heart failure Coronary atherosclerosis of [place] coronary vessel (08/07/12) Dyslipidemia Hypertension Hypoxia (08/07/12) Irritable bowel syndrome (08/07/12) Lumbar radiculopathy Paroxysmal atrial fibrillation Peripheral neuropathy Peripheral vascular disease, unspecified Secondary hyperparathyroidism Sensorineural hearing loss of both ears Sleep apnea Venous stasis ulcer of right ankle limited to breakdown of skin with varicose veins Vitamin D insufficiency Surgical History H/O: hysterectomy History of ankle surgery History of cardioversion History of colonoscopy History of local excision of skin lesion Pacemaker Status post catheter ablation of atrial fibrillation Status post percutaneous transluminal angioplasty ([employer]) with stent placement Total abdominal hysterectomy with bilateral salpingo-oophorectomy (08/07/12) Family History Father Myocardial infarction Mother Liver cancer Sister Uterine cancer Other Coronary heart disease Hypertension Denies family history of Ovarian cancer Prostate cancer Breast cancer Colorectal cancer Social History Smoking Status: Never smoker Age Started Using Tobacco: 17; Age Quit Using Tobacco: 57; packs per day: 1; Cigarettes Per Day: 20; Second Hand Exposure: No; Do You Dip or Chew Tobacco: No; Hx Alcohol Use: Yes (1-2) Alcohol type: beer and wine Alcohol Intake Frequency: Monthly or Less Alcohol Intake Frequency Comment: social Hx Substance Use: No Preferred Language: Polish Communication Ability: Effective Visual Impairment: Limited Hearing Ability: Normal Photo Booth Operator Required: No marital status: Current Living Situation: Spouse current occupational status: retired How many Children do You have: 3 other: 3 stepchildren Feels Safe at Home: Yes Childhood Exposure to Second-Hand Smoke: No caffeine: Yes (coffee and tea occassionally ) Dental Care, Regularly: Yes Physical Activity Frequency: Does not Exercise Physical Activity Frequency Comment: not right now due to covid Seatbelt Use: always Sunscreen Use: Yes Review of Systems Review of Systems: All systems reviewed & are unremarkable except as noted in HPI & below Physical Exam Constitutional: + well hydrated; no acute distress Eyes: PERRL, conjunctivae normal, anicteric sclerae ENMT: external ear and nose normal, oropharynx normal Respiratory: normal respiratory effort, lungs clear to auscultation Cardiovascular: Rate/Rhythm: + tachycardic S1 S2 Gastrointestinal (Abdomen): normal bowel sounds, soft, nontender, no hepatosplenomegaly Musculoskeletal: Trace pretibial edema Neurologic: PERRL, EOMI, accommodation nl, no face palsy, no dysarthria Psychiatric: A+Ox3, euthymic affect Results & Data Results & Data Vital Signs (Past 12 Hours) Vital Signs Pulse Pulse Resp BP BP Pulse Ox O2 Del Method 08/04/23 10:10 122 H 146/106 H 08/04/23 09:06 126 H 18 126/86 96 BiPAP 08/04/23 08:50 129 H 17 100 08/04/23 08:48 127 H 08/04/23 08:38 130 H 131/102 H 08/04/23 06:45 Room Air, Nasal Cannula 08/04/23 06:45 131 H 18 94 Room Air O2 Flow Rate FiO2 08/04/23 10:10 08/04/23 09:06 08/04/23 08:50 30 08/04/23 08:48 08/04/23 08:38 08/04/23 06:45 2 08/04/23 06:45 Laboratory Results Abnormal lab results 08/04/23 Range/Units 07:30 RDW Std Deviation 53.7 H (36.4-46.3) fL RDW Coeff of Jatinder 15.4 H (11.5-14.5) % Lymph # (Auto) 0.48 L (1.20-3.40) K/uL [place] # (Auto) 0.73 H (0.11-0.59) K/uL PT 12.5 H (9.0-12.0) Seconds INR 1.2 H (0.9-1.1) Sodium 135 L (136-145) mmol/L Potassium 5.3 H (3.5-5.1) mmol/L BUN 29 H (6-23) mg/dl Creatinine 1.43 H (0.6-1.2) mg/dl BUN/Creatinine Ratio 20.3 H (10-20) Total Bilirubin 1.1 H (0.2-1.0) mg/dl B-Natriuretic Peptide 597 H (0-100) pg/ml Diagnostic Findings XR chest 1V portable HISTORY: Shortness of breath. COMPARISON: Chest 01/28/2018. FINDINGS: Slightly rotated study. No pneumothorax. The heart is mildly enlarged. There are poststernotomy changes and left-sided dual-chamber pacemaker. Progressive interstitial/vascular thickening consistent with mild pulmonary edema. There are trace bilateral pleural effusions. No acute fractures identified. Calcifications within the aortic knob. IMPRESSION: Cardiomegaly with mild interstitial pulmonary edema and trace bilateral pleural effusions. Code Status & VTE Plan Code Status Full code VTE Prophylaxis Plan VTE Prophylaxis will be ordered: Yes
[2023-08-04] MEDS ORDERED: IPRATROPIUM BROMIDE NASAL SPRAY 0.06% 15ML PRN (12:38)
[2023-08-04] MEDS: CHOLECALCIFEROL 1,000 UNITS 25 MCG TAB PO SCH ×2 (14:05→14:42)
[2023-08-04] MEDS: guaiFENesin 600 MG TABCR PO SCH ×3 (14:06→22:32)
[2023-08-04] MEDS: EZETIMIBE 10 MG TAB PO SCH ×2 (14:06→14:42)
[2023-08-04] MEDS: LORATADINE 10 MG TAB PO SCH ×2 (14:06→14:43)
[2023-08-04] MEDS ORDERED: dilTIAZem HCl 5 MG/ML 5 ML VIAL IV STA (14:10)
--- NOTE | 2023-08-04 16:09 | Electrocardiogram Report ---
Test Reason : Blood Pressure : / mmHG Vent. Rate : 131 BPM Atrial Rate : 000 BPM P-R Int : 000 ms QRS Dur : 080 ms QT Int : 340 ms P-R-T Axes : 000 095 069 degrees QTc Int : 502 ms Supraventricular tachycardia Rightward axis ST depression, consider subendocardial injury Abnormal ECG When compared with ECG of 30-JAN-2018 06:34, Sinus rhythm has replaced Electronic atrial pacemaker Vent. rate has increased BY 68 BPM Non-specific change in ST segment in Inferior leads ST now depressed in Anterolateral leads Nonspecific T wave abnormality now evident in Inferior leads Confirmed by Chino Dubose ([id number]) on 08/04/2023 4:09:09 PM Referred By: REFERRED SELF Confirmed By:Jamaal Dubose
[2023-08-04] MEDS ORDERED: CALCIUM CARBONATE 500 MG CHEWABLE TAB PO PRN (20:24)
[2023-08-04] MEDS ORDERED: METOPROLOL SUCC 25MG EXT REL TAB PO SCH (21:00)
[2023-08-04] MEDS ORDERED: FAMOTIDINE 20 MG in SYRINGE 3 ML IV STA (21:49)
[2023-08-04] MEDS: METOPROLOL SUCC 25MG EXT REL TAB PO SCH (22:31)
[2023-08-04] MEDS: APIXABAN 5 MG TABLET PO SCH (22:51)
[2023-08-04] MEDS: DOFETILIDE 125 MCG CAPSULE PO SCH (22:51)
[2023-08-05] MEDS ORDERED: METOPROLOL TARTRATE 1 MG/ML VIAL IV STA (01:45)
[2023-08-05 07:46] LABS: Hematocrit (blood only) 39.1 % (37.0-47.0); Hemoglobin 13.1 g/dl (12.0-16.0); Mean Corpuscular Hemoglobin 30.8 pg (25.0-34.0); Mean Corpuscular Hgb Conc 33.5 g/dL (32.0-36.0); Mean Platelet Volume 11.4 fL (9.4-12.4); Platelet Count 198 K/uL (130-400); RDW Coefficient of Variation 15.5 % (11.5-14.5); RDW Standard Deviation 52.4 fL (36.4-46.3); Red Blood Count 4.25 M/uL (4.20-5.40); White Blood Count 6.27 K/ul (4.8-10.8)
[2023-08-05 08:21] LABS: BUN Creatinine Ratio 21.7 (10-20); Calcium 9.3 mg/dl (8.6-10.3); Creatinine Clr Calc Pharmacy 27.4 ml/min; Est GFR (African American) 42.9 ml/min; Phosphorus 3.2 mg/dl (2.5-4.9)
[2023-08-05] MEDS: METOPROLOL SUCC 25MG EXT REL TAB PO SCH ×2 (09:19→20:12)
[2023-08-05] MEDS: guaiFENesin 600 MG TABCR PO SCH ×2 (09:20→20:13)
[2023-08-05] MEDS: APIXABAN 5 MG TABLET PO SCH ×2 (09:20→20:12)
[2023-08-05] MEDS: DOFETILIDE 125 MCG CAPSULE PO SCH ×2 (09:21→20:12)
[2023-08-05] MEDS: allopurinoL 300 MG TAB PO SCH (09:22)
[2023-08-05] MEDS: FUROSEMIDE 40 MG/4 ML VIAL IV SCH (09:27)
[2023-08-05] MEDS ORDERED: Nursing to Pharmacy Communication SCH (09:30)
[2023-08-05] MEDS: EZETIMIBE 10 MG TAB PO SCH (10:35)
--- NOTE | 2023-08-05 11:53 | Hospitalist Progress Note ---
Date of Service August 05, 2023 Assessment & Plan (1) Atrial fibrillation with rapid ventricular response: (2) Acute dyspnea: (3) Diastolic heart failure: (4) Pulmonary edema: Plan: 78-year-old woman with history of paroxysmal A-fib, tachybradycardia syndrome status post pacemaker, heart failure with preserved ejection fraction, CKD 3, allergic rhinitis/sinusitis, ELMO, gout who presents with shortness of breath that started overnight. 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 Respiratory PCR is negative Chest x-ray personally reviewed; cardiomegaly with mild interstitial pulmonary edema and trace bilateral pleural effusion. EKG reviewed showed supraventricular tachycardia, no P wave seen Last echocardiogram from 07/04/2022 on [facility]. EF was 55 to 59%, mildly increased left ventricular wall thickness, severely enlarged left atrium, mild mitral regurgitation, mild tricuspid regurgitation, no evidence of pulmonary hypertension, right atrium severely enlarged. Continue diuresis with IV Lasix 40 mg once a day; patient reports alternating 20 mg and 40 mg of Lasix every other day at home. Home dose dose of metoprolol succinate increased to 25 mg twice daily from 12.5 mg twice daily Continue Home dofetilide to 50 mcg added. Appreciate cardiology input regarding optimization of medication. bus monitor Defer pacemaker interrogation to Cardiology Monitor I/O Daily weight Continue home Apixaban 5mg bid Continue home aspirin. Reports she takes it MWF per Industrial Maintenance Repairer recs. Continue zetia (statin intolerant) (5) Obstructive sleep apnea: Plan: Continue CPAP HS (6) Chronic kidney disease, stage 3 (moderate): Plan: Creatinine is at baseline Avoid nephrotoxins and monitor Gout Continue home allopurinol PCP had been titrating dose and monitoring uric acid DVT ppx: Continue home apixaban CODE STATUS: Full Dispo: Med tele Time spent evaluating patient, direct bedside care, chart review, placing o rders, interpretation of diagnostic studies, discussion with consultants, patient, and family members, as well as other required patient management activities is 50-minutes Please note the above document was generated using voice recognition software. It may contain grammatical, syntax or spelling errors. Any formal questions or concerns about the content, text or information contained within the body of this dictation should be directly addressed to the provider for clarification Admission and Anticipated Discharge Date Admission Date: August 04, 2023 Subjective Patient seen and examined at bedside. She is sitting up on the bed comfortably. She reports shortness of breath on exertion. Telemetry shows atrial fibrillation with ventricular rate in 110s to 120s Review of Systems Review of Systems: All systems reviewed & are unremarkable except as noted in Subjective Physical Exam Physical Exam: Constitutional: Alert oriented x 3; not in distress. Respiratory: Decreased breath sound at bases. Cardiovascular: RRR, no murmur, no edema Vessels: no JVD or carotid bruit Chest: normal inspection of chest Abdomen: normal bowel sounds, soft, nontender, no hepatosplenomegaly Musculoskeletal: no cyanosis or clubbing, extremities motor strength 5/5. Minimal edema Skin: no rashes, warm and dry normal turgor Neurologic: PERRL, EOMI, accommodation nl, no face palsy, no dysarthria CN's II- XI intact bilaterally and moves all extremities Psychiatric: A+Ox3, euthymic affect Results & Data Results & Data Vital Signs (Past 12 Hours) Vital Signs Temp Pulse Pulse Resp BP BP Pulse Ox 08/05/23 11:10 36.6 C 118 H 19 124/84 96 08/05/23 07:04 36.4 C L 115 H 19 111/77 92 08/05/23 02:45 112 H 19 95 08/05/23 02:40 118 H 123/70 08/05/23 02:12 36.8 C 122 H 16 133/79 95 O2 Del Method FiO2 08/05/23 11:10 Room Air 08/05/23 07:04 Room Air 08/05/23 02:45 21 08/05/23 02:40 08/05/23 02:12 Room Air
[2023-08-05] MEDS: CHOLECALCIFEROL 1,000 UNITS 25 MCG TAB PO SCH (13:37)
--- NOTE | 2023-08-05 18:19 | Cardiology Consultation ---
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 today as outlined above (3) Atrial fibrillation with rapid ventricular response: continue tikosyn and metoprolol higher dose (4) Diastolic heart failure: acute on chronic diastolic heart failure Continue IV lasix with monitoring daily weights, daily kidney function and electrolytes I/Os (5) Cardiomyopathy: most likely this is tachycardia related (6) Acute dyspnea: (7) Pulmonary edema: (8) Obstructive sleep apnea: Continue CPAP HS (9) Chronic kidney disease, stage 3 (moderate): Plan 78y/o Female PMH pAF s/p PVI ablation in 09/2013 with incomplete response, complicated by atrial perforation and acute tamponade requiring surgical repair; COPD with amiodarone induced exacerbation; Cardiac catheterization in 2010,2015 without obstructive disease and left dominant coronary anatomy; PAD s/p right iliac stent in 2004; tachy jaqui synd s/p Pacemaker in 09/27/2017, [employer] [place] XT DR; S/P repair right ulnar pseudoaneurysm pt admitted with acute on chronic diastolic HF NYHA Class II, with SVT RVR based on my interpretation of her pacemaker I interrogated today she is in an PAT with RVR, cardiomyopathy EF 45-50% on echo 08/04/23 most likely tachycardia induced. She will have a DCCV tomorrow to restore SR continue tikosyn QTC is stable continue metoprolol continue eliquis-she has not missed any in the past month continue IV diuresis History of Present Illness Reason for Consultation: AF Requesting Physician: hospitalist Attending Physician: Oscar Sunshine MD History of Present Illness pt presented to ER due to worsening SOB. She has been having more STOCK and then orthopnea over the last few days. No chest pains. she does not check her BP or HR at home. She did not appreciate any palpitations She was found to be in SVT with RVR; has been getting IV doses of diltiazem and metoprolol in addition to her tikosyn Allergies Allergy/AdvReac Type Severity Reaction Status Date / Time Cipro Allergy Severe ANAPHYLAXIS Verified 02/26/18 10:43 ciprofloxacin Allergy Severe ANAPHYLAXIS Verified 02/01/23 09:31 amiodarone Allergy Mild Wheezing Verified 02/01/23 09:31 nitrofurantoin Allergy Mild N/V, pt Verified 02/01/23 09:31 also noted irregular HR bacitracin Allergy Unknown SWELLING Verified 02/01/23 09:31 AND ITCHING dabigatran etexilate Allergy Unknown DIFFICULTY Verified 02/01/23 09:31 BREATHING, DIZZINESS hydralazine Allergy Unknown DIARRHEA, Verified 02/01/23 09:31 BLE SWELLING, FLUSHING milk Allergy Unknown Milk Verified 02/01/23 09:31 products terazosin Allergy Unknown DIZZY AND Verified 02/01/23 09:31 LIGHTHEADED atorvastatin AdvReac Intermediate MUSCLE PAIN Verified 02/01/23 09:31 rosuvastatin AdvReac Intermediate MUSCLE PAIN Verified 02/01/23 09:31 Sulfa (Sulfonamide AdvReac Intermediate SWELLING Verified 02/01/23 09:31 Antibiotics) OF THE ANKLES Home Medications Medication Instructions Recorded Confirmed Type cholecalciferol (vitamin D3) 25 1,000 units PO DAILY 04/28/19 08/04/23 History mcg (1,000 unit) capsule dofetilide 250 mcg capsule 250 mcg PO BID 04/28/19 08/04/23 History metoprolol succinate 25 mg 12.5 mg PO BID #60 tabs 04/28/19 08/04/23 History tablet,extended release 24 hr furosemide 20 mg tablet 20 - 40 mg PO DAILY 07/11/19 08/04/23 History aspirin 81 mg tablet,delayed 81 mg PO .COMPLEX #30 tabs 01/12/20 08/04/23 Rx release (Adult Aspirin Regimen) ipratropium bromide 42 mcg (0.06 2 spray intranasal TID PRN allergy 08/11/20 08/04/23 Rx %) nasal spray symptoms #90 mL CPAP Supplies #1 ea 12/29/20 08/04/23 Rx apixaban 5 mg tablet (Eliquis) 5 mg PO BID 01/20/21 08/04/23 History sorbitol 70 % solution 15 ml PO DAILY PRN constipation 03/16/21 08/04/23 Rx #500 mL ezetimibe 10 mg tablet (Zetia) 10 mg PO DAILY 02/01/23 08/04/23 History allopurinol 300 mg tablet 300 mg PO DAILY 08/04/23 08/04/23 History estradiol 0.01% (0.1 mg/gram) 1 appful vaginal 08/04/23 History vaginal cream Patient History Medical History Sensorineural hearing loss of both ears Venous stasis ulcer of right ankle limited to breakdown of skin with varicose veins Allergic rhinitis due to dust Amiodarone pulmonary toxicity Coronary atherosclerosis of [place] coronary vessel (08/07/12) followed by [facility] cardiology Chronic obstructive lung disease (08/07/12) followed by Pulmonary Chronic osteoarthritis Dyslipidemia Irritable bowel syndrome (08/07/12) Lumbar radiculopathy Peripheral neuropathy Secondary hyperparathyroidism Sleep apnea Vitamin D insufficiency Paroxysmal atrial fibrillation Peripheral vascular disease, unspecified followed by [facility] vascular Chronic kidney disease, stage 3 (moderate) followed by Nephrology Hypoxia (08/07/12) Hypertension Congestive heart failure Atrial fibrillation with RVR Surgical History History of local excision of skin lesion in-office excision of right thigh skin lesion Status post percutaneous transluminal angioplasty (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) with stent placement right 2004 History of colonoscopy Status post catheter ablation of atrial fibrillation 04/2012 History of cardioversion 06/2012 History of ankle surgery fracture, 1950 H/O: hysterectomy Pacemaker Total abdominal hysterectomy with bilateral salpingo-oophorectomy (08/07/12) Family History Father Myocardial infarction Mother Liver cancer Sister Uterine cancer Other Coronary heart disease Hypertension Denies family history of Ovarian cancer Prostate cancer Breast cancer Colorectal cancer Social History Smoking Status: Former smoker Age Started Using Tobacco: 17; Age Quit Using Tobacco: 57; packs per day: 1; Cigarettes Per Day: 20; Second Hand Exposure: No; Do You Dip or Chew Tobacco: No; Hx Alcohol Use: Yes Alcohol type: beer and wine Alcohol Intake Frequency: Monthly or Less Alcohol Intake Frequency Comment: social Hx Substance Use: No Preferred Language: Ug[place]an Communication Ability: Effective Visual Impairment: Limited Hearing Ability: Normal Hypnotherapist Required: No Beliefs That Will Affect Care: None marital status: Current Living Situation: Alone current occupational status: retired How many Children do You have: 3 Other Information That Helps Us Care for You: No other: 3 stepchildren Feels Safe at Home: Yes Safety Concerns: Feels Safe At This Time Childhood Exposure to Second-Hand Smoke: No caffeine: Yes (coffee and tea occassionally ) Dental Care, Regularly: Yes Physical Activity Frequency: Does not Exercise Physical Activity Frequency Comment: not right now due to covid Seatbelt Use: always Sunscreen Use: Yes Assistive Devices: Glasses Review of Systems Review of Systems: All systems reviewed & are unremarkable except as noted in HPI & below Physical Exam Physical Exam: aaox3, NAD NC/AT, EOMI Supple No JVD Nrl tachycardia S1/S2, No murmur CTA b/l no w/r/r soft nt/nd no LE edema b/l skin intact no focal deficits left pectoral incision intact no threatened resosion Results & Data Vital Signs (Past 12 Hours) Vital Signs Temp Pulse Resp BP Pulse Ox O2 Del Method 08/05/23 16:05 36.5 C 115 H 19 112/82 95 Room Air 08/05/23 11:10 36.6 C 118 H 19 124/84 96 Room Air 08/05/23 07:04 36.4 C L 115 H 19 111/77 92 Room Air Laboratory Results CBC 08/05/23 Range/Units 07:04 WBC 6.27 (4.8-10.8) K/ul RBC 4.25 (4.20-5.40) M/uL Hgb 13.1 (12.0-16.0) g/dl Hct 39.1 (37.0-47.0) % Plt Count 198 (130-400) K/uL Comprehensive Metabolic Panel 08/05/23 Range/Units 07:04 Sodium 135 L (136-145) mmol/L Potassium 4.0 D (3.5-5.1) mmol/L Chloride 102 (98-107) mmol/L Carbon Dioxide 29 (21-32) mmol/L BUN 30 H (6-23) mg/dl Creatinine 1.38 H (0.6-1.2) mg/dl Glucose 120 H (70-99(Fasting)) mg/dl Calcium 9.3 (8.6-10.3) mg/dl Intake and Output 08/05/23 08/05/23 08/05/23 06:59 14:59 22:59 Intake Total 120 / 370 840 / 840 Balance 120 / -1130 840 / 840 Intake: Oral 120 / 370 840 / 840 Other: Weight 53 kg Diagnostic Findings dual chamber pacemaker interrogation today personally performed and interpreted by myself presenting rhythm -VS consistent with an atrial tachycardia battery and least testing good i tried to atrial burst over drive pace her out of the telemetry and was only successful for a few beats i reprogrammed the device today turning atrial therapies on and lowered the VT monitor zone to 133bpm Echocardiogram 08/05/23 EF 45-50% mildly hypokinetic MAC with mild MR noted CXR 08/04/2023: based on my independent interpretation +pulmonary congestion and left pleural effusion EC08/04/23 SVT 131bpm Medications Administered Current Inpatient Medications Allopurinol (Allopurinol 300 Mg Tab) 300 mg PO DAILY [facility] Stop: 09/04/23 08:59 Last Admin: 08/05/23 09:22 Dose: Not Given Apixaban (Apixaban 5 Mg Tablet) 5 mg PO BID [facility] Stop: 09/03/23 20:59 Last Admin: 08/05/23 09:20 Dose: 5 mg Aspirin (Aspirin 81 Mg Ectab) 81 mg PO MoWeFr@0900 ZAIRE Stop: 09/05/23 08:59 Calcium Carbonate (Calcium Carbonate 500 Mg Chewable Tab) 500 mg PO BID PRN PRN Reason: Heartburn Stop: 09/03/23 20:23 Dofetilide (Dofetilide 125 Mcg Capsule) 250 mcg PO BID ZAIRE Stop: 09/03/23 20:59 Last Admin: 08/05/23 09:21 Dose: 250 mcg Ezetimibe (Ezetimibe 10 Mg Tab) 10 mg PO QPM ZAIRE Stop: 09/04/23 20:59 Furosemide (Furosemide 40 Mg/4 Ml Vial) 40 mg IV DAILY [facility]AIRE Stop: 09/04/23 08:59 Last Admin: 08/05/23 09:27 Dose: 40 mg Guaifenesin (Guaifenesin 600 Mg Tabcr) 600 mg PO Q12 [facility] Stop: 09/03/23 12:59 Last Admin: 08/05/23 09:20 Dose: Not Given Ipratropium [place] (Ipratropium [place] Nasal [place] 0.06% 15ml) 2 sprays NA TID PRN PRN Reason: allergy symptoms Stop: 09/03/23 12:37 Loratadine (Loratadine 10 Mg Tab) 10 mg PO Q2D@0900 [facility] Stop: 09/03/23 12:59 Last Admin: 08/04/23 14:43 Dose: 10 mg Metoprolol Succinate (Metoprolol Succ 25mg Ext Rel Tab) 25 mg PO BID [facility] Stop: 09/03/23 20:59 Last Admin: 08/05/23 09:19 Dose: 25 mg Vitamin D (Cholecalciferol 1,000 Units 25 Mcg Tab) 1,000 units PO DAILY [facility] Stop: 09/03/23 12:59 Last Admin: 08/05/23 13:37 Dose: 1,000 units
[2023-08-05] MEDS ORDERED: EZETIMIBE 10 MG TAB PO SCH (21:00)
--- NOTE | 2023-08-06 07:26 | Anesthesiology Consultation ---
Date of Service August 06, 2023 History Surgery Operation Date: 08/06/23 07:15 Proposed Procedures p Cardioversion - Mihir Farris, Height/Weight Height: 5 ft 2 in Weight: 51.88 kg Allergies Allergy/AdvReac Type Severity Reaction Status Date / Time Cipro Allergy Severe ANAPHYLAXIS Verified 02/26/18 10:43 ciprofloxacin Allergy Severe ANAPHYLAXIS Verified 02/01/23 09:31 amiodarone Allergy Mild Wheezing Verified 02/01/23 09:31 nitrofurantoin Allergy Mild N/V, pt Verified 02/01/23 09:31 also noted irregular HR bacitracin Allergy Unknown SWELLING Verified 02/01/23 09:31 AND ITCHING dabigatran etexilate Allergy Unknown DIFFICULTY Verified 02/01/23 09:31 BREATHING, DIZZINESS hydralazine Allergy Unknown DIARRHEA, Verified 02/01/23 09:31 BLE SWELLING, FLUSHING milk Allergy Unknown Milk Verified 02/01/23 09:31 products terazosin Allergy Unknown DIZZY AND Verified 02/01/23 09:31 LIGHTHEADED atorvastatin AdvReac Intermediate MUSCLE PAIN Verified 02/01/23 09:31 rosuvastatin AdvReac Intermediate MUSCLE PAIN Verified 02/01/23 09:31 Sulfa (Sulfonamide AdvReac Intermediate SWELLING Verified 02/01/23 09:31 Antibiotics) OF THE ANKLES Medications Home Medications Medication Instructions Recorded Confirmed Last Taken cholecalciferol (vitamin D3) 25 1,000 units PO DAILY 04/28/19 08/04/23 Unknown mcg (1,000 unit) capsule dofetilide 250 mcg capsule 250 mcg PO BID 04/28/19 08/04/23 Unknown metoprolol succinate 25 mg 12.5 mg PO BID #60 tabs 04/28/19 08/04/23 Unknown tablet,extended release 24 hr furosemide 20 mg tablet 20 - 40 mg PO DAILY 07/11/19 08/04/23 Unknown aspirin 81 mg tablet,delayed 81 mg PO .COMPLEX #30 tabs 01/12/20 08/04/23 Unknown release (Adult Aspirin Regimen) ipratropium bromide 42 mcg (0.06 2 spray intranasal TID PRN allergy 08/11/20 08/04/23 Unknown %) nasal spray symptoms #90 mL CPAP Supplies #1 ea 12/29/20 08/04/23 Unknown apixaban 5 mg tablet (Eliquis) 5 mg PO BID 01/20/21 08/04/23 Unknown sorbitol 70 % solution 15 ml PO DAILY PRN constipation 03/16/21 08/04/23 Unknown #500 mL ezetimibe 10 mg tablet (Zetia) 10 mg PO DAILY 02/01/23 08/04/23 Unknown allopurinol 300 mg tablet 300 mg PO DAILY 08/04/23 08/04/23 Unknown estradiol 0.01% (0.1 mg/gram) 1 appful vaginal 08/04/23 Unknown vaginal cream Active Medications Generic Name Dose Route Start Last Admin Trade Name Masoodq PRN Reason Stop Dose Admin Allopurinol 300 mg 08/05/23 09:00 08/05/23 09:22 Allopurinol 300 Mg Tab PO 09/04/23 08:59 Not Given DAILY ZAIRE Apixaban 5 mg 08/04/23 21:00 08/05/23 20:12 Apixaban 5 Mg Tablet PO 09/03/23 20:59 5 mg BID ZAIRE Administration Dofetilide 250 mcg 08/04/23 21:00 08/05/23 20:12 Dofetilide 125 Mcg Capsule PO 09/03/23 20:59 250 mcg BID ZAIRE Administration Ezetimibe 10 mg 08/05/23 21:00 08/05/23 20:12 Ezetimibe 10 Mg Tab PO 09/04/23 20:59 10 mg QPM ZAIRE Administration Furosemide 40 mg 08/05/23 09:00 08/05/23 09:27 Furosemide 40 Mg/4 Ml Vial IV 09/04/23 08:59 40 mg DAILY ZAIRE Administration Guaifenesin 600 mg 08/04/23 13:00 08/05/23 20:13 Guaifenesin 600 Mg Tabcr PO 09/03/23 12:59 Not Given Q12 ZAIRE Loratadine 10 mg 08/04/23 13:00 08/04/23 14:43 Loratadine 10 Mg Tab PO 09/03/23 12:59 10 mg Q2D@0900 ZAIRE Administration Metoprolol Succinate 25 mg 08/04/23 21:00 08/05/23 20:12 Metoprolol Succ 25mg Ext Rel Tab PO 09/03/23 20:59 25 mg BID ZAIRE Administration Vitamin D 1,000 units 08/04/23 13:00 08/05/23 13:37 Cholecalciferol 1,000 Units 25 Mcg Tab PO 09/03/23 12:59 1,000 units DAILY ZAIRE Administration Past Medical History Medical History Sensorineural hearing loss of both ears Venous stasis ulcer of right ankle limited to breakdown of skin with varicose veins Allergic rhinitis due to dust Amiodarone pulmonary toxicity Coronary atherosclerosis of [place] coronary vessel (08/07/12) followed by [facility] [address] cardiology Chronic obstructive lung disease (08/07/12) followed by Pulmonary Chronic osteoarthritis Dyslipidemia Irritable bowel syndrome (08/07/12) Lumbar radiculopathy Peripheral neuropathy Secondary hyperparathyroidism Sleep apnea Vitamin D insufficiency Paroxysmal atrial fibrillation Peripheral vascular disease, unspecified followed by [facility] [address] vascular Chronic kidney disease, stage 3 (moderate) followed by Nephrology Hypoxia (08/07/12) Hypertension Congestive heart failure Atrial fibrillation with RVR Past Family History Family History Father Myocardial infarction Mother Liver cancer Sister Uterine cancer Other Coronary heart disease Hypertension Denies family history of Ovarian cancer Prostate cancer Breast cancer Colorectal cancer Past Surgical History Surgical History History of local excision of skin lesion in-office excision of right thigh skin lesion Status 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 right 2004 History of colonoscopy Status post catheter ablation of atrial fibrillation 04/2012 History of cardioversion 06/2012 History of ankle surgery fracture, 195 H/O: hysterectomy Pacemaker Total abdominal hysterectomy with bilateral salpingo-oophorectomy (08/07/12) Past Anesthesia History No Hx of Anesthesia Complications and No Family Hx of Anesthesia Complications History of PONV No Hx of PONV and No Hx of Motion Sickness Social History Smoking Status: Former smoker tobacco type: cigarettes Smoking cigarettes per day: 20 Do You Dip or Chew Tobacco: No Hx Alcohol Use: Yes Alcohol type: beer and wine alcohol intake frequency: holidays/special occasions only Hx Substance Use: No Physical Exam Vital Signs Last Vital Signs Temp 36.4 C L 08/06/23 03:49 Pulse 70 08/06/23 07:14 Resp 18 08/06/23 07:14 BP 132/87 08/06/23 07:14 Pulse Ox 97 08/06/23 07:14 O2 Del Method Room Air 08/06/23 07:14 O2 Flow Rate 2 08/04/23 14:38 FiO2 21 08/06/23 03:40 Testing Laboratory Results 08/05/23 07:04 08/05/23 07:04 PT 12.5 Seconds (9.0-12.0) H 08/04/23 07:30 INR 1.2 (0.9-1.1) H 08/04/23 07:30
--- NOTE | 2023-08-06 07:35 | Cardiology Progress Note ---
Date of Service August 06, 2023 Assessment & Plan (1) SVT (supraventricular tachycardia): Plan: Patient presents for cardioversion in sinus rhythm. Procedure cancelled. Continue dofetilide, metoprolol, eliquis. Review of telemetry reveals that the patient converted from an atrial tachycardia (supraventricular tachycardia) to sinus rhythm on 08/06/2023 at 12:54 AM with noted sinus rhythm and atrial pacing occurring post conversion. (2) Tachy-jaqui syndrome: Plan: I interrogated and reprogrammed her pacemaker today as outlined above (3) Atrial fibrillation with rapid ventricular response: Plan: continue tikosyn and metoprolol higher dose (4) Diastolic heart failure: Plan: Acute on chronic diastolic heart failure . Mild LV systolic dysfunction on echo this admission , 45-50% in setting of tachycardia. Continue IV lasix with monitoring daily weights, daily kidney function and electrolytes I/Os (5) Cardiomyopathy: Plan: most likely this is tachycardia related (6) Acute dyspnea: (7) Pulmonary edema: (8) Obstructive sleep apnea: Plan: Continue CPAP HS (9) Chronic kidney disease, stage 3 (moderate): Admission and Anticipated Discharge Date Admission Date: August 04, 2023 Subjective Patient seen in the cardiac catheterization lab holding area. Overnight she had converted from atrial tachycardia back to SR with occasional atrial pacing. Denies complaints at present. Physical Exam Constitutional: well developed Eyes: PERRL, conjunctivae normal, anicteric sclerae Respiratory: normal respiratory effort, lungs clear to auscultation Cardiovascular: RRR, no murmur, no edema Chest (Breasts): Chest: + pacemaker (left sided pacemaker pocket , clean dry and intact ) Gastrointestinal (Abdomen): normal bowel sounds, soft, nontender, no hepatosplenomegaly Neurologic: PERRL, EOMI, accommodation nl, no face palsy, no dysarthria Results & Data Vital Signs (Past 12 Hours) Vital Signs Temp Pulse Pulse Resp BP Pulse Ox O2 Del Method 08/06/23 07:14 70 18 132/87 97 Room Air 08/06/23 03:49 36.4 C L 64 16 126/73 99 Room Air 08/06/23 03:40 78 17 97 08/05/23 23:34 36.6 C 118 H 16 111/76 97 Room Air 08/05/23 22:55 96 H 20 94 FiO2 08/06/23 07:14 08/06/23 03:49 08/06/23 03:40 21 08/05/23 23:34 08/05/23 22:55 21 Laboratory Results CBC 08/05/23 Range/Units 07:04 WBC 6.27 (4.8-10.8) K/ul RBC 4.25 (4.20-5.40) M/uL Hgb 13.1 (12.0-16.0) g/dl Hct 39.1 (37.0-47.0) % Plt Count 198 (130-400) K/uL Comprehensive Metabolic Panel 08/05/23 Range/Units 07:04 Sodium 135 L (136-145) mmol/L Potassium 4.0 D (3.5-5.1) mmol/L Chloride 102 (98-107) mmol/L Carbon Dioxide 29 (21-32) mmol/L BUN 30 H (6-23) mg/dl Creatinine 1.38 H (0.6-1.2) mg/dl Glucose 120 H (70-99(Fasting)) mg/dl Calcium 9.3 (8.6-10.3) mg/dl
--- NOTE | 2023-08-06 07:41 | Communication Note ---
Date of Service: August 06, 2023 Planned cardioversion was cancelled as pt had converted to sinus rhythm spontaneously. No meds were given.
[2023-08-06 08:13] LABS: Basophils # (auto) 0.09 K/uL (0.00-0.20); Basophils % (auto) 1.8 %; Eosinophils # (auto) 0.33 K/uL (0.00-0.50); Eosinophils % (auto) 6.5 %; Hematocrit (blood only) 40.8 % (37.0-47.0); Hemoglobin 13.6 g/dl (12.0-16.0); Immature Granulocytes # (auto) 0.03 K/uL (0.01-0.20); Immature Granulocytes % (auto) 0.6 %; Lymphocytes # (auto) 0.92 K/uL (1.20-3.40); Mean Corpuscular Hemoglobin 31.1 pg (25.0-34.0); Mean Corpuscular Hgb Conc 33.3 g/dL (32.0-36.0); Mean Corpuscular Volume 93.2 fL (80.0-100.0); Monocytes # (auto) 0.83 K/uL (0.11-0.59); Monocytes % (auto) 16.2 %; Neutrophils # (auto) 2.91 K/uL (1.40-6.50); Neutrophils % (auto) 56.9 %; Platelet Count 188 K/uL (130-400); RDW Coefficient of Variation 15.7 % (11.5-14.5); RDW Standard Deviation 53.7 fL (36.4-46.3); Red Blood Count 4.38 M/uL (4.20-5.40); White Blood Count 5.11 K/ul (4.8-10.8)
[2023-08-06 08:31] LABS: BUN Creatinine Ratio 21.7 (10-20); Calcium 9.7 mg/dl (8.6-10.3); Creatinine Clr Calc Pharmacy 24.9 ml/min; Est GFR (African American) 38.2 ml/min; Potassium 4.2 mmol/L (3.5-5.1)
[2023-08-06] MEDS: LORATADINE 10 MG TAB PO SCH (08:59)
[2023-08-06] MEDS: allopurinoL 300 MG TAB PO SCH (08:59)
[2023-08-06] MEDS ORDERED: ASPIRIN 81 MG ECTAB PO SCH (09:00)
[2023-08-06] MEDS: CHOLECALCIFEROL 1,000 UNITS 25 MCG TAB PO SCH (09:00)
[2023-08-06] MEDS: DOFETILIDE 125 MCG CAPSULE PO SCH (09:00)
[2023-08-06] MEDS: METOPROLOL SUCC 25MG EXT REL TAB PO SCH (09:00)
[2023-08-06] MEDS: APIXABAN 5 MG TABLET PO SCH (09:01)
[2023-08-06] MEDS: guaiFENesin 600 MG TABCR PO SCH (09:03)
[2023-08-06] MEDS: FUROSEMIDE 40 MG/4 ML VIAL IV SCH (09:06)
--- NOTE | 2023-08-06 12:44 | Communication Note ---
Date of Service: August 06, 2023 Patient reassessed. EKG performed this morning at 8:29 AM revealed underlying sinus rhythm with atrial pacing and [place] QRS complexes. Corrected QT interval was 493 ms. On telemetry she had reverted back to a narrow complex tachycardia and a repeat EKG performed at 10:14 AM revealed recurrence of atrial tachycardia with occasional ventricular paced QRS complexes rate in the 120s. Corrected QT interval stable for 191 ms. Telemetry reassessed, she was back in an atrial tachycardia from 9:51 AM until 12:01 PM and has since converted back to sinus rhythm. --Her corrected QT interval and renal function did not allow further increase in her dofetilide dose and therefore we will continue dofetilide 250 mcg twice daily. -- Her prior to hospital treatment metoprolol succinate 12.5 mg twice daily has already been increased to 25 mg twice daily. She has had history of multiple medication intolerances over the years. Present, patient felt to be stable for discharge with dose of metoprolol succinate 25 mg twice daily. 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 Patient agreeable to this plan. Questions answered to her satisfaction. Case reviewed with Dr. Sunshine for the purpose of coordination of care.
--- NOTE | 2023-08-06 14:00 | Discharge Summary ---
Date of Service August 06, 2023 Admission HPI Per Admitting Provider 78-year-old woman with history of paroxysmal A-fib, tachybradycardia syndrome status post pacemaker, heart failure with preserved ejection fraction, CKD 3, allergic rhinitis/sinusitis, ELMO, gout who presents with shortness of breath that started overnight Patient reported that 6 days ago she had woken up with some shortness of breath/difficulty breathing quickly resolved. Reported that she has been having postnasal drip but denies any cough until today. Denies any fevers, chills, nausea, vomiting, abdominal pain, chest pain, palpitations. Reported that she has been weak yesterday and woke up at night with shortness of breath necessitating presentation to the ER. Was noted to tachycardic and tachypneic, in respiratory distress with increased work of breathing requiring BiPAP in the ER. At the time of my evaluation, patient reports feeling better. No shortness of breath at this time. Was taken off BIPAP. Currently reports sinus congestion. Denies palpitation, dizziness, fevers or chills Reported some cough only on presentation to the hospital. Reported some loose stool but not diarrhea. Stated this is not new for her Denied abd pain, dysuria, freq, urgency Reports adherence to her medications. Had not taken her medication this morning prior to presentation Patient lives alone at home. Remote history of smoking, quit about 20 years ago. Only drinks alcohol on occasion. Denies illicit drug use. Admission Exam Per Admitting Provider Constitutional: + well hydrated; no acute distress Eyes: PERRL, conjunctivae normal, anicteric sclerae ENMT: external ear and nose normal, oropharynx normal Respiratory: normal respiratory effort, lungs clear to auscultation Cardiovascular: Rate/Rhythm: + tachycardic S1 S2 Gastrointestinal (Abdomen): normal bowel sounds, soft, nontender, no hepatosplenomegaly Musculoskeletal: Trace pretibial edema Neurologic: PERRL, EOMI, accommodation nl, no face palsy, no dysarthria Psychiatric: A+Ox3, euthymic affect Principal Diagnosis Atrial fibrillation with RVR Acute on chronic heart failure Discharge Exam Constitutional: Alert oriented x 3; not in distress. Respiratory: Bilateral equal breath entry. Cardiovascular: RRR, no murmur, no edema Vessels: no JVD or carotid bruit Chest: normal inspection of chest Abdomen: normal bowel sounds, soft, nontender, no hepatosplenomegaly Musculoskeletal: no cyanosis or clubbing, extremities motor strength 5/5. Minimal edema Skin: no rashes, warm and dry normal turgor Neurologic: PERRL, EOMI, accommodation nl, no face palsy, no dysarthria CN's II- XI intact bilaterally and moves all extremities Psychiatric: A+Ox3, euthymic affect Discharge Data Allergies Allergy/AdvReac Type Severity Reaction Status Date / Time Cipro Allergy Severe ANAPHYLAXIS Verified 02/26/18 10:43 ciprofloxacin Allergy Severe ANAPHYLAXIS Verified 02/01/23 09:31 amiodarone Allergy Mild Wheezing Verified 02/01/23 09:31 nitrofurantoin Allergy Mild N/V, pt Verified 02/01/23 09:31 also noted irregular HR bacitracin Allergy Unknown SWELLING Verified 02/01/23 09:31 AND ITCHING dabigatran etexilate Allergy Unknown DIFFICULTY Verified 02/01/23 09:31 BREATHING, DIZZINESS hydralazine Allergy Unknown DIARRHEA, Verified 02/01/23 09:31 BLE SWELLING, FLUSHING milk Allergy Unknown Milk Verified 02/01/23 09:31 products terazosin Allergy Unknown DIZZY AND Verified 02/01/23 09:31 LIGHTHEADED atorvastatin AdvReac Intermediate MUSCLE PAIN Verified 02/01/23 09:31 rosuvastatin AdvReac Intermediate MUSCLE PAIN Verified 02/01/23 09:31 Sulfa (Sulfonamide AdvReac Intermediate SWELLING Verified 02/01/23 09:31 Antibiotics) OF THE ANKLES Consultations 08/04/23 09:31 ED Decision to Admit Stat 08/04/23 12:38 Consult Cardiology Routine Procedures Performed Operation Date: 08/06/23 07:15 Actual Procedures p Cardioversion - Mihir Farris DO Hospital Course (1) Atrial fibrillation with rapid ventricular response: (2) Acute dyspnea: (3) Diastolic heart failure: (4) Pulmonary edema: 78-year-old woman with history of paroxysmal A-fib, tachybradycardia syndrome status post pacemaker, heart failure with preserved ejection fraction, CKD 3, allergic rhinitis/sinusitis, ELMO, gout who presents with shortness of breath that started overnight. 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 Respiratory PCR is negative Chest x-ray personally reviewed; cardiomegaly with mild interstitial pulmonary edema and trace bilateral pleural effusion. EKG reviewed showed supraventricular tachycardia, no P wave seen Last echocardiogram from 07/04/2022 on [facility]. EF was 55 to 59%, mildly increased left ventricular wall thickness, severely enlarged left atrium, mild mitral regurgitation, mild tricuspid regurgitation, no evidence of pulmonary hypertension, right atrium severely enlarged. Echocardiogram during the hospitalization shows EF of 45 to 50% with global mild hypokinesis of LV. During the hospitalization, patient was diuresed with Lasix 40 mg once a day. Dose of metoprolol was increased from 12.5 mg to 25 mg twice a day. Initially, plan was for electrocardioversion on August 06, 2023. However, patient converted to sinus rhythm spontaneously. Patient was discharged home on higher dose of metoprolol. Patient to follow-up with PCP and cardiology on follow-up Please note the above document was generated using voice recognition software. It may contain grammatical, syntax or spelling errors. Any formal questions or concerns about the content, text or information contained within the body of this dictation should be directly addressed to the provider for clarification Total Time Total Time Spent Total Time Spent (In Minutes): 35 Total Time Includes: Examination of the Patient, Discharge Planning, Medication Reconciliation, Communication With Other Providers and Other Discharge Plan Discharge Items Patient Disposition: Home - Self-Care Reason For Visit: SHORTNESS OF BREATH Discharge Diagnosis: Atrial fibrillation with RVR Acute on chronic CHF with borderline EF Activity: Resume your previous activity Non-emergency contact: Primary Care Provider Call non-emergency contact if: you have any medication questions and your symptoms worsen Follow-up/Referrals: Steffen Gonzales DO [Primary Care Provider] - Diet: Regular Addtl Attending Provider Instructions: You were admitted to the hospital due to acute on chronic CHF as well as atrial fibrillation with RVR. You were evaluated by cardiology during the hospitalization. You underwent echocardiogram. Your EF was found to be between 45 to 50% which is lower compared to your echocardiogram from June 2022. Cardiology recommended following medication changes: Increase the dose of metoprolol to 25 mg twice a day from 12.5 mg twice a day Please follow-up with your primary care doctor. An appointment will be set up for you. Pending Studies at Discharge: No Stand-Alone Forms: My [facility] [email or web address], Smoking Cessation Medications and DC Order Prescriptions: Continued sorbitol 70 % solution 15 ml PO DAILY PRN (Reason: constipation) Qty: 500 3RF aspirin [Adult Aspirin Regimen] 81 mg tablet,delayed release (DR/EC) 81 mg PO .COMPLEX Qty: 30 2RF Rx Instructions: MWF ipratropium bromide 42 mcg (0.06 %) spray,non-aerosol 2 spray INTNAS TID PRN (Reason: allergy symptoms) Qty: 90 3RF Rx Instructions: administer into each nostril (DME) CPAP Supplies Misc See Rx Instructions .MEDSUPPLY Qty: 1 0RF Rx Instructions: Please change her mask to an AirFit N30i with either a small or extra small nasal cushion. Lifetime need. Eliquis 5 mg tablet 5 mg PO BID ezetimibe [Zetia] 10 mg tablet 10 mg PO DAILY dofetilide 250 mcg capsule 250 mcg PO BID cholecalciferol (vitamin D3) 1,000 unit capsule 1,000 units PO DAILY furosemide 20 mg tablet 20 - 40 mg PO DAILY Rx Instructions: one tablet alternating with 2 tablets daily 2 tabs three times a week,(M,W,F) rest of days 1 tab allopurinol 300 mg tablet 300 mg PO DAILY estradiol 0.01 % (0.1 mg/gram) cream 1 appful VAGINAL Rx Instructions: Twice a week (Sun) Changed metoprolol succinate 25 mg tablet extended release 24 hr 25 mg PO BID Qty: 60 0RF Discharge Orders: Discharge Order (Routine); Ordered 08/06/23 Ordered By: Oscar Sunshine Admission Data Admit Date/Time: 08/04/23 10:21 Attending Provider: Oscar Sunshine Admit Provider: Karolyn Sadler I. Primary Care Provider: Steffen Gonzales Other Providers: Karolyn Sadler I.; Mae Crisostomo
--- NOTE | 2023-08-06 16:33 | Electrocardiogram Report ---
Test Reason : Blood Pressure : / mmHG Vent. Rate : 068 BPM Atrial Rate : 068 BPM P-R Int : 220 ms QRS Dur : 094 ms QT Int : 464 ms P-R-T Axes : 246 200 184 degrees QTc Int : 493 ms Atrial-paced rhythm with prolonged AV conduction with Premature atrial complexes Lateral infarct , age undetermined Inferior infarct , age undetermined Abnormal ECG When compared with ECG of 04-AUG-2023 06:47, Significant changes have occurred Confirmed by Chino Dubose ([id number]) on 08/06/2023 4:33:01 PM Referred By: REFERRED SELF Confirmed By:Jamaal Dubose
== END 2023-08-06 14:42 | disposition home or self-care (01) | DRG 291 ==
LOC: ED 06:41 → SUATTDRO 10:21 → EDINP 10:21 → 2N 12:38 → 2S 15:54

== ENCOUNTER 2023-08-31 08:51 | Inpatient (IN) ==
--- NOTE | 2023-08-31 09:53 | Emergency Department Note ---
Impression & Plan Congestive heart failure, Hypoxia ED Provider Note Diagnosis: CHF exacerbation, hypoxia Disposition: Admission CHIEF COMPLAINT: Short of breath HPI: Patient is a 78-year-old female presenting with complaint of feeling short of breath. Patient states she called her breast friend over the house who tested her pulse and found it to be irregular and a rate of 140s 160s. Patient does have history of A-fib. Patient has had pacemaker placed. Patient currently upon evaluation has paced rhythm with rate in the 60s. Patient states that she went to family doctor earlier in the week on Sunday was started on Ceftin and doxycycline for sinus and upper respiratory congestion. Patient denies any fevers. Patient states she just feels short of breath. Patient has a history of congestive heart failure and has not missed any doses of her Lasix. PAST MEDICAL HISTORY: See Below PAST SURGICAL HISTORY: See Below SOCIAL HISTORY: See Below HOME MEDICATIONS: See Below ALLERGIES: See Below VITALS: See Below PHYSICAL EXAMINATION: GENERAL: Well appearing, well nourished, NAD, non-toxic. EYE EXAM: Normal conjunctiva. OROPHARYNX: Moist mucus membranes. Grossly normal dentition. NECK: Supple, LUNGS: Clear to auscultation. Normal chest wall mechanics. HEART: NSR ABDOMEN: Abdomen soft, non-tender, normo-active bowel sounds, no masses, no rebound or guarding BACK: No CVA TTP. SKIN: No rashes and no bruising. UPPER EXTREMITIES: Upper extremities are grossly normal LOWER EXTREMITIES: Grossly normal, no edema. NEURO EXAM: A&O x3,, normal speech, moves all 4 extremities PSYCH: Cooperative MEDICAL DECISION MAKING: Reviewed external documents: History obtained from: Patient, friend ER Course: Patient is a 78-year-old female presenting with complaint of shortness of breath. Patient reportedly states that this is worsened this morning. Patient denies any active chest pain. Patient was seen by primary care physician on Sunday and started on Ceftin and doxycycline for respiratory and sinus infection. Patient does not have any leukocytosis. Patient's first troponin negative. Patient was ambulated in the hallways and after walking 10 steps became significantly short of breath and had a room air oxygen saturation of 87%. Patient was given IV Lasix and admitted to hospital service. Labs (independently interpreted) are significant for: Troponin negative, BNP elevated 800 Imaging results (independently interpreted): Chest x-ray with small pleural effusion EKG interpretation (independently interpreted): Paced rhythm Medications given: Lasix Consultants: Hospitalist service Triage Nursing notes reviewed and agree them. Vital Signs: reviewed and remarkable for: no significant abnormalities Past Med/Surg History Medical History Sensorineural hearing loss of both ears Venous stasis ulcer of right ankle limited to breakdown of skin with varicose veins Allergic rhinitis due to dust Amiodarone pulmonary toxicity Coronary atherosclerosis of viejas coronary vessel (08/07/12) Chronic obstructive lung disease (08/07/12) Chronic osteoarthritis Dyslipidemia Irritable bowel syndrome (08/07/12) Lumbar radiculopathy Peripheral neuropathy Secondary hyperparathyroidism Sleep apnea Vitamin D insufficiency Paroxysmal atrial fibrillation Peripheral vascular disease, unspecified Chronic kidney disease, stage 3 (moderate) Hypoxia (08/07/12) Hypertension Congestive heart failure Atrial fibrillation with RVR Surgical History History of local excision of skin lesion Status post percutaneous transluminal angioplasty (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) with stent placement History of colonoscopy Status post catheter ablation of atrial fibrillation History of cardioversion History of ankle surgery H/O: hysterectomy Pacemaker Total abdominal hysterectomy with bilateral salpingo-oophorectomy (08/07/12) Family History Father Myocardial infarction Mother Liver cancer Sister Uterine cancer Other Coronary heart disease Hypertension Denies family history of Ovarian cancer Prostate cancer Breast cancer Colorectal cancer Social History Smoking Status: Never smoker Age Started Using Tobacco: 17; Age Quit Using Tobacco: 57; packs per day: 1; Cigarettes Per Day: 20; Second Hand Exposure: No; Do You Dip or Chew Tobacco: No; Hx Alcohol Use: Yes (1-2) Alcohol type: beer and wine Alcohol Intake Frequency: Monthly or Less Alcohol Intake Frequency Comment: social Hx Substance Use: No Preferred Language: Danish Communication Ability: Effective Visual Impairment: Limited Hearing Ability: Normal Auto Cleaner Required: No Beliefs That Will Affect Care: None marital status: Current Living Situation: Alone current occupational status: retired How many Children do You have: 3 other: 3 stepchildren Feels Safe at Home: Yes Childhood Exposure to Second-Hand Smoke: No caffeine: Yes (coffee and tea occassionally ) Dental Care, Regularly: Yes Physical Activity Frequency: Does not Exercise Physical Activity Frequency Comment: not right now due to covid Seatbelt Use: always Sunscreen Use: Yes Assistive Devices: CPAP Allergies Allergies Allergy/AdvReac Type Severity Reaction Status Date / Time Cipro Allergy Severe ANAPHYLAXIS Verified 02/26/18 10:43 ciprofloxacin Allergy Severe ANAPHYLAXIS Verified 08/24/23 13:15 amiodarone Allergy Mild Wheezing Verified 08/24/23 13:15 nitrofurantoin Allergy Mild N/V, pt Verified 08/24/23 13:15 also noted irregular HR bacitracin Allergy Unknown SWELLING Verified 08/24/23 13:15 AND ITCHING dabigatran etexilate Allergy Unknown DIFFICULTY Verified 08/24/23 13:15 BREATHING, DIZZINESS hydralazine Allergy Unknown DIARRHEA, Verified 08/24/23 13:15 BLE SWELLING, FLUSHING milk Allergy Unknown Milk Verified 08/24/23 13:15 products terazosin Allergy Unknown DIZZY AND Verified 08/24/23 13:15 LIGHTHEADED atorvastatin AdvReac Intermediate MUSCLE PAIN Verified 08/24/23 13:15 rosuvastatin AdvReac Intermediate MUSCLE PAIN Verified 08/24/23 13:15 Sulfa (Sulfonamide AdvReac Intermediate SWELLING Verified 08/24/23 13:15 Antibiotics) OF THE ANKLES Home Meds Home Medications Medication Instructions Recorded Confirmed cholecalciferol (vitamin D3) 25 1,000 units PO DAILY 04/28/19 08/31/23 mcg (1,000 unit) capsule dofetilide 250 mcg capsule 250 mcg PO BID 04/28/19 08/31/23 furosemide 20 mg tablet 20 - 40 mg PO DAILY 07/11/19 08/31/23 apixaban 5 mg tablet (Eliquis) 5 mg PO BID 01/20/21 08/31/23 ezetimibe 10 mg tablet (Zetia) 10 mg PO DAILY 02/01/23 08/31/23 allopurinol 300 mg tablet 300 mg PO DAILY 08/04/23 08/31/23 estradiol 0.01% (0.1 mg/gram) 1 appful vaginal UD 08/04/23 08/31/23 vaginal cream cefdinir 300 mg capsule 300 mg PO BID 08/31/23 08/31/23 doxycycline hyclate 100 mg capsule 100 mg PO BID 08/31/23 08/31/23 Previous Rx's Medication Instructions Recorded aspirin 81 mg tablet,delayed 81 mg PO .COMPLEX #30 tabs 01/12/20 release (Adult Aspirin Regimen) ipratropium bromide 42 mcg (0.06 2 spray intranasal TID PRN allergy 08/11/20 %) nasal spray symptoms #90 mL CPAP Supplies #1 ea 12/29/20 sorbitol 70 % solution 15 ml PO DAILY PRN constipation 03/16/21 #500 mL metoprolol succinate 25 mg 25 mg PO BID #60 tabs 08/06/23 tablet,extended release 24 hr Results & Data (ED) Vital Signs Vital Signs - 24 hr 08/31/23 08:57 08/31/23 09:09 08/31/23 09:20 Temperature 36.4 C L Temperature Source Temporal Artery Scan Pulse Rate 79 80 Pulse Rate [Apical] Pulse Rhythm [Apical] Pulse Strength [Apical] Respiratory Rate 22 Respiratory Effort / Characteristics Respiratory Depth Normal Blood Pressure 143/80 H Blood Pressure [Right Arm] Blood Pressure Mean 101 Blood Pressure Mean [Right Arm] Blood Pressure Position [Right Arm] Pulse Oximetry 97 96 Oxygen Delivery Method Room Air Room Air Sepsis Recent Fever Within 48 Hours No Sepsis New/Unexplained Change in Mental Status No Sepsis Action Taken by Nursing No Action Required 08/31/23 09:38 08/31/23 09:42 08/31/23 10:00 Temperature Temperature Source Pulse Rate 60 Pulse Rate [Apical] 62 Pulse Rhythm [Apical] Regular Pulse Strength [Apical] Normal Respiratory Rate 20 18 Respiratory Effort / Characteristics Spontaneous Short of Breath Spontaneous Respiratory Depth Blood Pressure Blood Pressure [Right Arm] 132/65 Blood Pressure Mean Blood Pressure Mean [Right Arm] 87 Blood Pressure Position [Right Arm] Semi-fowlers Pulse Oximetry 94 95 Oxygen Delivery Method Room Air Room Air Sepsis Recent Fever Within 48 Hours Sepsis New/Unexplained Change in Mental Status Sepsis Action Taken by Nursing 08/31/23 12:00 08/31/23 13:24 08/31/23 13:30 Temperature Temperature Source Pulse Rate 67 Pulse Rate [Apical] 61 67 Pulse Rhythm [Apical] Pulse Strength [Apical] Respiratory Rate 16 22 Respiratory Effort / Characteristics Respiratory Depth Blood Pressure Blood Pressure [Right Arm] 132/81 142/75 H Blood Pressure Mean Blood Pressure Mean [Right Arm] 98 97 Blood Pressure Position [Right Arm] Pulse Oximetry 93 90 Oxygen Delivery Method Room Air Room Air Sepsis Recent Fever Within 48 Hours Sepsis New/Unexplained Change in Mental Status Sepsis Action Taken by Nursing Laboratory Data 08/31/23 09:18 08/31/23 09:18 Lab Results 08/31/23 08/31/23 08/31/23 Range/Units 09:18 09:58 12:28 WBC 8.29 (4.8-10.8) K/ul RBC 4.29 (4.20-5.40) M/uL Hgb 13.1 (12.0-16.0) g/dl Hct 40.8 (37.0-47.0) % MCV 95.1 (80.0-100.0) fL MCH 30.5 (25.0-34.0) pg MCHC 32.1 (32.0-36.0) g/dL RDW Std Deviation 51.7 H (36.4-46.3) fL RDW Coeff of Jatinder 14.9 H (11.5-14.5) % Plt Count 204 (130-400) K/uL MPV 11.9 (9.4-12.4) fL Immature Gran % (Auto) 0.5 % Neut % (Auto) 78.3 % Lymph % (Auto) 6.8 % [place] % (Auto) 12.1 % Eos % (Auto) 1.6 % Baso % (Auto) 0.7 % Neut # (Auto) 6.50 (1.40-6.50) K/uL Lymph # (Auto) 0.56 L (1.20-3.40) K/uL [place] # (Auto) 1.00 H (0.11-0.59) K/uL Eos # (Auto) 0.13 (0.00-0.50) K/uL Baso # (Auto) 0.06 (0.00-0.20) K/uL Immature Gran # (Auto) 0.04 (0.01-0.20) K/uL Sodium 129 L (136-145) mmol/L Potassium 4.5 (3.5-5.1) mmol/L Chloride 97 L (98-107) mmol/L Carbon Dioxide 26 (21-32) mmol/L Anion Gap 6 (3-11) BUN 28 H (6-23) mg/dl Creatinine 1.45 H (0.6-1.2) mg/dl Est Cr Clr Drug Dosing Not Reportable Est GFR ( Amer) 40.4 ml/min Est GFR (Non-Af Amer) 34.9 ml/min BUN/Creatinine Ratio 19.3 (10-20) Glucose 79 (70-99(Fasting)) mg/dl Calcium 9.7 (8.6-10.3) mg/dl Total Bilirubin 1.3 H (0.2-1.0) mg/dl AST 28 (13-39) U/L ALT 23 (7-52) U/L Alkaline Phosphatase 68 (34-104) U/L Troponin I High Sens 10.4 10.4 (0-14) pg/ml B-Natriuretic Peptide 860 H (0-100) pg/ml Total Protein 6.7 (6.0-8.3) gm/dl Albumin 3.9 (3.4-5.0) gm/dl Globulin 2.8 (2.5-4.0) gm/dl Albumin/Globulin Ratio 1.4 (0.9-2) Lipase 22 (11-82) U/L Adenovirus (PCR) Not Detected (NotDetected) B. pertussis DNA (PCR) Not Detected (NotDetected) B.parapertussis DNA PCR Not Detected (NotDetected) C. pneumoniae DNA (PCR) Not Detected (NotDetected) Coronavirus OC43 (PCR) Not Detected (NotDetected) Coronavirus HKU1 (PCR) Not Detected (NotDetected) Coronavirus 229E (PCR) Not Detected (NotDetected) SARS-CoV-2 (PCR) Not Detected (NotDetected) Coronavirus NL63 (PCR) Not Detected (NotDetected) Human Metapneumovir PCR Not Detected (NotDetected) Influenza Type A (PCR) Not Detected (NotDetected) Influenza Type B (PCR) Not Detected (NotDetected) M. pneumoniae (PCR) Not Detected (NotDetected) Parainfluenza 1 (PCR) Not Detected (NotDetected) Parainfluenza 2 (PCR) Not Detected (NotDetected) Parainfluenza 3 (PCR) Not Detected (NotDetected) Parainfluenza 4 (PCR) Not Detected (NotDetected) RSV (PCR) Not Detected (NotDetected) Entero/Rhino (PCR) Not Detected (NotDetected) Administered Medications Discontinued Medications Albuterol (Albut/Ipratrop 3mg/0.5mg Neb 3 Ml Vial) 3 ml NEB NOW STA; Protocol Stop: 08/31/23 12:40 Last Admin: 08/31/23 12:45 Dose: 3 ml Documented By: AMS Furosemide (Furosemide 40 Mg/4 Ml Vial) 40 mg IV ONE ONE Stop: 08/31/23 14:30 Last Admin: 08/31/23 14:45 Dose: 40 mg Documented By: AMS Imaging Data Radiologist's Impression: Chest X-Ray 08/31/23 09:32 SINGLE VIEW CHEST CLINICAL HISTORY: Atypical chest pain. FINDINGS: An AP, portable, upright chest radiograph is compared to study dated 08/04/2023 and correlated with chest CT dated 01/28/2018. The patient is status post midline sternotomy. A 2-lead cardiac pacemaker is unchanged in position and partially obscures the left upper chest. There is pulmonary vascular congestion. The heart is enlarged and noting atherosclerotic calcification of the thoracic aorta. Advanced emphysema and chronic interstitial thickening is similar to previous. Small pleural effusions are suspected. There are lower lobe airspace opacities. No pneumothorax is seen. The skeletal structures are osteopenic. The bony thorax is grossly intact. IMPRESSION: 1. Cardiomegaly and cardiac pacemaker with pulmonary vascular congestion. 2. Severe emphysema. 3. Small pleural effusions. 4. Lower lobe opacities could represent atelectasis, mild pulmonary edema, and/or a mild pneumonitis. Clinical correlation will be required and radiographic follow-up to resolution is recommended ACT 112: Negative or not required by law. Electronically signed by: Willam Carlson M.D. 08/31/2023 10:13 AM Discharge Plan Visit Data Chief Complaint: Shortness of Breath/Dyspnea Stated Complaint: SOB ED Provider: Dylon Lynn Discharge Problem: Congestive heart failure, Hypoxia Forms Stand Alone Forms: My [facility] Prescriptions Prescriptions: No Action sorbitol 70 % solution 15 ml PO DAILY PRN (Reason: constipation) Qty: 500 3RF aspirin [Adult Aspirin Regimen] 81 mg tablet,delayed release (DR/EC) 81 mg PO .COMPLEX Qty: 30 2RF Rx Instructions: MWF ipratropium bromide 42 mcg (0.06 %) spray,non-aerosol 2 spray INTNAS TID PRN (Reason: allergy symptoms) Qty: 90 3RF Rx Instructions: administer into each nostril (DME) CPAP Supplies Misc See Rx Instructions .MEDSUPPLY Qty: 1 0RF Rx Instructions: Please change her mask to an AirFit N30i with either a small or extra small nasal cushion. Lifetime need. Eliquis 5 mg tablet 5 mg PO BID ezetimibe [Zetia] 10 mg tablet 10 mg PO DAILY dofetilide 250 mcg capsule 250 mcg PO BID cholecalciferol (vitamin D3) 1,000 unit capsule 1,000 units PO DAILY furosemide 20 mg tablet 20 - 40 mg PO DAILY Rx Instructions: one tablet alternating with 2 tablets daily 2 tabs three times a week,(M,W,) rest of days 1 tab allopurinol 300 mg tablet 300 mg PO DAILY estradiol 0.01 % (0.1 mg/gram) cream 1 appful VAGINAL UD Rx Instructions: Twice a week (Sun) metoprolol succinate 25 mg tablet extended release 24 hr 25 mg PO BID Qty: 60 0RF doxycycline hyclate 100 mg capsule 100 mg PO BID cefdinir 300 mg capsule 300 mg PO BID Referrals Referrals: Steffen Gonzales DO [Primary Care Provider] -
[2023-08-31 09:59] LABS: Basophils # (auto) 0.06 K/uL (0.00-0.20); Basophils % (auto) 0.7 %; Eosinophils # (auto) 0.13 K/uL (0.00-0.50); Eosinophils % (auto) 1.6 %; Hematocrit (blood only) 40.8 % (37.0-47.0); Hemoglobin 13.1 g/dl (12.0-16.0); Immature Granulocytes # (auto) 0.04 K/uL (0.01-0.20); Immature Granulocytes % (auto) 0.5 %; Lymphocytes # (auto) 0.56 K/uL (1.20-3.40); Lymphocytes % (auto) 6.8 %; Mean Corpuscular Hemoglobin 30.5 pg (25.0-34.0); Mean Corpuscular Hgb Conc 32.1 g/dL (32.0-36.0); Mean Corpuscular Volume 95.1 fL (80.0-100.0); Mean Platelet Volume 11.9 fL (9.4-12.4); Monocytes % (auto) 12.1 %; Neutrophils % (auto) 78.3 %; Platelet Count 204 K/uL (130-400); RDW Coefficient of Variation 14.9 % (11.5-14.5); RDW Standard Deviation 51.7 fL (36.4-46.3); Red Blood Count 4.29 M/uL (4.20-5.40); White Blood Count 8.29 K/ul (4.8-10.8)
[2023-08-31 10:10] LABS: Alanine Aminotransferase 23 U/L (7-52); Albumin Globulin Ratio 1.4 (0.9-2); Albumin Level 3.9 gm/dl (3.4-5.0); Alkaline Phosphatase 68 U/L (34-104); Anion Gap 6 (3-11); Aspartate Aminotransferase 28 U/L (13-39); BUN Creatinine Ratio 19.3 (10-20); Bilirubin,Total 1.3 mg/dl (0.2-1.0); Blood Urea Nitrogen 28 mg/dl (6-23); Calcium 9.7 mg/dl (8.6-10.3); Carbon Dioxide 26 mmol/L (21-32); Chloride 97 mmol/L (98-107); Est GFR (African American) 40.4 ml/min; Est GFR (Non-African American) 34.9 ml/min; Globulin 2.8 gm/dl (2.5-4.0); Glucose 79 mg/dl (70-99(Fasting)); Lipase 22 U/L (11-82); Potassium 4.5 mmol/L (3.5-5.1); Sodium 129 mmol/L (136-145); Total Protein 6.7 gm/dl (6.0-8.3)
--- NOTE | 2023-08-31 10:14 | XRay Report ---
SINGLE VIEW CHEST CLINICAL HISTORY: Atypical chest pain. FINDINGS: An AP, portable, upright chest radiograph is compared to study dated 08/04/2023 and correlat ed with chest CT dated 01/28/2018. The patient is status post midline sternotomy. A 2-lead cardiac pac emaker is unchanged in position and partially obscures the left upper chest. There is pulmonary vascu lar congestion. The heart is enlarged and noting atherosclerotic calcification of the thoracic aorta. Advanced emphysema and chronic interstitial thickening is similar to previous. Small pleural effusio ns are suspected. There are lower lobe airspace opacities. No pneumothorax is seen. The skeletal stru ctures are osteopenic. The bony thorax is grossly intact. IMPRESSION: 1. Cardiomegaly and cardiac pacemaker with pulmonary vascular congestion. 2. Severe emphysema. 3. Small pleural effusions. 4. Lower lobe opacities could represent atelectasis, mild pulmonary edema, and/or a mild pneumonitis. Clinical correlation will be required and radiographic follow-up to resolution is recommended ACT 112: Negative or not required by law. Electronically signed by: Willam Carlson M.D. 08/31/2023 10:13 AM
[2023-08-31 10:16] LABS: Troponin I High Sensitivity 10.4 pg/ml (0-14)
[2023-08-31 11:10] LABS: Adenovirus PCR Not Detected (NotDetected); Bordetella parapertussis PCR Not Detected (NotDetected); Bordetella pertussis PCR Not Detected (NotDetected); Chlamydia pneumoniae PCR Not Detected (NotDetected); Coronavirus 229E PCR Not Detected (NotDetected); Coronavirus CoV-2 (COVID19)PCR Not Detected (NotDetected); Coronavirus HKU1 PCR Not Detected (NotDetected); Coronavirus NL63 PCR Not Detected (NotDetected); Coronavirus OC43PCR Not Detected (NotDetected); Human Metapneumovirus PCR Not Detected (NotDetected); Influenza A PCR Not Detected (NotDetected); Influenza B PCR Not Detected (NotDetected); Mycoplasma pneumoniae PCR Not Detected (NotDetected); Parainfluenza Virus 1 PCR Not Detected (NotDetected); Parainfluenza Virus 2 PCR Not Detected (NotDetected); Parainfluenza Virus 3 PCR Not Detected (NotDetected); Parainfluenza Virus 4 PCR Not Detected (NotDetected); Respiratory Syncytial VirusPCR Not Detected (NotDetected); Rhinovirus/Enterovirus PCR Not Detected (NotDetected)
--- NOTE | 2023-08-31 12:12 | Electrocardiogram Report ---
Test Reason : Blood Pressure : / mmHG Vent. Rate : 061 BPM Atrial Rate : 061 BPM P-R Int : 226 ms QRS Dur : 088 ms QT Int : 486 ms P-R-T Axes : 063 094 029 degrees QTc Int : 489 ms Atrial-paced rhythm with prolonged AV conduction Rightward axis Anterior infarct , age undetermined Abnormal ECG When compared with ECG of 06-AUG-2023 10:14, Previous ECG has undetermined rhythm, needs review Anterior infarct is now Present Non-specific change in ST segment in Inferior leads ST less depressed in Lateral leads T wave inversion now evident in Anterior leads Confirmed by Cy Segal ([id number]) on 08/31/2023 12:12:20 PM Referred By: REFERRED SELF Confirmed By:Cy Segal
[2023-08-31] MEDS: ALBUT/IPRATROP 3MG/0.5MG NEB 3 ML VIAL NEB STA (12:45)
[2023-08-31] MEDS: FUROSEMIDE 40 MG/4 ML VIAL IV ONE (14:45)
--- NOTE | 2023-08-31 14:58 | History & Physical Report ---
Date of Service August 31, 2023 Assessment & Plan (1) Hypoxia: Plan: This is a 78 y/o female with a history of paroxysmal A-fib, tachy-jaqui syndrome s/p PPM, chronic diastolic HF, CKD3, allergic rhinitis/sinusitis, ELMO on CPAP, gout, COPD, HTN, PVD s/p right iliac stent, and other history as outlined below who presents to the ED with acute onset of dyspnea this morning. In the ED, sats dropped to the 80s with minimal ambulation and pt became more short of breath so she's been referred for admission. Suspect respiratory symptoms are multi- factorial due to episodic PAF/flutter, acute on chronic HF, and possible complicated bronchitis, which has been partially treated. - Admit to PCU for management and close monitoring for recurrent arrhythmias - PRN O2 to maintain sats >90% - Received IV furosemide 40 mg x 1 in the ED. Will give second dose tomorrow AM and reassess - Monitor daily weights, Is and Os - Consult cardiology for additional recommendations - Continue antibiotics for complicated bronchitis as started by PCP - will use Rocephin IV (2) Acute on chronic diastolic (congestive) heart failure: Plan: See plan for #1 (3) Paroxysmal atrial fibrillation: Plan: Continue metoprolol succinate 100 mg BID - dose increase by PCP two days ago Monitor in PCU Cardio evaluation (4) Chronic kidney disease, stage 3 (moderate): Plan: Creatinine appears to be around baseline Monitor kidney function with diuresis - BMP in the AM (5) Obstructive sleep apnea: Plan: Continue CPAP at HS - sleep notes reviewed in [facility], home settings ordered (6) Anticoagulant long-term use: Plan: Pt is on chronic apixaban due to PAF - will continue (7) Hypertension: Plan: Chronic, stable Continuing home medications Plan Pt seen and reviewed with collaborating physician, Dr. Olvera. Plan of care discussed and as outlined above Code Status: Full code DVT Prophylaxis: on apixaban Luz Maria Gomez PA-C History of Present Illness Chief Complaint: Shortness of breath Primary Care Provider: Steffen Gonzales DO This is a 78 y/o female with a history of paroxysmal A-fib, tachy-jaqui syndrome s/p PPM, chronic diastolic HF, CKD3, allergic rhinitis/sinusitis, ELMO on CPAP, gout, COPD, HTN, PVD s/p right iliac stent, and other history as outlined below who presents to the ED with acute onset of dyspnea this morning. Pt was recently admitted to [facility] 08/04/23-08/06/23 with acute on chronic diastolic heart failure and atrial fibrillation with RVR. She was diuresed with Laxis 40 mg daily and metoprolol was increased from 12.5 mg to 25 mg BID. A cardioversion was initially planned for August 06 but she spontaneously converted back to NSR. Since being discharged, pt followed up with cardiology and PCP and metoprolol was increased to 50 mg BID then 75 mg BID, then to 100 mg two days ago due to ongoing issues with PAF/flutter episodes. On last ECHO in Jul 2023, LVEF was 45- 50% with concern for possible tachycardia induced cardiomyopathy. At last cardiology visit on 08/24/23, pt appeared clinically hypervolemic so her furosemide was increased from 20 mg ///Sun, 40 mg // to 40 mg daily. On 08/27/23, pt was seen by PCP for productive cough, diagnosed with complicated bronchitis, and started on doxycycline. Seen in f/u on 08/29 and cough was im proving but pt was having abdominal pain due to the doxycycline. Antibiotic was changed to cefdinir. Pt noted some improvement in her cough with the antibiotics. She has been sleeping propped up on an extra pillow but it is unclear if this is related to ongoing sinus congestion or to difficulty breathing. This morning, she woke up acute short of breath so she called her friend. Her friend checked her pulse and it was in the 160s and irregular, her friend noted some perioral cyanosis. By the time they arrived at the ED, this had started to improve. Pt has noted increased dyspnea on exertion - she can usually do light housework without significant dyspnea but over the last day, she notes become short of breath with even a few steps. Her friend notes that she was conversationally dyspneic this morning. Pt denies chest pain. She did not notice palpitations this morning but thinks she may have been a little lightheaded. No syncope. Allergies Allergy/AdvReac Type Severity Reaction Status Date / Time Cipro Allergy Severe ANAPHYLAXIS Verified 02/26/18 10:43 ciprofloxacin Allergy Severe ANAPHYLAXIS Verified 08/24/23 13:15 amiodarone Allergy Mild Wheezing Verified 08/24/23 13:15 nitrofurantoin Allergy Mild N/V, pt Verified 08/24/23 13:15 also noted irregular HR bacitracin Allergy Unknown SWELLING Verified 08/24/23 13:15 AND ITCHING dabigatran etexilate Allergy Unknown DIFFICULTY Verified 08/24/23 13:15 BREATHING, DIZZINESS hydralazine Allergy Unknown DIARRHEA, Verified 08/24/23 13:15 BLE SWELLING, FLUSHING milk Allergy Unknown Milk Verified 08/24/23 13:15 products terazosin Allergy Unknown DIZZY AND Verified 08/24/23 13:15 LIGHTHEADED atorvastatin AdvReac Intermediate MUSCLE PAIN Verified 08/24/23 13:15 rosuvastatin AdvReac Intermediate MUSCLE PAIN Verified 08/24/23 13:15 Sulfa (Sulfonamide AdvReac Intermediate SWELLING Verified 08/24/23 13:15 Antibiotics) OF THE ANKLES Home Medications Medication Instructions Recorded Confirmed Type cholecalciferol (vitamin D3) 25 1,000 units PO DAILY 04/28/19 08/31/23 History mcg (1,000 unit) capsule dofetilide 250 mcg capsule 250 mcg PO BID 04/28/19 08/31/23 History ipratropium bromide 42 mcg (0.06 2 spray intranasal TID PRN allergy 08/11/20 08/31/23 Rx %) nasal spray symptoms #90 mL CPAP Supplies #1 ea 12/29/20 08/31/23 Rx apixaban 5 mg tablet (Eliquis) 5 mg PO BID 01/20/21 08/31/23 History ezetimibe 10 mg tablet (Zetia) 10 mg PO DAILY 02/01/23 08/31/23 History allopurinol 300 mg tablet 300 mg PO DAILY 08/04/23 08/31/23 History estradiol 0.01% (0.1 mg/gram) 1 appful vaginal UD PRN Vaginal 08/04/23 08/31/23 History vaginal cream Dryness aspirin 81 mg tablet,delayed 81 mg PO 3XWK 08/31/23 08/31/23 History release (Adult Aspirin Regimen) cefdinir 300 mg capsule 300 mg PO BID 08/31/23 08/31/23 History famotidine 20 mg tablet 10 - 20 mg PO HS PRN Acid Reflux 08/31/23 08/31/23 History furosemide 20 mg tablet 40 mg PO DAILY 08/31/23 08/31/23 History metoprolol succinate 100 mg 100 mg PO BID 08/31/23 08/31/23 History tablet,extended release 24 hr Past Med/Surg History Medical History Sensorineural hearing loss of both ears Venous stasis ulcer of right ankle limited to breakdown of skin with varicose veins Allergic rhinitis due to dust Amiodarone pulmonary toxicity Coronary atherosclerosis of torres martinez coronary vessel (08/07/12) followed by [facility] cardiology Chronic obstructive lung disease (08/07/12) followed by Pulmonary Chronic osteoarthritis Dyslipidemia Irritable bowel syndrome (08/07/12) Lumbar radiculopathy Peripheral neuropathy Secondary hyperparathyroidism Sleep apnea Vitamin D insufficiency Paroxysmal atrial fibrillation Peripheral vascular disease, unspecified followed by [facility] vascular Chronic kidney disease, stage 3 (moderate) followed by Nephrology Hypoxia (08/07/12) Hypertension Congestive heart failure Atrial fibrillation with RVR Surgical History History of local excision of skin lesion in-office excision of right thigh skin lesion Status post percutaneous transluminal angioplasty ([employer]ICE [employer]IDENT) with stent placement right 2004 History of colonoscopy Status post catheter ablation of atrial fibrillation 04/2012 History of cardioversion 06/2012 History of ankle surgery fracture, 1950 H/O: hysterectomy Pacemaker Total abdominal hysterectomy with bilateral salpingo-oophorectomy (08/07/12) Family History Father Myocardial infarction Mother Liver cancer Sister Uterine cancer Other Coronary heart disease Hypertension Denies family history of Ovarian cancer Prostate cancer Breast cancer Colorectal cancer Social History (Updated 08/31/23 @ 18:09 by Eleonora Gomez PA-C) Smoking Status: Former smoker Age Started Using Tobacco: 17; Age Quit Using Tobacco: 57; packs per day: 1; Cigarettes Per Day: 20; Second Hand Exposure: No; Do You Dip or Chew Tobacco: No; Hx Alcohol Use: Yes (1-2) Alcohol type: beer and wine Alcohol Intake Frequency: Monthly or Less Alcohol Intake Frequency Comment: social Hx Substance Use: No Preferred Language: Armenian Communication Ability: Effective Visual Impairment: Limited Hearing Ability: Normal Payment Specialist Required: No Beliefs That Will Affect Care: None marital status: Current Living Situation: Alone current occupational status: retired How many Children do You have: 3 other: 3 stepchildren Feels Safe at Home: Yes Childhood Exposure to Second-Hand Smoke: No caffeine: Yes (coffee and tea occassionally ) Dental Care, Regularly: Yes Physical Activity Frequency: Does not Exercise Physical Activity Frequency Comment: not right now due to covid Seatbelt Use: always Sunscreen Use: Yes Assistive Devices: CPAP Review of Systems Review of Systems: All systems reviewed & are unremarkable except as noted in HPI & below Constitutional: + fatigue; no fever and no chills Eyes: no diplopia and no worsening vision Ear, Nose, Mouth, Throat: + nasal congestion, + post nasal drip an d + sinus pain/pressure Respiratory: + cough and + dyspnea on exertion Cardiovascular: + dyspnea on exertion and + lightheadedn ess; no chest pain and no syncope Gastrointestinal: no abdominal pain, no nausea, no vomiting and no change in bowel habits Genitourinary: no dysuria and no hematuria Integumentary: no yellowing of the skin Neurologic: no headache(s) and no confusion Physical Exam Physical Exam: General: awake, alert, NAD HEENT: no scleral icterus, moist mucus membranes Neck: trachea midline Heart: RRR at present Lungs: diminished breath sounds, faint basilar crackles but otherwise clear Abdomen: soft, NT, +BS Extremities: no pedal edema, distal pulses intact Skin: no jaundice Neurologic: Ox3, moving all extremities, no focal deficits, no dysarthria Results & Data Results & Data Vital Signs (Past 12 Hours) Vital Signs Temp Pulse Pulse Resp BP BP Pulse Ox 08/31/23 13:30 67 22 142/75 H 90 08/31/23 13:24 67 08/31/23 12:00 61 16 132/81 93 08/31/23 10:00 62 18 132/65 95 08/31/23 09:42 60 20 94 08/31/23 09:20 96 08/31/23 09:09 80 08/31/23 08:57 36.4 C L 79 22 143/80 H 97 O2 Del Method 08/31/23 13:30 Room Air 08/31/23 13:24 08/31/23 12:00 Room Air 08/31/23 10:00 Room Air 08/31/23 09:42 Room Air 08/31/23 09:20 Room Air 08/31/23 09:09 08/31/23 08:57 Room Air Laboratory Results Laboratory Results - last 24 hr 08/31/23 08/31/23 08/31/23 09:18 09:58 12:28 WBC 8.29 RBC 4.29 Hgb 13.1 Hct 40.8 MCV 95.1 MCH 30.5 MCHC 32.1 RDW Std Deviation 51.7 H RDW Coeff of Jatinder 14.9 H Plt Count 204 MPV 11.9 Immature Gran % (Auto) 0.5 Neut % (Auto) 78.3 Lymph % (Auto) 6.8 Bollinger % (Auto) 12.1 Eos % (Auto) 1.6 Baso % (Auto) 0.7 Neut # (Auto) 6.50 Lymph # (Auto) 0.56 L Bollinger # (Auto) 1.00 H Eos # (Auto) 0.13 Baso # (Auto) 0.06 Immature Gran # (Auto) 0.04 Sodium 129 L Potassium 4.5 Chloride 97 L Carbon Dioxide 26 Anion Gap 6 BUN 28 H Creatinine 1.45 H Est Cr Clr Drug Dosing Not Reportable Est GFR ( Amer) 40.4 Est GFR (Non-Af Amer) 34.9 BUN/Creatinine Ratio 19.3 Glucose 79 Calcium 9.7 Total Bilirubin 1.3 H AST 28 ALT 23 Alkaline Phosphatase 68 Troponin I High Sens 10.4 10.4 B-Natriuretic Peptide 860 H Total Protein 6.7 Albumin 3.9 Globulin 2.8 Albumin/Globulin Ratio 1.4 Lipase 22 Adenovirus (PCR) Not Detected B. pertussis DNA (PCR) Not Detected B.parapertussis DNA PCR Not Detected C. pneumoniae DNA (PCR) Not Detected Coronavirus OC43 (PCR) Not Detected Coronavirus HKU1 (PCR) Not Detected Coronavirus 229E (PCR) Not Detected SARS-CoV-2 (PCR) Not Detected Coronavirus NL63 (PCR) Not Detected Human Metapneumovir PCR Not Detected Influenza Type A (PCR) Not Detected Influenza Type B (PCR) Not Detected M. pneumoniae (PCR) Not Detected Parainfluenza 1 (PCR) Not Detected Parainfluenza 2 (PCR) Not Detected Parainfluenza 3 (PCR) Not Detected Parainfluenza 4 (PCR) Not Detected RSV (PCR) Not Detected Entero/Rhino (PCR) Not Detected Diagnostic Findings Chest X-Ray 08/31/23 09:32 SINGLE VIEW CHEST CLINICAL HISTORY: Atypical chest pain. FINDINGS: An AP, portable, upright chest radiograph is compared to study dated 08/04/2023 and correlated with chest CT dated 01/28/2018. The patient is status post midline sternotomy. A 2-lead cardiac pacemaker is unchanged in position and partially obscures the left upper chest. There is pulmonary vascular congestion. The heart is enlarged and noting atherosclerotic calcification of the thoracic aorta. Advanced emphysema and chronic interstitial thickening is similar to previous. Small pleural effusions are suspected. There are lower lobe airspace opacities. No pneumothorax is seen. The skeletal structures are osteopenic. The bony thorax is grossly intact. IMPRESSION: 1. Cardiomegaly and cardiac pacemaker with pulmonary vascular congestion. 2. Severe emphysema. 3. Small pleural effusions. 4. Lower lobe opacities could represent atelectasis, mild pulmonary edema, and/or a mild pneumonitis. Clinical correlation will be required and radiographic follow-up to resolution is recommended ACT 112: Negative or not required by law. Electronically signed by: Willam Cralson M.D. 08/31/2023 10:13 AM Medications Administered Discontinued Medications Albuterol (Albut/Ipratrop 3mg/0.5mg Neb 3 Ml Vial) 3 ml NEB NOW STA; Protocol Stop: 08/31/23 12:40 Last Admin: 08/31/23 12:45 Dose: 3 ml Documented By: ROHAN Furosemide (Furosemide 40 Mg/4 Ml Vial) 40 mg IV ONE ONE Stop: 08/31/23 14:30 Last Admin: 08/31/23 14:45 Dose: 40 mg Documented By: ROHAN Supervising Physician Co-Signing Physician Notes I have seen and examined the patient and have discussed the case with the provider above. I have reviewed the advanced practitioner's documentation, and I agree with, and take responsibility for that plan of care. 78-year-old female with a history of paroxysmal atrial fibrillation presents with acute shortness of breath. Patient reports ongoing postnasal drip and feels she has sinus congestion. She was recently admitted for acute heart failure and atrial fibrillation with rapid ventricular response. As an outpatient she has been receiving treatment for a complicated bronchitis and has had her metoprolol and Lasix adjusted per history above. She reports that her friend is a nurse and states that she had an irregular fast pulse rate in the 140s to 160s prior to arrival. Patient has a pacemaker in place for history of tachybradycardia syndrome. On my evaluation her heart rate is in the 60s and she has a paced rhythm. She reports having no symptoms when she goes into atrial fibrillation. She does not appear overtly volume overloaded but does report a 10 pound weight gain in the last 2 weeks. She does report the increased shortness of breath. She denies any dietary indiscretions with salt. She denies any chest pain. On exam she appears comfortable and is hemodynamically stable. She is not working to breathe. Physical exam as noted above. Workup today includes a CBC that is within normal limits, CHEM panel with a slightly low sodium of 129. Kidney function is around her baseline with a creatinine of 1.45. BNP slightly elevated at 860 which is higher than a BMP last admission when she was admitted for heart failure. [facility] respiratory panel was negative. Chest x-ray revealed some pulmonary vascular congestion with severe emphysema and small pleural effusions. No josh pneumonia is seen. She was administered 40 mg IV Lasix and reported feeling an improvement in her breathing afterwards. Agree that respiratory symptoms are multifactorial in part due to episodic paroxysmal A-fib, possible worsening acute on chronic heart failure and possible complicated bronchitis which has been partially treated. Continue plan for IV Lasix in the morning, antibiotics to treat complicated bronchitis and monitor on telemetry for a worsening of her heart rate/arrhythmia. DO Wade (4) Chronic kidney disease, stage 3 (moderate) Chronic kidney disease stage 3 subtype: unspecified whether 3a or 3b Qualified Code(s): N18.30 - Chronic kidney disease, stage 3 unspecified (7) Hypertension Hypertension type: primary hypertension Qualified Code(s): I10 - Essential (primary) hypertension
--- OUTSIDE RECORDS SUMMARY | 2023-08-31 19:29 | External Medical Summary | Summary of Care ---
Author Name Unknown Organization [facility] Address [address] [place] [address] Phone [phone] Care Team Providers Care Hook And Eye Attacher Name Role Phone Steffen Gonzales DO Primary Care Provider [phone] Reason for Visit * Reason Onset Date Comments Test Results 08/28/202308/28 Encounter Details Date Type Department Care Team (Late st Contact Info) Description 08/28/2023 Telephone Family Practice 65 [facility], [place] [address] [place] [address] Steffen Gonzales DO [address] [place] [address] Test Results (08/28) Allergies Active Allergy Reactions Criticality Noted Date [...] as of this encounter (statuses as of 08/28/2023) Medications Medication Sig Dispensed Refills Start Date End Date Status VITAMIN D 1000 UNIT PO CAPS Take 1 Capsule by mouth in the morning. 30 11 08/23/2009 Active BLOOD PRESSURE MONITOR KITIndications:Atrial fibrillation (HCC) Take daily as directed 1 Kit 0 08/21/2012 Active SURGICAL COMPRESSION STOCKINGIndications:P AT (paroxysmal atrial tachycardia),Edema, unspecified type Knee length compression stockings 20mmHg 1 Each 2 04/23/2018 Active Aspirin 81 MG Tablet Take 1 Tablet by mouth once a day on Sunday, Sunday, and Sunday only. In the morning 0 10/11/2018 Active Citracal Plus Oral Tablet Take 1.5 Tablets by mouth in the morning. 0 05/25/2021 Active CPAP every night at bedtime . 0 Active Dofetilide 250 MCG Oral Capsule (Tikosyn) TAKE ONE CAPSULE BY MOUTH IN THE MORNING AND ONE CAPSULE BEFORE BEDTIME. 180 Capsule 3 09/25/2022 4 Active Famotidine 20 MG Oral Tablet (Pepcid)Indications:N ausea Take 0.5 Tablets by mouth at bedtime. 30 Tablet 11 03/18/2023 Active Estradiol 0.1 MG/GM Vaginal Cream (Estrace) Apply pea sized amount (0.5 gm) vaginally twice a week at bedtime 42.5 g 3 04/10/2023 Active Ezetimibe 10 MG Oral Tablet (Zetia)Indications:Dy slipidemia, goal LDL below 70 TAKE ONE TABLET BY MOUTH EVERY DAY 90 Tablet 3 05/21/2023 4 Active Ipratropium [place] 0.06 % Nasal Solution (Atrovent) ADMINISTER 2 SPRAYS INTO EACH NOSTRIL 4 TIMES A DAY NEEDED FOR RHINITIS. FOR RUNNY NOSE 15 mL 2 07/18/2023 Active Allopurinol 300 MG Oral Tablet (Zyloprim)Indications :Gout Take 1 Tablet by mouth in the morning. 90 Tablet 3 07/27/2023 Active Apixaban 5 MG Oral Tablet (Eliquis)Indications: Paroxysmal atrial fibrillation (HCC) TAKE ONE TABLET BY MOUTH TWICE A DAY 200 Tablet 3 08/10/2023 5 Active Metoprolol Succinate ER 50 MG Oral Tablet Extended Release 24 Hour (toPROL XL)Indications:Paroxy smal atrial fibrillation (HCC),Hypertensive heart and kidney disease with chronic diastolic congestive heart failure and stage 3b chronic kidney disease (HCC) Take 1 Tablet by mouth in the morning and 1 Tablet before bedtime. 60 Tablet 3 08/10/2023 Active Metoprolol Succinate ER 25 MG Oral Tablet Extended Release 24 Hour (toPROL XL)Indications:Paroxy smal atrial fibrillation (HCC) Take 1 Tablet by mouth in the morning and 1 Tablet before bedtime. Total of 75 mg twice per day. 180 Tablet 3 08/24/2023 Active Furosemide 20 MG Oral Tablet (Lasix)Indications:Pa roxysmal atrial fibrillation (HCC),Tachy-jaqui syndrome (HCC),Hypertensive heart and kidney disease with chronic diastolic congestive heart failure and stage 3b chronic kidney disease (HCC),Cardiac pacemaker in situ,Nonobstructive atherosclerosis of coronary artery,Dyslipidemia, goal LDL below 70 Take 2 Tablets by mouth in the morning. 180 Tablet 3 08/24/2023 Active Doxycycline Hyclate 100 MG Oral CapsuleIndications:Br onchitis, complicated Take 1 Capsule by mouth in the morning and 1 Capsule before bedtime. Do all this for 7 days. Take for 7 days. 14 Capsule 0 08/27/2023 Active documented as of this encounter (statuses as of 08/28/2023) Active Problems Problem Noted Date Diagnosed Date [...] renal origin Coronary artery disease invo lving [place] coronary artery of [place] heart without angina pectoris 04/08/2018 Cardiac pacemaker in situ 09/28/2017 Overview: DDD Pacemaker Pacemaker. Mapping Technician Medtronic, model W1DR01 Elena XTDR (MRI conditional), serial number [id number]. Right atrial lead. Mapping Technician Medtronic, model 5076-45 CapSureFix Novus, serial number [id number]. Right ventricular lead. Mapping Technician Medtronic, model 5076-52 CapSureFix Novus, serial number [id number]. 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 HTN, goal below 140/90 01/24/2012 Dyslipidemia, goal LDL below 70 06/19/2011 [...] as of this encounter (statuses as of 08/28/2023) Resolved Problems Problem Noted Date Diagnosed Date Resolved Date Malignant neoplasm of cervix 11/22/2021 11/22/2021 COPD, group A, by GOLD 2017 classification 09/19/2017 08/25/2021 Pericardial effusion 09/27/2013 024 Cardiac tamponade 09/27/2013 08/25/2021 Lower urinary tract infectious disease 05/21/2012 05/25/2021 Overview: ICD-10 update of inactive term Acute sinusitis 03/26/2012 05/25/2021 Other constipation 03/07/2012 Heart failure, diastolic, due to HTN 01/24/2012 08/13/2023 Acute UTI (urinary tract infection) 12/20/2011 05/25/2021 Atrial fibrillation 04/10/2011 01/12/20 21 documented as of this encounter (statuses as of 08/28/2023) Immunizations Name Administration Dates Next Due COVID-19 [...] (Prevnar) 08/25/2014 Pneumococcal Polysaccharide PPV23 (Pneumovax) 05/28/2018,08/23/2009 RSV Vac., Bivalent, Perfusio n F, Pf,0.5 Ml (Abrysvo) 08/20/2023 Season Influenza, Quad, PF, Adjuvanted, 65+ Yrs, [...] Date Recorded PHQ Adult Total Score 0 08/20/2023 Hunger Vital Sign Answer Date Recorded Within the past 12 months, y ou worried that your food would run out before you got the money to buy more. Never true 08/20/19 24 Within the past 12 months, t he food you bought just didn't last and you didn't have money to get more. Never true 08/20/2023 Sex and Gender Information Value Date Recorded [...] encounter Miscellaneous Notes * Telephone Encounter - Angela Hawthorne LPN - 08/28/2023 1:09 PM EST Call placed to patient and relayed information from Dr. Gonzales. Patient acknowledged understanding.States she is feeling a little better. No questions at this time. * Telephone Encounter - Angela Hawthorne LPN - 08/28/2023 1:07 PM EST ----- Message from Steffen Gonzales DO sent at 08/28/2023 1:07 PM EST ----- No Pneumonia present on CXR. No CHF documented in this encounter Plan of Treatment Upcoming Encounters Date Type Department Care Team (Late st Contact Info) Description 08/29/2023 8:00 AM EST Office Visit [address] [place] [address] Steffen Gonzales DO [address] [place] [address] 09/05/2023 1:00 PM EST Imaging Vascular Lab, [address] [place] [address] 09/05/2023 2:00 PM EST Imaging Vascular Lab, [address] 132 [place] [address] 09/12/2023 11:10 AM EST Office Visit Vascular Surgery, [facility] 132 [place] [address] Jerome Glover MD [address] [place] [address] 09/18/2023 9:20 AM EST Office Visit [address] [place] [address] Steffen Gonzales DO 293 [facility] [employer], [place] [address] 10/05/2023 7:45 AM EDT Office Visit Cardiology, [facility] [place] [address] Mae Crisostomo, DO 400 [facility] [place] [address] 10/10/2023 2:00 PM EDT Office Visit Audiology [facility] 132 [facility] [place], [place] [address] Valerie Wheat Au.D. [facility] [place] [address] 10/19/2023 9:45 AM EDT Office Visit Urogynecology [facility] 132 [facility] [place] [address] Carie Moncada PA-C 132 [place] [address] Nurse Coty Padron 132 [facility], [place] [address] 11/02/2023 8:40 AM EDT Office Visit Sleep Disorders Ctr [facility] 132 [facility] [place] [phone] Amy Sanon DO 132 [facility] [place] [address] 11/13/2023 8:30 AM EDT Cardiac Studies Cardiac Studies, [facility] 132 [facility] [place] [address] 02/04/2024 9:30 AM EDT Cardiac Studies Cardiology, [facility] 132 [facility] [place] [address] [place], Pacer Clinic [facility] [address] [place] [address] 02/19/2024 9:30 AM EDT Office Visit Urology, [facility] 132 [facility] [place] [address] Tonny Elias MD 27 [facility] [address] [place] [address] 05/07/2024 1:15 PM EDT Immunization Ancillary 65 [facility] 293 [place] [address] Carl, Covid19 Vaccine [address] [place] [address] 06/24/2024 9:40 AM EST Office Visit Rheumatology [place] [address] [place] [address] Max Awan MD [address] [place] [address] 08/19/2024 2:00 PM EST Nurse Only Ancillary [address] [place] [address] Carl, Nurse Annual Wellness Visit [address] [place] [address] Health Maintenance Due Date Last Done Comments *BISPHONATE OR OTHER ACCEPTABLE MEDICATION NEEDED FOR OSTEOPOROSIS (REFER TO SMARTSET #1146) 05/18/2023 GFR 02/08/2024 08/10/2023, 06/16, 05/30/2023, Additional history exists Albumin/Creatinine Ratio 03/28/2024 023, 06/16/2022, 08/25/2021 CKD PHOS USE SMARTSET 76105 04/30/202404/15, 11/22/2021, 06/04/2017 CKD HGB USE SMARTSET 05259 08/10/202408/10, 08/10/2023, 07/11/2023, Additional history exists Depression Screening 08/20/2024 08/20/2023 DXA Scan 11/29/2024 11/29/2022, 11/16/2020 DTaP,Tdap,and Td Vaccines (2 - Td or Tdap) 02/22/2027 02/22/2017, 08/05/2004, 08/05/2004 VITAMIN D LEVEL ONCE IN A LIFETIME-USE SMARTSET# [id number] Completed 02/02/2014, 12/24/2012, 06/04/2009 Colonoscopy Discontinued 10/17/2017 [...] this encounter Medical Devices Implanted Type Area Mapping Technician Device Identifier Shelf Expiration Date Model / Serial / Lot Sut Steel 6 M654g - [id number] Implanted:Qty: 6 on 09/25/2013 at OR [facility] N/A: Chest JNJ : [employer] 02/12/2014 [id number] / / [id number] Lens Intraoc 20.0 - [id number] - [id number] Implanted:Qty: 1 on 06/21/2021 by Jonathan Phillips MD at OR [facility] Left: Eye [employer] 02/12/2026 [id number] / [id number] / [id number] Lens Intraoc 20.5 - [id number] - [id number] Implanted:Qty: 1 on 02/21/2022 by Jonathan Phillips MD at OR [facility] Right: Eye [employer]OM[employer] 09/12/2024 [id number] / [id number] / [id number] documented as of this encounter Advance Directives Documents on File Type Date Recorded Patient Road Packer Operator Expl anation Advance Directives and Living Will 06/01/2021 ADVANCE DIRECTIVE / LIVING WILL Latest Code Status on File Code Status Date Activated Date Inactivated Comments No Code 02/21/2022 10:22 AM 02/21/2022 4:52 PM This o rder reflects the patients wishes and were consensually agreed upon. Question Answer Comments Discussion of Advance Directives occurred with: Patient Does the patient have a Living Will? No Does the patient have Health Care Power of Schedule Clerk? No Code Status History Code Status Date [...] the patient have Health Care Power of Schedule Clerk? No Healthcare Agents on File Name Relationship Healthcare Agent Relationshi p Communication Courtneycody Rashid Niece/Nephew Health Care Repr esentative (appointed verbally by patient or by statute hierarchy) Care Teams Hook And Eye Attacher Relationship Specialty Start Date End Date Steffen Gonzales DO [address] [facility] [place] [address] PCP - General Internal Medicine 05/25/21 documented as of this encounter
--- OUTSIDE RECORDS SUMMARY | 2023-08-31 19:29 | External Medical Summary | Summary of Care ---
Author Name Unknown Organization [facility] Address [address] [facility] [place] [address] Phone [phone] Care Team Providers Care Party Plan Selling Distributor Name Role Phone Steffen Gonzales DO Primary Care Provider [phone] Encounter Details Date Type Department Care Team (Late st Contact Info) Description 08/28/2023 Result Scan Unspecified Department Wang [facility]ardenas [facility] [address] [facility] [address] <No scans attached> Allergies Active Allergy Reactions [...] 90 Tablet 3 05/21/2023 4 Active Ipratropium [place] 0.06 % Nasal Solution (Atrovent) ADMINISTER 2 [...] renal origin Coronary artery disease invo lving [place] coronary artery of af[place] heart without angina pectoris 04/08/2018 Cardiac pacemaker in situ 09/28/2017 Overview: DDD Pacemaker Pacemaker. Lead Slot Technician Medtronic, model W1DR01 [place] XTDR (MRI conditional), serial number [id number]. Right atrial lead. Lead Slot Technician Medtronic, model 5076-45 CapSureFix Novus, serial number [id number]. Right ventricular lead. Lead Slot Technician Medtronic, model 5076-52 CapSureFix Novus, serial number [id number]. Placed by Dr Mcknight on 09/27/2017 at [facility] History of tobacco use 09/19/2017 [...] Description 08/29/2023 8:00 AM EST Office Visit Family Practice [address], [place] [address] [place] [address] Steffen Gonzales, DO 293 [place] [address] 09/05/2023 1:00 PM EST Imaging Vascular Lab, [facility] 2nd [facility] 132 [facility] [place] [address] 09/05/2023 2:00 PM EST Imaging Vascular Lab, [facility] [address] [facility] 132 [facility] [address] 09/12/2023 11:10 AM EST Office Visit Vascular Surgery, [facility] 132 [place] [address] Jerome Glover MD 100 [place] [address] 09/18/2023 9:20 AM EST Office Visit Family Practice [address] [place] [address] [address] [place] [address] Steffen Gonzales, 293 [place] [address] 10/05/2023 7:45 AM EDT Office Visit Cardiology, [facility] 132 [facility] [address] Mae Crisostomo, DO [address] [place] [address] 10/10/2023 2:00 PM EDT Office Visit Audiology [facility] 132 [facility] [address] Valerie Wheat Au.D. 132 [facility] [address] 10/19/2023 9:45 AM EDT Office Visit Urogynecology [facility] 132 [facility] [place] [address] Carie Moncada PA-C [address] [place] [address] Nurse Coty Padron Jackie [address] [place] [address] 11/02/2023 8:40 AM EDT Office Visit Sleep Disorders Ctr Jackie [facility] 132 [facility] [place] [phone] Amy Sanon DO [address] [place] [address] 11/13/2023 8:30 AM EDT Cardiac Studies Cardiac Studies, [facility] 132 [facility] [place] [address] 02/04/2024 9:30 AM EDT Cardiac Studies Cardiology, [facility] 132 [facility] [place] [address] [place], Pacer Clinic [facility] 132 [facility] [place] [address] 02/19/2024 9:30 AM EDT Office Visit Urology, [facility] 132 [facility] [place] [address] Tonny Elias MD 27 [facility] 270 [place] [address] 05/07/2024 1:15 PM EDT Immunization Ancillary 65 [facility] 293 [facility] [address] [place] 65 [facility] 293 [facility] [address] 06/24/2024 9:40 AM EST Office Visit Rheumatology [address] [address] Max Awan MD [address] [employer] [place] [address] 08/19/2024 2:00 PM EST Nurse Only Ancillary [address], [place] 293 [place] [address] College, Nurse Annual Wellness Visit [address] [facility] 293 [place] [address] Health Maintenance Due Date Last Done Comments *BISPHONATE OR OTHER ACCEPTABLE MEDICATION NEEDED FOR OSTEOPOROSIS (REFER TO SMARTSET #1146) 05/18/2023 GFR 02/08/2024 08/10/2023, 06/16, 05/30/2023, Additional history exists Albumin/Creatinine Ratio 03/28/2024 023, 06/16/2022, 08/25/2021 CKD PHOS USE SMARTSET 75963 04/30/202404/15, 11/22/2021, 06/04/2017 CKD HGB USE SMARTSET 92253 08/10/202408/10, 08/10/2023, 07/11/2023, Additional history exists Depression Screening 08/20/2024 08/20/2023 DXA Scan 11/29/2024 11/29/2022, 11/16/2020 DTaP,Tdap,and Td Vaccines (2 - Td or Tdap) 02/22/2027 02/22/2017, 08/05/2004, 08/05/2004 VITAMIN D LEVEL ONCE IN A LIFETIME-USE SMARTSET# [id number] Completed 02/02/2014, 12/24/2012, 06/04/2009 Colonoscopy Discontinued 10/17/2017 [...] this encounter Medical Devices Implanted Type Area Lead Slot Technician Device Identifier Shelf Expiration Date Model / Serial / Lot Sut Steel 6 M654g - [id number] Implanted:Qty: 6 on 09/25/2013 at OR [facility] N/A: Chest JNJ : [employer] 02/12/2014 [id number] / / [id number] Lens Intraoc 20.0 - [id number] - [id number] Implanted:Qty: 1 on 06/21/2021 by Jonathan Phillips MD at OR [facility] Left: Eye BAUSCH [employer] LOMB 02/12/2026 [id number] / [id number] / [id number] Lens Intraoc 20.5 - [id number] - [id number] Implanted:Qty: 1 on 02/21/2022 by Jonathan Phillips MD at OR [facility] Right: Eye BAUSCH [employer] LOMB 09/12/2024 [id number] / [id number] / [id number] documented as of this encounter Procedures Procedure Name Priority Date/Time Associated Diagnosis Comments CARDIOLOGY SCANNED RESULT 08/28/2023 documented in this encounter Results * CARDIOLOGY SCANNED RESULT (08/28/2023) 08/28/2023 Wang Cardenas MD OTHER documented in this encounter Advance Directives Documents on File Type Date Recorded Patient Welfare Specialist Expl anation Advance Directives and Living Will [...] the patient have Health Care Power of Lead Auditor? No Code Status History Code Status Date [...] the patient have Health Care Power of Lead Auditor? No Healthcare Agents on File Name Relationship Healthcare Agent Relationshi p Communication Courtney Rashid Niece/Nephew Health Care Repr esentative (appointed verbally by patient or by statute hierarchy) Care Teams Party Plan Selling Distributor Relationship Specialty Start Date End Date Steffen Gonzales DO [address] [place] [place] [address] PCP - General Internal Medicine 05/25/21 documented as of this encounter
--- OUTSIDE RECORDS SUMMARY | 2023-08-31 19:29 | External Medical Summary | Summary of Care ---
Author Name Unknown Organization [facility] Address [address] [place] [address] Phone [phone] Care Team Providers Care Crimping Press Operator Name Role Phone Steffen Gonzales DO Primary Care Provider [phone] Reason for Visit * Reason Comments Follow Up Encounter Details Date Type Department Care Team (Late st Contact Info) Description 08/29/2023 8:00 AM EST Office Visit Family Practice [address], [place] [address] [place] [address] Steffen Gonzales DO [address] [place] [address] Bronchitis, complicated*; Paroxysmal atrial fibrillation (HCC); 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HCC); Chronic heart failure with preserved ejection fraction (HCC); HTN, goal below 140/90; Cardiac pacemaker in situ; Coronary artery disease involving salamatof coronary artery of salamatof heart without angina pectoris; Hypertensive heart and kidney disease with chronic diastolic congestive heart failure and stage 3b chronic kidney disease (HCC); Chronic kidney disease, stage 3b (HCC); Age-related osteoporosis without current pathological fracture Allergies [...] as of this encounter (statuses as of 08/29/2023) Medications Medication Sig Dispensed Refills Start Date End Date Status VITAMIN D 1000 UNIT PO CAPS Take 1 Capsule by mouth in the morning. 30 11 0 Active BLOOD PRESSURE MONITOR KITIndications:Atria l fibrillation (HCC) Take daily as directed 1 Kit 0 3 Active SURGICAL COMPRESSION STOCKINGIndications: PAT (paroxysmal atrial tachycardia),Edema, unspecified type Knee length compression stockings 20mmHg 1 Each 2 8 Active Aspirin 81 MG Tablet Take 1 Tablet by mouth once a day on Sunday, Sunday, and Sunday only. In the morning 0 9 Active Citracal Plus Oral Tablet Take 1.5 Tablets by mouth in the morning. 0 1 Active CPAP every night at bedtime . 0 Active Dofetilide 250 MCG Oral Capsule (Tikosyn) TAKE ONE CAPSULE BY MOUTH IN THE MORNING AND ONE CAPSULE BEFORE BEDTIME. 180 Capsule 3 3 11/16/19 24 Active Famotidine 20 MG Oral Tablet (Pepcid)Indications: Nausea Take 0.5 Tablets by mouth at bedtime. 30 Tablet 11 3 Active Estradiol 0.1 MG/GM Vaginal Cream (Estrace) Apply pea sized amount (0.5 gm) vaginally twice a week at bedtime 42.5 g 3 3 Active Ezetimibe 10 MG Oral Tablet (Zetia)Indications:D yslipidemia, goal LDL below 70 TAKE ONE TABLET BY MOUTH EVERY DAY 90 Tablet 3 3 05/20/20 24 Active Ipratropium [place]wn 0.06 % Nasal Solution (Atrovent) ADMINISTER 2 SPRAYS INTO EACH NOSTRIL 4 TIMES A DAY NEEDED FOR RHINITIS. FOR RUNNY NOSE 15 mL 2 4 Active Allopurinol 300 MG Oral Tablet (Zyloprim)Indication s:Gout Take 1 Tablet by mouth in the morning. 90 Tablet 3 4 Active Apixaban 5 MG Oral Tablet (Eliquis)Indications :Paroxysmal atrial fibrillation (HCC) TAKE ONE TABLET BY MOUTH TWICE A DAY 200 Tablet 3 4 08/09/19 25 Active Furosemide 20 MG Oral Tablet (Lasix)Indications:P aroxysmal atrial fibrillation (HCC),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HCC),Hypertensive heart and kidney disease with chronic diastolic congestive heart failure and stage 3b chronic kidney disease (HCC),Cardiac pacemaker in situ,Nonobstructive atherosclerosis of coronary artery,Dyslipidemia, goal LDL below 70 Take 2 Tablets by mouth in the morning. 180 Tablet 3 4 Active Cefdinir 300 MG Oral Capsule (Omnicef)Indications :Bronchitis, complicated Take 1 Capsule by mouth in the morning and 1 Capsule before bedtime. Do all this for 7 days. For 10 days.. 14 Capsule 0 4 09/05/19 24 Active Metoprolol Succinate ER 100 MG Oral Tablet Extended Release 24 Hour (toPROL XL)Indications:Parox ysmal atrial fibrillation (HCC) Take 1 Tablet by mouth in the morning and 1 Tablet before bedtime. 60 Tablet 5 4 Active Metoprolol Succinate ER 50 MG Oral Tablet Extended Release 24 Hour (toPROL XL)Indications:Parox ysmal atrial fibrillation (HCC),Hypertensive heart and kidney disease with chronic diastolic congestive heart failure and stage 3b chronic kidney disease (HCC) Take 1 Tablet by mouth in the morning and 1 Tablet before bedtime. 60 Tablet 3 4 08/29/19 24 Discontinu ed(Medicat ion/Dose Changed) Metoprolol Succinate ER 25 MG Oral Tablet Extended Release 24 Hour (toPROL XL)Indications:Parox ysmal atrial fibrillation (HCC) Take 1 Tablet by mouth in the morning and 1 Tablet before bedtime. Total of 75 mg twice per day. 180 Tablet 3 4 08/29/19 24 Discontinu ed(Medicat ion/Dose Changed) Doxycycline Hyclate 100 MG Oral CapsuleIndications:B ronchitis, complicated Take 1 Capsule by mouth in the morning and 1 Capsule before bedtime. Do all this for 7 days. Take for 7 days. 14 Capsule 0 4 08/29/19 24 Discontinu ed(Adverse reaction) documented as of this encounter (statuses as of 08/29/2023) Active Problems Problem Noted Date Diagnosed Date [...] renal origin Coronary artery disease invo lving salamatof coronary artery of salamatof heart without angina pectoris 04/08/2018 Cardiac pacemaker in situ 09/28/2017 Overview: DDD Pacemaker Pacemaker. Product Introduction Manager Medtronic, model W1DR01 Elena XTDR (MRI conditional), serial number [id number]. Right atrial lead. Product Introduction Manager Medtronic, model 5076-45 CapSureFix Novus, serial number [id number]. Right ventricular lead. Product Introduction Manager Medtronic, model 5076-52 CapSureFix Novus, serial number [id number]. Placed by Dr Mcknight on 09/27/2017 at [facility] History of tobacco use 09/19/2017 ELMO (obstructive [...] as of this encounter (statuses as of 08/29/2023) Resolved Problems Problem Noted Date Diagnosed Date [...] as of this encounter (statuses as of 08/29/2023) Immunizations Name Administration Dates Next Due COVID-19 mRNA, LNP-s, No Pre serve, 2-Dose Series (Moderna) 09/29/2020,09/01/2020 COVID-19, MRNA-LNP, 23-24, P F, 30 MCG/0.3 mL, 12 YRS AND ABOVE, IM (Woo With Style-Comirnaty) 05/09/2023 COVID-19, mRNA, LNP-s, PF, B ooster, [...] Sign Reading Time Taken Comments Blood Pressure 118/56 08/29/2023 8:09 AM EST Pulse 125 08/29/2023 8:50 AM EST Temperature 35.3 C (95.6 F) 08/29/2023 8:09 AM ES T Respiratory Rate 16 08/29/2023 8:09 AM EST Oxygen Saturation 90% 08/29/2023 8:50 AM EST Inhaled Oxygen Concentration - - Weight 52.5 kg (115 lb 12.8 oz) 08/29/2023 8:09 AM EST Height 157.5 cm (5' 2") 08/29/2023 8:09 AM EST Body Mass Index 21.18 08/29/2023 8:09 AM EST documented in this encounter Functional [...] encounter Progress Notes * Steffen Gonzales, - 08/29/2023 8:21 AM EST SUBJECTIVE: Lori Dasilva is a [...] right ulnar artery pseudoaneurysm repair, Allergic Rhinitis, Osteoporosis, Sleep Apnea on CPAP and recurrent UTI that is seen for follow up on Bronchitis. Cough is productive and improving. No chest pain or shortness of breath are present. Weight is up and appetite is good. Doxycycline is causing abdominal pain. 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 Peripheral vascular disease (HCC) I73.9 CA IN SITU SKIN ARM D04.60 ADVANCE DIRECTIVE INFORMATION Dyslipidemia, goal LDL below 70 E78.5 Constipation K59.00 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[facility]) I49.5 HTN, goal below 140/90 I10 Chronic sinusitis J32.9 Paroxysmal atrial fibrillation ([facility]) I48.0 ELMO (obstructive sleep apnea) G47.33 History of tobacco use Z87.891 Cardiac pacemaker in situ Z95.0 Coronary artery disease involving salamatof coronary artery of salamatof heart without angina pectoris I25.10 Hypertensive heart and kidney disease with chronic diastolic congestive heart failure and stage 3b chronic kidney disease (HCC) I13.0, I50.32, N18.32 Secondary hyperparathyroidism of renal origin ([facility]) N25.81 Chronic kidney disease, stage 3b (HCC) N18.32 History of cervical cancer Z85.41 Age-related osteoporosis without current pathological fracture M81.0 Chronic heart failure with preserved ejection fraction ([facility]) I50.32 Gout, arthropathy M10.9 Current Outpatient Medications Medication Sig Dispense Refill VITAMIN D 1000 UNIT PO CAPS Take 1 Capsule by mouth in the morning. 30 11 Aspirin 81 MG Tablet Take 1 Tablet by mouth once a day on Sunday, Sunday, and Sunday only. In the morning Citracal Plus Oral Tablet Take 1.5 Tablets by mouth in the morning. CPAP every night at bedtime . Dofetilide 250 MCG Oral Capsule (Tikosyn) TAKE ONE CAPSULE BY MOUTH IN THE MORNING AND ONE CAPSULE BEFORE BEDTIME. 180 Capsule 3 Famotidine 20 MG Oral Tablet (Pepcid) Take 0.5 Tablets by mouth at bedtime. 30 Tablet 11 Estradiol 0.1 MG/GM Vaginal Cream (Estrace) Apply pea sized amount (0.5 gm) vaginally twice a week at bedtime 42.5 g 3 Ezetimibe 10 MG Oral Tablet (Zetia) TAKE ONE TABLET BY MOUTH EVERY DAY 90 Tablet 3 Ipratropium Woodlawn 0.06 % Nasal Solution (Atrovent) ADMINISTER 2 SPRAYS INTO EACH NOSTRIL 4 TIMES A DAY NEEDED FOR RHINITIS. FOR RUNNY NOSE 15 mL 2 Allopurinol 300 MG Oral Tablet (Zyloprim) Take 1 Tablet by mouth in the morning. 90 Tablet 3 Apixaban 5 MG Oral Tablet (Eliquis) TAKE ONE TABLET BY MOUTH TWICE A DAY 200 Tablet 3 Metoprolol Succinate ER 50 MG Oral Tablet Extended Release 24 Hour (toPROL XL) Take 1 Tablet by mouth in the morning and 1 Tablet before bedtime. 60 Tablet 3 Metoprolol Succinate ER 25 MG Oral Tablet Extended Release 24 Hour (toPROL XL) Take 1 Tablet by mouth in the morning and 1 Tablet before bedtime. Total of 75 mg twice per day. 180 Tablet 3 Furosemide 20 MG Oral Tablet (Lasix) Take 2 Tablets by mouth in the morning. 180 Tablet 3 Cefdinir 300 MG Oral Capsule (Omnicef) Take 1 Capsule by mouth in the morning and 1 Capsule before bedtime. Do all this for 7 days. For 10 days.. 14 Capsule 0 BLOOD PRESSURE MONITOR KIT Take daily as directed 1 Kit 0 SURGICAL COMPRESSION STOCKING Knee length compression stockings 20mmHg 1 Each 2 No current facility-administered medications for this visit. The patient's medication list was reviewed and updated as needed. Past Medical History: Diagnosis Date Age-related osteoporosis without current pathological fracture 04/12/2022 Atrial fibrillation (HCC) Taqueria-tachy syndrome (HCC) Cancer of cervix (HCC) 1978 txt with Total abd hysterectomy Cardiac pacemaker in situ 09/28/2017 Pacemaker. Product Introduction Manager Medtronic, model W1DR01 Bonnie XTDR (MRI conditional), serial number [id number]. Right atrial lead. Product Introduction Manager Medtronic, model 5076-45 CapSureFix Novus, serial number [id number]. Right ventricular lead. Product Introduction Manager Medtronic, model 5076-52 CapSureFix Novus, serial [id number]. Placed by Dr Mcknight on 09/27/2017 at [facility] Cardiac tamponade 09/2013 left atrial & right ventriccular perforation with acute tamponade post RF ablation. Dyslipidemia Dyslipidemia, goal LDL below 100 06/19/2011 Gout, arthropathy 07/20/2023 Heart failure, diastolic, due to HTN (HCC) History of cervical cancer Hypertension Paroxysmal atrial fibrillation (HCC) 07/18/2013 Peripheral vascular disease with claudication (HCC) 2004 right calf Personal history of tobacco use quit 05/29/2012 Pseudoaneurysm following procedure (HCC) 02/16/2018 following cardiac catheterization 01/28/2018 Sleep apnea, obstructive Past Surgical History: Procedure Laterality Date ABLATE HEART DYSRHYTHM FOCUS 04/15/2012 CATHETER ABLATION-SVT performed by Ismael Jackson MD at [facility] CARDIAC CATH-CARDIOLOGY ONLY Right 01/28/2018 @ [facility] Right arm. COLONOSCOPY 09/20 hx of IBS, nl, repeat 10y ELECTROPHYSIOLOGY EVAL, ATRIAL FIB, PULMONARY VEIN ISOL 09/25/2013 ELECTROPHYSIOLOGY EVAL, ATRIAL FIB, PULMONARY VEIN ISOL performed by Ismael Jackson MD at [facility] EYELID SURGERY PROCEDURE NEC Left Two surgeries of the left upper lid to help lower lid HEART ELECTROCONVERSION, EXTERNAL 07/12/2012 DC CARDIOVERSION performed by Ismael Jackson MD at [facility] HEART ELECTROCONVERSION, EXTERNAL 09/25/2013 DC CARDIOVERSION performed by Sekou Alcala MD at [facility] INFORMATION 195 fracture R ankle INFORMATION 12/2004 balloon angioplasty INSERT/REPLACE PACEMAKER,ATRIAL/VENTRICULAR Left 09/27/2017 NEW DDD PACEMAKER IMPLANT performed by Chandrika Mcknight IV, MD at [facility] RELIEVE INNER EYE PRESSURE 06/21/2021 GONIOTOMY performed by Jonathan Phillips MD at [facility] REMOVE CATARACT, INSERT LENS PROSTH Left 06/21/2021 Left EXTRACAPSULAR CATARACT REMOVAL WITH INTRAOCULAR LENS performed by Jonathan Phillips MD at [facility] REMOVE CATARACT, INSERT LENS PROSTH Right 02/21/2022 right EXTRACAPSULAR CATARACT REMOVAL WITH INTRAOCULAR LENS performed by Jonathan Phillips MD at [facility] REPAIR HEART WOUND 09/25/2013 left atrial and right ventricular perforation with acute tamponade post RF ablation 09/2013 Repair performed by Sekou Alcala MD at [facility] REPAIR VESSEL DIRECT UPPER EXT Right 03/01/2018 direct repair of right ulnar artery (pseudoaneurym) performed by Darvin Joseph MD at [facility] TOTAL HYSTERECTOMY 1985 Hysterectomy, Abdominal Review of [...] change, fatigue and unexpected weight change. Respiratory: Positive for cough. Negative for shortness of breath and wheezing. Cardiovascular: Negative for chest pain, palpitations and leg swelling. Gastrointestinal: Positive for abdominal pain. Negative for blood in stool, constipation, diarrhea,nausea and vomiting. Genitourinary: Negative for dysuria and hematuria. Musculoskeletal: Negative for back pain and gait problem. Neurological: Negative for dizziness, syncope and headaches. Psychiatric/Behavioral: Negative for confusion, decreased concentration and sleep disturbance. OBJECTIVE: BP 118/56 | Pulse 110 | Temp 35.3 C (95.6 F) | Resp 16 | Ht 1.575 m (5' 2") | Wt 52.5 kg (115 lb 12.8 oz) | SpO2 95% | BMI 21.18 kg/m | BSA 1.52 m Physical Exam Vitals and nursing note reviewed. Constitutional: General: She is not in acute distress. Appearance: Normal appearance. She is not toxic-appearing. HENT: Head: Normocephalic and atraumatic. Cardiovascular: Rate and Rhythm: Regular rhythm. Tachycardia present. Pulses: Normal pulses. Heart sounds: Normal heart sounds. No murmur heard. No gallop. Pulmonary: Effort: Pulmonary effort is normal. Breath sounds: Normal breath sounds. No wheezing, rhonchi or rales. Abdominal: General: Bowel sounds are normal. There is no distension. Palpations: Abdomen is soft. Tenderness: There is no abdominal tenderness. Musculoskeletal: Right lower leg: No edema. Left lower leg: No edema. Neurological: Mental Status: She is alert and oriented to person, place, and time. Mental status is at baseline. Motor: No weakness. Gait: Gait normal. Psychiatric: Mood and Affect: Mood normal. Behavior: Behavior normal. Thought Content: Thought content normal. EXAM XR CHEST 2 VIEWS-08/27/2023 10:23 am HISTORY cough acute COMPARISON Two-view chest 05/09/2023 TECHNIQUE Frontal and lateral chest radiographs obtained. FINDINGS Lines, tubes, and devices: Left chest pacemaker with intact leads. Intact median sternotomy wires. Stable cardiomegaly. Atherosclerotic calcifications of the thoracic aorta. Hyperexpanded lung volumes. No focal consolidation. Bibasilar subsegmental atelectasis in the lung bases. No pleural effusions or pneumothorax. Thoracic kyphosis. IMPRESSION IMPRESSION COPD. No acute cardiopulmonary findings. I have personally reviewed this examination and agree with the resident/fellow physician's interpretation. ECG: sinus tachycardia, with ventricular pacing PLAN AND ASSESSMENT: Bronchitis, complicated (Primary) - Start Cefdinir 300 MG Oral Capsule (Omnicef); Take 1 Capsule by mouth in the morning and 1 Capsule before bedtime. Do all this for 7 days. For 10 days.. Stop Doxycycline Paroxysmal atrial fibrillation (HCC) - EKG; Future; Expected date: 08/29/2023 Increase Metoprolol ER to 100 mg two times a day Continue Apixaban,and Dofetilide 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HCC) Chronic heart failure with preserved ejection fraction (HCC) Continue Furosemide, and Metoprolol ER HTN, goal below 140/90 Continue Metoprolol ER Cardiac pacemaker in situ Coronary artery disease involving salamatof coronary artery of salamatof heart without angina pectoris Continue ASA, and Metoprolol ER Hypertensive heart and kidney disease with chronic diastolic congestive heart failure and stage 3b chronic kidney disease (HCC) Continue Furosemide, and Metoprolol ER Chronic kidney disease, stage 3b (HCC) Age-related osteoporosis without current pathological fracture I spent a total of 40-54 minutes (exact time 50 mins) on the date of service in preparation, delivery, and documentation of the care provided to Lori Dasilva excluding any time spent in the performance of separately billed services. Steffen Gonzales DO 8:25 AM 08/29/2023 documented in this encounter Plan of Treatment Upcoming Encounters Date Type Department Care Team (Late st Contact Info) Description 09/05/2023 1:00 PM EST Imaging Vascular Lab, [facility] 2nd [facility], [address] [place] [address] 09/05/2023 2:00 PM EST [facility] [address] [facility] [place] [address] 09/12/2023 11:10 AM EST Office Visit Vascular Surgery, [facility] [address] [facility] [place] [address] Jerome Glover MD [address] [place] [address] 09/18/2023 9:20 AM EST Office Visit Family Practice [address] [place] [address] [address] [facility] [place] [id number] Steffen Gonzales, [address] [place] [address] 10/05/2023 7:45 AM EDT Office Visit Cardiology, [facility] [address] [facility] [place] [address] Mae Crisostomo, DO [address] [facility] [place] [address] 10/10/2023 2:00 PM EDT Office Visit Audiology [facility] [address] [facility] [place] [address] Valerie Wheat AuAna M 132 [facility] [place] [address] 10/19/2023 9:45 AM EDT Office Visit Urogynecology [facility] [address] [facility] [place] [address] Carie Moncada PA-C [address] [facility] [place] [address] Nurse Coty Padron [facility] [address] [facility] [place] [address] 11/02/2023 8:40 AM EDT Office Visit [facility] [phone] Amy Sanon, [address] [facility] [place] [address] 11/13/2023 8:30 AM EDT Cardiac Studies Card[facility], [facility] [address] 02/04/2024 9:30 AM EDT Cardiac Studies Cardiology, [facility] [address] [facility] [address] [facility] [address] 02/19/2024 9:30 AM EDT Office Visit Urology, [facility] 132 [place] [address] Tonny Elias MD [address] [address] 05/07/2024 1:15 PM EDT Immunization Ancillary [address] [place] [address] [place], Covid19 Vaccine [address] [address] 06/24/2024 9:40 AM EST Office Visit Rheumatology [place] [id number] [facility], [place] [address] Max Awan MD [address] [place] [address], [place] [address] 08/19/2024 2:00 PM EST Nurse Only Ancillary [address], [place] [address] College, Nurse Annual Wellness Visit [address] [facility] [address] Scheduled Orders Name Type Priority Associated Diagnoses Orde r Schedule EKG EKG Routine Paroxysmal atrial fibrillation (HCC) Expected: 08/29/2023 (Approximate), Expires: 09/26/2024 PULSE OX W/ REST/EXERCISE, MULTIPLE (OP) Procedures Routine Paroxysmal atrial fibrillation (HCC) Bronchitis, complicated Ordered: 08/29/2023 Health Maintenance Due Date Last Done Comments *BISPHONATE OR OTHER ACCEPTABLE MEDICATION NEEDED FOR OSTEOPOROSIS (REFER TO SMARTSET #1146) 05/18/2023 GFR 02/08/2024 08/10/2023, 06/16, 05/30/2023, Additional history exists Albumin/Creatinine Ratio 03/28/2024 023, 06/16/2022, 08/25/2021 CKD PHOS USE SMARTSET 79049 04/30/202404/15, 11/22/2021, 06/04/2017 CKD HGB USE SMARTSET 29443 08/10/202408/10, 08/10/2023, 07/11/2023, Additional history exists Depression Screening 08/20/2024 08/20/2023 DXA Scan 11/29/2024 11/29/2022, 11/16/2020 DTaP,Tdap,and Td Vaccines (2 - Td or Tdap) 02/22/2027 02/22/2017, 08/05/2004, 08/05/2004 VITAMIN D LEVEL ONCE IN A LIFETIME-USE SMARTSET# [id number] Completed 02/02/2014, 12/24/2012, 06/04/2009 Colonoscopy Discontinued 10/17/2017 [...] this encounter Medical Devices Implanted Type Area Product Introduction Manager Device Identifier Shelf Expiration Date Model / Serial / Lot Sut Steel 6 [id number] - [id number] Implanted:Qty: 6 on 09/25/2013 at OR [facility] N/A: Chest JNJ : [employer] 02/12/2014 [id number] / / [id number] Lens Intraoc 20.0 - [id number] - [id number] Implanted:Qty: 1 on 06/21/2021 by Jonathan Phillips MD at OR [facility] Left: Eye [employer] 02/12/2026 [id number] / [id number] / [id number] Lens Intraoc 20.5 - [id number] - [id number] Implanted:Qty: 1 on 02/21/2022 by Jonathan Phillips MD at OR [facility] Right: Eye [employer] 09/12/2024 [id number] / [id number] / [id number] documented as of this encounter Visit Diagnoses Diagnosis Bronchitis, complicated- Primary Bronchitis, not specified as acute or chronic Paroxysmal atrial fibrillation (HCC) Atrial fibrillation 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HCC) Sinoatrial node dysfunction Chronic heart failure with preserved ejection fraction (HCC) HTN, goal below 140/90 Unspecified essential hypertension Cardiac pacemaker in situ Coronary artery disease involving salamatof coronary artery of salamatof heart without angina pectoris Hypertensive heart and kidney disease with chronic diastolic congestive heart failure and stage 3b chronic kidney disease (HCC) Chronic kidney disease, stage 3b (HCC) Age-related osteoporosis without current pathological fracture Senile osteoporosis documented in this encounter Advance Directives Documents on File Type Date Recorded Patient Client Project Coordinator Expl anation Advance Directives and Living Will [...] the patient have Health Care Power of Guitar Technician? No Code Status History Code Status Date [...] the patient have Health Care Power of Guitar Technician? No Healthcare Agents on File Name Relationship Healthcare Agent Relationshi p Communication Courtney Rashid Niece/Nephew Health Care Repr esentative (appointed verbally by patient or by statute hierarchy) Care Teams Crimping Press Operator Relationship Specialty Start Date End Date Steffen Gonzales DO [address] [place] [address] PCP - General Internal Medicine 05/25/21 documented as of this encounter
--- OUTSIDE RECORDS SUMMARY | 2023-08-31 19:29 | External Medical Summary | Summary of Care ---
Author Name Unknown Organization [facility] Address [address] [place] [address] Phone [phone] Care Team Providers Care Propagation Manager Name Role Phone Steffen Gonzales DO Primary Care Provider [phone] Reason for Visit * Reason Comments Acute Encounter Details Date Type Department Care Team (Latest Contact Info) Description 08/27/2023 9:20 AM EST Office Visit Family Practice [address] [place] [address] [place] [address] Steffen Gonzales DO [address] [place] [address] Bronchitis, complicated*; Paroxysmal atrial fibrillation (HCC); 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HCC); Chronic heart failure with preserved ejection fraction (HCC); Dyslipidemia, goal LDL below 70; Cardiac pacemaker in situ; Coronary artery disease involving cabazon coronary artery of cabazon heart without angina pectoris; Hypertensive heart and kidney disease with chronic diastolic congestive heart failure and stage 3b chronic kidney disease (HCC); Secondary hyperparathyroidism of renal origin (HCC); Gout, arthropathy Allergies Active Allergy Reactions Criticality Noted Date [...] as of this encounter (statuses as of 08/27/2023) Medications Medication Sig Dispensed Refills Start Date [...] 90 Tablet 3 05/21/2023 4 Active Ipratropium [place] 0.06 % Nasal Solution (Atrovent) ADMINISTER 2 [...] MG Oral Tablet (Lasix)Indications:Pa roxysmal atrial fibrillation (HCC),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HCC),Hypertensive heart and [...] for 7 days. 14 Capsule 0 08/27/2023 4 Active documented as of this encounter (statuses as of 08/27/2023) Active Problems Problem Noted Date Diagnosed Date [...] renal origin Coronary artery disease invo lving cabazon coronary artery of cabazon heart without angina pectoris 04/08/2018 Cardiac pacemaker in situ 09/28/2017 Overview: DDD Pacemaker Pacemaker. Supervisor Hanging [employer] Trimming Medtronic, model W1DR01 [place] XTDR (MRI conditional), serial number [id number]. Right atrial lead. Supervisor Hanging And Trimming Medtronic, model 5076-45 CapSureFix Novus, serial number [id number]. Right ventricular lead. Supervisor Hanging And Trimming Medtronic, model 5076-52 CapSureFix Novus, serial number [id number]. Placed by Dr Mcknight on 09/27/2017 at [facility] History of tobacco use 09/19/2017 ELMO (obstructive [...] as of this encounter (statuses as of 08/27/2023) Resolved Problems Problem Noted Date Diagnosed Date [...] as of this encounter (statuses as of 08/27/2023) Immunizations Name Administration Dates Next Due COVID-19 mRNA, LNP-s, No Pre serve, 2-Dose Series (Moderna) 09/29/2020,09/01/2020 COVID-19, MRNA-LNP, 23-24, P F, 30 MCG/0.3 mL, 12 YRS AND ABOVE, IM (CartoDB-ComirnatV-Key) 05/09/2023 COVID-19, mRNA, LNP-s, PF, B ooster, 100mcg/0.5mg (Moderna) 10/26/2021,05/11/2021 Covid-19, Mrna, Lnp-s, Pf, B ivalent, 30 Mcg, IM, 12 yrs and above (TeleCommunication Systems) 04/18/2022 Pneumococcal Conjugate Vacc, 13 Valent (Prevnar) [...] 3:21 PM EST Sexual Orientation Straight 05/25/2021 3 :21 PM EST Job Start Date Occupation Industry Not on file Not on file Not on file documented as of this encounter Last Filed Vital Signs Vital Sign Reading Time Taken Comments Blood Pressure 114/60 08/27/2023 9:32 AM EST Pulse 76 08/27/2023 9:32 AM EST Temperature 37.2 C (99 F) 08/27/2023 9:32 AM EST Respiratory Rate 14 08/27/2023 9:32 AM EST Oxygen Saturation 96% 08/27/2023 9:32 AM EST Inhaled Oxygen Concentration - - Weight 51.6 kg (113 lb 12.8 oz) 08/27/2023 9:32 AM EST Height 157.5 cm (5' 2") 08/27/2023 9:32 AM EST Body Mass Index 20.81 08/27/2023 9:32 AM EST documented in this encounter Functional [...] encounter Progress Notes * Steffen Gonzales, - 08/27/2023 9:48 AM EST SUBJECTIVE: Lori Dasilva is a [...] and recurrent UTI that is seen for productive cough that has been present for 3 days. The patient was seen by cardiology due to uncontrolled heart rate. Patient was seen by Cardiology 3 days ago. Metoprolol and Furosemide were increased. No fever or chills are present. Weight is up 2 pounds. Appetite is good. 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 Peripheral vascular disease (HCC) I73.9 CA IN SITU SKIN ARM D04.60 ADVANCE DIRECTIVE INFORMATION Dyslipidemia, goal LDL below 70 E78.5 Constipation K59.00 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HCC) I49.5 HTN, goal below 140/90 I10 Chronic sinusitis J32.9 Paroxysmal atrial fibrillation (HCC) I48.0 ELMO (obstructive sleep apnea) G47.33 History of tobacco use Z87.891 Cardiac pacemaker in situ Z95.0 Coronary artery disease involving cabazon coronary artery of cabazon heart without angina pectoris I25.10 Hypertensive heart and kidney disease with chronic diastolic congestive heart failure and stage 3b chronic kidney disease (HCC) I13.0, I50.32, N18.32 Secondary hyperparathyroidism of renal origin (HCC) N25.81 Chronic kidney disease, stage 3b (HCC) N18.32 History of cervical cancer Z85.41 Age-related osteoporosis without current pathological fracture M81.0 Chronic heart failure with preserved ejection fraction (HCC) I50.32 Gout, arthropathy M10.9 Current Outpatient Medications [...] MOUTH EVERY DAY 90 Tablet 3 Allopurinol 300 MG Oral Tablet (Zyloprim) Take [...] mouth in the morning. 180 Tablet 3 BLOOD PRESSURE MONITOR KIT Take daily as directed 1 Kit 0 SURGICAL COMPRESSION STOCKING Knee length compression stockings 20mmHg 1 Each 2 Ipratropium [place] 0.06 % Nasal Solution (Atrovent) ADMINISTER 2 [...] hysterectomy Cardiac pacemaker in situ 09/28/2017 Pacemaker. Supervisor Hanging [employer] Trimming Medtronic, model W1DR01 [place] XTDR (MRI conditional), serial number [id number]. Right atrial lead. Supervisor Hanging [employer] Trimming Medtronic, model 5076-45 CapSureFix Novus, serial number [id number]. Right ventricular lead. Supervisor Hanging [employer] Trimming Medtronic, model 5076-52 CapSureFix Novus, serial [id number]. Placed by Dr Mcknight on 09/27/2017 at [facility] Cardiac tamponade 09/2013 left atrial & right ventriccular perforation with acute tamponade post RF ablation. Dyslipidemia Dyslipidemia, goal LDL below 100 06/19/2011 Gout, arthropathy 07/20/2023 Heart failure, diastolic, due to HTN ([facility]) History of cervical cancer Hypertension Paroxysmal atrial fibrillation (HCC) 07/18/2013 Peripheral vascular disease with claudication ([facility]) 2004 right calf Personal history of tobacco use quit 05/29/2012 Pseudoaneurysm following procedure ([facility]) 02/16/2018 following cardiac catheterization 01/28/2018 Sleep apnea, obstructive Past Surgical History: Procedure Laterality Date ABLATE HEART DYSRHYTHM FOCUS 04/15/2012 CATHETER ABLATION-SVT performed by Ismael Jackson MD at [facility] CARDIAC CATH-CARDIOLOGY ONLY Right 01/28/2018 @ [facility] Right arm. COLONOSCOPY 09/20 hx of IBS, nl, repeat 10y ELECTROPHYSIOLOGY EVAL, ATRIAL FIB, PULMONARY VEIN ISOL 09/25/2013 ELECTROPHYSIOLOGY EVAL, ATRIAL FIB, PULMONARY VEIN ISOL performed by Ismael Jackson MD at [facility] EYELID SURGERY PROCEDURE NEC Left Two surgeries of the left upper lid to help lower lid HEART ELECTROCONVERSION, EXTERNAL 07/12/2012 DC CARDIOVERSION performed by Ismael Jackson MD at [facility] HEART ELECTROCONVERSION, EXTERNAL 09/25/2013 DC CARDIOVERSION performed by Sekou Alcala MD at [facility] INFORMATION 195 fracture R ankle INFORMATION 12/2004 balloon angioplasty INSERT/REPLACE PACEMAKER,ATRIAL/VENTRICULAR Left 09/27/2017 NEW DDD PACEMAKER IMPLANT performed by Chandrika Mcknight IV, MD at [facility] RELIEVE INNER EYE PRESSURE 06/21/2021 GONIOTOMY performed by Jonathan Phillips MD at OR [facility] [address] REMOVE CATARACT, INSERT LENS PROSTH Left 06/21/2021 Left EXTRACAPSULAR CATARACT REMOVAL WITH INTRAOCULAR LENS performed by Jonathan Phillips MD at [facility] REMOVE CATARACT, INSERT LENS PROSTH Right 02/21/2022 right EXTRACAPSULAR CATARACT REMOVAL WITH INTRAOCULAR LENS performed by Jonathan Phillips MD at [facility] REPAIR HEART WOUND 09/25/2013 left atrial and right ventricular perforation with acute tamponade post RF ablation 09/2013 Repair performed by Sekou Alcala MD at [facility] REPAIR VESSEL DIRECT UPPER EXT Right 03/01/2018 direct repair of right ulnar artery (pseudoaneurym) performed by Darvin Joseph MD at [facility] TOTAL HYSTERECTOMY 1985 Hysterectomy, Abdominal Review [...] of Systems Constitutional: Negative for appetite change, fatigue, fever and unexpected weight change. Respiratory: Positive for cough. Negative for shortness of breath and wheezing. Cardiovascular: Negative for chest pain, palpitations and leg swelling. Gastrointestinal: Negative for abdominal pain, constipation, diarrhea, nausea and vomiting. Genitourinary: Negative for dysuria and hematuria. Neurological: Negative for dizziness, syncope and headaches. Psychiatric/Behavioral: Negative for confusion, decreased concentration and sleep disturbance. OBJECTIVE: BP 114/60 | Pulse 76 | Temp 37.2 C (99 F) | Resp 14 | Ht 1.575 m (5' 2") | Wt 51.6 kg (113 lb 12.8 oz) | SpO2 96% | BMI 20.81 kg/m | BSA 1.5 m Physical Exam Vitals and nursing note reviewed. Constitutional: General: She is not in acute distress. Appearance: Normal appearance. She is not toxic-appearing. HENT: Head: Normocephalic and atraumatic. Cardiovascular: Rate and Rhythm: Normal rate and regular rhythm. Heart sounds: Normal heart sounds. No murmur heard. No gallop. Pulmonary: Breath sounds: Examination of the right-lower field reveals rales. Examination of the left-lower field reveals rales. Rales present. No wheezing. Abdominal: General: Bowel sounds are normal. There [...] Behavior normal. Thought Content: Thought content normal. CXR: No infiltrate, or effusion PLAN AND ASSESSMENT: Bronchitis, complicated (Primary) - XR CHEST 2 VIEWS - INFLUENZA A/B RSV SARS-COV2,PCR; Future; Expected date: 08/27/2023 - Doxycycline Hyclate 100 MG Oral Capsule; Take 1 Capsule by mouth in the morning and 1 Capsule before bedtime. Do all this for 7 days. Take for 7 days. Paroxysmal atrial fibrillation (HCC) Continue Metoprolol ER, Apixaban, and Dofetilide per Cardiology Scheduled to see EP as well 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HCC) S/P Pacemaker Chronic heart failure with preserved ejection fraction (HCC) Continue Furosemide 40 mg daily Dyslipidemia, goal LDL below 70 Continue Ezetimibe Cardiac pacemaker in situ Coronary artery disease involving cabazon coronary artery of cabazon heart without angina pectoris Continue ASA, and Metoprolol Hypertensive heart and kidney disease with chronic diastolic congestive heart failure and stage 3b chronic kidney disease (HCC) Secondary hyperparathyroidism of renal origin (HCC) Gout, arthropathy Continue Allopurinol Follow Up: Return in about 2 days (around 08/29/2023), or if symptoms worsen or fail to improve. Steffen Gonzales DO 9:48 AM 08/27/2023 documented in this encounter Nursing Notes * Susan Proctor LPN - 08/27/2023 9:31 AM EST Here for acute visit, problems with cough documented in this encounter Plan of Treatment Upcoming Encounters Date Type Department Care Team (Late st Contact Info) Description 08/29/2023 8:00 AM EST Office Visit Family [address] [place] [address] Steffen Gonzales DO [address] [place] [address] 09/05/2023 1:00 PM EST Imaging Vascular Lab, [facility] [address] [address] 09/05/2023 2:00 PM EST Imaging Vascular Lab, [address] [place] [address] 09/12/2023 11:10 AM EST Office Visit Vascular Surgery, [facility] [address] [place] [address] eJrome Glover MD [address] [place] [address] 09/18/2023 9:20 AM EST Office Visit Family [address] [place] [address] Steffen Gonzales, [address] [place] [address] 10/05/2023 7:45 AM EDT Office Visit Cardiology, [facility] [address] [place], [place] [address] Mae Crisostomo, DO [address] [place] [address] 10/10/2023 2:00 PM EDT Office Visit Audiology [facility] [address] [place] [address] Valerie Wheat Au.D. [address] [place] [address] 10/19/2023 9:45 AM EDT Office Visit Urogynecology [facility] [address] [place] [address] Carie Moncada PA-C [address] [place] [address] PadronNurse Coty jaime [facility] [address] [place] [address] 11/02/2023 8:40 AM EDT Office Visit Sleep Disorders [facility] [address] [place] [id number] Amy Sanon DO [address] [place] [address] 11/13/2023 8:30 AM EDT Cardiac Studies Cardiac Studies, [facility] [address] [place] [address] 02/04/2024 9:30 AM EDT Cardiac Studies Cardiology, [facility] [address] [place] [address] [facility] [address] [place] [address] 02/19/2024 9:30 AM EDT Office Visit Urology, [facility] [address] [place] [address] Tonny Elias MD [address] [place] [address] 05/07/2024 1:15 PM EDT Immunization Ancillary [facility] [address] [place] [address] Ladd, Covid19 Vaccine [address] [address] 06/24/2024 9:40 AM EST Office Visit Rheumatology [place] [address] [place] [address] Max Awan MD [facility] [place] [address] 08/19/2024 2:00 PM EST Nurse Only Ancillary [address] [place] [address] L[place], Nurse Annual Wellness Visit [address] [address] Pending Results Name Type Priority Associated Diagnoses Date /Time XR CHEST 2 VIEWS Medical Imaging Routine Bronchitis, complicated 08/27/2023 9:46 AM EST INFLUENZA A/B RSV SARS-COV2,PCR Lab Routine Bronchitis, complicated 08/27/2023 10:00 AM EST Scheduled Orders Name Type Priority Associated Diagnoses Orde r Schedule INFLUENZA A/B RSV SARS-COV2,PCR Lab Routine Bronchitis, complicated Expected: 08/27/2023 (Approximate), Expires: 08/26/2024 Health Maintenance Due Date Last Done Comments *BISPHONATE OR OTHER ACCEPTABLE MEDICATION NEEDED FOR OSTEOPOROSIS (REFER TO SMARTSET #1146) 05/18/2023 GFR 02/08/2024 08/10/2023, 06/16, 05/30/2023, Additional history exists Albumin/Creatinine Ratio 03/28/2024 023, 06/16/2022, 08/25/2021 CKD PHOS USE SMARTSET 92645 04/30/202404/15, 11/22/2021, 06/04/2017 CKD HGB USE SMARTSET 47254 08/10/202408/10, 08/10/2023, 07/11/2023, Additional history exists Depression Screening 08/20/2024 08/20/2023 DXA Scan 11/29/2024 11/29/2022, 11/16/2020 DTaP,Tdap,and Td Vaccines (2 - Td or Tdap) 02/22/2027 02/22/2017, 08/05/2004, 08/05/2004 VITAMIN D LEVEL ONCE IN A LIFETIME-USE SMARTSET# [id number] Completed 02/02/2014, 12/24/2012, 06/04/2009 Colonoscopy Discontinued 10/17/2017 [...] this encounter Medical Devices Implanted Type Area Supervisor Hanging And Trimming Device Identifier Shelf Expiration Date Model / Serial / Lot Sut Steel 6 [id number] - [id number] Implanted:Qty: 6 on 09/25/2013 at [place] [facility] N/A: Chest JNJ : [employer] 02/12/2014 [id number] / / [id number] Lens Intraoc 20.0 - [id number] - [id number] Implanted:Qty: 1 on 06/21/2021 by Jonathan Phillips MD at OR [facility] [address] Left: Eye [employer] 02/12/2026 [id number] / [id number] Lens Intraoc 20.5 - [id number] - [id number] Implanted:Qty: 1 on 02/21/2022 by Jonathan Phillips MD at OR [facility] [address] [address] Right: Eye [employer] 09/12/2024 [id number] / [id number] / [id number] documented as of this encounter Visit Diagnoses Diagnosis Bronchitis, complicated- Primary Bronchitis, not specified as acute or chronic Paroxysmal atrial fibrillation (HCC) Atrial fibrillation 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HCC) Sinoatrial node dysfunction Chronic heart failure with preserved ejection fraction (HCC) Dyslipidemia, goal LDL below 70 Other and unspecified hyperlipidemia Cardiac pacemaker in situ Coronary artery disease involving cabazon coronary artery of cabazon heart without angina pectoris Hypertensive heart and kidney disease with chronic diastolic congestive heart failure and stage 3b chronic kidney disease (HCC) Secondary hyperparathyroidism of renal origin (HCC) Secondary hyperparathyroidism (of renal origin) Gout, arthropathy Gouty arthropathy, unspecified documented in this encounter Advance Directives Documents on File Type Date Recorded 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 No Code Status History Code Status Date [...] the patient have Health Care Power of Manufacturing Tech? No Healthcare Agents on File Name Relationship Healthcare Agent Relationshi p Communication Courtney Rashid Niece/Nephew Health Care Repr esentative (appointed verbally by patient or by statute hierarchy) Care Teams Propagation Manager Relationship Specialty Start Date End Date Steffen Gonzales DO [address] [place] [address] PCP - General Internal Medicine 05/25/21 documented as of this encounter
--- OUTSIDE RECORDS SUMMARY | 2023-08-31 19:29 | External Medical Summary ---
Author Name Unknown Address Unknown Organization K01:LABORATORY [facility] - [address] [facility] [address] Laboratory Report Ordering Provider Test Date Status CARLTON CORDERO 08/27/2023 10:00:40 Final Observation Date Value Abnormality Reference (Units ) Status SARS Coronavirus 2 08/27/2023 10:00:40 Negative N egative Final No SARS-CoV2 Coronavirus RNA detected by PCR (amplified probe).
This express test was developed and its performance characteristics determined by [facility]. It has not been cleared or approved by the U.S. Food and Drug Administration (FDA). FDA does not require this test to go thru premarket FDA review. This test is used for clinical purposes. It should not be regarded as investigational or for research. This laboratory is certified under the Clinical Laboratory Improvement Amendments (CLIA) as qualified to perform high complexity clinical laboratory testing.

This test is a nucleic acid amplification test (NAAT), a reverse transcriptase polymerase chain reaction (RT-PCR) test, or a Centers for Disease Control-acceptable equivalent. The test is performed in a high complexity Clinical Laboratory Improvement Amendments-(CLIA) certified laboratory. The test is acceptable for SARS-CoV-2 diagnosis, surveillance, and travel within the [place] and to most countries. Please check with local testing authorities about requirements before travel.

The validation of bronchial specimens, tracheal aspirates, and sputum for this assay was developed and performance characteristics determined by [facility]. The validation of alternate specimen types has not been cleared or approved by the U.S. Food and Drug Administration (FDA). It has been determined that such clearance is not necessary. Influenza virus A RNA [Prese nce] in Specimen by JUAN with probe detection 08/27/2023 10:00:40 Negative Negative Final No Influenza A RNA detected by PCR (amplified probe) Influenza virus B RNA [Prese nce] in Specimen by JUAN with probe detection 08/27/2023 10:00:40 Negative Negative Final No Influenza B RNA detected by PCR (amplified probe) Respiratory syncytial virus RNA [Identifier] in Specimen by JUAN with probe detection 08/27/2023 10:00:40 Negative Negative Final No Respiratory Syncytial Vir us RNA detected by PCR (amplified probe) Performing Location LABORATORY [address] [facility] [address]
--- OUTSIDE RECORDS SUMMARY | 2023-08-31 19:29 | External Medical Summary | Summary of Care ---
Author Name Unknown Organization [facility] Address [address] [place] [address] Phone [phone] Care Team Providers Care Loss Prevention Coordinator Name Role Phone Steffen Gonzales DO Primary Care Provider [phone] Reason for Visit * Reason Onset Date Comments Test Results 08/27/202308/27 Encounter Details Date Type Department Care Team (Late st Contact Info) Description 08/27/2023 Telephone Family Practice 65 [facility] [place] [address] [place] [address] Steffen Gonzales DO [address] [place] [address] Test Results (08/27) Allergies Active Allergy Reactions Criticality Noted Date [...] 90 Tablet 3 05/21/2023 4 Active Ipratropium [place] 0.06 % Nasal Solution (Atrovent) ADMINISTER 2 [...] renal origin Coronary artery disease invo lving [place] coronary artery of [place] heart without angina pectoris 04/08/2018 Cardiac pacemaker in situ 09/28/2017 Overview: DDD Pacemaker Pacemaker. Concrete Foreman Medtronic, model W1DR01 Elena XTDR (MRI conditional), serial number [id number]. Right atrial lead. Concrete Foreman Medtronic, model 5076-45 CapSureFix Novus, serial number [id number]. Right ventricular lead. Concrete Foreman Medtronic, model 5076-52 CapSureFix Novus, serial number [id number]. Placed by Dr Mcknight on 09/27/2017 at [...] Telephone Encounter - Angela Hawthorne LPN - 08/27/2023 3:42 PM EST Call placed to patient and relayed information from Dr. Gonzales. Patient acknowledged understanding. Pt reports she is feeling a little better. Drinking fluids and resting. Instructed to contact the office with any questions or concerns. * Telephone Encounter - Angela Hawthorne LPN - 08/27/2023 3:41 PM EST ----- Message from Steffen Gonzales DO sent at 08/27/2023 3:00 PM EST ----- No Flu, COVID, or RSV documented in this encounter Plan of Treatment Upcoming Encounters Date Type Department Care Team (Late st Contact Info) Description 08/29/2023 8:00 AM EST Office Visit [address] [place] [address] Steffen Gonzales DO [address] [place] [address] 09/05/2023 1:00 PM EST Imaging Vascular Lab, [address] [place] [address] 09/05/2023 2:00 PM EST Imaging Vascular Lab, [address] 132 [place] [address] 09/12/2023 11:10 AM EST Office Visit Vascular Surgery, [facility] 132 [facility] [place] [address] Jerome Glover MD [address] [place] [address] 09/18/2023 9:20 AM EST Office Visit [address] [place] [address] Steffen Gonzales, DO [address] [place] [address] 10/05/2023 7:45 AM EDT Office Visit Cardiology, [facility] 132 [address] [facility] [place], [place] [address] Mae Crisostomo, DO 400 [facility] [place] [address] 10/10/2023 2:00 PM EDT Office Visit Audiology [facility] [place] [address] Valerie Wheat Au.D. 132 [address] [facility] [place] [address] 10/19/2023 9:45 AM EDT Office Visit Urogynecology [facility] [address] [facility] [place], [place] [address] Carie Moncada PA-C 132 [address] [place] [address] Nurse Coty Padron Jackie 132 [place] [address] 11/02/2023 8:40 AM EDT Office Visit Sleep Disorders Ctr [facility] 132 [facility] [place] [phone] Amy Sanon DO [address] [place] [address] 11/13/2023 8:30 AM EDT Cardiac Studies Cardiac Studies, [facility] 132 [facility] [place] [address] 02/04/2024 9:30 AM EDT Cardiac Studies Cardiology, [facility] 132 [facility] [place] [address] [place], [facility] 132 [facility] [place] [address] 02/19/2024 9:30 AM EDT Office Visit Urology, [facility] 132 [facility] [place] [address] Tonny Elias MD [address] [place] 270 [place] [address] 05/07/2024 1:15 PM EDT Immunization Ancillary [address] [place] [address] [place], Covid19 Vaccine [address] [place] [address] 06/24/2024 9:40 AM EST Office Visit Rheumatology [place] [address] [facility] [place] [address] Max Awan MD [address] [facility] [place] [address] 08/19/2024 2:00 PM EST Nurse Only Ancillary [address] [place] [address] [place], Nurse Annual Wellness Visit [address] [place] [address] Health Maintenance Due Date Last Done Comments *BISPHONATE OR OTHER ACCEPTABLE MEDICATION NEEDED FOR OSTEOPOROSIS (REFER TO SMARTSET #1146) 05/18/2023 GFR 02/08/2024 08/10/2023, 06/16, 05/30/2023, Additional history exists Albumin/Creatinine Ratio 03/28/2024 023, 06/16/2022, 08/25/2021 CKD PHOS USE SMARTSET 03453 04/30/202404/15, 11/22/2021, 06/04/2017 CKD HGB USE SMARTSET 69378 08/10/202408/10, 08/10/2023, 07/11/2023, Additional history exists Depression Screening 08/20/2024 08/20/2023 DXA Scan 11/29/2024 11/29/2022, 11/16/2020 DTaP,Tdap,and Td Vaccines (2 - Td or Tdap) 02/22/2027 02/22/2017, 08/05/2004, 08/05/2004 VITAMIN D LEVEL ONCE IN A LIFETIME-USE SMARTSET# [id number] Completed 02/02/2014, 12/24/2012, 06/04/2009 Colonoscopy Discontinued 10/17/2017 [...] this encounter Medical Devices Implanted Type Area Concrete Foreman Device Identifier Shelf Expiration Date Model / Serial / Lot Sut Steel 6 M654g - [id number] Implanted:Qty: 6 on 09/25/2013 at OR [facility] N/A: Chest JNJ : [employer] 02/12/2014 [id number] / / [id number] Lens Intraoc 20.0 - [id number] - [id number] Implanted:Qty: 1 on 06/21/2021 by Jonathan Phillips MD at OR [facility] Left: Eye BAUSCH & LOMB 02/12/2026 [id number] / [id number] / [id number] Lens Intraoc 20.5 - [id number] - [id number] Implanted:Qty: 1 on 02/21/2022 by Jonathan Phillips MD at OR [facility] Right: Eye BAUSCH [employer] LOMB 09/12/2024 [id number] / [id number] / [id number] documented as of this encounter Advance Directives Documents on File Type Date Recorded Patient Slider Assembler Expl anation Advance Directives and Living Will [...] the patient have Health Care Power of Granite Worker? No Code Status History Code Status Date [...] the patient have Health Care Power of Granite Worker? No Healthcare Agents on File Name Relationship Healthcare Agent Relationshi p Communication Courtney Rashid Niece/Nephew Health Care Repr esentative (appointed verbally by patient or by statute hierarchy) Care Teams Loss Prevention Coordinator Relationship Specialty Start Date End Date Steffen Gonzales DO 293 [place] [address] PCP - General Internal Medicine 05/25/21 documented as of this encounter
--- OUTSIDE RECORDS SUMMARY | 2023-08-31 19:30 | External Medical Summary | Summary of Care ---
Author Name Unknown Organization [facility] Address [address] [place] [place] [address] Phone [phone] Care Team Providers Care Cloth Handler Name Role Phone Steffen Gonzales DO Primary Care Provider [phone] Encounter Details Date Type Department Care Team (Late st Contact Info) Description 08/25/2023 Orders Only PATIENT PORTAL DO NOT DELETE THIS DEPT USED BY [place] LATIF [id number] Allergies Active Allergy Reactions Criticality Noted Date [...] as of this encounter (statuses as of 08/25/2023) Medications Medication Sig Dispensed Refills Start Date [...] CAPSULE BEFORE BEDTIME. 180 Capsule 3 09/25/2022 Active Famotidine 20 MG Oral Tablet (Pepcid)Indications:N [...] MOUTH EVERY DAY 90 Tablet 3 05/21/2023 Active Ipratropium [place] 0.06 % Nasal Solution (Atrovent) ADMINISTER 2 [...] the morning. 180 Tablet 3 08/24/2023 Active documented as of this encounter (statuses as of 08/25/2023) Active Problems Problem Noted Date Diagnosed Date [...] renal origin Coronary artery disease invo lving [place] coronary artery of [place] heart without angina pectoris 04/08/2018 Cardiac pacemaker in situ 09/28/2017 Overview: DDD Pacemaker Pacemaker. Hand Bunch Maker Medtronic, model W1DR01 Elena XTDR (MRI conditional), serial number [id number]. Right atrial lead. Hand Bunch Maker Medtronic, model 5076-45 CapSureFix Novus, serial number [id number]. Right ventricular lead. Hand Bunch Maker Medtronic, model 5076-52 CapSureFix Novus, serial number [id number]. Placed by Dr Mcknight on 09/27/2017 at [facility] History of tobacco use 09/19/2017 ELMO (obstructive [...] as of this encounter (statuses as of 08/25/2023) Resolved Problems Problem Noted Date Diagnosed Date [...] as of this encounter (statuses as of 08/25/2023) Immunizations Name Administration Dates Next Due COVID-19 [...] 09/05/2023 1:00 PM EST Imaging Vascular Lab, [address] 132 [facility] [place] [address] 09/05/2023 2:00 PM EST Imaging Vascular Lab, [address] 132 [place] [address] 09/12/2023 11:10 AM EST Office Visit Vascular Surgery, [facility] 132 [place] [address] Jerome Glover MD 100 [place] [address] 09/18/2023 9:20 AM EST Office Visit Family Practice [address] [place] [address] 293 [facility] [place] [address] Steffen Gonzales, DO 293 [place] [address] 10/05/2023 7:45 AM EDT Office Visit Cardiology, [facility] 132 [facility] [place], [place] [address] Mae Crisostomo, DO 400 [facility] [place]OD[place] [id number] 10/10/2023 2:00 PM EDT Office Visit Audiology [facility] 132 [facility] [place] [address] Valerie Wheat Au.D. 132 [facility] [place] [address] 10/19/2023 9:45 AM EDT Office Visit Urogynecology [facility] 132 [facility] [place] [address] Carie Moncada PA-C 132 [facility] [place] [address] PadronNurse Coty jaime [facility] 132 [facility] [place] [address] 11/02/2023 8:40 AM EDT Office Visit Sleep Disorders Ctr [facility] 132 [facility] [place] [phone] Amy Sanon DO 132 [facility] [place] [address] 11/13/2023 8:30 AM EDT Cardiac Studies Cardiac Studies, [facility] 132 [place] [address] 02/04/2024 9:30 AM EDT Cardiac Studies Cardiology, [facility] 132 [facility] [place] [address] [place] 132 [facility] [address] 02/19/2024 9:30 AM EDT Office Visit Urology, [facility] 132 [facility] [place] [address] Tonny Elias MD 27 [facility] 270 [place] [address] 05/07/2024 1:15 PM EDT Immunization Ancillary [address] [address] [place], Covid19 Vaccine [address] [address] 06/24/2024 9:40 AM EST Office Visit Rheumatology [address] [address] Max Awan MD [address] [place] [address], [place] [address] 08/19/2024 2:00 PM EST Nurse Only Ancillary [address] [address] [place], Nurse Annual Wellness Visit [address] [address] Health Maintenance Due Date Last Done Comments *BISPHONATE OR OTHER ACCEPTABLE MEDICATION NEEDED FOR OSTEOPOROSIS (REFER TO SMARTSET #1146) 05/18/2023 GFR 02/08/2024 08/10/2023, 06/16, 05/30/2023, Additional history exists Albumin/Creatinine Ratio 03/28/2024 023, 06/16/2022, 08/25/2021 CKD PHOS USE SMARTSET 05315 04/30/202404/15, 11/22/2021, 06/04/2017 CKD HGB USE SMARTSET 19294 08/10/202408/10, 08/10/2023, 07/11/2023, Additional history exists Depression Screening 08/20/2024 08/20/2023 DXA Scan 11/29/2024 11/29/2022, 11/16/2020 DTaP,Tdap,and Td Vaccines (2 - Td or Tdap) 02/22/2027 02/22/2017, 08/05/2004, 08/05/2004 VITAMIN D LEVEL ONCE IN A LIFETIME-USE SMARTSET# 53708 Completed 02/02/2014, 12/24/2012, 06/04/2009 Colonoscopy Discontinued 10/17/2017 [...] this encounter Medical Devices Implanted Type Area Hand Bunch Maker Device Identifier Shelf Expiration Date Model / Serial / Lot Sut Steel 6 M654g - [id number] Implanted:Qty: 6 on 09/25/2013 at OR [facility] N/A: Chest JNJ : [employer] 02/12/2014 [id number] / / [id number] Lens Intraoc 20.0 - [id number] - [id number] Implanted:Qty: 1 on 06/21/2021 by Jonathan Phillips MD at OR [facility] Left: Eye BAUSCH & LOMB 02/12/2026 [id number] / [id number] / [id number] Lens Intraoc 20.5 - [id number] - [id number] Implanted:Qty: 1 on 02/21/2022 by Jonathan Phillips MD at OR [facility] Right: Eye BAUSCH & LOMB 09/12/2024 [id number] / [id number] / [id number] documented as of this encounter Advance Directives Documents on File Type Date Recorded Patient Seo Coordinator Expl anation Advance Directives and Living [...] the patient have Health Care Power of Jalousie Installer? No Code Status History Code Status Date [...] the patient have Health Care Power of Jalousie Installer? No Healthcare Agents on File Name Relationship Healthcare Agent Relationshi p Communication Courtneycody Rashid Niece/Nephew Health Care Repr esentative (appointed verbally by patient or by statute hierarchy) Care Teams Cloth Handler Relationship Specialty Start Date End Date Steffen Gonzales DO [address] [place] [address] PCP - General Internal Medicine 05/25/21 documented as of this encounter
[2023-08-31] MEDS ORDERED: ACETAMINOPHEN 325 MG TAB PO PRN (21:50)
[2023-08-31] MEDS: APIXABAN 5 MG TABLET PO SCH (22:52)
[2023-08-31] MEDS: cefTRIAXone SODIUM 2,000 MG in DEXTROSE 5 % MINI-B 50 ML IV SCH (22:53)
[2023-08-31] MEDS: DOFETILIDE 125 MCG CAPSULE PO SCH (22:53)
[2023-08-31] MEDS: METOPROLOL SUCC 50MG EXT REL TAB PO SCH (22:53)
[2023-09-01 06:02] LABS: Basophils # (auto) 0.04 K/uL (0.00-0.20); Basophils % (auto) 0.5 %; Eosinophils # (auto) 0.14 K/uL (0.00-0.50); Eosinophils % (auto) 1.8 %; Hematocrit (blood only) 36.2 % (37.0-47.0); Hemoglobin 11.8 g/dl (12.0-16.0); Immature Granulocytes # (auto) 0.04 K/uL (0.01-0.20); Immature Granulocytes % (auto) 0.5 %; Lymphocytes # (auto) 0.97 K/uL (1.20-3.40); Lymphocytes % (auto) 12.4 %; Mean Corpuscular Hemoglobin 30.2 pg (25.0-34.0); Mean Corpuscular Hgb Conc 32.6 g/dL (32.0-36.0); Mean Corpuscular Volume 92.6 fL (80.0-100.0); Mean Platelet Volume 11.7 fL (9.4-12.4); Monocytes # (auto) 1.29 K/uL (0.11-0.59); Monocytes % (auto) 16.5 %; Neutrophils # (auto) 5.35 K/uL (1.40-6.50); Neutrophils % (auto) 68.3 %; Platelet Count 187 K/uL (130-400); RDW Coefficient of Variation 14.8 % (11.5-14.5); RDW Standard Deviation 50.2 fL (36.4-46.3); Red Blood Count 3.91 M/uL (4.20-5.40); White Blood Count 7.83 K/ul (4.8-10.8)
[2023-09-01] MEDS: FUROSEMIDE 40 MG/4 ML VIAL IV ONE (06:33)
[2023-09-01 06:46] LABS: BUN Creatinine Ratio 18.3 (10-20); Calcium 8.6 mg/dl (8.6-10.3); Creatinine Clr Calc Pharmacy 29.7 ml/min; Est GFR (African American) 47.9 ml/min; Est GFR (Non-African American) 41.4 ml/min; Potassium 3.4 mmol/L (3.5-5.1)
[2023-09-01] MEDS: EZETIMIBE 10 MG TAB PO SCH (08:13)
[2023-09-01] MEDS: CHOLECALCIFEROL 25 MCG (1000 UNITS) TAB PO SCH (08:14)
[2023-09-01] MEDS: allopurinoL 300 MG TAB PO SCH (08:14)
[2023-09-01] MEDS: POTASSIUM CHLORIDE CRTAB 20 MEQ TABCR PO STA (10:05)
[2023-09-01] MEDS: SODIUM CHLORIDE 0.65% NA SOLN 45 ML (OCEAN) ONE (10:05)
--- NOTE | 2023-09-01 14:48 | Cardiology Consultation ---
Date of Consultation September 01, 2023 Assessment & Plan (1) Acute on chronic diastolic (congestive) heart failure: (2) Atrial fibrillation with rapid ventricular response: (3) SVT (supraventricular tachycardia): Plan Chest x-ray with suggestion of pulmonary vascular congestion, severe underlying emphysema, small pleural effusions. Echocardiogram performed in July, was performed in the setting of a rapid atrial tachycardia, with mild global left ventricular hypokinesis, ejection fraction range of 45 to 50%. Will repeat echocardiogram with patient in sinus rhythm as left ventricular systolic dysfunction was noted at that time. Agree with furosemide 40 mg IV twice daily, and coverage with ceftriaxone for completeness for possible underlying complicated bronchitis/pneumonia. EKG performed on presentation revealed a relatively stable QT interval of 409 ms. Recommend avoiding QT prolonging agents given treatment with dofetilide 250 mcg twice daily. Continue metoprolol succinate 100 mg twice daily with dose have been escalated over the last month. Per review of her chart and her pacemaker data, patient appears to have complex atrial arrhythmias with evidence of recurrent atrial fibrillation, atrial flutter, and atrial tachycardia. Had a previous pulmonary vein isolation procedure in 2013. Repeat procedure may be of benefit in the future, but she may also be approaching a point where AV junction ablation becomes most prudent. Continue anticoagulation with Eliquis. Supplement potassium. History of Present Illness Attending Physician: Oscar Sunshine MD History of Present Illness Lori Dasilva is a 78-year-old female seen in consultation per the request of Loli Gomez PA-C for the evaluation of acute on chronic heart failure with preserved ejection fraction, and paroxysmal atrial fibrillation/flutter. Patient was admitted yesterday having presented to the emergency department with shortness of breath. Initial EKG revealed sinus rhythm with atrial pacing and poarch QRS complexes at 61 bpm. Age-indeterminate anterior infarct pattern noted with poor R wave progression in leads V1 to V4. Patient with noted recurrent narrow complex tachycardia onset 09/01/2023 at 7 AM with onset at 10 AM 09/01/2023. Telemetry now reveals atrial paced, ventricular sensed rhythm in the 70s. Patient has received furosemide, as well as her. Hospital treated metoprolol and dofetilide and felt well at the time my assessment. History: 1.Paroxysmal atrial fibrillation controlled with dofetilide a.History of radiofrequency ablation of atrial fibrillation on 09/25/2013 with incomplete response, complicated by atrial perforation and acute tamponade requiring surgical repair. 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 3.H/o TBS (seen during hospitalization), s/p dual-chamber pacemaker insertion, 09/27/2017 (Medtronic [place] XT ) 4.Obstructive sleep apnea on CPAP 5.Chronic renal insufficiency stage 3-- follows with Dr. [place]. 6.Longstanding hypertension with hypertensive heart disease and diastolic CHF 7.most recent cardiac catheterization January, revealing mild to moderate nonobstructive coronary heart disease, maximum stenosis is a 40% stenosis of the mid circumflex, ongoing medical management recommended at that time 8.Atherosclerotic PAD, status post right iliac stenting in 2004. 9.Status post repair of right ulnar pseudoaneurysm Allergies Allergy/AdvReac Type Severity Reaction Status Date / Time Cipro Allergy Severe ANAPHYLAXIS Verified 02/26/18 10:43 ciprofloxacin Allergy Severe ANAPHYLAXIS Verified 08/24/23 13:15 amiodarone Allergy Mild Wheezing Verified 08/24/23 13:15 nitrofurantoin Allergy Mild N/V, pt Verified 08/24/23 13:15 also noted irregular HR bacitracin Allergy Unknown SWELLING Verified 08/24/23 13:15 AND ITCHING dabigatran etexilate Allergy Unknown DIFFICULTY Verified 08/24/23 13:15 BREATHING, DIZZINESS hydralazine Allergy Unknown DIARRHEA, Verified 08/24/23 13:15 BLE SWELLING, FLUSHING terazosin Allergy Unknown DIZZY AND Verified 08/24/23 13:15 LIGHTHEADED atorvastatin AdvReac Intermediate MUSCLE PAIN Verified 08/24/23 13:15 rosuvastatin AdvReac Intermediate MUSCLE PAIN Verified 08/24/23 13:15 Sulfa (Sulfonamide AdvReac Intermediate SWELLING Verified 08/24/23 13:15 Antibiotics) OF THE ANKLES Home Medications Medication Instructions Recorded Confirmed Type cholecalciferol (vitamin D3) 25 1,000 units PO DAILY 04/28/19 08/31/23 History mcg (1,000 unit) capsule dofetilide 250 mcg capsule 250 mcg PO BID 04/28/19 08/31/23 History ipratropium bromide 42 mcg (0.06 2 spray intranasal TID PRN allergy 08/11/20 08/31/23 Rx %) nasal spray symptoms #90 mL CPAP Supplies #1 ea 12/29/20 08/31/23 Rx apixaban 5 mg tablet (Eliquis) 5 mg PO BID 01/20/21 08/31/23 History ezetimibe 10 mg tablet (Zetia) 10 mg PO DAILY 02/01/23 08/31/23 History allopurinol 300 mg tablet 300 mg PO DAILY 08/04/23 08/31/23 History estradiol 0.01% (0.1 mg/gram) 1 appful vaginal UD PRN Vaginal 08/04/23 08/31/23 History vaginal cream Dryness aspirin 81 mg tablet,delayed 81 mg PO 3XWK 08/31/23 08/31/23 History release (Adult Aspirin Regimen) cefdinir 300 mg capsule 300 mg PO BID 08/31/23 08/31/23 History famotidine 20 mg tablet 10 - 20 mg PO HS PRN Acid Reflux 08/31/23 08/31/23 History furosemide 20 mg tablet 40 mg PO DAILY 08/31/23 08/31/23 History metoprolol succinate 100 mg 100 mg PO BID 08/31/23 08/31/23 History tablet,extended release 24 hr Patient History Medical History Sensorineural hearing loss of both ears Venous stasis ulcer of right ankle limited to breakdown of skin with varicose veins Allergic rhinitis due to dust Amiodarone pulmonary toxicity Coronary atherosclerosis of poarch coronary vessel (08/07/12) followed by [facility] cardiology Chronic obstructive lung disease (08/07/12) followed by Pulmonary Chronic osteoarthritis Dyslipidemia Irritable bowel syndrome (08/07/12) Lumbar radiculopathy Peripheral neuropathy Secondary hyperparathyroidism Sleep apnea Vitamin D insufficiency Paroxysmal atrial fibrillation Peripheral vascular disease, unspecified followed by [facility] vascular Chronic kidney disease, stage 3 (moderate) followed by Nephrology Hypoxia (08/07/12) Hypertension Congestive heart failure Atrial fibrillation with RVR Surgical History History of local excision of skin lesion in-office excision of right thigh skin lesion Status post percutaneous transluminal angioplasty (TONGUE AND GROOVE MACHINE FEEDER) with stent placement right 2004 History of colonoscopy Status post catheter ablation of atrial fibrillation 04/2012 History of cardioversion 06/2012 History of ankle surgery fracture, 195 H/O: hysterectomy Pacemaker Total abdominal hysterectomy with bilateral salpingo-oophorectomy (08/07/12) Family History Father Myocardial infarction Mother Liver cancer Sister Uterine cancer Other Coronary heart disease Hypertension Denies family history of Ovarian cancer Prostate cancer Breast cancer Colorectal cancer Social History Smoking Status: Former smoker Tobacco Type: Cigarettes Age Started Using Tobacco: 17; Age Quit Using Tobacco: 57; packs per day: 1; Cigarettes Per Day: 20; Second Hand Exposure: No; Do You Dip or Chew Tobacco: No; Tobacco Cessation Education Requested by Patient: No Hx Alcohol Use: Yes Alcohol type: other Alcohol Intake Frequency: Monthly or Less Alcohol Intake Frequency Comment: social Hx Substance Use: No Preferred Language: Serbian Communication Ability: Effective Visual Impairment: Limited Hearing Ability: Normal Vice President Compliance Required: No Beliefs That Will Affect Care: None marital status: Current Living Situation: Alone current occupational status: retired How many Children do You have: 3 Other Information That Helps Us Care for You: No other: 3 stepchildren Feels Safe at Home: Yes Safety Concerns: Feels Safe At This Time Childhood Exposure to Second-Hand Smoke: No caffeine: Yes (coffee and tea occassionally ) Dental Care, Regularly: Yes Physical Activity Frequency: Does not Exercise Physical Activity Frequency Comment: not right now due to covid Seatbelt Use: always Sunscreen Use: Yes Assistive Devices: CPAP Review of Systems Review of Systems: All systems reviewed & are unremarkable except as noted in HPI & below Physical Exam Constitutional: WD/WN, vitals as above Respiratory: no cough Auscultation: + diminished lung sounds (Decreased breath sounds bilaterally at bases) Cardiovascular: RRR, no murmur, no edema Gastrointestinal (Abdomen): normal bowel sounds, soft, nontender, no hepatosplenomegaly Neurologic: PERRL, EOMI, accommodation nl, no face palsy, no dysarthria Results & Data Vital Signs (Past 12 Hours) Vital Signs Temp Pulse Pulse Resp BP Pulse Ox O2 Del Method 09/01/23 12:34 36.8 C 66 100/60 93 Room Air 09/01/23 08:00 103 H 09/01/23 08:00 Nasal Cannula 09/01/23 07:55 36.3 C L 59 L 96/62 L 92 Nasal Cannula 09/01/23 06:36 120/81 02/17/24 04:30 121/73 09/01/23 03:26 36.9 C 68 18 99/65 L 94 Nasal Cannula O2 Flow Rate 09/01/23 12:34 09/01/23 08:00 09/01/23 08:00 2 09/01/23 07:55 2 09/01/23 06:36 09/01/23 04:30 09/01/23 03:26 2 Laboratory Results CBC 09/01/23 Range/Units 05:26 WBC 7.83 (4.8-10.8) K/ul RBC 3.91 L (4.20-5.40) M/uL Hgb 11.8 L (12.0-16.0) g/dl Hct 36.2 L (37.0-47.0) % Plt Count 187 (130-400) K/uL Neut # (Auto) 5.35 (1.40-6.50) K/uL Lymph # (Auto) 0.97 L (1.20-3.40) K/uL [place] # (Auto) 1.29 H (0.11-0.59) K/uL Eos # (Auto) 0.14 (0.00-0.50) K/uL Baso # (Auto) 0.04 (0.00-0.20) K/uL Comprehensive Metabolic Panel 09/01/23 Range/Units 05:26 Sodium 134 L (136-145) mmol/L Potassium 3.4 L D (3.5-5.1) mmol/L Chloride 101 (98-107) mmol/L Carbon Dioxide 26 (21-32) mmol/L BUN 23 (6-23) mg/dl Creatinine 1.26 H (0.6-1.2) mg/dl Glucose 86 (70-99(Fasting)) mg/dl Calcium 8.6 (8.6-10.3) mg/dl Intake and Output 09/01/23 09/01/23 09/01/23 06:59 14:59 22:59 Intake Total 50 / 50 Output Total 75 / 75 900 / 900 Balance -25 / -25 -900 / -900 Intake: IV 50 / 50 cefTRIAXone SODIUM 2,000 mg In 50 / 50 Dextrose 5 % Mini-B 50 ml @ 100 mls/hr IV Q24H [facility] Rx#: [id number] Output: Urine 75 / 75 Urine Amount (Catheter) 900 / 900 External 900 / 900 Other: Weight 49.5 kg Weight Measurement Method Built in [facility]
--- NOTE | 2023-09-01 17:09 | Hospitalist Progress Note ---
Date of Service September 01, 2023 Assessment & Plan (1) Hypoxia: (2) Acute on chronic diastolic (congestive) heart failure: Plan: This is a 78 y/o female with a history of paroxysmal A-fib, tachy-jaqui syndrome s/p PPM, chronic diastolic HF, CKD3, allergic rhinitis/sinusitis, ELMO on CPAP, gout, COPD, HTN, PVD s/p right iliac stent presents to the ED with acute onset of dyspnea this morning. In the ED, sats dropped to the 80s with minimal ambulation and pt became more short of breath so she's been referred for admission. Suspect respiratory symptoms are multi-factorial due to episodic PAF/flutter, acute on chronic HF, and possible complicated bronchitis, which has been partially treated. Chest x-ray on admission personally reviewed; consistent with pulmonary edema. Severe emphysema present No leukocytosis EKG on admission shows atrial paced rhythm Echocardiogram shows EF of 50 to 55% with moderate concentric LVH. Currently on IV Lasix 40 mg twice daily for pulmonary edema Continue on ceftriaxone for possible pneumonia Patient will need a referral for pulmonology as outpatient for management of emphysema. Patient is currently not on any inhalers. (3) Paroxysmal atrial fibrillation: Plan: Continue metoprolol succinate 100 mg BID - dose increase by PCP two days ago Monitor in PCU Cardio evaluation (4) Chronic kidney disease, stage 3 (moderate): Plan: Creatinine appears to be around baseline Continue to monitor CBC (5) Obstructive sleep apnea: Plan: Continue CPAP at HS (6) Anticoagulant long-term use: Plan: Pt is on chronic apixaban due to PAF - will continue (7) Hypertension: Plan: Chronic, stable Continuing home medications Plan Code Status: Full code DVT Prophylaxis: on apixaban Time spent evaluating patient, direct bedside care, chart review, placing orders, interpretation of diagnostic studies, discussion with consultants, patient, and family members, as well as other required patient management activities is 50-minute Please note the above document was generated using voice recognition software. It may contain grammatical, syntax or spelling errors. Any formal questions or concerns about the content, text or information contained within the body of this dictation should be directly addressed to the provider for clarification Admission and Anticipated Discharge Date Admission Date: August 31, 2023 Subjective Patient seen and examined at bedside. She reports that her breathing has slightly improved compared to admission. She is not requiring any oxygen at the moment. Review of Systems Review of Systems: All systems reviewed & are unremarkable except as noted in Subjective Physical Exam Physical Exam: Constitutional: WD/WN, vitals as above, NAD, sitting up in bed, pleasant, conversing easily Respiratory: Decreased breath entry bilaterally. Cardiovascular: RRR, no murmur, no edema Vessels: no JVD or carotid bruit Chest: normal inspection of chest Abdomen: normal bowel sounds, soft, nontender, no hepatosplenomegaly Musculoskeletal: no cyanosis or clubbing, extremities motor strength 5/5 Skin: no rashes, warm and dry normal turgor Neurologic: PERRL, EOMI, accommodation nl, no face palsy, no dysarthria CN's II- XI intact bilaterally and moves all extremities Psychiatric: A+Ox3, euthymic affect Results & Data Results & Data Vital Signs (Past 12 Hours) Vital Signs Temp Pulse Pulse BP Pulse Ox O2 Del Method O2 Flow Rate 09/01/23 16:27 36.8 C 69 126/67 92 Room Air 09/01/23 16:09 67 09/01/23 12:34 36.8 C 66 100/60 93 Room Air 09/01/23 08:00 103 H 09/01/23 08:00 Nasal Cannula 2 09/01/23 07:55 36.3 C L 59 L 96/62 L 92 Nasal Cannula 2 09/01/23 06:36 120/81 (4) Chronic kidney disease, stage 3 (moderate) Chronic kidney disease stage 3 subtype: unspecified whether 3a or 3b Qualified Code(s): N18.30 - Chronic kidney disease, stage 3 unspecified (7) Hypertension Hypertension type: primary hypertension Qualified Code(s): I10 - Essential ( primary) hypertension
[2023-09-01] MEDS: FUROSEMIDE 40 MG/4 ML VIAL IV SCH (17:34)
[2023-09-02 06:46] LABS: BUN Creatinine Ratio 16.7 (10-20); Calcium 8.9 mg/dl (8.6-10.3); Creatinine Clr Calc Pharmacy 25.2 ml/min; Est GFR (African American) 38.8 ml/min; Est GFR (Non-African American) 33.5 ml/min; Potassium 3.9 mmol/L (3.5-5.1)
[2023-09-02 07:46] LABS: Magnesium 2.2 mg/dl (1.7-2.4)
[2023-09-02] MEDS: MAGNESIUM SULFATE / D5W 1 GM/100 ML BAG IV SCH (08:39)
--- NOTE | 2023-09-02 11:32 | Cardiology Progress Note ---
Date of Service September 02, 2023 Assessment & Plan (1) Acute on chronic diastolic (congestive) heart failure: (2) Atrial fibrillation with rapid ventricular response: (3) SVT (supraventricular tachycardia): Plan Echocardiogram performed in July, was performed in the setting of a rapid atrial tachycardia, with mild global left ventricular hypokinesis, ejection fraction range of 45 to 50%. Repeat echocardiogram performed 09/01/2023 while patient was in sinus rhythm in 60s revealed LVEF in the range of 50 to 55%, grade 2 diastolic dysfunction, mild mitral regurgitation Creatinine has trended up to 1.5. Discontinue IV furosemide, transition to oral furosemide 40 mg daily, next dose 09/03/2023 EKG performed on presentation revealed a relatively stable QT interval of 409 ms. Recommend avoiding QT prolonging agents given treatment with dofetilide 250 mcg twice daily. Continue metoprolol succinate 100 mg twice daily with dose have been escalated over the last month. Continue anticoagulation with Eliquis. Supplement potassium. In the last 24 hours, predominant rhythm has been sinus rhythm, but has had episodes of narrow complex tachycardia as well as a tachycardia with ventricular pacing. Rates have been in the 120s. Per review of telemetry and historical pacemaker data, it is felt that the patient has paroxysmal atrial fibrillation, atrial flutter, and an atrial tachycardia. Previous atrial fibrillation ablation was performed in 2013. Continue metoprolol and dofetilide for now and if her heart rate is better later today, I think she can be discharged with plans for outpatient EP follow-up for consideration of AV junction ablation or other alternative therapy. Admission and Anticipated Discharge Date Admission Date: August 31, 2023 Subjective Patient seen in cardiology follow-up. She states that she is feeling well until a few minutes ago, now feels a little bit breathless. Per review of her telemetry, predominant rhythm has been sinus rhythm, however she has had recurrent episodes of recurrent tachycardia and is back into a ventricular paced tachycardia 122 bpm at present. Physical Exam Constitutional: WD/WN, vitals as above Respiratory: no cough Auscultation: + diminished lung sounds (Decreased breath sounds bilaterally at bases) Cardiovascular: Rate/Rhythm: regular rate and + tachycardic Heart Sounds: + murmur (1/6 systolic murmur) Vessels: no JVD Extremities: no edema Gastrointestinal (Abdomen): normal bowel sounds, soft, nontender, no hepatosplenomegaly Neurologic: PERRL, EOMI, accommodation nl, no face palsy, no dysarthria Results & Data Vital Signs (Past 12 Hours) Vital Signs Temp Pulse Pulse Resp BP Pulse Ox O2 Del Method 09/02/23 08:00 113 H 09/02/23 08:00 Room Air 09/02/23 07:34 36.4 C L 64 18 123/73 96 Nasal Cannula 09/02/23 03:30 36.6 C 68 18 128/82 98 Nasal Cannula O2 Flow Rate 09/02/23 08:00 09/02/23 08:00 09/02/23 07:34 2 09/02/23 03:30 2 Laboratory Results Comprehensive Metabolic Panel 09/02/23 Range/Units 06:06 Sodium 137 (136-145) mmol/L Potassium 3.9 (3.5-5.1) mmol/L Chloride 101 (98-107) mmol/L Carbon Dioxide 30 (21-32) mmol/L BUN 25 H (6-23) mg/dl Creatinine 1.50 H (0.6-1.2) mg/dl Glucose 77 (70-99(Fasting)) mg/dl Calcium 8.9 (8.6-10.3) mg/dl Intake and Output 09/01/23 09/02/23 09/02/23 22:59 06:59 14:59 Intake Total 1650 / 1650 100 / 100 Output Total 1502 / 2403 1 / 2403 Balance 148 / -753 -1 / -753 100 / 100 Intake: IV 50 / 50 100 / 100 Magnesium Sulfate / D5w 1 gm In 100 / 100 100 ml @ 50 mls/hr IV Q2H [facility] Rx#:[id number] cefTRIAXone SODIUM 2,000 mg In 50 / 50 Dextrose 5 % Mini-B 50 ml @ 100 mls/hr IV Q24H [facility] Rx#: [id number] Oral 1600 / 1600 Output: Urine 1300 / 1300 0 / 1300 Urine Amount (Catheter) 200 / 1100 External 200 / 1100 # Bowel Movements 2 / 3 1 / 3 Other: # Unmeasured Voids 2 2 Weight 50.2 kg Weight Measurement Method Built in [facility]
--- NOTE | 2023-09-02 15:36 | Hospitalist Progress Note ---
Date of Service September 02, 2023 Assessment & Plan (1) Hypoxia: (2) Acute on chronic diastolic (congestive) heart failure: Plan: This is a 78 y/o female with a history of paroxysmal A-fib, tachy-jaqui syndrome s/p PPM, chronic diastolic HF, CKD3, allergic rhinitis/sinusitis, ELMO on CPAP, gout, COPD, HTN, PVD s/p right iliac stent presents to the ED with acute onset of dyspnea In the ED, sats dropped to the 80s with minimal ambulation and pt became more short of breath so she's been referred for admission. Suspect respiratory symptoms are multi-factorial due to episodic PAF/flutter, acute on chronic HF, and possible complicated bronchitis, which has been partially treated. Chest x-ray on admission personally reviewed; consistent with pulmonary edema. Severe emphysema present No leukocytosis EKG on admission shows atrial paced rhythm Echocardiogram shows EF of 50 to 55% with moderate concentric LVH. Patient was diuresed with IV Lasix 40 mg twice daily. Switched over to oral Lasix 40 mg as per cardiology Continue on ceftriaxone for possible pneumonia Patient will need a referral for pulmonology as outpatient for management of emphysema. Patient is currently not on any inhalers. (3) Paroxysmal atrial fibrillation: Plan: On metoprolol succinate 100 mg twice daily Telemetry shows Peroids of elevated heart rate Continue to monitor on telemetry (4) Chronic kidney disease, stage 3 (moderate): Plan: Creatinine appears to be around baseline Continue to monitor CBC (5) Obstructive sleep apnea: Plan: Continue CPAP at HS (6) Anticoagulant long-term use: Plan: Pt is on chronic apixaban due to PAF - will continue (7) Hypertension: Plan: Chronic, stable Continuing home medications Plan Code Status: Full code DVT Prophylaxis: on apixaban Dispositionpatient admitted for pneumonia, acute on chronic heart failure as well as A-fib. She is currently on IV antibiotics; requires daily monitoring. Possible DC tomorrow a.m. depending on clinical status Time spent evaluating patient, direct bedside care, chart review, placing orders, interpretation of diagnostic studies, discussion with consultants, patient, and family members, as well as other required patient management activities is 50-minute Please note the above document was generated using voice recognition software. It may contain grammatical, syntax or spelling errors. Any formal questions or concerns about the content, text or information contained within the body of this dictation should be directly addressed to the provider for clarification Admission and Anticipated Discharge Date Admission Date: August 31, 2023 Subjective Patient seen and examined at bedside. Comfortable; not in distress. Telemetry shows periods elevated heart rate; atrial fibrillation/flutter Review of Systems Review of Systems: All systems reviewed & are unremarkable except as noted in Subjective Physical Exam Physical Exam: Constitutional: WD/WN, vitals as above, NAD, sitting up in bed, pleasant, conversing easily Respiratory: Decreased breath entry bilaterally. Cardiovascular: RRR, no murmur, no edema Vessels: no JVD or carotid bruit Chest: normal inspection of chest Abdomen: normal bowel sounds, soft, nontender, no hepatosplenomegaly Musculoskeletal: no cyanosis or clubbing, extremities motor strength 5/5 Skin: no rashes, warm and dry normal turgor Neurologic: PERRL, EOMI, accommodation nl, no face palsy, no dysarthria CN's II- XI intact bilaterally and moves all extremities Psychiatric: A+Ox3, euthymic affect Results & Data Results & Data Vital Signs (Past 12 Hours) Vital Signs Temp Pulse Pulse Resp BP Pulse Ox O2 Del Method 09/02/23 11:30 36.3 C L 121 H 18 107/64 92 Room Air 09/02/23 08:00 113 H 09/02/23 08:00 Room Air 09/02/23 07:34 36.4 C L 64 18 123/73 96 Nasal Cannula O2 Flow Rate 09/02/23 11:30 09/02/23 08:00 09/02/23 08:00 09/02/23 07:34 2 (4) Chronic kidney disease, stage 3 (moderate) Chronic kidney disease stage 3 subtype: unspecified whether 3a or 3b Qualified Code(s): N18.30 - Chronic kidney disease, stage 3 unspecified (7) Hypertension Hypertension type: primary hypertension Qualified Code(s): I10 - Essential (primary) hypertension
[2023-09-03 06:38] LABS: Basophils # (auto) 0.03 K/uL (0.00-0.20); Basophils % (auto) 0.4 %; Eosinophils # (auto) 0.35 K/uL (0.00-0.50); Eosinophils % (auto) 5.2 %; Hematocrit (blood only) 37.9 % (37.0-47.0); Hemoglobin 12.6 g/dl (12.0-16.0); Immature Granulocytes # (auto) 0.07 K/uL (0.01-0.20); Mean Corpuscular Hemoglobin 30.7 pg (25.0-34.0); Mean Corpuscular Hgb Conc 33.2 g/dL (32.0-36.0); Mean Corpuscular Volume 92.2 fL (80.0-100.0); Mean Platelet Volume 11.7 fL (9.4-12.4); Monocytes # (auto) 0.98 K/uL (0.11-0.59); Monocytes % (auto) 14.7 %; Neutrophils # (auto) 4.25 K/uL (1.40-6.50); Neutrophils % (auto) 63.7 %; Platelet Count 188 K/uL (130-400); RDW Coefficient of Variation 14.7 % (11.5-14.5); RDW Standard Deviation 49.7 fL (36.4-46.3); Red Blood Count 4.11 M/uL (4.20-5.40); White Blood Count 6.68 K/ul (4.8-10.8)
[2023-09-03 06:57] LABS: BUN Creatinine Ratio 17.6 (10-20); Calcium 8.6 mg/dl (8.6-10.3); Creatinine Clr Calc Pharmacy 22.9 ml/min; Est GFR (African American) 34.6 ml/min; Est GFR (Non-African American) 29.8 ml/min; Potassium 4.1 mmol/L (3.5-5.1)
[2023-09-03] MEDS: FUROSEMIDE 40 MG TAB PO SCH (09:29)
[2023-09-03] MEDS: ASPIRIN 81 MG ECTAB PO SCH (09:31)
--- NOTE | 2023-09-03 09:56 | Cardiology Progress Note ---
Date of Service September 03, 2023 Assessment & Plan (1) Acute on chronic diastolic (congestive) heart failure: (2) Atrial fibrillation with rapid ventricular response: (3) SVT (supraventricular tachycardia): Plan Echocardiogram performed in July, was performed in the setting of a rapid atrial tachycardia, with abnormal septal motion in setting of ventricular pacing, ejection fraction range of 45 to 50%. Repeat echocardiogram performed 09/01/2023 while patient was in sinus rhythm in 60s revealed LVEF in the range of 50 to 55%, grade 2 diastolic dysfunction, mild mitral regurgitation Creatinine has trended up to 1.6. Hold IV and oral diuretics, in setting of wo rsening renal function and dofetilide therapy. EKG performed on presentation revealed a relatively stable QT interval of 409 ms. Recommend avoiding QT prolonging agents given treatment with dofetilide 250 mcg twice daily. Continue metoprolol succinate 100 mg twice daily with dose have been escalated over the last month. Continue anticoagulation with Eliquis for stroke prevention. 09/03/23: As of 9:24 am, telemetry reveals SR with atrial pacing and ventricular sensing. Pt had another episode of tachycardia, ventricular rates of 140-150s this am from 830 am to 9:06, apparent AF or AFL with hughes conduction. Had a prolonged episode of tachycardia with ventricular pacing yesterday that terminated at midnight. Pt is a poor candidate for amiodarone due to underlying lung disease, and is is difficult to distinguish the culprit of her shortness of breath with regards to lung disease versus diastolic dysfunction versus tachycardia episodes. As noted, metoprolol succinate dose recently titrated to 100 mg twice daily however recurrent episodes persist. s/p PVI ablation in 09/2013 with incomplete response, complicated by atrial perforation and acute tamponade requiring surgical repair. Considerations include proceeding with AV node ablation. Dual-chamber [employer] permanent pacemaker placed in 2018 with RV apical pacemaker lead. If AV node ablation considered, we also need upgrade to a left bundle lead with anticipated compromise left ventricular systolic function with chronic RV apical pacing based on what has been observed on previous echocardiogram studies. Will discuss case with EP. Pt agreeable to procedure if felt indicated. Admission and Anticipated Discharge Date Admission Date: August 31, 2023 Subjective Patient seen in cardiology follow up. As of 9:24 am, telemetry reveals SR with atrial pacing and ventricular sensing. Pt had another episode of tachycardia, ventricular rates of 140-150s this am from 830 am to 9:06, apparent AF or AFL with hughes conduction. Had a prolonged episode of tachycardia with ventricular pacing yesterday that terminated at midnight. Pt feeling well at present without current SOB. Physical Exam Constitutional: WD/WN, vitals as above Respiratory: no cough Auscultation: + diminished lung sounds (Decreased breath sounds bilaterally at bases) Cardiovascular: RRR, no murmur, no edema Rate/Rhythm: regular rate and + tachycardic Heart Sounds: + murmur (1/6 systolic murmur) Vessels: no JVD Extremities: no edema Gastrointestinal (Abdomen): normal bowel sounds, soft, nontender, no hepatosplenomegaly Neurologic: PERRL, EOMI, accommodation nl, no face palsy, no dysarthria Results & Data Vital Signs (Past 12 Hours) Vital Signs Temp Pulse Pulse Pulse Pulse Resp Resp 09/03/23 07:28 36.3 C L 73 17 09/03/23 07:00 84 74 20 09/03/23 03:29 36.5 C 63 18 09/02/23 22:25 36.5 C 124 H 18 09/02/23 22:00 120 H Resp BP BP Pulse Ox Pulse Ox Pulse Ox O2 Del Method 09/03/23 07:28 134/82 92 Room Air 09/03/23 07:00 18 95 97 09/03/23 03:29 105/66 100 Nasal Cannula 09/02/23 22:25 94/68 L 95 Room Air 09/02/23 22:00 O2 Flow Rate 09/03/23 07:28 09/03/23 07:00 09/03/23 03:29 4 09/02/23 22:25 09/02/23 22:00 Laboratory Results CBC 09/03/23 Range/Units 05:54 WBC 6.68 (4.8-10.8) K/ul RBC 4.11 L (4.20-5.40) M/uL Hgb 12.6 (12.0-16.0) g/dl Hct 37.9 (37.0-47.0) % Plt Count 188 (130-400) K/uL Neut # (Auto) 4.25 (1.40-6.50) K/uL Lymph # (Auto) 1.00 L (1.20-3.40) K/uL [place] # (Auto) 0.98 H (0.11-0.59) K/uL Eos # (Auto) 0.35 (0.00-0.50) K/uL Baso # (Auto) 0.03 (0.00-0.20) K/uL Comprehensive Metabolic Panel 09/03/23 Range/Units 05:54 Sodium 133 L (136-145) mmol/L Potassium 4.1 (3.5-5.1) mmol/L Chloride 99 (98-107) mmol/L Carbon Dioxide 29 (21-32) mmol/L BUN 29 H (6-23) mg/dl Creatinine 1.65 H (0.6-1.2) mg/dl Glucose 70 (70-99(Fasting)) mg/dl Calcium 8.6 (8.6-10.3) mg/dl Intake and Output 09/02/23 09/03/23 09/03/23 22:59 06:59 14:59 Intake Total 450 / 1550 Output Total 200 / 2801 601 / 2801 Balance -200 / -1251 -151 / -1251 Intake: IV 50 / 250 cefTRIAXone SODIUM 2,000 mg In 50 / 50 Dextrose 5 % Mini-B 50 ml @ 100 mls/hr IV Q24H [facility] Rx#: [id number] Oral 400 / 1300 Output: Urine 200 / 2800 600 / 2800 # Bowel Movements Other: # Unmeasured Voids 1 Weight 50.3 kg Weight Measurement Method Built in [facility]
--- NOTE | 2023-09-03 13:54 | Hospitalist Progress Note ---
Date of Service September 03, 2023 Assessment & Plan (1) Hypoxia: (2) Acute on chronic diastolic (congestive) heart failure: Plan: This is a 78 y/o female with a history of paroxysmal A-fib, tachy-jaqui syndrome s/p PPM, chronic diastolic HF, CKD3, allergic rhinitis/sinusitis, ELMO on CPAP, gout, COPD, HTN, PVD s/p right iliac stent presents to the ED with acute onset of dyspnea In the ED, sats dropped to the 80s with minimal ambulation and pt became more short of breath so she's been referred for admission. Suspect respiratory symptoms are multi-factorial due to episodic PAF/flutter, acute on chronic HF, and possible complicated bronchitis, which has been partially treated. Chest x-ray on admission personally reviewed; consistent with pulmonary edema. Severe emphysema present No leukocytosis EKG on admission shows atrial paced rhythm Echocardiogram shows EF of 50 to 55% with moderate concentric LVH. Patient was diuresed with IV Lasix. Diuretics currently on hold due to increasing creatinine Continue on ceftriaxone for possible pneumonia Patient will need a referral for pulmonology as outpatient for management of emphysema. Patient is currently not on any inhalers. (3) Paroxysmal atrial fibrillation: Plan: On metoprolol succinate 100 mg twice daily Telemetry shows Peroids of elevated heart rate Continue to monitor on telemetry Cardiology on board; plan to discuss case further with electrophysiology given.'s of tachycardia. (4) Chronic kidney disease, stage 3 (moderate): Plan: Creatinine appears to be around baseline Continue to monitor CBC (5) Obstructive sleep apnea: Plan: Continue CPAP at HS (6) Anticoagulant long-term use: Plan: Pt is on chronic apixaban due to PAF - will continue (7) Hypertension: Plan: Chronic, stable Continuing home medications Plan Code Status: Full code DVT Prophylaxis: on apixaban Dispositionpatient admitted for pneumonia, acute on chronic heart failure as well as A-fib. Patient has periods of tachycardia overnight on the monitor. Awaiting EP evaluation. Continue IV antibiotics for pneumonia. Time spent evaluating patient, direct bedside care, chart review, placing orders, interpretation of diagnostic studies, discussion with consultants, patient, and family members, as well as other required patient management activities is 50-minute Please note the above document was generated using voice recognition software. It may contain grammatical, syntax or spelling errors. Any formal questions or concerns about the content, text or information contained within the body of this dictation should be directly addressed to the provider for clarification Admission and Anticipated Discharge Date Admission Date: August 31, 2023 Subjective Patient seen and examined at bedside. She reports that her shortness of breath has been improved significantly Patient had prolonged episode of tachycardia with ventricular pacing yesterday. Denies any chest pain or discomfort today Review of Systems Review of Systems: All systems reviewed & are unremarkable except as noted in Subjective Physical Exam Physical Exam: Constitutional: WD/WN, vitals as above, NAD, sitting up in bed, pleasant, conversing easily Respiratory: Decreased breath entry bilaterally. No wheeze or crackles Cardiovascular: RRR, no murmur, no edema Vessels: no JVD or carotid bruit Chest: normal inspection of chest Abdomen: normal bowel sounds, soft, nontender, no hepatosplenomegaly Musculoskeletal: no cyanosis or clubbing, extremities motor strength 5/5 Skin: no rashes, warm and dry normal turgor Neurologic: PERRL, EOMI, accommodation nl, no face palsy, no dysarthria CN's II- XI intact bilaterally and moves all extremities Psychiatric: A+Ox3, euthymic affect Results & Data Results & Data Vital Signs (Past 12 Hours) Vital Signs Temp Pulse Pulse Pulse Pulse Resp Resp 09/03/23 11:34 36.5 C 61 17 09/03/23 09:46 83 09/03/23 09:43 09/03/23 07:28 36.3 C L 73 17 09/03/23 07:00 84 74 20 09/03/23 03:29 36.5 C 63 18 Resp BP BP Pulse Ox Pulse Ox Pulse Ox O2 Del Method 09/03/23 11:34 115/75 95 Room Air 09/03/23 09:46 09/03/23 09:43 Room Air 09/03/23 07:28 134/82 92 Room Air 09/03/23 07:00 18 95 97 09/03/23 03:29 105/66 100 Nasal Cannula O2 Flow Rate 09/03/23 11:34 09/03/23 09:46 09/03/23 09:43 09/03/23 07:28 09/03/23 07:00 09/03/23 03:29 4 (4) Chronic kidney disease, stage 3 (moderate) Chronic kidney disease stage 3 subtype: unspecified whether 3a or 3b Qualified Code(s): N18.30 - Chronic kidney disease, stage 3 unspecified (7) Hypertension Hypertension type: primary hypertension Qualified Code(s): I10 - Essential (primary) hypertension
[2023-09-03] MEDS: CALAMINE/PRAMOXINE LOTION 180 APPLN/180 ML BTL EXT SCH (21:39)
[2023-09-04 06:34] LABS: BUN Creatinine Ratio 19.4 (10-20); Calcium 8.5 mg/dl (8.6-10.3); Creatinine Clr Calc Pharmacy 27.2 ml/min; Est GFR (African American) 42.6 ml/min; Est GFR (Non-African American) 36.7 ml/min; Potassium 3.9 mmol/L (3.5-5.1)
--- NOTE | 2023-09-04 08:34 | Cardiology Progress Note ---
Date of Service September 04, 2023 Assessment & Plan (1) Acute on chronic diastolic (congestive) heart failure: (2) Atrial fibrillation with rapid ventricular response: (3) SVT (supraventricular tachycardia): Plan Echocardiogram performed in July, was performed in the setting of a rapid atrial tachycardia, with abnormal septal motion in setting of ventricular pacing, ejection fraction range of 45 to 50%. Repeat echocardiogram performed 09/01/2023 while patient was in sinus rhythm in 60s revealed LVEF in the range of 50 to 55%, grade 2 diastolic dysfunction, mild mitral regurgitation Creatinine has trended up to 1.6. Hold IV and oral diuretics, in setting of wo rsening renal function and dofetilide therapy. EKG performed on presentation revealed a relatively stable QT interval of 409 ms. Recommend avoiding QT prolonging agents given treatment with dofetilide 250 mcg twice daily. Continue metoprolol succinate 100 mg twice daily with dose have been escalated over the last month. Patient with history of complex atrial arrhythmias including recurrent atrial fibrillation, and atrial tachycardia. She has a history of radiofrequency ablation of atrial fibrillation performed 09/25/2013 at [facility] with incomplete response, complicated by atrial per foration and acute tamponade that required surgical repair. She subsequently developed tachycardia-bradycardia syndrome and a dual-chamber [employer] permanent pacemaker was placed on 09/27/2017 with ventricular lead in the RV apex. She has underlying history of COPD, longtime former smoker, and lung disease was felt to be worse while on amiodarone and therefore she is not a candidate for that medication. She has therefore been maintained on dofetilide and metoprolol however is having breakthrough arrhythmias. At this time consideration being made toward upgrading pacemaker to a left bundle lead system with AV node junction ablation. Patient agreeable. Will plan on holding dose of Eliquis evening of 09/04/2023 and morning of 09/05/2023 with procedure possibly on 09/05/2023. Patient agreeable. The patient's 3 years ago and she lives alone and has no children. She has been to update her friend, Susan Herring, phone [phone]. Admission and Anticipated Discharge Date Admission Date: August 31, 2023 Subjective Patient seen in follow up. SOB improved compared to when initially presented to hospital. No subjective palpitations this am or overnight. Telemetry at 8:04 am revealed SR with A-pacing and ventricular sensed rhythm at 62 bpm. Had recurrent narrow complex tachycardia from 3:30 am to 4:10 am at 140 bpm , consistent with atrial tachycardia. Physical Exam Constitutional: WD/WN, vitals as above Respiratory: no cough Auscultation: + diminished lung sounds (Decreased breath sounds bilaterally at bases) Cardiovascular: RRR, no murmur, no edema Rate/Rhythm: regular rate and + tachycardic Heart Sounds: + murmur (1/6 systolic murmur) Vessels: no JVD Extremities: no edema Gastrointestinal (Abdomen): normal bowel sounds, soft, nontender, no hepatosplenomegaly Neurologic: PERRL, EOMI, accommodation nl, no face palsy, no dysarthria Results & Data Vital Signs (Past 12 Hours) Vital Signs Temp Pulse Pulse Resp BP BP Pulse Ox 09/04/23 07:37 36.5 C 74 17 117/73 92 09/04/23 03:32 36.6 C 90 18 115/72 99 09/03/23 22:10 36.6 C 106 H 18 107/66 98 09/03/23 22:00 62 09/03/23 21:40 67 142/94 H O2 Del Method O2 Flow Rate 09/04/23 07:37 Room Air 09/04/23 03:32 Nasal Cannula 4 09/03/23 22:10 Room Air 09/03/23 22:00 09/03/23 21:40
--- NOTE | 2023-09-04 12:43 | XRay Report ---
XR chest 2V PA/lateral CLINICAL HISTORY: CHF TECHNIQUE: 2 views of the chest were obtained. Comparison: Comparison is made to chest radiograph 08/31/2023 FINDINGS: Median sternotomy wires are unchanged. Dual-lead pacemaker is seen. Cardiomegaly is noted. The aortic arch is calcified. Prominence and cephalization of the vasculature is seen. No evidence of pleural e ffusion or pneumothorax. IMPRESSION: Cardiomegaly and mild pulmonary edema. ACT 112: Negative or not required by law. Electronically signed by: Shelton Mahan M.D. 09/04/2023 12:42 PM
--- NOTE | 2023-09-04 15:56 | Hospitalist Progress Note ---
Date of Service September 04, 2023 Assessment & Plan (1) Hypoxia: (2) Acute on chronic diastolic (congestive) heart failure: Plan: This is a 78 y/o female with a history of paroxysmal A-fib, tachy-jaqui syndrome s/p PPM, chronic diastolic HF, CKD3, allergic rhinitis/sinusitis, ELMO on CPAP, gout, COPD, HTN, PVD s/p right iliac stent presents to the ED with acute onset of dyspnea In the ED, sats dropped to the 80s with minimal ambulation and pt became more short of breath so she's been referred for admission. Suspect respiratory symptoms are multi-factorial due to episodic PAF/flutter, acute on chronic HF, and possible complicated bronchitis, which has been partially treated. Chest x-ray on admission personally reviewed; consistent with pulmonary edema. Severe emphysema present No leukocytosis EKG on admission shows atrial paced rhythm Echocardiogram shows EF of 50 to 55% with moderate concentric LVH. Patient was diuresed with IV Lasix. Diuretics currently on hold due to increasing creatinine Continue on ceftriaxone for possible pneumonia Patient will need a referral for pulmonology as outpatient for management of emphysema. Patient is currently not on any inhalers. (3) Paroxysmal atrial fibrillation: Plan: On metoprolol succinate 100 mg twice daily Telemetry shows Peroids of elevated heart rate Continue to monitor on telemetry Cardiology on board; plan to upgrade pacemaker to biventricular along with AV kavitha ablation tomorrow (4) Chronic kidney disease, stage 3 (moderate): Plan: Creatinine appears to be around baseline Continue to monitor CBC (5) Obstructive sleep apnea: Plan: Continue CPAP at HS (6) Anticoagulant long-term use: Plan: Pt is on chronic apixaban due to PAF - will continue (7) Hypertension: Plan: Chronic, stable Continuing home medications Plan Code Status: Full code DVT Prophylaxis: on apixaban on hold Dispositionpatient admitted for pneumonia, acute on chronic heart failure as well as A-fib. Plan for EP study tomorrow along with upgrade to biventricular lead and AV kavitha ablation. Time spent evaluating patient, direct bedside care, chart review, placing orders, interpretation of diagnostic studies, discussion with consultants, patient, and family members, as well as other required patient management activities is 50-minute Please note the above document was generated using voice recognition software. It may contain grammatical, syntax or spelling errors. Any formal questions or concerns about the content, text or information contained within the body of this dictation should be directly addressed to the provider for clarification Admission and Anticipated Discharge Date Admission Date: August 31, 2023 Subjective Patient seen and examined at bedside. Comfortable; not in distress. Denies fever, chills, chest pain, shortness of breath, abdominal pain or urinary symptoms. No significant overnight events Review of Systems Review of Systems: All systems reviewed & are unremarkable except as noted in Subjective Physical Exam Physical Exam: Constitutional: WD/WN, vitals as above, NAD, sitting up in bed, pleasant, conversing easily Respiratory: Decreased breath entry bilaterally. No wheeze or crackles Cardiovascular: RRR, no murmur, no edema Vessels: no JVD or carotid bruit Chest: normal inspection of chest Abdomen: normal bowel sounds, soft, nontender, no hepatosplenomegaly Musculoskeletal: no cyanosis or clubbing, extremities motor strength 5/5 Skin: no rashes, warm and dry normal turgor Neurologic: PERRL, EOMI, accommodation nl, no face palsy, no dysarthria CN's II- XI intact bilaterally and moves all extremities Psychiatric: A+Ox3, euthymic affect Results & Data Results & Data Vital Signs (Past 12 Hours) Vital Signs Temp Pulse Resp BP Pulse Ox O2 Del Method 09/04/23 15:45 36.6 C 60 17 106/71 90 Room Air 09/04/23 11:12 36.6 C 75 17 112/70 96 Room Air 09/04/23 08:00 Room Air 09/04/23 07:37 36.5 C 74 17 117/73 92 Room Air (4) Chronic kidney disease, stage 3 (moderate) Chronic kidney disease stage 3 subtype: unspecified whether 3a or 3b Qualified Code(s): N18.30 - Chronic kidney disease, stage 3 unspecified (7) Hypertension Hypertension type: primary hypertension Qualified Code(s): I10 - Essential (primary) hypertension
[2023-09-05 06:33] LABS: Basophils # (auto) 0.04 K/uL (0.00-0.20); Basophils % (auto) 0.8 %; Eosinophils # (auto) 0.47 K/uL (0.00-0.50); Eosinophils % (auto) 9.3 %; Hematocrit (blood only) 39.2 % (37.0-47.0); Hemoglobin 13.2 g/dl (12.0-16.0); Immature Granulocytes # (auto) 0.06 K/uL (0.01-0.20); Immature Granulocytes % (auto) 1.2 %; Lymphocytes # (auto) 0.96 K/uL (1.20-3.40); Lymphocytes % (auto) 19.1 %; Mean Corpuscular Hemoglobin 30.6 pg (25.0-34.0); Mean Corpuscular Hgb Conc 33.7 g/dL (32.0-36.0); Mean Platelet Volume 11.2 fL (9.4-12.4); Monocytes # (auto) 0.82 K/uL (0.11-0.59); Monocytes % (auto) 16.3 %; Neutrophils # (auto) 2.68 K/uL (1.40-6.50); Neutrophils % (auto) 53.3 %; Platelet Count 208 K/uL (130-400); RDW Coefficient of Variation 14.1 % (11.5-14.5); RDW Standard Deviation 47.2 fL (36.4-46.3); Red Blood Count 4.31 M/uL (4.20-5.40); White Blood Count 5.03 K/ul (4.8-10.8)
[2023-09-05 06:36] LABS: BUN Creatinine Ratio 20.3 (10-20); Calcium 8.9 mg/dl (8.6-10.3); Creatinine Clr Calc Pharmacy 28.5 ml/min; Est GFR (African American) 44.9 ml/min; Est GFR (Non-African American) 38.7 ml/min; Potassium 4.1 mmol/L (3.5-5.1)
--- NOTE | 2023-09-05 10:19 | History & Physical Bridge Note ---
Date of Service September 05, 2023 History & Physical Bridge Note I have examined the patient, reviewed the History & Physical and in the interval since the performance of the History & Physical I have noted the following changes of clinical significance: pt with recurrent atrial arrhythmias with RVR and symptomatic despite AVN blockers as well as she has a history of NICM. Recommend upgrade to a BiV pacemaker followed by an AV junction ablation. I discussed the procedure and potential risks with the patient-she expressed an understanding and agreed to proceed and consents signed.
--- NOTE | 2023-09-05 10:20 | Pre Anesthesia Assessment ---
Date of Service September 05, 2023 Pre Sedation Assessment Vital Signs Temp Pulse Pulse Resp BP BP Pulse Ox 09/05/23 08:00 09/05/23 07:16 36.7 C 126 H 18 111/75 99 09/05/23 03:23 36.5 C 100 H 22 132/77 100 09/04/23 23:34 36.5 C 64 20 130/75 100 09/04/23 22:39 61 09/04/23 20:40 74 110/65 09/04/23 19:43 36.3 C L 64 20 91/54 L 95 09/04/23 19:30 09/04/23 15:45 36.6 C 60 17 106/71 90 09/04/23 11:12 36.6 C 75 17 112/70 96 O2 Del Method O2 Flow Rate 09/05/23 08:00 Room Air 09/05/23 07:16 Nasal Cannula 4.5 09/05/23 03:23 Nasal Cannula 4 09/04/23 23:34 Room Air 09/04/23 22:39 09/04/23 20:40 09/04/23 19:43 Room Air 09/04/23 19:30 Room Air 09/04/23 15:45 Room Air 09/04/23 11:12 Room Air Cardiovascular + irregularly irregular Respiratory normal respiratory effort, lungs clear to auscultation Pre-Sedation Airway Assessment Smoking Status: Former smoker Thyromental Distance: < 3.5 Finger Breadths Oral Cavity: + WNL Mallampati Class: II ASA: ASA3 NPO Status Date of Last Intake of Fluids: 09/04/23 Date of Last Intake of Solid Food: 09/04/23 Procedure Planning Contraindications for Sedation: none Current Medications Reviewed: Yes Notes The planned sedation has been discussed with the patient. Informed Consent was obtained. I have identified the patient, determined the appropriateness of sedation and have assessed the patient immediately prior to the procedure. All medicine(s) and interventions are by my order.
[2023-09-05] MEDS: LIDOCAINE 1% LOCAL 20 ML VIAL ONE (11:55)
[2023-09-05] MEDS: VANCOMYCIN HCL 1000MG/20ML VIAL ONE (11:55)
[2023-09-05] MEDS: WATER, STERILE FOR INJ 10 ML VIAL ONE (11:55)
[2023-09-05] MEDS: ceFAZolin 330 MG/ML 1 GM VIAL ONE (11:55)
[2023-09-05] MEDS: BUPIVACAINE 0.25% PF 30 ML VIAL ONE (11:55)
[2023-09-05] MEDS: fentaNYL citrate PF 100 MCG/2 ML VIAL ONE (11:55)
[2023-09-05] MEDS: MIDAZOLAM HCL 5 MG/ML 1 ML VIAL ONE (11:56)
--- NOTE | 2023-09-05 13:18 | Post Anesthesia Assessment ---
Date of Service September 05, 2023 Post Sedation Assessment Vital Signs Temp Pulse Pulse Resp BP BP Pulse Ox 09/05/23 12:15 60 18 153/86 H 97 09/05/23 12:00 60 18 155/88 H 97 09/05/23 10:23 61 18 132/63 97 09/05/23 08:00 09/05/23 07:16 36.7 C 126 H 18 111/75 99 09/05/23 03:23 36.5 C 100 H 22 132/77 100 09/04/23 23:34 36.5 C 64 20 130/75 100 09/04/23 22:39 61 09/04/23 20:40 74 110/65 09/04/23 19:43 36.3 C L 64 20 91/54 L 95 09/04/23 19:30 09/04/23 15:45 36.6 C 60 17 106/71 90 O2 Del Method O2 Flow Rate 09/05/23 12:15 Room Air 09/05/23 12:00 Room Air 09/05/23 10:23 Room Air 09/05/23 08:00 Room Air 09/05/23 07:16 Nasal Cannula 4.5 09/05/23 03:23 Nasal Cannula 4 09/04/23 23:34 Room Air 09/04/23 22:39 09/04/23 20:40 09/04/23 19:43 Room Air 09/04/23 19:30 Room Air 09/04/23 15:45 Room Air Recovery Score Activity: Moves 4 extremities Respiration: Deep Breath/Cough Circulation: +/-20% PreAnes Value Consciousness: Fully Awake Oxygen Saturation: > 92% On Room Air Post Anesthesia Score: 10 Discharge Sedation Level of Care: Fast Track Phase II Post Sedation Plan On clinical assessment, the patient appears to have tolerated the sedation without complications. Patient is recovering as anticipated. Patient will continue to be monitored by nursing and may be discharged when sedation discharge criteria are met per below protocol. Upon Completions of procedure up to 15 minutes continue every 5 minute vital signs and the P.A.R. score; then discharge to a Phase I or Fast Track to Phase II per the following guidelines: * Discharge Patient to appropriate Phase II area if PAR is 8 or greater or return to pre- procedure baseline. The post - procedure orders will be as directed. * If PAR score is less than 8 or not return to pre-procedure baseline then patient will follow Phase I monitoring till PAR is reached for Phase II. The Phase I may be done in procedure room or may call to secure a Phase I area. * If naloxone or flumazenil are used for reversal, hold in Phase I for continued monitoring from when last reversal dose was given for a minimum of 60 minutes or longer pending the nurse and/or physician discretion of patient condition before discharge to Phase II. Please call the Sedation Physician to re-evaluate and complete post-note for discharge to Phase II area. Do NOT discharge from procedure sedation or Phase 1 until post- sedation evaluation note is complete by procedure /sedation MD Sedation Discharge Instructions to be given to the patient at discharge to home.
--- NOTE | 2023-09-05 13:27 | Operative Report ---
Post Operative Report DATE OF PROCEDURE: 09/05/2023 PREOPERATIVE DIAGNOSIS: Atrial fibrillation with RVR POSTOPERATIVE DIAGNOSIS: same plus complete heart block PROCEDURES PERFORMED: ultrasound guidance venous access, radiofrequency ablation of the AV junction, 3D mapping His bundle EGM recordings under fluoroscopic guidance along with dual ppm interrogation and reprogramming SURGEON: Mae Crisostomo DO. PRIMER ASSEMBLER: None. ANESTHESIA: Monitored conscious sedation administered under my supervision by Isabelle Mullen. Start time 11:19 and end time 11:53. A total of 1 mg of Versed and 25 mcg of fentanyl. INTRAVENOUS FLUIDS: 100mL. BLOOD LOSS: 5 mL CONTRAST: 10cc URINE OUTPUT: Not applicable. SPECIMENS: None. FINDINGS: See below. DRAINS: None. COMPLICATIONS: None. CONDITION: Stable. INDICATIONS: This is a 78-year-old female who has a past medical history CONSENT: Consent was obtained prior to the patient going into the electrophysiology lab. The patient was informed of risks, benefits, and alternatives to the procedure. Risks include, but not limited to sudden cardiac , cardiac arrhythmias, cerebrovascular accident, myocardial infarction, injury to the blood vessels, chamber of the heart, or the [place] electrical system where she would need a permanent pacemaker, bleeding, and infection. The patient understood these risks and agreed to the procedure as planned. Informed consent was obtained. DESCRIPTION OF PROCEDURE: The patient was brought into the electrophysiology lab in a fasting state. She was connected to continuous cardiac monitoring. A time-out was performed to ensure the patient identity and procedure correctly. She was prepped and draped over bilateral groins in normal surgical standard fashion. Monitored conscious sedation was given throughout the procedure for the patient's comfort level. [place] precautions were maintained throughout the procedure. 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 So we opted to not do the the upgrade to BiV ppm and just proceed with the AVN ablation. A 10 mL of 1% lidocaine-bupivacaine mixture were given in the right groin for local anesthesia. Then, using the modified Seldinger technique under ultrasound guidance, venous access was obtained in the following manner. The right femoral vein had an 8-[place] sheath followed by a Non-irrigated 8mm [employer] curve ablation catheter. The dual ppm was interrogated and reprogrammed for the ablation-see below. The HIS EGM was found with 3D mapping; the AH 93; HV 73ms when the camera was in CAI 30. Then radiofrequency ablation was performed at 70 Redd. The patient quickly went into complete heart block with ventricular pacing. Then re-ensurace larson were given totaling about 3 minutes. After a post ablation waiting time; we confirmed the patient was still in complete heart block. The dual ppm was interrogated and reprogrammed post ablati on-see below. The catheter was removed from the body and the sheath was pulled and manual compression was used to establish hemostasis. Dual ppm Interrogation and reprogramming: Pre ablation: RA: 2.9mV; 494 ohms; 0.5V @ 0.4ms Left bundle: 4.9mV; 399 ohms; 2V @ 0.4ms Reprogrammed: DOO 30 Post Ablation: RA: 2.8mV; 490ohms; 0.5V @ 0.4ms Left bundle: 9.5mV; 380 ohms; 1.0V @ 0.4ms Reprogramming: DDDR 80bpm RA amplitude 2V Left bundle amplitude increased to 3.0V RV capture management turned to monitor only Paced AV 180ms Sensed AV 150ms IMPRESSION: 1. Successful AV junction radiofrequency ablation with reprogramming of dual ppm secondary to AF with RVR and CHF. PLAN: Monitor the patient post-procedure. No heavy lifting or squatting for 1 week. The patient will follow up in the office in 1 month's time.
--- NOTE | 2023-09-05 14:19 | Electrocardiogram Report ---
Test Reason : Blood Pressure : / mmHG Vent. Rate : 080 BPM Atrial Rate : 080 BPM P-R Int : 176 ms QRS Dur : 166 ms QT Int : 494 ms P-R-T Axes : 107 261 081 degrees QTc Int : 569 ms AV dual-paced rhythm Abnormal ECG When compared with ECG of 31-AUG-2023 09:32, Electronic ventricular pacemaker has replaced Electronic atrial pacemaker Confirmed by Chino Dubose ([id number]) on 09/05/2023 2:19:13 PM Referred By: REFERRED SELF Confirmed By:Jamaal Dubose
--- NOTE | 2023-09-05 14:25 | Hospitalist Progress Note ---
Date of Service September 05, 2023 Assessment & Plan (1) Hypoxia: (2) Acute on chronic diastolic (congestive) heart failure: Plan: This is a 78 y/o female with a history of paroxysmal A-fib, tachy-jaqui syndrome s/p PPM, chronic diastolic HF, CKD3, allergic rhinitis/sinusitis, ELMO on CPAP, gout, COPD, HTN, PVD s/p right iliac stent presents to the ED with acute onset of dyspnea In the ED, sats dropped to the 80s with minimal ambulation and pt became more short of breath so she's been referred for admission. Suspect respiratory symptoms are multi-factorial due to episodic PAF/flutter, acute on chronic HF, and possible complicated bronchitis, which has been partially treated. Chest x-ray on admission personally reviewed; consistent with pulmonary edema. Severe emphysema present No leukocytosis EKG on admission shows atrial paced rhythm Echocardiogram shows EF of 50 to 55% with moderate concentric LVH. Patient was diuresed with IV Lasix. Diuretics currently on hold due to increasing creatinine Plan to treat with antibiotics for 7 days Patient will need a referral for pulmonology as outpatient for management of emphysema. Patient is currently not on any inhalers. (3) Paroxysmal atrial fibrillation: Plan: On metoprolol succinate 100 mg twice daily Telemetry shows Peroids of elevated heart rate Continue to monitor on telemetry Cardiology on board; patient underwent AV kavitha ablation and upgrade of leads to biventricular leads on September 05, 2023. (4) Chronic kidney disease, stage 3 (moderate): Plan: Creatinine appears to be around baseline Continue to monitor CBC (5) Obstructive sleep apnea: Plan: Continue CPAP at HS (6) Anticoagulant long-term use: Plan: Pt is on chronic apixaban due to PAF - will continue (7) Hypertension: Plan: Chronic, stable Continuing home medications Plan Code Status: Full code DVT Prophylaxis: on apixaban on hold Dispositionpatient admitted for pneumonia, acute on chronic heart failure as well as A-fib. Patient underwent EP procedure today. Plan to monitor over. Time spent evaluating patient, direct bedside care, chart review, placing orders, interpretation of diagnostic studies, discussion with consultants, patient, and family members, as well as other required patient management activities is 50-minute Please note the above document was generated using voice recognition software. It may contain grammatical, syntax or spelling errors. Any formal questions or concerns about the content, text or information contained within the body of this dictation should be directly addressed to the provider for clarification Admission and Anticipated Discharge Date Admission Date: August 31, 2023 Subjective Seen and examined at bedside. She underwent upgrade of biventricular pacemaker along with AV kavitha ablation Review of Systems Review of Systems: All systems reviewed & are unremarkable except as noted in Subjective Physical Exam Physical Exam: Constitutional: WD/WN, vitals as above, NAD, sitting up in bed, pleasant, conversing easily Respiratory: Decreased breath entry bilaterally. No wheeze or crackles Cardiovascular: RRR, no murmur, no edema Vessels: no JVD or carotid bruit Chest: normal inspection of chest Abdomen: normal bowel sounds, soft, nontender, no hepatosplenomegaly Musculoskeletal: no cyanosis or clubbing, extremities motor strength 5/5 Skin: no rashes, warm and dry normal turgor Neurologic: PERRL, EOMI, accommodation nl, no face palsy, no dysarthria CN's II- XI intact bilaterally and moves all extremities Psychiatric: A+Ox3, euthymic affect Results & Data Results & Data Vital Signs (Past 12 Hours) Vital Signs Temp Pulse Resp BP BP Pulse Ox O2 Del Method 09/05/23 12:15 60 18 153/86 H 97 Room Air 09/05/23 12:00 60 18 155/88 H 97 Room Air 09/05/23 10:23 61 18 132/63 97 Room Air 09/05/23 08:00 Room Air 09/05/23 07:16 36.7 C 126 H 18 111/75 99 Nasal Cannula 09/05/23 03:23 36.5 C 100 H 22 132/77 100 Nasal Cannula O2 Flow Rate 09/05/23 12:15 09/05/23 12:00 09/05/23 10:23 09/05/23 08:00 09/05/23 07:16 4.5 09/05/23 03:23 4 (4) Chronic kidney disease, stage 3 (moderate) Chronic kidney disease stage 3 subtype: unspecified whether 3a or 3b Qualified Code(s): N18.30 - Chronic kidney disease, stage 3 unspecified (7) Hypertension Hypertension type: primary hypertension Qualified Code(s): I10 - Essential (primary) hypertension
--- NOTE | 2023-09-05 17:39 | Cardiology Progress Note ---
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 Patient underwent AV node ablation. Eliquis has been held the evening before and the morning of procedure. Will resume Eliquis tonight next dose 09/05/2023 at 2100. Metoprolol succinate dose reduced to 50 mg daily. Continue dofetilide.For now. Post procedure EKG reveals AV sequential pacing at 80 bpm with QT interval of 569 ms in the setting of ventricular paced QRS complex. Admission and Anticipated Discharge Date Admission Date: August 31, 2023 Subjective Patient seen in general cardiology follow-up post procedure, assessment and physical exam took place at approximately 1600 today. Patient feeling well, tolerated the procedure well. No post procedure pain. Telemetry reveals sinus rhythm with AV sequential pacing at 80 bpm Physical Exam Constitutional: WD/WN, vitals as above Respiratory: no cough Auscultation: + diminished lung sounds (Decreased breath sounds bilaterally at bases) Cardiovascular: RRR, no murmur, no edema Rate/Rhythm: regular rate and + tachycardic Heart Sounds: + murmur (1/6 systolic murmur) Vessels: no JVD Extremities: no edema Gastrointestinal (Abdomen): normal bowel sounds, soft, nontender, no hepatosplenomegaly Musculoskeletal: Right femoral vein puncture site clean dry and intact, no ecchymosis Neurologic: PERRL, EOMI, accommodation nl, no face palsy, no dysarthria Results & Data Vital Signs (Past 12 Hours) Vital Signs Temp Pulse Resp BP BP Pulse Ox O2 Del Method 09/05/23 16:00 81 18 108/78 94 Room Air 09/05/23 14:00 78 18 140/85 94 Room Air 09/05/23 13:00 36.3 C L 81 18 131/81 92 Room Air 09/05/23 12:15 60 18 153/86 H 97 Room Air 09/05/23 12:00 60 18 155/88 H 97 Room Air 09/05/23 10:23 61 18 132/63 97 Room Air 09/05/23 08:00 Room Air 09/05/23 07:16 36.7 C 126 H 18 111/75 99 Nasal Cannula O2 Flow Rate 09/05/23 16:00 09/05/23 14:00 09/05/23 13:00 09/05/23 12:15 09/05/23 12:00 09/05/23 10:23 09/05/23 08:00 09/05/23 07:16 4.5
[2023-09-05] MEDS: IPRATROPIUM BROMIDE NASAL SPRAY 0.06% 15ML PRN (18:06)
[2023-09-05] MEDS: APIXABAN 5 MG TABLET PO SCH (20:06)
[2023-09-06 06:16] LABS: Basophils # (auto) 0.05 K/uL (0.00-0.20); Basophils % (auto) 0.8 %; Hematocrit (blood only) 41.4 % (37.0-47.0); Hemoglobin 13.3 g/dl (12.0-16.0); Immature Granulocytes # (auto) 0.06 K/uL (0.01-0.20); Lymphocytes # (auto) 0.99 K/uL (1.20-3.40); Lymphocytes % (auto) 15.8 %; Mean Corpuscular Hemoglobin 30.4 pg (25.0-34.0); Mean Corpuscular Hgb Conc 32.1 g/dL (32.0-36.0); Mean Corpuscular Volume 94.5 fL (80.0-100.0); Mean Platelet Volume 11.2 fL (9.4-12.4); Monocytes # (auto) 0.89 K/uL (0.11-0.59); Monocytes % (auto) 14.2 %; Neutrophils # (auto) 3.79 K/uL (1.40-6.50); Neutrophils % (auto) 60.2 %; Platelet Count 202 K/uL (130-400); RDW Coefficient of Variation 14.4 % (11.5-14.5); RDW Standard Deviation 50.1 fL (36.4-46.3); Red Blood Count 4.38 M/uL (4.20-5.40); White Blood Count 6.28 K/ul (4.8-10.8)
[2023-09-06 06:40] LABS: Calcium 8.9 mg/dl (8.6-10.3); Est GFR (African American) 49.8 ml/min; Potassium 4.3 mmol/L (3.5-5.1)
[2023-09-06] MEDS: METOPROLOL SUCC 50MG EXT REL TAB PO SCH (09:28)
--- NOTE | 2023-09-06 11:00 | Cardiology Progress Note ---
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 Patient underwent AV node ablation. Right femoral vein procedure site is clean dry and intact, no evidence of hematoma. Her device was interrogated with the help of Dr. Crisostomo. Events from overnight consistent with her previously noted atrial tachycardia, and the pacemaker is tracking of the fast atrial activity. Device mode changed to DDIR with lower rate of 60 bpm which I think will prevent this, and her rate response will be adequate for activity. Eliquis has been reinitiated. Postprocedure EKG performed 09/05/2023 revealed a corrected QT interval of 569 ms, but this needs to be interpreted with taking the wide ventricular paced QRS complex into account, and overall it is felt to be stable. Metoprolol succinate dose reduced to 50 mg daily. Continue dofetilide 250 mcg twice daily. Stable for discharge with medications as noted above. Note that the metoprolol dose has been reduced. Discharge on prior to hospital treatment furosemide 40 mg p.o. daily. Outpatient cardiology follow-up to be arranged including EP follow-up. Admission and Anticipated Discharge Date Admission Date: August 31, 2023 Subjective Patient seen in cardiology follow-up. Feels well, she has ambulated well in the hallway this morning. Telemetry reveals for the most part AV sequential pacing in the 80s. She did have 2 additional episodes of tachycardia in the bark tanner hours this morning during sleep from 4 to 4:30 AM, and again at just after 5 AM. This appears to be her atrial tachycardia with ventricular pacing, tracking of the atrial activity. Physical Exam Constitutional: WD/WN, vitals as above Respiratory: no cough Auscultation: + diminished lung sounds (Decreased breath sounds bilaterally at bases) Cardiovascular: RRR, no murmur, no edema Rate/Rhythm: regular rate and + tachycardic Heart Sounds: + murmur (1/6 systolic murmur) Vessels: no JVD Extremities: no edema Gastrointestinal (Abdomen): normal bowel sounds, soft, nontender, no hepatosplenomegaly Neurologic: PERRL, EOMI, accommodation nl, no face palsy, no dysarthria Results & Data Vital Signs (Past 12 Hours) Vital Signs Temp Pulse Pulse Resp BP BP Pulse Ox 09/06/23 08:00 09/06/23 07:27 36.6 C 90 18 106/64 95 09/06/23 03:43 36.5 C 101 H 20 117/79 98 09/06/23 01:24 80 09/05/23 23:49 36.7 C 69 20 117/75 98 O2 Del Method O2 Flow Rate 09/06/23 08:00 Room Air 09/06/23 07:27 Room Air 09/06/23 03:43 Nasal Cannula 2 09/06/23 01:24 09/05/23 23:49 Nasal Cannula 2 Laboratory Results CBC 09/06/23 Range/Units 05:50 WBC 6.28 (4.8-10.8) K/ul RBC 4.38 (4.20-5.40) M/uL Hgb 13.3 (12.0-16.0) g/dl Hct 41.4 (37.0-47.0) % Plt Count 202 (130-400) K/uL Neut # (Auto) 3.79 (1.40-6.50) K/uL Lymph # (Auto) 0.99 L (1.20-3.40) K/uL Walsh # (Auto) 0.89 H (0.11-0.59) K/uL Eos # (Auto) 0.50 (0.00-0.50) K/uL Baso # (Auto) 0.05 (0.00-0.20) K/uL Comprehensive Metabolic Panel 09/06/23 Range/Units 05:50 Sodium 135 L (136-145) mmol/L Potassium 4.3 (3.5-5.1) mmol/L Chloride 105 (98-107) mmol/L Carbon Dioxide 24 (21-32) mmol/L BUN 22 (6-23) mg/dl Creatinine 1.22 H (0.6-1.2) mg/dl Glucose 71 (70-99(Fasting)) mg/dl Calcium 8.9 (8.6-10.3) mg/dl Intake and Output 09/05/23 09/06/23 09/06/23 22:59 06:59 14:59 Intake Total 50 / 600 Output Total Balance - 50 / 599 Intake: IV 50 / 50 cefTRIAXone SODIUM 2,000 mg In 50 / 50 Dextrose 5 % Mini-B 50 ml @ 100 mls/hr IV Q24H [facility] Rx#: [id number] Output: # Bowel Movements Other: Other Intake Source sips # Unmeasured Voids 2 1 1 Weight 50.3 kg Weight Measurement Method Built in [facility]
--- NOTE | 2023-09-06 13:56 | Discharge Summary ---
Date of Service September 06, 2023 Admission HPI Per Admitting Provider This is a 78 y/o female with a history of paroxysmal A-fib, tachy-jaqui syndrome s/p PPM, chronic diastolic HF, CKD3, allergic rhinitis/sinusitis, ELMO on CPAP, gout, COPD, HTN, PVD s/p right iliac stent, and other history as outlined below who presents to the ED with acute onset of dyspnea this morning. Pt was recently admitted to [facility] 08/04/23-08/06/23 with acute on chronic diastolic heart failure and atrial fibrillation with RVR. She was diuresed with Laxis 40 mg daily and metoprolol was increased from 12.5 mg to 25 mg BID. A cardioversion was initially planned for August 06 but she spontaneously converted back to NSR. Since being discharged, pt followed up with cardiology and PCP and metoprolol was increased to 50 mg BID then 75 mg BID, then to 100 mg two days ago due to ongoing issues with PAF/flutter episodes. On last ECHO in Jul 2023, LVEF was 45- 50% with concern for possible tachycardia induced cardiomyopathy. At last cardiology visit on 08/24/23, pt appeared clinically hypervolemic so her furose mide was increased from 20 mg ///Sun, 40 mg // to 40 mg daily. On 08/27/23, pt was seen by PCP for productive cough, diagnosed with complicated bronchitis, and started on doxycycline. Seen in f/u on 08/29 and cough was improving but pt was having abdominal pain due to the doxycycline. Antibiotic was changed to cefdinir. Pt noted some improvement in her cough with the antibiotics. She has been sleeping propped up on an extra pillow but it is unclear if this is related to ongoing sinus congestion or to difficulty breathing. This morning, she woke up acute short of breath so she called her friend. Her friend checked her pulse and it was in the 160s and irregular, her friend noted some perioral cyanosis. By the time they arrived at the ED, this had started to improve. Pt has noted increased dyspnea on exertion - she can usually do light housework without significant dyspnea but over the last day, she notes become short of breath with even a few steps. Her friend notes that she was conversationally dyspneic this morning. Pt denies chest pain. She did not notice palpitations this morning but thinks she may have been a little lightheaded. No syncope. Admission Exam Per Admitting Provider General: awake, alert, NAD HEENT: no scleral icterus, moist mucus membranes Neck: trachea midline Heart: RRR at present Lungs: diminished breath sounds, faint basilar crackles but otherwise clear Abdomen: soft, NT, +BS Extremities: no pedal edema, distal pulses intact Skin: no jaundice Neurologic: Ox3, moving all extremities, no focal deficits, no dysarthria Principal Diagnosis Acute on chronic Diastolic Heat Failure Atrial Fibrillation with RVR s/p AV kavitha ablation Discharge Exam Constitutional: WD/WN, vitals as above, NAD, sitting up in bed, pleasant, conversing easily Respiratory: Decreased breath entry bilaterally. No wheeze or crackles Cardiovascular: RRR, no murmur, no edema Vessels: no JVD or carotid bruit Chest: normal inspection of chest Abdomen: normal bowel sounds, soft, nontender, no hepatosplenomegaly Musculoskeletal: no cyanosis or clubbing, extremities motor strength 5/5 Skin: no rashes, warm and dry normal turgor Neurologic: PERRL, EOMI, accommodation nl, no face palsy, no dysarthria CN's II- XI intact bilaterally and moves all extremities Psychiatric: A+Ox3, euthymic affect Discharge Data Allergies Allergy/AdvReac Type Severity Reaction Status Date / Time Cipro Allergy Severe ANAPHYLAXIS Verified 02/26/18 10:43 ciprofloxacin Allergy Severe ANAPHYLAXIS Verified 08/24/23 13:15 amiodarone Allergy Mild Wheezing Verified 08/24/23 13:15 nitrofurantoin Allergy Mild N/V, pt Verified 08/24/23 13:15 also noted irregular HR bacitracin Allergy Unknown SWELLING Verified 08/24/23 13:15 AND ITCHING dabigatran etexilate Allergy Unknown DIFFICULTY Verified 08/24/23 13:15 BREATHING, DIZZINESS hydralazine Allergy Unknown DIARRHEA, Verified 08/24/23 13:15 BLE SWELLING, FLUSHING terazosin Allergy Unknown DIZZY AND Verified 08/24/23 13:15 LIGHTHEADED atorvastatin AdvReac Intermediate MUSCLE PAIN Verified 08/24/23 13:15 rosuvastatin AdvReac Intermediate MUSCLE PAIN Verified 08/24/23 13:15 Sulfa (Sulfonamide AdvReac Intermediate SWELLING Verified 08/24/23 13:15 Antibiotics) OF THE ANKLES Consultations 08/31/23 14:44 ED Decision to Admit Stat 08/31/23 21:50 Consult Cardiology Routine Procedures Performed Operation Date: 09/05/23 10:00 Actual Procedures p Cineradiography w/Routine Exam - Mae Crisostomo DO s AV Node Ablation - Mae Crisostomo DO s Venogram, Unilateral - Mae Crisostomo DO Ordered Studies 09/05/23 06:45 EP Lab Images for PACS ONCE Hospital Course (1) Acute on chronic diastolic (congestive) heart failure: This is a 78 y/o female with a history of paroxysmal A-fib, tachy-jaqui syndrome s/p PPM, chronic diastolic HF, CKD3, allergic rhinitis/sinusitis, ELMO on CPAP, gout, COPD, HTN, PVD s/p right iliac stent presents to the ED with acute onset of dyspnea In the ED, sats dropped to the 80s with minimal ambulation and pt became more short of breath so she's been referred for admission. Suspect respiratory symptoms are multi-factorial due to episodic PAF/flutter, acute on chronic HF, and possible complicated bronchitis, which has been partially treated. Chest x-ray on admission personally reviewed; consistent with pulmonary edema. Severe emphysema present No leukocytosis EKG on admission shows atrial paced rhythm Echocardiogram shows EF of 50 to 55% with moderate concentric LVH. Patient was diuresed with IV Lasix. Treated with antibiotics for 5 days Patient will need a referral for pulmonology as outpatient for management of emphysema. Discharged on 40 mg of Lasix once a day (2) Paroxysmal atrial fibrillation: During the hospitalization, patient had periods of atrial fibrillation and atrial tachycardia. Cardiology was consulted for comanagement; patient underwent AV kavitha ablation on September 05, 2023. 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 Dose of metoprolol was decreased from 100 mg twice daily to 50 mg once a day. Please note the above document was generated using voice recognition software. It may contain grammatical, syntax or spelling errors. Any formal questions or concerns about the content, text or information contained within the body of this dictation should be directly addressed to the provider for clarification Total Time Total Time Spent Total Time Spent (In Minutes): 45 Total Time Includes: Examination of the Patient, Discharge Planning, Medication Reconciliation, Communication With Other Providers and Other Discharge Plan Discharge Items Patient Disposition: Home - Self-Care Reason For Visit: CHF EXACERBATION, HYPOXIA Discharge Diagnosis: Acute on chronic diastolic heart failure Atrial fibrillation with RVR Activity: Resume your previous activity Lifting: No more than 10 pounds Lifting Comment: no heavy lifting or squating for 1 week Non-emergency contact: Primary Care Provider Call non-emergency contact if: you have any medication questions and your symptoms worsen Follow-up/Referrals: Mihir Farris DO [T[facility]] - (The Cardiology office will contact you for a hospital follow up appointment.) Steffen Gonzales DO [Primary Care Provider] - (Date & Time 09/13/2023 8:00 AM Provider Karina Maldonado [address] [place] [address] [place] [address] Date & Time 09/13/2023 8:20 AM Provider Steffen Gonzales DO [address] ) Mae Crisostomo DO [Physician] - (Date & Time 10/05/2023 7:45 AM Provider Mae Crisostomo DO Department Cardiology, [facility] ) Diet: Regular Addtl Attending Provider Instructions: You were admitted to the hospital with heart failure and elevated heart rate. You were seen by cardiology during the hospitalization. You underwent AV kavitha ablation by Dr. Crisostomo on September 05, 2023. The caretaker resort recommended following medication changes: 1) Decrease the dose of metoprolol to 50 mg once a day from 100 mg twice a day 2) take Lasix 40 mg once a day You need to follow-up with your primary care doctor as scheduled. You will need Pulmonology referral for management of emphysema. Follow-up with Dr. Crisostomo and Riddhi Nunez (Dr. Crisostomo's Nurse practitioner) in [address] [facility] on 10/05/2023 at 7:45am Pending Studies at Discharge: No Stand-Alone Forms: My [employer], Smoking Cessation Medications and DC Order Prescriptions: New metoprolol succinate 50 mg Tablet Extended Release 24 Hr 50 mg PO QAM Qty: 60 0RF furosemide [Lasix] 40 mg tablet 40 mg PO DAILY Qty: 30 0RF Continued ipratropium bromide 42 mcg (0.06 %) spray,non-aerosol 2 spray INTNAS TID PRN (Reason: allergy symptoms) Qty: 90 3RF Rx Instructions: administer into each nostril (DME) CPAP Supplies Misc See Rx Instructions .MEDSUPPLY Qty: 1 0RF Rx Instructions: Please change her mask to an AirFit N30i with either a small or extra small nasal cushion. Lifetime need. Eliquis 5 mg tablet 5 mg PO BID ezetimibe [Zetia] 10 mg tablet 10 mg PO DAILY dofetilide 250 mcg capsule 250 mcg PO BID cholecalciferol (vitamin D3) 1,000 unit capsule 1,000 units PO DAILY allopurinol 300 mg tablet 300 mg PO DAILY estradiol 0.01 % (0.1 mg/gram) cream 1 appful VAGINAL UD PRN (Reason: Vaginal Dryness) Rx Instructions: Twice a week (Sun) famotidine 20 mg tablet 10 - 20 mg PO HS PRN (Reason: Acid Reflux) aspirin [Adult Aspirin Regimen] 81 mg tablet,delayed release (DR/EC) 81 mg PO 3XWK Rx Instructions: M/W/F Discontinued cefdinir 300 mg capsule 300 mg PO BID metoprolol succinate 100 mg tablet extended release 24 hr 100 mg PO BID furosemide 20 mg tablet 40 mg PO DAILY Discharge Orders: Discharge Order- CHF (Routine); Ordered 09/06/23 Ordered By: Oscar Sunshine Admission Data Admit Date/Time: 08/31/23 14:57 Attending Provider: Oscar Sunshine Admit Provider: Tanya Olvera Primary Care Provider: Steffen Gonzales Other Providers: Tanya Olvera; Mihir Farris Other Interventions: Discharge Summary Assessment (RN) Last Done: 09/06/23 13:04
== END 2023-09-06 14:31 | disposition home or self-care (01) | DRG 273 ==
LOC: ED 08:51 → EDINP 14:57 → SUATTDRO 14:57 → 4W 23:55